=== PATIENT | female | born 1945 | race Caucasian/White ===

== ENCOUNTER 2016-08-09 20:37 | Inpatient (IN) | payer OTHER ==
[~2016-08-09] VITALS: Ht 162.6 cm; Wt 141.6 kg
[~2016-08-09 20:37] MED LIST: ALL180 PO; ATOR-22 PO; AZEL0.15 NAE; CHOL20009 PO; FLNIN NAE; FLUO20CA35 PO; GABA-112 PO; HYDR-5688 PO; LISI40TA PO; METF-841 PO; RANI300T2 PO; SYN125 PO
[2016-08-09] MEDS ORDERED: SODIUM CHLORIDE 0.9% 1000ML 1,000 ML IV STA (21:05)
[2016-08-09 21:26] LABS: BASO % 0.2 %; BASO ABS # 0.02 K/uL (0-0.2); EOS % 2.9 %; HEMATOCRIT 24.6 % (37-47); IG% 0.3 %; LYMPH % 10.6 %; LYMPH ABS # 1.05 K/uL (1.2-3.4); MEAN CORPUSCULAR HGB CONC 30.5 g/dl (32-36); MEAN PLATELET VOLUME 9.8 fL (7.4-10.4); MONO % 13.2 %; NEUT % 72.8 %; PLATELET COUNT 313 K/uL (130-400); WHITE BLOOD COUNT 9.92 K/uL (4.8-10.8)
[2016-08-09] MEDS ORDERED: FLUT0.15 NAE (21:45)
[2016-08-09] MEDS ORDERED: FEXO1TAB46 PO (21:45)
[2016-08-09] MEDS ORDERED: LEVO125T72 PO (21:45)
[2016-08-09 21:46] LABS: BUN/CREATININE RATIO 26.5 (10-20); CALCIUM 8.6 mg/dl (8.5-10.1); CREATININE 0.97 mg/dl (0.60-1.20); POTASSIUM 4.8 mmol/L (3.5-5.1)
[2016-08-09] MEDS ORDERED: TRMCR515 TOP (21:49)
[2016-08-09 22:09] LABS: INR 1.1 (0.9-1.1); PARTIAL THROMBOPLASTIN RATIO 0.9; PROTHROMBIN TIME (PATIENT) 11.6 SECONDS (9.0-12.0)
[2016-08-09] MEDS ORDERED: ASPEC81 PO (22:43)
[2016-08-09] MEDS ORDERED: PANTOprazole INJ 80 MG in DEXTROSE 5% 100ML IV STA (22:47)
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
[2016-08-09] MEDS ORDERED: DEXTROSE 50% 50 ML SYR IV PRN (23:00)
[2016-08-09] MEDS ORDERED: GLUCOSE 40% GEL 15 GM TUBE PO PRN (23:00)
[2016-08-09] MEDS ORDERED: OPTIRAY 320 IV PRN (23:00)
[2016-08-09] MEDS ORDERED: ONDANSETRON INJ 2 MG/ML 2 ML VIAL IV PRN (23:00)
[2016-08-09] MEDS ORDERED: GLUCAGON FOR INJ 1 MG VIAL SQ PRN (23:00)
[2016-08-09] MEDS ORDERED: GLUCOSE 10 TABS/TUBE PO PRN (23:00)
[2016-08-09] MEDS ORDERED: TRIAMCINOLONE ACET 0.5% CR 15 GM TUBE EXT PRN (23:00)
[2016-08-09] MEDS ORDERED: FLUTICASONE PROPIONATE NA SPR 16 GM BTL NAE PRN (23:00)
[2016-08-09] MEDS: PANTOprazole INJ 40 MG in DEXTROSE 5% 100ML IV SCH (23:02)
[2016-08-09 23:03] LABS: COMPLETE YES
[2016-08-09 23:09] LABS: FERRITIN 24.4 ng/ml (8.0-388.0)
[2016-08-09 23:10] VITALS: BP 156/64; PULSE 70; TEMP 36.8; O2SAT 97
[2016-08-09 23:25] VITALS: BP 162/84; PULSE 92; TEMP 36.9; O2SAT 92
[2016-08-09 23:55] VITALS: BP 162/79; PULSE 83; TEMP 36.9; O2SAT 92
[2016-08-10] VITALS (15 sets, daily range): BP systolic 135–169; BP diastolic 58–86; PULSE 64–81; TEMP 36.5–37; O2SAT 93–98; Ht 162.6 cm; Wt 141.6 kg
[2016-08-10] MEDS ORDERED: SODIUM CHLORIDE 0.9% 1000ML 1,000 ML IV SCH (00:30)
--- NOTE | 2016-08-10 01:34 | EMERGENCY ROOM VISIT NOTE ---
History Report prepared by Baylee: Alisia Pizarro Under the Supervision of: Dr. Mihir Hackett D.O. First contact with patient: 20:51 Chief Complaint: ABNORMAL LABS Stated Complaint: LOW HEMOGLOBIN 7- PHYSICIAN REFERRED History of Present Illness The patient is a 71 year old female who presents to the Emergency Room with complaints of an episode of abnormal labs beginning just [employer]IC[employer] REPA[employer]ER. The patient states that her doctor called her and told her that her hemoglobin is 7 and told her to come into the ED. She reports that she fell 1 week ago and she is diabetic and since then her sugar has stayed high around 199. She notes that she has lymphedema and a history of breast cancer. The patient complains of tiredness, shortness of breath, and burning with urination beginning 1 month ago. She denies any blood in stool, blood thinners, blood in urine, coughing blood, chest pain, abdominal pain, nausea, vomiting. 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 She denies any blood in stool, blood thinners, blood in urine, coughing blood. Review of Systems See HPI for pertinent positives & negatives. A total of 10 systems reviewed and were otherwise negative. Past Medical & Surgical Medical Problems: (1) Depression (2) Diabetes mellitus type II, controlled (3) Dyslipidemia (4) GI bleed (5) HTN (hypertension) (6) HX: breast cancer (7) Hypothyroidism Surgical Problems: (1) History of lumpectomy of right breast (2) History of tonsillectomy Family History No pertinent family history stated. Social History Smoking Status: Never Smoker Marital Status: Housing Status: lives with family Occupation Status: retired Current/Historical Medications Scheduled Aspirin (Aspirin EC Low Dose), 81 MG PO DAILY Atorvastatin (Lipitor), 20 MG PO HS Cholecalciferol (Vitamin D), 4,000 UNITS PO DAILY Fluoxetine (Prozac), 20 MG PO QAM Gabapentin (Neurontin), 100 MG PO TID Levothyroxine Sodium (Synthroid), 125 MCG PO DAILY Lisinopril (Zestril), 40 MG PO QAM Metformin HCl (Metformin HCl ER), 1 TAB PO BID Scheduled PRN Azelastine Hcl (Astepro), 2 SPRY JUVENTINO QPM PRN for Nasal Congestion Fexofenadine Hcl (Judith), 180 MG PO Q2D PRN for ALLERGIC REACTION Fluticasone Propionate (Nasal) (Flonase Allergy Relief), 2 SPRAYS JUVENTINO QAM PRN for Nasal Congestion Hydrocodone/Acetaminophen 5MG/325MG ([place] 5MG/325MG), 1 TABLET PO TID PRN for Pain Ranitidine (Zantac), 300 MG PO HS PRN for Indigestion Triamcinolone Acet (Triamcinolone Acetonide), 1 APPLN TOP BID PRN for dryness Allergies Coded Allergies: Cephalexin (Verified Allergy, Unknown, BURNING, NAUSEA, AND TROUBLE BREATHING, 02/27/16) Penicillins (Verified Allergy, Unknown, KIDNEY INFECTION, HIVES, 02/27/16) Sulfa Drugs (Verified Allergy, Unknown, NAUSEA AND TIRED, 02/27/16) Physical Exam Vital Signs Date Time Temp Pulse Resp B/P Pulse Ox O2 Delivery O2 Flow Rate FiO2 08/09/16 22:04 65 18 105/89 94 Room Air 08/09/16 21:32 69 18 122/73 94 Room Air 08/09/16 21:21 94 Room Air 08/09/16 21:09 72 08/09/16 20:46 36.9 77 20 170/71 92 Room Air Physical Exam GENERAL: sitting up in bed, morbidly obese, no distress EYE EXAM: normal conjunctiva OROPHARYNX: no exudate, no erythema, lips, buccal mucosa, and tongue normal and mucous membranes are moist NECK: supple, no nuchal rigidity, no adenopathy, non-tender LUNGS: Clear to auscultation. Normal chest wall mechanics HEART: no murmurs, S1 normal and S2 normal ABDOMEN: abdomen soft, non-tender, normo-active bowel sounds, no masses, no rebound or guarding. BACK: Back is symmetrical on inspection and there is no deformity, no midline tenderness, no CVA tenderness. SKIN: no rashes and no bruising UPPER EXTREMITIES: upper extremities are grossly normal. LOWER EXTREMITIES: No pitting edema. NEURO EXAM: Normal sensorium, cranial nerves II-XII grossly intact, normal speech, no gross weakness of arms, no gross weakness of legs. RECTAL: Heme positive. Medical Decision & Procedures Laboratory Results 08/09/16 21:00 Red Blood Count 3.00, Mean Corpuscular Volume 82.0, Mean Corpuscular Hemoglobin 25.0, Mean Corpuscular Hemoglobin Concent 30.5, Mean Platelet Volume 9.8, Neutrophils (%) (Auto) 72.8, Lymphocytes (%) (Auto) 10.6, Monocytes (%) (Auto) 13.2, Eosinophils (%) (Auto) 2.9, Basophils (%) (Auto) 0.2, Neutrophils # (Auto ) 7.22, Lymphocytes # (Auto) 1.05, Monocytes # (Auto) 1.31, Eosinophils # (Auto ) 0.29, Basophils # (Auto) 0.02 08/09/16 21:00 Test 08/09/16 21:00 08/09/16 21:51 White Blood Count 9.92 K/uL (4.8-10.8) Red Blood Count 3.00 M/uL (4.2-5.4) Hemoglobin 7.5 g/dL (12.0-16.0) Hematocrit 24.6 % (37-47) Mean Corpuscular Volume 82.0 fL (80-100) Mean Corpuscular Hemoglobin 25.0 pg (25-34) Mean Corpuscular Hemoglobin Concent 30.5 g/dl (32-36) Platelet Count 313 K/uL (130-400) Mean Platelet Volume 9.8 fL (7.4-10.4) Neutrophils (%) (Auto) 72.8 % Lymphocytes (%) (Auto) 10.6 % Monocytes (%) (Auto) 13.2 % Eosinophils (%) (Auto) 2.9 % Basophils (%) (Auto) 0.2 % Neutrophils # (Auto) 7.22 K/uL (1.4-6.5) Lymphocytes # (Auto) 1.05 K/uL (1.2-3.4) Monocytes # (Auto) 1.31 K/uL (0.11-0.59) Eosinophils # (Auto) 0.29 K/uL (0-0.5) Basophils # (Auto) 0.02 K/uL (0-0.2) RDW Standard Deviation 52.2 fL (36.4-46.3) RDW Coefficient of Variation 17.2 % (11.5-14.5) Immature Granulocyte % (Auto) 0.3 % Immature Granulocyte # (Auto) 0.03 K/uL (0.00-0.02) Red Blood Cell Morphology Unremarkable Anion Gap 10.0 mmol/L (3-11) Est Creatinine Clear Calc Drug Dose 71.9 ml/min Estimated GFR () 68.1 Estimated GFR (Non- 58.8 BUN/Creatinine Ratio 26.5 (10-20) Calcium Level 8.6 mg/dl (8.5-10.1) Iron Level 23 mcg/dl (35-150) Total Iron Binding Capacity 310 mcg/dl (250-450) Ferritin 24.4 ng/ml (8.0-388.0) Total Bilirubin 0.5 mg/dl (0.2-1) Direct Bilirubin 0.2 mg/dl (0-0.2) Aspartate Amino Transf (AST/SGOT) 24 U/L (15-37) Alanine Aminotransferase (ALT/SGPT) 25 U/L (12-78) Alkaline Phosphatase 94 U/L (45-117) Total Protein 7.9 gm/dl (6.4-8.2) Albumin 3.4 gm/dl (3.4-5.0) Lipase 158 U/L (73-393) Prothrombin Time 11.6 SECONDS (9.0-12.0) Prothromb Time International Ratio 1.1 (0.9-1.1) Activated Partial Thromboplast Time 22.5 SECONDS (21.0-31.0) Partial Thromboplastin Ratio 0.9 Laboratory results per my review. Medications Administered Medications (Trade) Dose Ordered Sig/Johan Route Start Time Stop Time Status Last Admin Dose Admin Sodium Chloride (Nss 1000ml) 1,000 ml @ 999 mls/hr Q1H1M STAT IV 08/09/16 21:05 08/09/16 22:05 DC 08/09/16 21:05 999 MLS/HR ECG Indication: other (labs) Rate (beats per minute): 68 Rhythm: sinus rhythm Findings: no ectopy, other (normal axis) ED Course ED COURSE: Vital signs were reviewed and showed hypertension The patients medical record was reviewed The above diagnostic studies were performed and reviewed. ED treatments and interventions as stated above. 2050: The patient was evaluated in room A3. A complete history and physical examination was performed. 2105: Sodium Chloride 1000 ml @ 999 mls/hr IV. 0001: I reviewed the patient's case with Dr. Serna. She will evaluate the patient for further management. 0012: Upon reevaluation, the patient is hemodynamically stable.I discussed my findings with the patient and she understands and agrees with the treatment plan. Based on the patients age, coexisting illnesses, exam and lab findings the decision to treat as an inpatient was made. The patient remained stable while under my care. The patient will be evaluated for further management. Medical Decision Differential diagnosis includes etiologies such as diverticulosis, AVM, coagulopathy, colitis, inflammatory bowel disease, malignancy, Shelbie-Sebastian tear, esophagitis, peptic ulcer disease, variceal bleed, gastritis, epistaxis, fissure, hemorrhoids, as well as others were entertained. Patient is a 71-year-old female who presents the ER for diffuse weakness and anemia referred in by primary care doctor. Hemoglobin is 7.5 down from baseline of 10. She has exertional shortness of breath and diffuse weakness. Rectal was heme positive. No blood thinners. Abdominal exam is benign. BMP along with LFTs, bilirubin and lipase was unremarkable. She is no abdominal pain. She is typed and crossed. I obtained the blood consent. She was given 1 unit of PRBCs while in the ER. Case is discussed with internal medicine and she was admitted for a further workup. Consults Time Called: 131 Consulting Physician: Dr. Kareem Parikh Returned Call: [phone] I reviewed the patient's case with Dr. Serna. She will evaluate the patient for further management. Impression Primary Impression: Symptomatic anemia Additional Impression: GI bleed Scribe Attestation The scribe's documentation has been prepared under my direction and personally reviewed by me in its entirety. I confirm that the note above accurately reflects all work, treatment, procedures, and medical decision making performed by me. Departure Information Dispostion Being Evaluated By Hospitalist Referrals Pito Watkins M.D. (MEDICAL) (PCP) Patient Instructions My [facility] Problem Qualifiers Additional Impression: GI bleed GI bleed type/associated pathology: unspecified gastrointestinal hemorrhage type Qualified Codes: K92.2 - Gastrointestinal hemorrhage, unspecified
[2016-08-10] MEDS: PANTOprazole INJ 40 MG in DEXTROSE 5% 100ML IV SCH ×4 (04:27→20:05)
[2016-08-10 06:13] LABS: HEMATOCRIT 24.2 % (37-47); MEAN CELL VOLUME 82.9 fL (80-100); MEAN CORPUSCULAR HEMOGLOBIN 25.3 pg (25-34); MEAN CORPUSCULAR HGB CONC 30.6 g/dl (32-36); MEAN PLATELET VOLUME 9.4 fL (7.4-10.4); PLATELET COUNT 255 K/uL (130-400); RED BLOOD COUNT 2.92 M/uL (4.2-5.4)
[2016-08-10] MEDS: INSULIN HUMAN REGULAR SC SCH ×4 (06:30→20:11)
[2016-08-10 06:38] LABS: ESTIMATED AVERAGE GLUCOSE 123 mg/dl; HA1C FLAG Normal (Normal)
--- NOTE | 2016-08-10 06:43 | DIAGNOSTIC IMAGING REPORT ---
ABDOMEN AND PELVIS CT WITH IV CONTRAST CT DOSE: 1918.51 mGy.cm HISTORY: Pain. Bleeding. r/o diverticular bleed TECHNIQUE: Multiaxial CT images of the abdomen and pelvis were performed following the use of intravenous contrast. COMPARISON STUDY: None. FINDINGS: Small right and to lesser extent left pleural effusion. Mild bronchovascular prominence at both lung bases. Mild cardiomegaly. Liver spleen and pancreas are unremarkable. Kidneys negative for hydronephrosis. Bowel pattern is considered nonobstructive. There are scattered colonic diverticuli. There is no evidence for diverticulitis. No evidence for gallbladder distention. IMPRESSION: 1. Small right and to lesser extent left pleural effusion. 2. Basilar pulmonary vascular congestion. 3. Mild cardiomegaly. 4. No acute processes the abdomen or pelvis Electronically signed by: Agustin Jean M.D. 08/10/2016 6:41 AM Dictated Date/Time: 08/10/2016 6:39 AM
[2016-08-10 06:45] LABS: BUN/CREATININE RATIO 29.8 (10-20); CALCIUM 8.2 mg/dl (8.5-10.1); CREATININE 0.76 mg/dl (0.60-1.20); POTASSIUM 4.6 mmol/L (3.5-5.1)
--- NOTE | 2016-08-10 08:30 | Gastrointestinal Consultation ---
Gastrointestinal Consultation Date of Consultation: Aug 10, 2016 Consulting Physician: Bony Reason for Consultation: anemia, ?melena History of Present Illness Patient is a 71 year old female w/ PMH significant of of T2DM, Hypothyroidism, anemia requiring transfusion, HTN, dyslipidemia, breast CA and lymphedema who presents to the ER at the request of her PCP for abnormal outpatient labs with a HGB of 7.5. Labs were ordered after she followed up with PCP because of a fall. She is symptomatic with SOB, fatigue and weakness. Pt is a poor historian. She had told earlier staff that there has been episodes of black stools. On my exam this morning she tells me she is passing her bowels normally. No black or bloody stools. No episodes of coffee ground emesis or hematemesis. No ETOH. No NSAIDs. Today, she denies fever, chills, chest pain, SOB (she is wearing O2), abdominal pain, black/bloody stools, nausea or vomiting. Denies past complications with anesthesia. Colonoscopy 02/29/16: One 6 mm polyp at the hepatic flexure. Resected and retrieved.Two 4 to 5 mm polyps in the transverse colon. Resected and retrieved. Mild diverticulosis in the sigmoid colon and in the descending colon. Internal hemorrhoids. The examination was otherwise normal Past Medical/Surgical History Medical Problems: (1) Symptomatic anemia Status: Acute Past Medical History: anemia, T2DM, Hypothyroidism, HTN, dyslipidemia, breast CA and lymphedema Social History Smoking Status: Never Smoker Drug Use: none Marital Status: Housing Status: lives with family Occupation Status: retired Allergies Coded Allergies: Cephalexin (Verified Allergy, Unknown, BURNING, NAUSEA, AND TROUBLE BREATHING, 02/27/16) Penicillins (Verified Allergy, Unknown, KIDNEY INFECTION, HIVES, 02/27/16) Sulfa Drugs (Verified Allergy, Unknown, NAUSEA AND TIRED, 02/27/16) Current Medications Home Meds and Scripts Medications Dose Route/Sig Max Daily Dose Days Date Category Dose Instructions Aspirin EC Low Dose (Aspirin) 81 Mg Ectab 81 Mg PO DAILY 08/09/16 Reported Triamcinolone Acetonide (Triamcinolone Acet) 45 Appln/15 Gm Cr 1 Appln TOP BID PRN 30 08/09/16 Reported Judith (Fexofenadine Hcl) 180 Mg Tab 180 Mg PO Q2D PRN 08/09/16 Reported Synthroid (Levothyroxine Sodium) 125 Mcg Tab 125 Mcg PO DAILY 08/09/16 Reported Flonase Allergy Relief (Fluticasone Propionate (Nasal)) 50 Mcg/Act Spr 2 Sprays JUVENTINO QAM PRN 08/09/16 Reported Lipitor (Atorvastatin Calcium) 20 Mg Tab 20 Mg PO HS 02/27/16 Reported Vitamin D (Cholecalciferol) 2,000 Unit Tab 4,000 Units PO DAILY 02/27/16 Reported Prozac (Fluoxetine HCl) 20 Mg Cap 20 Mg PO QAM 02/27/16 Reported [place] 5MG/325MG (Acetaminophen/Hydrocodone Bitart) Tab 1 Tablet PO TID PRN 02/27/16 Reported PRN PAIN Neurontin (Gabapentin) 100 Mg Cap 100 Mg PO TID 02/27/16 Reported Astepro (Azelastine Hcl) 0.15 % Spr 2 Rover JUVENTINO QPM PRN 02/27/16 Reported Zestril (Lisinopril) 40 Mg Tab 40 Mg PO QAM 02/27/16 Reported Metformin HCl ER (Metformin HCl) 1,000 Mg Tab 1 Tab PO BID 02/27/16 Reported Zantac (Ranitidine HCl) 300 Mg Tab 300 Mg PO HS PRN 05/23/09 Reported Review of Systems Constitutional: No chills, No fever Respiratory: No cough, No shortness of breath Cardiac: No chest pain, No edema Abdomen: No GI bleeding, No constipation, No diarrhea, No nausea, No pain, No vomiting Neuro: No numbness/tingling Endo: + fatigue Skin: No bleeding Physical Exam Date Time Temp Pulse Resp B/P Pulse Ox O2 Delivery O2 Flow Rate FiO2 08/10/16 07:50 36.6 66 16 162/65 95 Nasal Cannula 2.0 08/10/16 07:36 36.6 66 18 162/65 08/10/16 04:32 36.6 64 18 160/79 98 Nasal Cannula 2.0 08/10/16 04:00 93 Nasal Cannula 2.0 08/10/16 01:11 36.6 74 18 169/76 93 Nasal Cannula 2.0 08/10/16 01:00 36.6 69 20 142/58 94 08/10/16 00:21 36.6 74 18 169/76 93 08/09/16 23:55 36.9 83 22 162/79 92 2.0 08/09/16 23:25 36.9 92 20 162/84 92 2.0 08/09/16 23:10 36.8 70 20 156/64 97 2.0 08/09/16 22:46 98 Nasal Cannula 2.0 08/09/16 22:45 65 18 87 Room Air 08/09/16 22:04 65 18 105/89 94 Room Air 08/09/16 21:32 69 18 122/73 94 Room Air 08/09/16 21:21 94 Room Air 08/09/16 21:09 72 08/09/16 20:46 36.9 77 20 170/71 92 Room Air General Appearance: no apparent distress Eyes: normal inspection ENT: hearing grossly normal Neck: supple, trachea midline Respiratory/Chest: lungs clear, no respiratory distress, no accessory muscle use, + decreased breath sounds (decreased at bases), + pertinent finding (she is wearing O2) Cardiovascular: regular rate, rhythm, no gallop, no JVD Abdomen: normal bowel sounds, non tender, soft, no organomegaly, no pulsatile mass Neurologic/Psych: alert (pt is delayed in answering questions), normal mood/ affect, oriented x 3, + pertinent finding (lymphadema) Skin: normal color, no jaundice, warm/dry, no rash Laboratory Results Last 24 Hours Test 08/09/16 21:00 08/09/16 21:51 08/10/16 05:50 White Blood Count 9.92 K/uL 7.80 K/uL Red Blood Count 3.00 M/uL 2.92 M/uL Hemoglobin 7.5 g/dL 7.4 g/dL Hematocrit 24.6 % 24.2 % Mean Corpuscular Volume 82.0 fL 82.9 fL Mean Corpuscular Hemoglobin 25.0 pg 25.3 pg Mean Corpuscular Hemoglobin Concent 30.5 g/dl 30.6 g/dl Platelet Count 313 K/uL 255 K/uL Mean Platelet Volume 9.8 fL 9.4 fL Neutrophils (%) (Auto) 72.8 % Lymphocytes (%) (Auto) 10.6 % Monocytes (%) (Auto) 13.2 % Eosinophils (%) (Auto) 2.9 % Basophils (%) (Auto) 0.2 % Neutrophils # (Auto) 7.22 K/uL Lymphocytes # (Auto) 1.05 K/uL Monocytes # (Auto) 1.31 K/uL Eosinophils # (Auto) 0.29 K/uL Basophils # (Auto) 0.02 K/uL RDW Standard Deviation 52.2 fL 51.1 fL RDW Coefficient of Variation 17.2 % 16.8 % Immature Granulocyte % (Auto) 0.3 % Immature Granulocyte # (Auto) 0.03 K/uL Red Blood Cell Morphology Unremarkable Sodium Level 139 mmol/L 142 mmol/L Potassium Level 4.8 mmol/L 4.6 mmol/L Chloride Level 105 mmol/L 107 mmol/L Carbon Dioxide Level 24 mmol/L 29 mmol/L Anion Gap 10.0 mmol/L 6.0 mmol/L Blood Urea Nitrogen 26 mg/dl 23 mg/dl Creatinine 0.97 mg/dl 0.76 mg/dl Est Creatinine Clear Calc Drug Dose 71.9 ml/min 98.2 ml/min Estimated GFR () 68.1 91.5 Estimated GFR (Non- 58.8 78.9 BUN/Creatinine Ratio 26.5 29.8 Random Glucose 117 mg/dl 107 mg/dl Calcium Level 8.6 mg/dl 8.2 mg/dl Iron Level 23 mcg/dl Total Iron Binding Capacity 310 mcg/dl Ferritin 24.4 ng/ml Total Bilirubin 0.5 mg/dl Direct Bilirubin 0.2 mg/dl Aspartate Amino Transf (AST/SGOT) 24 U/L Alanine Aminotransferase (ALT/SGPT) 25 U/L Alkaline Phosphatase 94 U/L Total Protein 7.9 gm/dl Albumin 3.4 gm/dl Lipase 158 U/L Prothrombin Time 11.6 SECONDS Prothromb Time International Ratio 1.1 Activated Partial Thromboplast Time 22.5 SECONDS Partial Thromboplastin Ratio 0.9 Estimated Average Glucose 123 mg/dl Hemoglobin A1c 5.9 % Magnesium Level 2.0 mg/dl Impression Patient is a 71 year old female with symptomatic anemia with a hemoglobin of 7.5 who has heme + stools in the ED and ? history of melena. She has recieved one unit of blood. VSS. Most recent colonoscopy was in February. We will proceed with EGD for evaluation of upper GI source of bleeding. Plan NPO EGD PPI drip Trend H&H Transfuse as needed Monitor stools I saw and evalauted the patient. She presented with anemia and a question of melena (patient notes brown stool today). She has had a recent colonoscopy for Heme + stool and recently had an OP CBC noted for a newly identified anemia. PE : obese / NAD Impression: patient with anemia, negative recent colonoscopy. EGD requested for further evaluation. Plan EGD today Obtain iron studies
[2016-08-10 10:07] LABS: URINE APPEARANCE CLEAR (CLEAR); URINE BILIRUBIN NEG (NEG); URINE COLOR YELLOW; URINE EPITHELIAL CELL AUTO >30 /lpf (0-5); URINE NITRITE POS (NEG); URINE SPECIFIC GRAVITY 1.026 (1.000-1.030); UROBILINOGEN NEG (NEG); ZZUR CULT IF INDIC CLEAN CATCH YES
[2016-08-10 10:08] LABS: MANUAL MICROSCOPIC REQUIRED? NO; REVIEW REQ? NO
[2016-08-10] MEDS ORDERED: FUROSEMIDE INJ 40 MG in SYRINGE 0 ML IV SCH (10:45)
[2016-08-10] MEDS ORDERED: FUROSEMIDE 40 MG/4 ML VIAL ONE (11:26)
[2016-08-10] MEDS ORDERED: NURSING VERBAL MED ORDER ONE (11:30)
[2016-08-10] MEDS: SODIUM CHLORIDE 0.9% 1000ML 1,000 ML IV SCH (11:41)
[2016-08-10] MEDS ORDERED: EpHEDrine SULFATE INJ 50 MG/ML AMP IV PRN (12:30)
[2016-08-10] MEDS ORDERED: ATROPINE SULFATE 0.1 MG/ML 5ML SYR IV PRN (12:30)
[2016-08-10] MEDS ORDERED: MIDAZOLAM HCL 1 MG/ML 2ML VIAL ONE (12:30)
--- NOTE | 2016-08-10 12:42 | GI REPORT ---
Procedure Date: 08/10/2016 12:23 PM Procedure: Upper GI endoscopy Indications: Iron deficiency anemia Medicines: Monitored Anesthesia Care Complications: No immediate complications. Estimated blood loss: Minimal. Estimated Blood Loss: Estimated blood loss was minimal. Procedure: Pre-Anesthesia Assessment: - Prior to the procedure, a History and Physical was performed, and patient medications, allergies and sensitivities were reviewed. The patient's tolerance of previous anesthesia was reviewed. - The risks and benefits of the procedure and the sedation options and risks were discussed with the patient. All questions were answered and informed consent was obtained. - Patient identification and proposed procedure were verified prior to the procedure by the physician, the nurse and the price analyst. The procedure was verified in the pre-procedure area in the procedure room. - Pre-procedure physical examination revealed no contraindications to sedation. - ASA Grade Assessment: IV - A patient with severe systemic disease that is a constant threat to life. - After reviewing the risks and benefits, the patient was deemed in satisfactory condition to undergo the procedure. - The anesthesia plan was to use monitored anesthesia care (MAC). - Immediately prior to administration of medications, the patient was re-assessed for adequacy to receive sedatives. - The heart rate, respiratory rate, oxygen saturations, blood pressure, adequacy of pulmonary ventilation, and response to care were monitored throughout the procedure. - The physical status of the patient was re-assessed after the procedure. After obtaining informed consent, the endoscope was passed under direct vision. Throughout the procedure, the patient's blood pressure, pulse, and oxygen saturations were monitored continuously. The scope was introduced through the mouth, and advanced to the third part of duodenum. The upper GI endoscopy was accomplished without difficulty. The patient tolerated the procedure well. Findings: The examined esophagus was normal. The entire examined stomach was normal. The examined duodenum was normal. Biopsies for histology were taken with a cold forceps for evaluation of celiac disease. Estimated blood loss was minimal. Impression: - Normal esophagus. - Normal stomach. - Normal examined duodenum. Biopsied. Recommendation: - [facility] patient to [facility] for [facility] care. - Advance diet as tolerated. - Would suggest useo of an Iron supplement 2 times daily for 6 to 8 weeks then 1 time daily thereafter. - CBC in 1-2 weeks with PCM - Consider sending stool for hemocult, Wireless capsule endoscopy if positive. Magali Lovett D.O. Magali Lovett DO 08/10/2016 12:42:01 PM This report has been signed electronically. Note Initiated On: 08/10/2016 12:23 PM I attest to the content of the Intraoperative Record and orders documented therein, exceptions below
[2016-08-10] MEDS ORDERED: PROPOFOL IV EMULSION 10 MG/ML 20 ML VIAL IV ONE (12:44)
[2016-08-10] MEDS ORDERED: LIDOCAINE HCL 2% 2 ML VIAL (20MG/ML) ONE (12:44)
[2016-08-10] MEDS ORDERED: BENZOCAIN/TETRACA/BUTAM SPRAY 200 APPLN/20 GM SPRY ONE (12:44)
--- NOTE | 2016-08-10 12:47 | Progress Note ---
Progress Note Date of Service Aug 10, 2016. Progress Note EGD results Normal upper digestive tract duodenal biopseis obtained REcomendations: consider sending stool for hemocult (if positive would suggest a Wireless Capsule Endoscopy) Advance diet as tolerated Consider use of an iron supplement (BID for 8 weeks then 1 time daily) CBD in 2 weeks with her PCM GI to sign off
--- NOTE | 2016-08-10 13:00 | Anesthesiology Progress Note ---
Anesthesia Post Op Note Date & Time Aug 10, 2016 at 12:59 Vital Signs Pain Intensity: 0.0 Vital Signs Past 12 Hours Date Time Temp Pulse Resp B/P Pulse Ox O2 Delivery O2 Flow Rate FiO2 08/10/16 11:55 Nasal Cannula 2.0 08/10/16 11:45 36.7 78 20 165/108 92 Nasal Cannula 2 08/10/16 09:15 36.7 73 20 135/86 08/10/16 08:45 36.6 76 20 141/85 08/10/16 08:15 36.6 81 20 147/82 08/10/16 08:00 Nasal Cannula 2.0 08/10/16 08:00 36.5 75 20 167/85 08/10/16 07:50 36.6 66 16 162/65 95 Nasal Cannula 2.0 08/10/16 07:45 36.6 66 18 162/65 08/10/16 07:36 36.6 66 18 162/65 08/10/16 04:32 36.6 64 18 160/79 98 Nasal Cannula 2.0 08/10/16 04:00 93 Nasal Cannula 2.0 08/10/16 01:11 36.6 74 18 169/76 93 Nasal Cannula 2.0 08/10/16 01:00 36.6 69 20 142/58 94 Notes Mental Status: alert / awake / arousable, participated in evaluation Pt Amnestic to Procedure: Yes Nausea / Vomiting: adequately controlled Pain: adequately controlled Airway Patency, RR, SpO2: stable & adequate BP & HR: stable & adequate Hydration State: stable & adequate Anesthetic Complications: no major complications apparent
[2016-08-10 14:58] LABS: HEMATOCRIT 27.7 % (37-47)
--- NOTE | 2016-08-10 15:36 | Progress Note ---
Internal Med Progress Note Date of Service: Aug 10, 2016. Provider Documentation: SUBJECTIVE: The patient was seen and examined Admitted with symptomatic Anemia Denies any Hematemesis and or Melena OBJECTIVE: Vital Signs-as noted below Exam: General-no acute distress at rest Eyes-normal ENT-normal Neck-supple Lungs-clear to asucultate bilaterally Heart-regular no murmur Abdomen-Distended,soft,nontender Extremities-Chronic edema bilaterally Neuro-[id number] Lab data as noted below. ASSESSMENT & PLAN: GI BLEED Not sure if it is upper or lower GI pt presented with low hemoglobin on outpatient labs -no recent abx or NSAIDs -colonoscopy Feb 2016 + diverticulosis in the sigmoid and descending colon as well as internal hemorrhoids -received 2 units of PRBC -continue to monitor with H&H q 8h -obtain CT abd/pelvis to evaluate for diverticulitis -hold ASA -start IVF and Protonix drip -appreciate GI input -EGD today DM 2 -A1C 5.2 -hold metformin -start ISS -monitor BSG AC HS HYPOTHYROIDISM -continue Supplement HTN -BP stable -continue current medications DVT PROPHYLAXIS -SCDs only in setting of GI bleed CODE STATUS -FULL CODE status per discussion with patient upon admission DISPO Awaited Vital Signs: Date Time Temp Pulse Resp B/P Pulse Ox O2 Delivery O2 Flow Rate FiO2 08/10/16 13:15 55 20 139/61 96 Nasal Cannula 2 08/10/16 13:00 62 20 135/63 96 Nasal Cannula 2 08/10/16 12:45 66 20 138/51 96 Nasal Cannula 2 08/10/16 11:55 Nasal Cannula 2.0 08/10/16 11:45 36.7 78 20 165/108 92 Nasal Cannula 2 08/10/16 09:15 36.7 73 20 135/86 08/10/16 08:45 36.6 76 20 141/85 08/10/16 08:15 36.6 81 20 147/82 08/10/16 08:00 Nasal Cannula 2.0 08/10/16 08:00 36.5 75 20 167/85 08/10/16 07:50 36.6 66 16 162/65 95 Nasal Cannula 2.0 08/10/16 07:45 36.6 66 18 162/65 08/10/16 07:36 36.6 66 18 162/65 08/10/16 04:32 36.6 64 18 160/79 98 Nasal Cannula 2.0 08/10/16 04:00 93 Nasal Cannula 2.0 08/10/16 01:11 36.6 74 18 169/76 93 Nasal Cannula 2.0 08/10/16 01:00 36.6 69 20 142/58 94 08/10/16 00:21 36.6 74 18 169/76 93 08/09/16 23:55 36.9 83 22 162/79 92 2.0 08/09/16 23:25 36.9 92 20 162/84 92 2.0 08/09/16 23:10 36.8 70 20 156/64 97 2.0 08/09/16 22:46 98 Nasal Cannula 2.0 08/09/16 22:45 65 18 87 Room Air 08/09/16 22:04 65 18 105/89 94 Room Air 08/09/16 21:32 69 18 122/73 94 Room Air 08/09/16 21:21 94 Room Air 08/09/16 21:09 72 08/09/16 20:46 36.9 77 20 170/71 92 Room Air Lab Results: Results Past 24 Hours Test 08/09/16 21:00 08/09/16 21:51 08/10/16 05:50 08/10/16 09:15 Range/Units White Blood Count 9.92 7.80 4.8-10.8 K/uL Red Blood Count 3.00 2.92 4.2-5.4 M/uL Hemoglobin 7.5 7.4 12.0-16.0 g/dL Hematocrit 24.6 24.2 37-47 % Mean Corpuscular Volume 82.0 82.9 80-100 fL Mean Corpuscular Hemoglobin 25.0 25.3 25-34 pg Mean Corpuscular Hemoglobin Concent 30.5 30.6 32-36 g/dl Platelet Count 313 255 130-400 K/uL Mean Platelet Volume 9.8 9.4 7.4-10.4 fL Neutrophils (%) (Auto) 72.8 % Lymphocytes (%) (Auto) 10.6 % Monocytes (%) (Auto) 13.2 % Eosinophils (%) (Auto) 2.9 % Basophils (%) (Auto) 0.2 % Neutrophils # (Auto) 7.22 1.4-6.5 K/uL Lymphocytes # (Auto) 1.05 1.2-3.4 K/uL Monocytes # (Auto) 1.31 0.11-0.59 K/uL Eosinophils # (Auto) 0.29 0-0.5 K/uL Basophils # (Auto) 0.02 0-0.2 K/uL RDW Standard Deviation 52.2 51.1 36.4-46.3 fL RDW Coefficient of Variation 17.2 16.8 11.5-14.5 % Immature Granulocyte % (Auto) 0.3 % Immature Granulocyte # (Auto) 0.03 0.00-0.02 K/uL Red Blood Cell Morphology Unremarkable Sodium Level 139 142 136-145 mmol/L Potassium Level 4.8 4.6 3.5-5.1 mmol/L Chloride Level 105 107 98-107 mmol/L Carbon Dioxide Level 24 29 21-32 mmol/L Anion Gap 10.0 6.0 3-11 mmol/L Blood Urea Nitrogen 26 23 7-18 mg/dl Creatinine 0.97 0.76 0.60-1.20 mg/dl Est Creatinine Clear Calc Drug Dose 71.9 98.2 ml/min Estimated GFR () 68.1 91.5 Estimated GFR (Non- 58.8 78.9 BUN/Creatinine Ratio 26.5 29.8 10-20 Random Glucose 117 107 70-99 mg/dl Calcium Level 8.6 8.2 8.5-10.1 mg/dl Iron Level 23 35-150 mcg/dl Total Iron Binding Capacity 310 250-450 mcg/dl Ferritin 24.4 8.0-388.0 ng/ml Total Bilirubin 0.5 0.2-1 mg/dl Direct Bilirubin 0.2 0-0.2 mg/dl Aspartate Amino Transf (AST/SGOT) 24 15-37 U/L Alanine Aminotransferase (ALT/SGPT) 25 12-78 U/L Alkaline Phosphatase 94 45-117 U/L Total Protein 7.9 6.4-8.2 gm/dl Albumin 3.4 3.4-5.0 gm/dl Lipase 158 73-393 U/L Prothrombin Time 11.6 9.0-12.0 SECONDS Prothromb Time International Ratio 1.1 0.9-1.1 Activated Partial Thromboplast Time 22.5 21.0-31.0 SECONDS Partial Thromboplastin Ratio 0.9 Estimated Average Glucose 123 mg/dl Hemoglobin A1c 5.9 4.5-5.6 % Magnesium Level 2.0 1.8-2.4 mg/dl Bedside Glucose 129 70-90 mg/dl Test 08/10/16 09:45 08/10/16 11:25 08/10/16 14:33 Range/Units Urine Color YELLOW Urine Appearance CLEAR CLEAR Urine pH 5.0 4.5-7.5 Urine Specific Shushan 1.026 1.000-1.030 Urine Protein 1+ NEG Urine Glucose (UA) NEG NEG Urine Ketones NEG NEG Urine Occult Blood NEG NEG Urine Nitrite POS NEG Urine Bilirubin NEG NEG Urine Urobilinogen NEG NEG Urine Leukocyte Esterase TRACE NEG Urine WBC (Auto) 1-5 0-5 /hpf Urine RBC (Auto) 0-4 0-4 /hpf Urine Hyaline Casts (Auto) 1-5 0-5 /lpf Urine Epithelial Cells (Auto) >30 0-5 /lpf Urine Bacteria (Auto) 4+ NEG Bedside Glucose 122 70-90 mg/dl Hemoglobin 8.8 12.0-16.0 g/dL Hematocrit 27.7 37-47 % Microbiology Results 08/10/16 Urine Culture, Received Pending
[2016-08-10 22:36] LABS: HEMATOCRIT 26.4 % (37-47)
[2016-08-11] MEDS: PANTOprazole INJ 40 MG in DEXTROSE 5% 100ML IV SCH ×3 (00:44→09:43)
[2016-08-11 04:10] VITALS: BP 144/72; PULSE 68; TEMP 36.5; O2SAT 96
[2016-08-11] MEDS: INSULIN HUMAN REGULAR SC SCH ×2 (06:30→11:00)
[2016-08-11 06:32] LABS: HEMATOCRIT 27.9 % (37-47); MEAN CELL VOLUME 83.3 fL (80-100); MEAN CORPUSCULAR HGB CONC 31.2 g/dl (32-36); MEAN PLATELET VOLUME 9.7 fL (7.4-10.4); PLATELET COUNT 240 K/uL (130-400); RED BLOOD COUNT 3.35 M/uL (4.2-5.4); WHITE BLOOD COUNT 9.25 K/uL (4.8-10.8)
[2016-08-11 07:08] LABS: BUN/CREATININE RATIO 20.7 (10-20); CALCIUM 8.7 mg/dl (8.5-10.1); CREATININE 0.78 mg/dl (0.60-1.20); MAGNESIUM 1.9 mg/dl (1.8-2.4); POTASSIUM 4.3 mmol/L (3.5-5.1)
[2016-08-11] MEDS: SODIUM CHLORIDE 0.9% 1000ML 1,000 ML IV SCH (07:34)
[2016-08-11 07:55] VITALS: BP 169/87; PULSE 65; TEMP 36.4; O2SAT 92
[2016-08-11 08:00] VITALS: O2SAT 92
[2016-08-11] MEDS ORDERED: CIPROFLOXACIN 500 MG TAB PO ONE (10:45)
--- NOTE | 2016-08-11 11:51 | Progress Note ---
Internal Med Progress Note Date of Service: Aug 11, 2016. Provider Documentation: SUBJECTIVE: The patient was seen and examined Admitted with symptomatic Anemia Denies any Hematemesis and or Melena S/P Negative EGD S/P 2 units of PRBC Denies any symptoms and wants to go home OBJECTIVE: Vital Signs-as noted below Exam: General-no acute distress at rest Eyes-normal ENT-normal Neck-supple Lungs-clear to auscultate bilaterally Heart-regular no murmur Abdomen-Distended,soft,nontender Extremities-Chronic edema bilaterally Has Lymphedema Neuro-aaoX3 Lab data as noted below. ASSESSMENT & PLAN: GI BLEED Not sure if it is upper or lower GI pt presented with low hemoglobin on outpatient labs -no recent abx or NSAIDs -colonoscopy Feb 2016 + diverticulosis in the sigmoid and descending colon as well as internal hemorrhoids -received 2 units of PRBC -continue to monitor with H&H q 8h -obtain CT abd/pelvis to evaluate for diverticulitis -hold ASA -start IVF and Protonix drip -appreciate GI input -EGD on 08/10/16-No acute bleeding area Hb >8 following 2 units of PRBC Likely discharge today UTI Has incontinence No dysuria C/S -E Coli Will start Cipro x5 days DM 2 -A1C 5.2 -hold metformin -start ISS -monitor BSG AC HS HYPOTHYROIDISM -continue Supplement HTN -BP stable -continue current medications DVT PROPHYLAXIS -SCDs only in setting of GI bleed CODE STATUS -FULL CODE status per discussion with patient upon admission DISPO Discussed with the Daughter Will discharge today Vital Signs: Date Time Temp Pulse Resp B/P Pulse Ox O2 Delivery O2 Flow Rate FiO2 08/11/16 08:00 92 Nasal Cannula 2.0 08/11/16 07:55 36.4 65 18 169/87 92 Nasal Cannula 2.0 08/11/16 04:10 36.5 68 18 144/72 96 Nasal Cannula 2.0 08/11/16 04:05 Nasal Cannula 2.0 08/11/16 00:05 Nasal Cannula 2.0 08/10/16 23:21 37.0 66 18 157/60 98 Nasal Cannula 2.0 08/10/16 20:05 Nasal Cannula 2.0 08/10/16 19:50 36.6 70 20 149/69 94 Nasal Cannula 2.0 08/10/16 16:00 Nasal Cannula 2.0 08/10/16 15:42 36.9 65 20 146/65 97 08/10/16 13:15 55 20 139/61 96 Nasal Cannula 2 08/10/16 13:00 62 20 135/63 96 Nasal Cannula 2 08/10/16 12:45 66 20 138/51 96 Nasal Cannula 2 08/10/16 11:55 Nasal Cannula 2.0 Lab Results: Results Past 24 Hours Test 08/10/16 14:33 08/10/16 16:35 08/10/16 20:07 08/10/16 22:15 Range/Units Hemoglobin 8.8 8.3 12.0-16.0 g/dL Hematocrit 27.7 26.4 37-47 % Bedside Glucose 156 176 70-90 mg/dl Test 08/11/16 00:27 08/11/16 06:08 08/11/16 07:38 Range/Units Bedside Glucose 119 132 70-90 mg/dl White Blood Count 9.25 4.8-10.8 K/uL Red Blood Count 3.35 4.2-5.4 M/uL Hemoglobin 8.7 12.0-16.0 g/dL Hematocrit 27.9 37-47 % Mean Corpuscular Volume 83.3 80-100 fL Mean Corpuscular Hemoglobin 26.0 25-34 pg Mean Corpuscular Hemoglobin Concent 31.2 32-36 g/dl RDW Standard Deviation 51.0 36.4-46.3 fL RDW Coefficient of Variation 16.6 11.5-14.5 % Platelet Count 240 130-400 K/uL Mean Platelet Volume 9.7 7.4-10.4 fL Sodium Level 142 136-145 mmol/L Potassium Level 4.3 3.5-5.1 mmol/L Chloride Level 105 98-107 mmol/L Carbon Dioxide Level 31 21-32 mmol/L Anion Gap 6.0 3-11 mmol/L Blood Urea Nitrogen 16 7-18 mg/dl Creatinine 0.78 0.60-1.20 mg/dl Est Creatinine Clear Calc Drug Dose 93.4 ml/min Estimated GFR () 88.6 Estimated GFR (Non- 76.5 BUN/Creatinine Ratio 20.7 10-20 Random Glucose 117 70-99 mg/dl Calcium Level 8.7 8.5-10.1 mg/dl Magnesium Level 1.9 1.8-2.4 mg/dl
[2016-08-11 12:05] VITALS: BP 168/66; PULSE 68; TEMP 37.2; O2SAT 92
[2016-08-11] MEDS ORDERED: LCTX PO (12:40)
[2016-08-11] MEDS ORDERED: CPR500 PO (12:40)
[2016-08-11] MEDS ORDERED: FERR1TAB23 PO (12:40)
--- NOTE | 2016-08-11 12:42 | Discharge Instructions ---
Discharge Instructions Date of Service Aug 11, 2016. Admission Reason for Admission: Gi Bleed Discharge Discharge Diagnosis / Problem: Symptomatic Anemia,S/P 2 units PRBC,Negative EGD ,UTI Discharge Goals Goal(s): Prevent Disease Progression Activity Recommendations Activity Limitations: resume your previous activity . Instructions / Follow-Up Instructions / Follow-Up Will call with appointment Current Hospital Diet Patient's current hospital diet: Diabetes Type 2 Diet Discharge Diet Recommended Diet: Diabetes Type 2 Diet Procedures Procedures Performed: EGD WITH BX Pending Studies Studies pending at discharge: no Laboratory Results Hemoglobin A1c Test 08/10/16 05:50 Range/Units Estimated Average Glucose 123 mg/dl Hemoglobin A1c 5.9 H 4.5-5.6 % Medical Emergencies . Who to Call and When: Medical Emergencies: If at any time you feel your situation is an emergency, please call 911 immediately. . Non-Emergent Contact Non-Emergency issues call your: Primary Care Provider . . "Provider Documentation" section prepared by Juan J Siu. VTE Core Measure Inpt VTE Proph given/why not?: SCD's
[2016-08-11 12:53] VITALS: BP 168/66; PULSE 68; TEMP 37.2; O2SAT 92
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
[2016-08-11] MEDS ORDERED: CIPROFLOXACIN 500 MG TAB PO SCH (21:00)
== END 2016-08-11 13:07 | disposition home or self-care (01) | DRG 378 ==
LOC: ENRESERVDT → ENRESERVTM → C.EDB 20:39 → C.MED 22:40
PROVIDERS: ADMIT Hospitalist; ATTEND Internal Medicine
PROC: 0DB98ZX Excision of Duodenum, Via Natural or Artificial Opening Endoscopic, Diagnostic (ICD-10-PCS; principal; 2016-08-10 11:41)
DX: K62.5 Hemorrhage of anus and rectum (principal); N39.0 Urinary tract infection, site not specified; K57.92 Diverticulitis of intestine, part unspecified, without perforation or abscess without bleeding; E11.9 Type 2 diabetes mellitus without complications; E03.9 Hypothyroidism, unspecified; I10 Essential (primary) hypertension; E78.5 Hyperlipidemia, unspecified; I89.0 Lymphedema, not elsewhere classified; F32.9 Major depressive disorder, single episode, unspecified; K64.8 Other hemorrhoids; D50.0 Iron deficiency anemia secondary to blood loss (chronic); I95.9 Hypotension, unspecified; Z79.82 Long term (current) use of aspirin; Z85.3 Personal history of malignant neoplasm of breast

== ENCOUNTER → 2016-08-15 | Outpatient (CLI) | payer OTHER ==
[~2016-08-15] MED LIST changes: -ALL180 PO; +ASPEC81 PO; +CPR500 PO; +FERR1TAB23 PO; +FEXO1TAB46 PO; -FLNIN NAE; +FLUT0.15 NAE; +LCTX PO; +LEVO125T72 PO; -SYN125 PO; +TRMCR515 TOP
--- NOTE | 2016-08-16 15:02 | MAMMOGRAPHY REPORT ---
BILATERAL DIGITAL SCREENING MAMMOGRAM TOMOSYNTHESIS WITH CAD: 08/15/2016 CLINICAL HISTORY: Asymptomatic. Personal history of breast cancer. TECHNIQUE: Breast tomosynthesis in addition to standard 2D mammography was performed. Current study was also evaluated with a Computer Aided Detection (CAD) system. COMPARISON: Comparison is made to exams dated: 07/25/2015 mammogram, 07/20/2014 mammogram, 07/08/2013 m ammogram, 07/07/2012 mammogram, 07/02/2011 mammogram, and 06/29/2010 mammogram - [facility] enter. BREAST COMPOSITION: The tissue of both breasts is heterogeneously dense, which may obscure small ma sses. FINDINGS: There are grouped calcifications seen within the left central breast posteriorly, for whi ch spot magnification views are recommended for further evaluation. The remainder of both breasts are stable compared to prior exams, without suspicious masses, calcifi cations, or areas of architectural distortion noted. There are stable postsurgical changes in the r ight upper outer quadrant from prior lumpectomy, including stable density, architectural distortion, and surgical clips at the lumpectomy bed. Other bilateral benign-appearing calcifications are not significantly changed. Note that the images are somewhat suboptimal due to difficulties with positi oning the patient. IMPRESSION: ACR BI-RADS CATEGORY 0: INCOMPLETE EVALUATION: NEED ADDITIONAL IMAGING EVALUATION Left breast calcifications, for which additional imaging evaluation is recommended. The patient ac l be called to schedule an appointment. Approximately 10% of breast cancers are not detected with mammography. A negative mammographic repor t should not delay biopsy if a clinically suggestive mass is present. Latisha Estrada M.D. ah/:08/15/2016 16:58:27 Attending Technologist: Sarah Jackson RT(R)(M), [facility] Informatics Consultant: Baylee Batista RT(R)(M), [facility] letter sent: Addl Imaging 0 BI-RADS Code: ACR BI-RADS Category 0: Incomplete Evaluation: Need Additional Imaging Evaluation
== END | disposition home or self-care (01) ==
LOC: C.MAMM 10:32
PROVIDERS: ATTEND Family Medicine
DX: Z12.31 Encounter for screening mammogram for malignant neoplasm of breast (principal); Z85.3 Personal history of malignant neoplasm of breast

== ENCOUNTER → 2016-10-24 | Outpatient (CLI) | payer OTHER ==
--- NOTE | 2016-10-24 14:48 | MAMMOGRAPHY REPORT ---
UNILATERAL LEFT DIGITAL DIAGNOSTIC MAMMOGRAM: 10/24/2016 CLINICAL HISTORY: Callback from screening mammogram for left breast calcifications. TECHNIQUE: Spot magnification left CC and ML views were obtained. COMPARISON: Comparison is made to exams dated: 08/15/2016 mammogram, 07/25/2015 mammogram, 07/20/2014 m ammogram, 07/08/2013 mammogram, 07/07/2012 mammogram, and 07/02/2011 mammogram - [facility]. BREAST COMPOSITION: The tissue of the left breast is heterogeneously dense, which may obscure small masses. FINDINGS: There are grouped calcifications in the left central breast measuring 3.0 x 1.2 cm. The c alcifications are likely not significantly changed compared to the 2015 exam, and may be slightly inc reased compared to the 2014 exam although it is difficult to make an accurate comparison due to diffe rences in mammographic technique. Some calcifications have been present in this region dating back t o the 2006 exam. The calcifications are coarse heterogeneous. Generally I would recommend stereotact ic biopsy given the possible slight interval increase and history of right breast cancer. However, o n discussion with the patient and her daughter, the patient is not a stereotactic biopsy candidate as she uses a walker and could not get onto the table and could not lie prone for the procedure. After discussion, it was decided that we will perform a short interval follow-up, and to compare for stabi lity on spot magnification views. If the calcifications are increased on the follow-up, surgical bio psy will be needed. IMPRESSION: ACR-BI-RADS CATEGORY 3: PROBABLY BENIGN Grouped calcifications in the left central breast, which may be slightly increased compared to prior exams although there are technical differences which may account for the apparent increase. The pj ent is not a stereotactic biopsy candidate. After discussion with the patient and her daughter, we w ill opt for short interval follow-up diagnostic mammograms of the left breast in 6 months to confirm stability on spot magnification views. If there is any increase on the follow-up mammograms, surgica l biopsy will be needed. The patient and her daughter were verbally notified of the results. Approximately 10% of breast cancers are not detected with mammography. A negative mammographic report should not delay biopsy if a clinically suggestive mass is present. Latisha Estrada M.D. ah/:10/24/2016 10:55:04 Vice President And Portfolio Manager: Darcy Poole RT(R)(M), [facility] letter sent: Follow Up Recommended 3 BI-RADS Code: ACR-BI-RADS Category 3: Probably Benign
== END ==
LOC: C.MAMM 10:03
PROVIDERS: ATTEND Family Medicine
DX: R92.1 Mammographic calcification found on diagnostic imaging of breast (principal)

== ENCOUNTER → 2017-04-25 | Outpatient (CLI) | payer OTHER ==
[~2017-04-25] MED LIST changes: -LCTX PO
--- NOTE | 2017-04-26 15:34 | MAMMOGRAPHY REPORT ---
UNILATERAL LEFT DIGITAL DIAGNOSTIC MAMMOGRAM TOMOSYNTHESIS WITH CAD AND TARGETED LEFT ULTRASOUND: CLINICAL HISTORY: Short interval follow-up of left breast calcifications. TECHNIQUE: Breast tomosynthesis in addition to standard 2D mammography was performed. Current study was also evaluated with a Computer Aided Detection (CAD) system. Left CC and MLO 2-D and tomosynthes is images and spot magnification left CC and ML views were obtained. COMPARISON: Comparison is made to exams dated: 10/24/2016 mammogram, 08/15/2016 mammogram, 07/25/2015 m ammogram, 07/20/2014 mammogram, 07/08/2013 mammogram, and 07/07/2012 mammogram - [facility] [address] BREAST COMPOSITION: The tissue of the left breast is heterogeneously dense, which may obscure small masses. FINDINGS: Again noted are grouped calcifications within the left central breast, measuring approxima tely 3 x 1.4 cm. The calcifications are coarse heterogeneous in morphology. On today's exam, there is probable architectural distortion associated with the calcifications, best seen on the cc tomosynt hesis images (slice 10/52). The calcifications do not appear significantly changed compared to the s pot magnification views dated 10/24/2016, however, are increased compared to the 2014 exam. Given the architectural distortion in association with the finding and given the interval increase since 2014, tissue sampling is recommended. On discussion with the patient and her daughter, the patient is not a stereotactic biopsy candidate as she cannot tolerate lying prone for the procedure. The remainder of the left breast is stable mammographically compared to prior exams, without suspicious masses, ca lcifications, or areas of architectural distortion noted. Targeted ultrasound was performed of the left central/6:00 breast to see if any sonographic correlate could be identified to target for biopsy. The ultrasound exam is limited as the patient cannot rais e her arm for the procedure. In the left breast at 6:00, approximately 5 cm from the nipple, there i s a slight textural difference which is ill-defined and therefore not able to be measured on ultrasou nd, but could account for the area of distortion and associated calcifications. Recommend ultrasound -guided core needle biopsy for further evaluation. IMPRESSION: ACR BI-RADS CATEGORY 4: SUSPICIOUS, TARGETED ULTRASOUND ACR BI-RADS CATEGORY 4: SUSPICIO US Grouped coarse heterogeneous calcifications and associated subtle architectural distortion noted with in the left central breast mammographically, for which tissue sampling is recommended. The patient i s not a stereotactic biopsy candidate, however, a subtle textural difference is seen in the left 6:00 breast on ultrasound which could correlate with the mammographic finding. Recommend attempted ultra sound guided core needle biopsy with specimen radiography and post-clip mammograms for further evalua tion. If the sonographic finding does not align with the calcifications and distortion, then surgica l biopsy is recommended. A phone call was made to the physician's office to confirm faxed results were received. The patient and her daughter have been verbally notified of the results. She tentatively scheduled the biopsy be fore leaving the department. Approximately 10% of breast cancers are not detected with mammography. A negative mammographic report should not delay biopsy if a clinically suggestive mass is present. Latisha Estrada M.D. ah/:04/25/2017 14:51:45 Supervisor Production: Baylee Rosenberg, [facility] letter sent: Abnormal 4/5 BI-RADS Code: ACR BI-RADS Category 4: Suspicious Ultrasound BI-RADS: ACR BI-RADS Category 4: Suspici ous
== END | disposition home or self-care (01) ==
LOC: C.MAMM 10:19
PROVIDERS: ATTEND Family Medicine
DX: R92.0 Mammographic microcalcification found on diagnostic imaging of breast (principal)

== ENCOUNTER 2017-07-21 15:44 | Inpatient (IN) | payer OTHER ==
[~2017-07-21] VITALS: Ht 167.6 cm; Wt 121.6 kg
[~2017-07-21 15:44] MED LIST changes: -ASPEC81 PO; -FEXO1TAB46 PO; -FLUT0.15 NAE; -LEVO125T72 PO; -TRMCR515 TOP
[2017-07-21] MEDS ORDERED: ONDANSETRON INJ 2 MG/ML 2 ML VIAL IV STA (16:01)
[2017-07-21] MEDS ORDERED: SODIUM CHLORIDE 0.9% 1000ML 1,000 ML IV STA (16:01)
[2017-07-21] MEDS ORDERED: SODIUM CHLORIDE 0.9% 500ML 500 ML IV STA ×2 (16:01→18:01)
[2017-07-21 17:06] LABS: BASO % 0.2 %; BASO ABS # 0.02 K/uL (0-0.2); EOS % 1.2 %; EOS ABS # 0.15 K/uL (0-0.5); HEMATOCRIT 32.3 % (37-47); IG# 0.05 K/uL (0.00-0.02); LYMPH % 7.8 %; LYMPH ABS # 0.97 K/uL (1.2-3.4); MEAN CORPUSCULAR HEMOGLOBIN 31.3 pg (25-34); MEAN CORPUSCULAR HGB CONC 34.1 g/dl (32-36); MEAN PLATELET VOLUME 10.6 fL (7.4-10.4); MONO % 7.1 %; MONO ABS # 0.88 K/uL (0.11-0.59); NEUT % 83.3 %; NEUT ABS # 10.35 K/uL (1.4-6.5); PLATELET COUNT 295 K/uL (130-400); RED CELL DISTRIBUTION WIDTH SD 46.7 fL (36.4-46.3); WHITE BLOOD COUNT 12.42 K/uL (4.8-10.8)
[2017-07-21 17:14] LABS: PTT PATIENT 24.7 SECONDS (21.0-31.0)
[2017-07-21] MEDS ORDERED: DIPH25CA65 PO (17:19)
[2017-07-21 17:30] LABS: ALBUMIN 2.8 gm/dl (3.4-5.0); CALCIUM 8.5 mg/dl (8.5-10.1); CREATININE 0.92 mg/dl (0.60-1.20); POTASSIUM 4.4 mmol/L (3.5-5.1)
--- NOTE | 2017-07-21 17:31 | DIAGNOSTIC IMAGING REPORT ---
ABDOMEN AND PELVIS CT WITHOUT CONTRAST CT DOSE: 1852.13 mGy.cm HISTORY: Acute vomiting vomiting TECHNIQUE: Multiaxial CT images of the abdomen and pelvis were performed without contrast. A dose lowering technique was utilized adhering to the principles of ALARA. COMPARISON STUDY: CT abdomen and pelvis 08/09/2016. FINDINGS: Study is limited secondary to patient motion and positioning with left arm draped over the anterior abdomen heart is mildly enlarged with mitral annular calcifications and coronary arterial disease. Mild subsegmental bibasilar atelectasis. No pneumatosis or pneumoperitoneum. Evaluation of the solid abdominal organs is limited without the use of IV contrast. Thin the limitations of the study, the liver, spleen and adrenal glands are within normal limits. Mild gallbladder distention. Moderate generalized pancreatic atrophy. Nonspecific bilateral perinephric stranding. Suggestion of a punctate calculus of the inferior pole left kidney. No ureteral calculi or obstructive uropathy. The urinary bladder is partially collapsed. Uterus and right adnexum are unremarkable. There is indeterminate 1.7 x 1.7 cm lesion of the left adnexum, unchanged. Dense atherosclerosis of the aorta without aneurysm. No bulky adenopathy identified. Small sliding-type hiatal hernia. No bowel obstruction. There is mild mesenteric stranding with interloop edema involves several loops of small bowel within the left mid and lower abdomen, evaluation is limited secondary to motion. Additionally, there is mild free pelvic fluid. There is moderate colonic diverticulosis without CT evidence of acute diverticulitis. Majority of the large bowel is decompressed. The appendix is not definitively seen. No secondary signs to suggest acute appendicitis. Soft tissues are unremarkable. Bones are mildly demineralized. Degenerative changes are again noted within the right greater the left SI joints with severe multilevel lower lumbar spine facet arthropathy and intervertebral disc space narrowing. IMPRESSION: 1. Limited study secondary to patient motion and positioning. 2. No bowel obstruction. 3. Mild mesenteric stranding with interloop edema involves several loops of nondilated small bowel within the left mid and lower abdomen with mild free fluid also seen within the dependent pelvis. These findings suggest focal enteritis. 4. Indeterminate 1.7 cm cystic lesion of the left adnexum, unchanged from comparison. 5. Small sliding type hiatal hernia. 6. Additional findings as above. Electronically signed by: Musa Dow M.D. 07/21/2017 5:30 PM Dictated Date/Time: 07/21/2017 5:21 PM
[2017-07-21 17:42] LABS: TOTAL PROTEIN 7.7 gm/dl (6.4-8.2)
[2017-07-21] MEDS ORDERED: MAGNESIUM SULFATE 1GM / D5W 1 GM BAG IV STA (17:42)
[2017-07-21] MEDS ORDERED: LEVAQUIN 750MG / 150ML D5W IV STA (17:53)
[2017-07-21] MEDS ORDERED: ASPIRIN 81 MG CHEW PO STA (18:01)
[2017-07-21] MEDS ORDERED: METOPROLOL TARTRATE 1 MG/ML VIAL IV STA (18:01)
[2017-07-21] MEDS ORDERED: HEPARIN SOD 5000 UNIT/0.5 ML CARP ONE (18:15)
[2017-07-21] MEDS ORDERED: HEPARIN 25000 UNIT/500 ML D5W ONE (18:16)
[2017-07-21] MEDS ORDERED: NITROGLYCERIN 0.4 MG SL PER TAB CHARGE SL PRN (18:45)
[2017-07-21] MEDS ORDERED: METOPROLOL SUCC 25MG EXT REL TAB PO ONE (19:14)
[2017-07-21 20:00] VITALS: BP 103/71; PULSE 99; TEMP 36.7; O2SAT 97; Ht 167.6 cm; Wt 121.6 kg
--- NOTE | 2017-07-21 20:10 | History and Physical ---
History & Physical Date & Time of Service: Jul 21, 2017 at 19:30 Chief Complaint: Vomit, Diarrhea Primary Care Physician: Pito Watkins M.D. (MEDICAL) History of Present Illness Source: patient, family, clinic records, hospital records Patient is a 72 year old female with PMH of DM type 2 controlled, HTN, moderate aortic stenosis, Dyslipidemia present to the ER with vomiting and diarrhea. Family present at bedside and pt gave permission to speak in front of family member. As per daughter, Pt just lost her about 12 days ago. Daughter said that since then her mother alisha started to decline. She said that today after eating as sandwich she was starting to have diarrhea and vomiting associated with abdominal pain. Daughter said that she had multiples episodes of vomiting. She said that her mother has been on/off confused since her dad and today the confusion got worst. She said that she checked her BS before EMS came and he was 260 and when EMS checked it it was 160. Pt said that she also had some heartburn. Pt said that last episodes of vomiting was about 2hrs ago. Pt denies any urinary symptoms such as dysuria or strong smelling urine. Denies any chest pain, palpitation, dizziness, SOB, fever, chills. In the ER pt was found in Afib and her troponin was 13.5. Currently pt said that she feels much better. Past Medical/Surgical History Medical Problems: (1) Depression (2) Diabetes mellitus type II, controlled (3) Dyslipidemia (4) GI bleed (5) HTN (hypertension) (6) HX: breast cancer (7) Hypothyroidism (8) New onset a-fib (9) NSTEMI (non-ST elevated myocardial infarction) (10) Symptomatic anemia Surgical Problems: (1) History of lumpectomy of right breast (2) History of tonsillectomy Family History Cancer Diabetes mellitus Gallbladder disease Heart disease Hypertension Social History Smoking Status: Never Smoker Drug Use: none Marital Status: Housing status: lives with family Occupational Status: retired Immunizations History of Influenza Vaccine: Yes Influenza Vaccine Date: May 30, 2011 History of Tetanus Vaccine?: No History of Pneumococcal: Yes Pneumococcal Date: Nov 02, 2010 History of Hepatitis B Vaccine: Unknown Allergies Coded Allergies: Cephalexin (Verified Allergy, Unknown, BURNING, NAUSEA, AND TROUBLE BREATHING, 02/27/16) Penicillins (Verified Allergy, Unknown, KIDNEY INFECTION, HIVES, 02/27/16) Sulfa Drugs (Verified Allergy, Unknown, NAUSEA AND TIRED, 02/27/16) Home Medications Scheduled Aspirin (Aspirin EC Low Dose), 81 MG PO DAILY Atorvastatin (Lipitor), 20 MG PO HS Cholecalciferol (Vitamin D), 4,000 UNITS PO DAILY Diphenhydramine Hcl (Benadryl Allergy), 2 CAP PO PRN Ferrous Sulfate (Iron), 325 MG PO BID Fluoxetine (Prozac), 20 MG PO QAM Gabapentin (Neurontin), 100 MG PO BID Levothyroxine Sodium (Synthroid), 125 MCG PO DAILY Lisinopril (Zestril), 40 MG PO QAM Metformin HCl (Metformin HCl ER), 1 TAB PO BID Scheduled PRN Azelastine Hcl (Astepro), 2 SPRY JUVENTINO QPM PRN for Nasal Congestion Fexofenadine Hcl (Judith), 180 MG PO DAILY PRN for ALLERGIC REACTION Fluticasone Propionate (Nasal) (Flonase Allergy Relief), 2 SPRAYS JUVENTINO QAM PRN for Nasal Congestion Hydrocodone/Acetaminophen 5MG/325MG (Gamaliel 5MG/325MG), 1 TABLET PO Q6 PRN for Pain Ranitidine (Zantac), 300 MG PO HS PRN for Indigestion Triamcinolone Acet (Triamcinolone Acetonide), 1 APPLN TOP BID PRN for dryness Review of Systems Constitutional: No fever, No chills, No sweats Eyes: No worsening of vision, No eye pain ENT: No nasal symptoms, No sore throat Respiratory: No cough, No sputum, No wheezing, No shortness of breath Cardiovascular: + problem reported (heartburn), No claudication, No palpitations Abdomen: + pain, + nausea, + vomiting, + diarrhea Musculoskeletal: No calf pain Genitourinary - Female: No dysuria, No urinary frequency Neurologic: + problem reported (confuse) Psychiatric: + depression symptoms, No substance abuse Endocrine: + fatigue Hematologic / Lymphatic: No night sweats Integumentary: No rash, No itch Physical Exam Vital Signs Date Time Temp Pulse Resp B/P (MAP) Pulse Ox O2 Delivery O2 Flow Rate FiO2 07/21/17 18:35 116 19 147/77 100 Room Air 07/21/17 18:31 109/81 3/18/18 18:24 139/117 07/21/17 18:24 122 139/117 07/21/17 18:19 110 19 100 Room Air 07/21/17 17:49 106 18 99 Room Air 07/21/17 17:01 110/56 07/21/17 16:49 128 19 97 Room Air 07/21/17 16:44 116 20 96 Room Air 07/21/17 16:31 99/66 07/21/17 16:14 130 07/21/17 16:14 119 23 94 Room Air 07/21/17 16:08 115 16 132/110 94 Room Air 07/21/17 16:01 132/110 07/21/17 15:44 37.1 124 16 150/96 95 Room Air General Appearance: WD/WN, no apparent distress Head: normocephalic, atraumatic Eyes: PERRL, EOMI ENT: normal ENT inspection Neck: no JVD, trachea midline Respiratory/Chest: chest non-tender, no respiratory distress, no accessory muscle use Cardiovascular: + irregularly irregular Abdomen/GI: normal bowel sounds, non tender Back: no CVA tenderness Extremities/Musculoskelatal: no calf tenderness Neurologic/Psych: no motor/sensory deficits, alert, normal mood/affect, oriented x 3 Skin: warm/dry, no rash Diagnostics Laboratory Results Results Past 24 Hours Test 07/21/17 16:30 07/21/17 16:50 Range/Units White Blood Count 12.42 4.8-10.8 K/uL Red Blood Count 3.51 4.2-5.4 M/uL Hemoglobin 11.0 12.0-16.0 g/dL Hematocrit 32.3 37-47 % Mean Corpuscular Volume 92.0 80-100 fL Mean Corpuscular Hemoglobin 31.3 25-34 pg Mean Corpuscular Hemoglobin Concent 34.1 32-36 g/dl Platelet Count 295 130-400 K/uL Mean Platelet Volume 10.6 7.4-10.4 fL Neutrophils (%) (Auto) 83.3 % Lymphocytes (%) (Auto) 7.8 % Monocytes (%) (Auto) 7.1 % Eosinophils (%) (Auto) 1.2 % Basophils (%) (Auto) 0.2 % Neutrophils # (Auto) 10.35 1.4-6.5 K/uL Lymphocytes # (Auto) 0.97 1.2-3.4 K/uL Monocytes # (Auto) 0.88 0.11-0.59 K/uL Eosinophils # (Auto) 0.15 0-0.5 K/uL Basophils # (Auto) 0.02 0-0.2 K/uL RDW Standard Deviation 46.7 36.4-46.3 fL RDW Coefficient of Variation 14.0 11.5-14.5 % Immature Granulocyte % (Auto) 0.4 % Immature Granulocyte # (Auto) 0.05 0.00-0.02 K/uL Prothrombin Time 11.0 9.0-12.0 SECONDS Prothromb Time International Ratio 1.0 0.9-1.1 Activated Partial Thromboplast Time 24.7 21.0-31.0 SECONDS Partial Thromboplastin Ratio 1.0 Sodium Level 137 136-145 mmol/L Potassium Level 4.4 3.5-5.1 mmol/L Chloride Level 105 98-107 mmol/L Carbon Dioxide Level 23 21-32 mmol/L Anion Gap 9.0 3-11 mmol/L Blood Urea Nitrogen 27 7-18 mg/dl Creatinine 0.92 0.60-1.20 mg/dl Est Creatinine Clear Calc Drug Dose 73.8 ml/min Estimated GFR () 72.1 Estimated GFR (Non- 62.2 BUN/Creatinine Ratio 29.8 10-20 Random Glucose 150 70-99 mg/dl Calcium Level 8.5 8.5-10.1 mg/dl Magnesium Level 1.2 1.8-2.4 mg/dl Total Bilirubin 0.4 0.2-1 mg/dl Direct Bilirubin 0.1 0-0.2 mg/dl Aspartate Amino Transf (AST/SGOT) 45 15-37 U/L Alanine Aminotransferase (ALT/SGPT) 14 12-78 U/L Alkaline Phosphatase 97 45-117 U/L Troponin I 13.500 0-0.045 ng/ml Total Protein 7.7 6.4-8.2 gm/dl Albumin 2.8 3.4-5.0 gm/dl Lipase 114 73-393 U/L Urine Color DK YELLOW Urine Appearance CLOUDY CLEAR Urine pH 5.0 4.5-7.5 Urine Specific Beatrice 1.031 1.000-1.030 Urine Protein 1+ NEG Urine Glucose (UA) NEG NEG Urine Ketones TRACE NEG Urine Occult Blood NEG NEG Urine Nitrite NEG NEG Urine Bilirubin NEG NEG Urine Urobilinogen NEG NEG Urine Leukocyte Esterase SMALL NEG Urine WBC (Auto) >30 0-5 /hpf Urine RBC (Auto) 0-4 0-4 /hpf Urine Hyaline Casts (Auto) 5-10 0-5 /lpf Urine Epithelial Cells (Auto) >30 0-5 /lpf Urine Bacteria (Auto) 4+ NEG Urine Pathogenic Casts 0 /lpf Microbiology Results 07/21/17 Urine Culture, Received Pending Diagnostic Radiology ABDOMEN AND PELVIS CT WITHOUT CONTRAST CT DOSE: 1852.13 mGy.cm HISTORY: Acute vomiting vomiting TECHNIQUE: Multiaxial CT images of the abdomen and pelvis were performed without contrast. A dose lowering technique was utilized adhering to the principles of ALARA. COMPARISON STUDY: CT abdomen and pelvis 08/09/2016. FINDINGS: Study is limited secondary to patient motion and positioning with left arm draped over the anterior abdomen heart is mildly enlarged with mitral annular calcifications and coronary arterial disease. Mild subsegmental bibasilar atelectasis. No pneumatosis or pneumoperitoneum. Evaluation of the solid abdominal organs is limited without the use of IV contrast. Thin the limitations of the study, the liver, spleen and adrenal glands are within normal limits. Mild gallbladder distention. Moderate generalized pancreatic atrophy. Nonspecific bilateral perinephric stranding. Suggestion of a punctate calculus of the inferior pole left kidney. No ureteral calculi or obstructive uropathy. The urinary bladder is partially collapsed. Uterus and right adnexum are unremarkable. There is indeterminate 1.7 x 1.7 cm lesion of the left adnexum, unchanged. Dense atherosclerosis of the aorta without aneurysm. No bulky adenopathy identified. Small sliding-type hiatal hernia. No bowel obstruction. There is mild mesenteric stranding with interloop edema involves several loops of small bowel within the left mid and lower abdomen, evaluation is limited secondary to motion. Additionally, there is mild free pelvic fluid. There is moderate colonic diverticulosis without CT evidence of acute diverticulitis. Majority of the large bowel is decompressed. The appendix is not definitively seen. No secondary signs to suggest acute appendicitis. Soft tissues are unremarkable. Bones are mildly demineralized. Degenerative changes are again noted within the right greater the left SI joints with severe multilevel lower lumbar spine facet arthropathy and intervertebral disc space narrowing. IMPRESSION: 1. Limited study secondary to patient motion and positioning. 2. No bowel obstruction. 3. Mild mesenteric stranding with interloop edema involves several loops of nondilated small bowel within the left mid and lower abdomen with mild free fluid also seen within the dependent pelvis. These findings suggest focal enteritis. 4. Indeterminate 1.7 cm cystic lesion of the left adnexum, unchanged from comparison. 5. Small sliding type hiatal hernia. 6. Additional findings as above. Electronically signed by: Musa Dow M.D. 07/21/2017 5:30 PM Dictated Date/Time: 07/21/2017 5:21 PM Impression Assessment and Plan 72 yo present the ER with vomiting and diarrhea NSTEMI Troponin on admission 13.5 EKG showed Afib with HR 123, No significant ST changes Currently denies any chest pain Received aspirin 325mg Check troponin Repeat EKG in am Check echo Continue aspirin 81mg, lipitor increases to 40mg Continue IV heparin drip Cardiology consulted Case discussed with Dr. Dugan recommended to start on metoprolol 12.5 mg TID Will keep NPO for now for possible cardiac cath in am Informed Nurse and overnight hospitalist if pt develops any chest discomfort to notify steam table associate dr. Dugan Continue monitor closely in tele Nausea/Vomiting/Diarrhea Possible related to gastroenteritis CT abdomen showed no bowel obstruction. Mild mesenteric stranding with interloop edema involves several loops of nondilated small bowel within the left mid and lower abdomen with mild free fluid also seen within the dependent pelvis. These findings suggest focal enteritis. Received IVF in the ER If diarrhea continue, will send stools for Cdiff stable Abnormal UA Denies any urinary symptoms Afebrile WBC mildly elevated Received Levaquin in the ER Urine cx pending Will continue Levaquin for now New onset of Afib EKG on admission showed Afib with HR in the 120's Received lopressor IV 2.5mg in the ER HR now btw 90's to 110's On IV heparin drip Starting on low dose metoprolol tartrate 12.5 mg TID Mag replaced Echo in am HTN Hold lisinopril Monitor BP Hypomagnesemia Mostly related to GI upset Mg on admission 1.2 Mg replaced Check mg level DM type 2 Recent Hba1c 5.5 on (2/21/18) Controlled Metformin on hold Monitor BS Will start on insulin coverage if BS starts to elevate Dyslipidemia Lipitor increased to 40mg daily check lipid panel in am Moderate Aortic Stenosis Stable Hypothyroidism check TSH in am Continue levothyroxine DVT px on heparin drip CODE STATUS FULL CODE Resuscitation Status VTE Prophylaxis Will order VTE Prophylaxis: Yes
[2017-07-21] MEDS: GABAPENTIN 100 MG CAP PO SCH (20:29)
[2017-07-21] MEDS ORDERED: METOPROLOL TARTRATE 25 MG TAB PO ONE (20:30)
[2017-07-21] MEDS ORDERED: ATORVASTATIN 40 MG TAB PO SCH (21:00)
[2017-07-21] MEDS: HEPARIN 25,000 UNIT/500ML D5W 500 ML IV SCH (21:16)
[2017-07-21 21:21] LABS: CKMB 24.7 ng/ml (0.5-3.6)
[2017-07-21] MEDS ORDERED: FLUT0.15 NAE (21:45)
[2017-07-21] MEDS ORDERED: FEXO1TAB46 PO (21:45)
[2017-07-21] MEDS ORDERED: LEVO125T72 PO (21:45)
[2017-07-21] MEDS ORDERED: TRMCR515 TOP (21:49)
[2017-07-21] MEDS ORDERED: MAGNESIUM SULFATE 1GM / D5W 1 GM in PREMIXED IN D5W 100 ML IV ONE (22:00)
[2017-07-21] MEDS ORDERED: ASPEC81 PO (22:43)
[2017-07-21] MEDS ORDERED: PROCHLORPERAZINE INJ 5 MG in SYRINGE 4 ML IV PRN (22:45)
[2017-07-21 23:21] VITALS: BP 135/77; PULSE 72; TEMP 36.6; O2SAT 99
--- NOTE | 2017-07-22 00:20 | EMERGENCY ROOM VISIT NOTE ---
History Report prepared by Baylee: Harjinder Rosario Under the Supervision of: Dr. Jose Coyle M.D. First contact with patient: 15:47 Chief Complaint: VOMITING Stated Complaint: VOMIT, DIARRHEA History of Present Illness The patient is a 72 year old female who presents to the Emergency Room with complaints of intermittent vomiting and diarrhea beginning a week ago. The patient states she was dizzy and weak this morning as well. She report she has occasional abdominal pain and new back pain. The patient's family notes the patient's 12 days ago, and she has been off and confused since. They state the patient in diabetic, and her sugar prior to the ambulance was around 260. The family reports in the ambulance, the blood sugar was in the 160s. They note the patient was given Zofran in the ambulance, and she still vomited. The family states the patient has not been on blood thinners, and she has a history of a heart murmur. Pt denies LOC, headache, fevers, chills, diaphoresis, visual changes, neck pain, chest pain, breathing difficulties, nausea, melena, hematochezia, urinary symptoms, numbness, lymphadenopathy, rash , or other complaints. Source of History: patient Onset: a week ago Position: other (GI tract) Quality: other (vomiting and diarrhea) Timing: intermittent Associated Symptoms: + abdominal pain, + back pain, + weakness Note: Associated symptoms: dizziness, confusion Review of Systems See HPI for pertinent positives and negatives. A total of ten systems were reviewed and were otherwise negative. Past Medical & Surgical Medical Problems: (1) Depression (2) Diabetes mellitus type II, controlled (3) Dyslipidemia (4) GI bleed (5) HTN (hypertension) (6) HX: breast cancer (7) Hypothyroidism (8) New onset a-fib (9) NSTEMI (non-ST elevated myocardial infarction) Surgical Problems: (1) History of lumpectomy of right breast (2) History of tonsillectomy Family History Cancer Diabetes mellitus Gallbladder disease Heart disease Hypertension Social History Smoking Status: Never Smoker Drug Use: none Marital Status: Housing Status: lives with family Occupation Status: retired Current/Historical Medications Scheduled Aspirin (Aspirin EC Low Dose), 81 MG PO DAILY Atorvastatin (Lipitor), 20 MG PO HS Cholecalciferol (Vitamin D), 4,000 UNITS PO DAILY Diphenhydramine Hcl (Benadryl Allergy), 2 CAP PO PRN Ferrous Sulfate (Iron), 325 MG PO BID Fluoxetine (Prozac), 20 MG PO QAM Gabapentin (Neurontin), 100 MG PO BID Levothyroxine Sodium (Synthroid), 125 MCG PO DAILY Lisinopril (Zestril), 40 MG PO QAM Metformin HCl (Metformin HCl ER), 1 TAB PO BID Scheduled PRN Azelastine Hcl (Astepro), 2 SPRY JUVENTINO QPM PRN for Nasal Congestion Fexofenadine Hcl (Judith), 180 MG PO DAILY PRN for ALLERGIC REACTION Fluticasone Propionate (Nasal) (Flonase Allergy Relief), 2 SPRAYS [place] QAM PRN for Nasal Congestion Hydrocodone/Acetaminophen 5MG/325MG (Lynch 5MG/325MG), 1 TABLET PO Q6 PRN for Pain Ranitidine (Zantac), 300 MG PO HS PRN for Indigestion Triamcinolone Acet (Triamcinolone Acetonide), 1 APPLN TOP BID PRN for dryness Allergies Coded Allergies: Cephalexin (Verified Allergy, Unknown, BURNING, NAUSEA, AND TROUBLE BREATHING, 02/27/16) Penicillins (Verified Allergy, Unknown, KIDNEY INFECTION, HIVES, 02/27/16) Sulfa Drugs (Verified Allergy, Unknown, NAUSEA AND TIRED, 02/27/16) Physical Exam Vital Signs Date Time Temp Pulse Resp B/P (MAP) Pulse Ox O2 Delivery O2 Flow Rate FiO2 07/21/17 18:35 116 19 147/77 100 Room Air 07/21/17 18:31 109/81 18 18:24 139/117 18 18:24 122 139/117 18 18:19 110 19 100 Room Air 07/21/17 17:49 106 18 99 Room Air 07/21/17 17:01 110/56 07/21/17 16:49 128 19 97 Room Air 07/21/17 16:44 116 20 96 Room Air 07/21/17 16:31 99/66 07/21/17 16:14 130 07/21/17 16:14 119 23 94 Room Air 07/21/17 16:08 115 16 132/110 94 Room Air 07/21/17 16:01 132/110 3/18/18 15:44 37.1 124 16 150/96 95 Room Air Physical Exam GENERAL: Awake, alert, mildly ill-appearing, in no distress HENT: Normocephalic, atraumatic. Oropharynx unremarkable. EYES: Normal conjunctiva. Sclera non-icteric. NECK: Supple. No nuchal rigidity. FROM. No masses. RESPIRATORY: Clear to auscultation. No wheezes. No rales. Normal respiratory effort. CARDIAC: Normal rate. Normal rhythm. Irregular, tachycardic, systolic ejection murmur. No rubs. Extremities warm and well perfused. Pulses equal. No JVD. GI: Soft, non-distended. LLQ tenderness to palpation. No rebound or guarding. No masses. RECTAL: Deferred. MUSCULOSKELETAL: Atraumatic. Chest examination reveals no tenderness. The back is symmetrical on inspection without obvious abnormality. There is left CVA tenderness to palpation. No joint edema. LOWER EXTREMITIES: Calves are equal size bilaterally and non-tender. No edema. No discoloration. NEURO: Slow to respond to questions, otherwise normal sensorium. No sensory or motor deficits noted. SKIN: No rash or jaundice noted. Medical Decision & Procedures ER Provider Diagnostic Interpretation: Radiology results as stated below per my review and radiologist interpretation ABDOMEN AND PELVIS CT WITHOUT CONTRAST CT DOSE: 1852.13 mGy.cm HISTORY: Acute vomiting vomiting TECHNIQUE: Multiaxial CT images of the abdomen and pelvis were performed without contrast. A dose lowering technique was utilized adhering to the principles of ALARA. COMPARISON STUDY: CT abdomen and pelvis 08/09/2016. FINDINGS: Study is limited secondary to patient motion and positioning with left arm draped over the anterior abdomen heart is mildly enlarged with mitral annular calcifications and coronary arterial disease. Mild subsegmental bibasilar atelectasis. No pneumatosis or pneumoperitoneum. Evaluation of the solid abdominal organs is limited without the use of IV contrast. Thin the limitations of the study, the liver, spleen and adrenal glands are within normal limits. Mild gallbladder distention. Moderate generalized pancreatic atrophy. Nonspecific bilateral perinephric stranding. Suggestion of a punctate calculus of the inferior pole left kidney. No ureteral calculi or obstructive uropathy. The urinary bladder is partially collapsed. Uterus and right adnexum are unremarkable. There is indeterminate 1.7 x 1.7 cm lesion of the left adnexum, unchanged. Dense atherosclerosis of the aorta without aneurysm. No bulky adenopathy identified. Small sliding-type hiatal hernia. No bowel obstruction. There is mild mesenteric stranding with interloop edema involves several loops of small bowel within the left mid and lower abdomen, evaluation is limited secondary to motion. Additionally, there is mild free pelvic fluid. There is moderate colonic diverticulosis without CT evidence of acute diverticulitis. Majority of the large bowel is decompressed. The appendix is not definitively seen. No secondary signs to suggest acute appendicitis. Soft tissues are unremarkable. Bones are mildly demineralized. Degenerative changes are again noted within the right greater the left SI joints with severe multilevel lower lumbar spine facet arthropathy and intervertebral disc space narrowing. IMPRESSION: 1. Limited study secondary to patient motion and positioning. 2. No bowel obstruction. 3. Mild mesenteric stranding with interloop edema involves several loops of nondilated small bowel within the left mid and lower abdomen with mild free fluid also seen within the dependent pelvis. These findings suggest focal enteritis. 4. Indeterminate 1.7 cm cystic lesion of the left adnexum, unchanged from comparison. 5. Small sliding type hiatal hernia. 6. Additional findings as above. Electronically signed by: Musa Dow M.D. 07/21/2017 5:30 PM Dictated Date/Time: 07/21/2017 5:21 PM Laboratory Results 07/21/17 16:30 Red Blood Count 3.51, Mean Corpuscular Volume 92.0, Mean Corpuscular Hemoglobin 31.3, Mean Corpuscular Hemoglobin Concent 34.1, Mean Platelet Volume 10.6, Neutrophils (%) (Auto) 83.3, Lymphocytes (%) (Auto) 7.8, Monocytes (%) (Auto) 7.1, Eosinophils (%) (Auto) 1.2, Basophils (%) (Auto) 0.2, Neutrophils # (Auto) 10.35, Lymphocytes # (Auto) 0.97, Monocytes # (Auto) 0.88, Eosinophils # (Auto) 0.15, Basophils # (Auto) 0.02 07/21/17 16:30 Test 07/21/17 16:30 07/21/17 16:50 White Blood Count 12.42 K/uL (4.8-10.8) Red Blood Count 3.51 M/uL (4.2-5.4) Hemoglobin 11.0 g/dL (12.0-16.0) Hematocrit 32.3 % (37-47) Mean Corpuscular Volume 92.0 fL (80-100) Mean Corpuscular Hemoglobin 31.3 pg (25-34) Mean Corpuscular Hemoglobin Concent 34.1 g/dl (32-36) Platelet Count 295 K/uL (130-400) Mean Platelet Volume 10.6 fL (7.4-10.4) Neutrophils (%) (Auto) 83.3 % Lymphocytes (%) (Auto) 7.8 % Monocytes (%) (Auto) 7.1 % Eosinophils (%) (Auto) 1.2 % Basophils (%) (Auto) 0.2 % Neutrophils # (Auto) 10.35 K/uL (1.4-6.5) Lymphocytes # (Auto) 0.97 K/uL (1.2-3.4) Monocytes # (Auto) 0.88 K/uL (0.11-0.59) Eosinophils # (Auto) 0.15 K/uL (0-0.5) Basophils # (Auto) 0.02 K/uL (0-0.2) RDW Standard Deviation 46.7 fL (36.4-46.3) RDW Coefficient of Variation 14.0 % (11.5-14.5) Immature Granulocyte % (Auto) 0.4 % Immature Granulocyte # (Auto) 0.05 K/uL (0.00-0.02) Prothrombin Time 11.0 SECONDS (9.0-12.0) Prothromb Time International Ratio 1.0 (0.9-1.1) Activated Partial Thromboplast Time 24.7 SECONDS (21.0-31.0) Partial Thromboplastin Ratio 1.0 Anion Gap 9.0 mmol/L (3-11) Est Creatinine Clear Calc Drug Dose 73.8 ml/min Estimated GFR () 72.1 Estimated GFR (Non- 62.2 BUN/Creatinine Ratio 29.8 (10-20) Calcium Level 8.5 mg/dl (8.5-10.1) Magnesium Level 1.2 mg/dl (1.8-2.4) Total Bilirubin 0.4 mg/dl (0.2-1) Direct Bilirubin 0.1 mg/dl (0-0.2) Aspartate Amino Transf (AST/SGOT) 45 U/L (15-37) Alanine Aminotransferase (ALT/SGPT) 14 U/L (12-78) Alkaline Phosphatase 97 U/L (45-117) Total Protein 7.7 gm/dl (6.4-8.2) Albumin 2.8 gm/dl (3.4-5.0) Lipase 114 U/L (73-393) Urine Color DK YELLOW Urine Appearance CLOUDY (CLEAR) Urine pH 5.0 (4.5-7.5) Urine Specific [place] 1.031 (1.000-1.030) Urine Protein 1+ (NEG) Urine Glucose (UA) NEG (NEG) Urine Ketones TRACE (NEG) Urine Occult Blood NEG (NEG) Urine Nitrite NEG (NEG) Urine Bilirubin NEG (NEG) Urine Urobilinogen NEG (NEG) Urine Leukocyte Esterase SMALL (NEG) Urine WBC (Auto) >30 /hpf (0-5) Urine RBC (Auto) 0-4 /hpf (0-4) Urine Hyaline Casts (Auto) 5-10 /lpf (0-5) Urine Epithelial Cells (Auto) >30 /lpf (0-5) Urine Bacteria (Auto) 4+ (NEG) Urine Pathogenic Casts /lpf (0) Laboratory results reviewed by me Medications Administered Medications (Trade) Dose Ordered Sig/Johan Route Start Time Stop Time Status Last Admin Dose Admin Sodium Chloride 500 ml @ 999 mls/hr Q31M STAT IV 07/21/17 16:01 07/21/17 16:31 DC 07/21/17 16:51 999 MLS/HR Sodium Chloride 1,000 ml @ 125 mls/hr Q8H STAT IV 07/21/17 16:01 07/21/17 20:08 DC 07/21/17 16:51 125 MLS/HR Ondansetron HCl (Zofran Inj) 4 mg NOW STAT IV 07/21/17 16:01 07/21/17 16:04 DC 07/21/17 16:48 4 MG Magnesium Sulfate (Magnesium Sulfate) 2 gm NOW STAT IV 07/21/17 17:42 07/21/17 17:43 DC 07/21/17 17:54 2 GM Levofloxacin (Levaquin / D5W) 750 mg NOW STAT IV 3/18/18 17:53 07/21/17 17:55 DC 07/21/17 20:33 750 MG Metoprolol Tartrate (Lopressor Iv) 2.5 mg NOW STAT IV 07/21/17 18:01 07/21/17 18:04 DC 07/21/17 18:24 2.5 MG Sodium Chloride 500 ml @ 999 mls/hr Q31M STAT IV 07/21/17 18:01 07/21/17 18:31 DC 07/21/17 18:36 999 MLS/HR Aspirin (Aspirin Chew) 324 mg NOW STAT PO 07/21/17 18:01 07/21/17 18:04 DC 07/21/17 18:20 324 MG Heparin Sodium (Porcine) (Heparin Sq 5000 Unit/0.5ml) 5,000 unit STK-MED ONCE .ROUTE 07/21/17 18:15 07/21/17 18:16 DC 07/21/17 19:17 4,000 UNIT Heparin Sodium/ Dextrose (Heparin 25,000 Unit/500ml D5W) 25,000 unit STK-MED ONCE .ROUTE 07/21/17 18:16 07/21/17 18:17 DC 07/21/17 19:16 25,000 UNIT ECG Per My Interpretation Indication: vomiting Rate (beats per minute): 123 Rhythm: atrial fibrillation (with RVR) Findings: nonspecific-ST abn, no acute ischemic change Comparison ECG Date: 08/09/16 Change: Afib has replaced sinus rhythm. ED Course 1601: The patient was evaluated in room C03. A complete history and physical exam was performed. Ordered Ondansetron HCl 4mg IV, Sodium Chloride 1000 ml @ 125 mls/hr IV, Sodium Chloride 500 ml @ 999 mls/hr IV 1742: Ordered Magnesium Sulfate 2gm IV 1753: Ordered Heparin Sodium/Dextrose 1 ea N/A, Levofloxacin 750 mg IV 1758: Upon reexamination, the patient was resting comfortably. I discussed the test results and treatment plan with her and her family. The patient will be evaluated for further management. 1759: I discussed the patient's case with Dr. Zhao, [facility]ist. The patient will be evaluated for further management and care. 1801: Ordered Aspirin 324mg PO, Sodium Chloride 500 ml @ 999 mls/hr IV, Metoprolol Tartrate 2.5mg IV 1815: Ordered Heparin Sodium (Porcine) 5000 unit .ROUTE 1816: Ordered Heparin Sodium/Dextrose 50859 unit .ROUTE Medical Decision Prior records/ancillary studies reviewed and summarized above. Nursing notes reviewed and agree them. Additional history obtained from family. The patient's history was concerning for weakness. Differential diagnosis: Etiologies such as metabolic, infection, hypo/hyperglycemia, electrolyte abnormalities, cardiac sources, intracerebral event, toxicologic, neurologic, as well as others were entertained. Physical examination: As above. ER treatment provided: IV Lock Normal saline hydration IV Zofran On reassessment the patient felt better. IV magnesium IV Levaquin IV heparin Oral aspirin Diagnostics interpretation by me: ECG: New onset atrial fibrillation The labs revealed a mild leukocytosis on CBC. Mild anemia present as well. The patient has dehydration and chemistry panel. Her magnesium is significantly low at 1.2. The patient's troponin is markedly elevated concerning for non-ST elevation IA. Urinalysis concerning for infection. Imaging studies: X-ray and CAT scan as above. Consultation: A consultation was placed with the hospitalist. The case was discussed and diagnostics were reviewed. The patient was evaluated in the ER for further treatment. Medication Reconcilliation Current Medication List: was personally reviewed by me Blood Pressure Screening Patient's blood pressure: Elevated blood pressure Monitored by hospitalist. Consults Time Called: 175 Consulting Physician: Kati Goldsmith [facility] Returned Call: [phone] I discussed the patient's case with [facility] The patient will be evaluated for further management and care. Impression Primary Impression: Non-STEMI (non-ST elevated myocardial infarction) Additional Impressions: Nausea, vomiting, and diarrhea Atrial fibrillation with RVR Hypomagnesemia Enteritis Dehydration UTI (urinary tract infection) Critical Care I have personally spent greater than 45 minutes of critical care time in the direct management of this patient. This includes bedside care, interpretation of diagnostic studies, and testing, discussion with consultants, patient, and family members, and other required patient management activities. This 45 minutes is in excess of all separately billable procedures. Scribe Attestation The scribe's documentation has been prepared under my direction and personally reviewed by me in its entirety. I confirm that the note above accurately reflects all work, treatment, procedures, and medical decision making performed by me. Departure Information Dispostion Being Evaluated By Hospitalist Referrals Pito Watkins M.D. (MEDICAL) (PCP) Patient Instructions My [facility] Problem Qualifiers
[2017-07-22 01:47] LABS: PTT PATIENT 110.1 SECONDS (21.0-31.0)
[2017-07-22 02:45] LABS: HEMATOCRIT 30.8 % (37-47); MEAN CELL VOLUME 91.7 fL (80-100); MEAN CORPUSCULAR HEMOGLOBIN 29.8 pg (25-34); MEAN CORPUSCULAR HGB CONC 32.5 g/dl (32-36); PLATELET COUNT 259 K/uL (130-400); RED CELL DISTRIBUTION WIDTH CV 13.9 % (11.5-14.5); RED CELL DISTRIBUTION WIDTH SD 46.5 fL (36.4-46.3); WHITE BLOOD COUNT 9.46 K/uL (4.8-10.8)
[2017-07-22 03:04] LABS: BLOOD UREA NITROGEN 27 mg/dl (7-18); CALCIUM 8.2 mg/dl (8.5-10.1); CARBON DIOXIDE 25 mmol/L (21-32); CREATININE 0.77 mg/dl (0.60-1.20); GLUCOSE 136 mg/dl (70-99); POTASSIUM 4.8 mmol/L (3.5-5.1); SODIUM 139 mmol/L (136-145)
[2017-07-22 03:18] LABS: CKMB 19.2 ng/ml (0.5-3.6)
[2017-07-22 03:20] VITALS: BP 127/81; PULSE 82; TEMP 36.5; O2SAT 97
[2017-07-22] MEDS: METOPROLOL TARTRATE 25 MG TAB PO SCH ×2 (05:54→13:46)
[2017-07-22] MEDS ORDERED: LEVOTHYROXINE 125 MCG TAB PO SCH (06:00)
[2017-07-22 07:38] VITALS: BP 114/64; PULSE 91; TEMP 36.4; O2SAT 96
[2017-07-22] MEDS: GABAPENTIN 100 MG CAP PO SCH (07:42)
[2017-07-22 08:34] VITALS: O2SAT 96
--- NOTE | 2017-07-22 08:58 | Cardiology Consultation ---
Cardiology Consultation Date of Consultation: Jul 22, 2017 Requesting Physician: Dr. Andree Zhao Attending Crisis Counselor: Dr. Sg Dugan History of Present Illness Patient is a 72 year old female seen for evaluation of NSTEMI. Patient presented to the emergency department with shortness of breath and chest discomfort. She described the chest pain as a burning sensation. Found to be atrial fibrillation with rapid ventricular response and initial troponin of 13. Patient treated with beta-be therapy. Heart rate has improved. Pain- free overnight. Troponins trending down. Denies orthopnea, PND, palpitations, lightheadedness, dizziness, syncope, or near syncope. Carries history of moderate aortic stenosis with her most recent echocardiogram in 2015. No history of coronary disease or prior cardiac catheterization. Heart rate 90- 100 bpm overnight. Currently 75 bpm on exam. Patient offers no other complaints at this time. Past Medical/Surgical History Problem List: Medical Problems: (1) Depression (2) Diabetes mellitus type II, controlled (3) Dyslipidemia (4) GI bleed (5) HTN (hypertension) (6) HX: breast cancer (7) Hypothyroidism (8) New onset a-fib (9) NSTEMI (non-ST elevated myocardial infarction) Surgical Problems: (1) History of lumpectomy of right breast (2) History of tonsillectomy Family History Cancer Diabetes mellitus Gallbladder disease Heart disease Hypertension Social History Smoking Status: Never Smoker Smokeless Tobacco Use: No Alcohol Use: none Drug Use: none Marital Status: Housing Status: lives with family Occupation: retired Review Of Systems General: The patient denies weight change, night sweats, fever, chills. Head: The patient denies headache and prior head trauma. Cardiovascular: +CP, +lymphedema, +tachycardia, +TAFOYA Pulmonary: The patient denies cough, wheeze, pleurisy, hemoptysis, sputum, and excessive snoring. Gastrointestinal: The patient denies nausea, vomiting, diarrhea, constipation, bloating, hematemesis, hematochezia, and abdominal pain. Skin: The patient denies diaphoresis and rash. Musculoskeletal: The patient denies joint pain, joint swelling, myalgia, back pain, neck pain and prior injuries. Neurological: The patient denies prior stroke and seizures Allergies Coded Allergies: Cephalexin (Verified Allergy, Unknown, BURNING, NAUSEA, AND TROUBLE BREATHING, 02/27/16) Penicillins (Verified Allergy, Unknown, KIDNEY INFECTION, HIVES, 02/27/16) Sulfa Drugs (Verified Allergy, Unknown, NAUSEA AND TIRED, 02/27/16) Medications Reported Home Medications Medications Dose Route/Sig Max Daily Dose Days Date Category Dose Instructions Benadryl Allergy (Diphenhydramine Hcl) 25 Mg Cap 2 Cap PO PRN 30 07/21/17 Reported Iron (Ferrous Sulfate) 325 Mg Tab 325 Mg PO BID 08/11/16 Rx Aspirin EC Low Dose (Aspirin) 81 Mg Ectab 81 Mg PO DAILY 08/09/16 Reported Triamcinolone Acetonide (Triamcinolone Acet) 45 Appln/15 Gm Cr 1 Appln TOP BID PRN 30 08/09/16 Reported Judith (Fexofenadine Hcl) 180 Mg Tab 180 Mg PO DAILY PRN 08/09/16 Reported Synthroid (Levothyroxine Sodium) 125 Mcg Tab 125 Mcg PO DAILY 08/09/16 Reported Flonase Allergy Relief (Fluticasone Propionate (Nasal)) 50 Mcg/Act Spr 2 Sprays JUVENTINO QAM PRN 08/09/16 Reported Lipitor (Atorvastatin Calcium) 20 Mg Tab 20 Mg PO HS 02/27/16 Reported Vitamin D (Cholecalciferol) 2,000 Unit Tab 4,000 Units PO DAILY 02/27/16 Reported Prozac (Fluoxetine HCl) 20 Mg Cap 20 Mg PO QAM 02/27/16 Reported [place] 5MG/325MG (Acetaminophen/Hydrocodone Bitart) Tab 1 Tablet PO Q6 PRN 02/27/16 Reported PRN PAIN Neurontin (Gabapentin) 100 Mg Cap 100 Mg PO BID 02/27/16 Reported Astepro (Azelastine Hcl) 0.15 % Spr 2 [place] JUVENTINO QPM PRN 02/27/16 Reported Zestril (Lisinopril) 40 Mg Tab 40 Mg PO QAM 02/27/16 Reported Metformin HCl ER (Metformin HCl) 1,000 Mg Tab 1 Tab PO BID 02/27/16 Reported Zantac (Ranitidine HCl) 300 Mg Tab 300 Mg PO HS PRN 05/23/09 Reported Physical Exam Vital Signs (Last 8hrs): Last 8 Hrs Date Time Temp Pulse Resp B/P (MAP) Pulse Ox O2 Delivery O2 Flow Rate FiO2 3/19/18 08:34 96 Nasal Cannula 2.0 07/22/17 07:38 36.4 91 18 114/64 (81) 96 Nasal Cannula 2.0 07/22/17 04:00 Nasal Cannula 2.0 07/22/17 03:20 36.5 82 20 127/81 (96) 97 Nasal Cannula 2.5 General Appearance: Alert and Oriented x3. NAD. Obese. Head: Normocephalic Atraumatic. Eyes: PERRLA, EOMI, conjunctiva and sclera clear Neck: Supple. No carotid bruits noted. No JVD. No HJD. Respiratory: Breath sounds clear to auscultation bilaterally. No w/r/r. Cardiovascular: Irregular rhythm. S1 and S2 noted. Distant heart sounds. 2/6 late peaking systolic ejection murmur. no rubs. Abdomen: Normal bowel sounds, soft nontender. no abdominal bruits. Extremities: + Bilateral nonpitting edema with stasis changes., no clubbing or cyanosis. distal pulses 2/4 bilaterally. Neuro: No focal deficits. Psychiatric: Normal affect. Data Last 24 Hours Test 07/21/17 16:30 07/21/17 16:50 07/21/17 20:06 07/21/17 20:30 White Blood Count 12.42 K/uL Red Blood Count 3.51 M/uL Hemoglobin 11.0 g/dL Hematocrit 32.3 % Mean Corpuscular Volume 92.0 fL Mean Corpuscular Hemoglobin 31.3 pg Mean Corpuscular Hemoglobin Concent 34.1 g/dl Platelet Count 295 K/uL Mean Platelet Volume 10.6 fL Neutrophils (%) (Auto) 83.3 % Lymphocytes (%) (Auto) 7.8 % Monocytes (%) (Auto) 7.1 % Eosinophils (%) (Auto) 1.2 % Basophils (%) (Auto) 0.2 % Neutrophils # (Auto) 10.35 K/uL Lymphocytes # (Auto) 0.97 K/uL Monocytes # (Auto) 0.88 K/uL Eosinophils # (Auto) 0.15 K/uL Basophils # (Auto) 0.02 K/uL RDW Standard Deviation 46.7 fL RDW Coefficient of Variation 14.0 % Immature Granulocyte % (Auto) 0.4 % Immature Granulocyte # (Auto) 0.05 K/uL Prothrombin Time 11.0 SECONDS Prothromb Time International Ratio 1.0 Activated Partial Thromboplast Time 24.7 SECONDS Partial Thromboplastin Ratio 1.0 Sodium Level 137 mmol/L Potassium Level 4.4 mmol/L Chloride Level 105 mmol/L Carbon Dioxide Level 23 mmol/L Anion Gap 9.0 mmol/L Blood Urea Nitrogen 27 mg/dl Creatinine 0.92 mg/dl Est Creatinine Clear Calc Drug Dose 73.8 ml/min Estimated GFR () 72.1 Estimated GFR (Non- 62.2 BUN/Creatinine Ratio 29.8 Random Glucose 150 mg/dl Calcium Level 8.5 mg/dl Magnesium Level 1.2 mg/dl Total Bilirubin 0.4 mg/dl Direct Bilirubin 0.1 mg/dl Aspartate Amino Transf (AST/SGOT) 45 U/L Alanine Aminotransferase (ALT/SGPT) 14 U/L Alkaline Phosphatase 97 U/L Troponin I 13.500 ng/ml Total Protein 7.7 gm/dl Albumin 2.8 gm/dl Lipase 114 U/L Urine Color DK YELLOW Urine Appearance CLOUDY Urine pH 5.0 Urine Specific [place] 1.031 Urine Protein 1+ Urine Glucose (UA) NEG Urine Ketones TRACE Urine Occult Blood NEG Urine Nitrite NEG Urine Bilirubin NEG Urine Urobilinogen NEG Urine Leukocyte Esterase SMALL Urine WBC (Auto) >30 /hpf Urine RBC (Auto) 0-4 /hpf Urine Hyaline Casts (Auto) 5-10 /lpf Urine Epithelial Cells (Auto) >30 /lpf Urine Bacteria (Auto) 4+ Urine Pathogenic Casts /lpf Bedside Glucose 122 mg/dl Creatine Kinase MB Ratio Test 07/21/17 20:35 07/22/17 01:15 07/22/17 01:58 07/22/17 02:28 Creatine Kinase MB 24.7 ng/ml 19.2 ng/ml Troponin I 13.600 ng/ml 8.460 ng/ml Activated Partial Thromboplast Time 110.1 SECONDS Partial Thromboplastin Ratio 4.2 Bedside Glucose 131 mg/dl White Blood Count 9.46 K/uL Red Blood Count 3.36 M/uL Hemoglobin 10.0 g/dL Hematocrit 30.8 % Mean Corpuscular Volume 91.7 fL Mean Corpuscular Hemoglobin 29.8 pg Mean Corpuscular Hemoglobin Concent 32.5 g/dl RDW Standard Deviation 46.5 fL RDW Coefficient of Variation 13.9 % Platelet Count 259 K/uL Mean Platelet Volume 10.0 fL Sodium Level 139 mmol/L Potassium Level 4.8 mmol/L Chloride Level 106 mmol/L Carbon Dioxide Level 25 mmol/L Anion Gap 8.0 mmol/L Blood Urea Nitrogen 27 mg/dl Creatinine 0.77 mg/dl Est Creatinine Clear Calc Drug Dose 87.7 ml/min Estimated GFR () 89.4 Estimated GFR (Non- 77.1 BUN/Creatinine Ratio 34.8 Random Glucose 136 mg/dl Calcium Level 8.2 mg/dl Magnesium Level 1.9 mg/dl Creatine Kinase MB Ratio Triglycerides Level 104 mg/dl Cholesterol Level 109 mg/dl HDL Cholesterol 38 mg/dl LDL Cholesterol, Calculated 50 mg/dl VLDL Cholesterol, Calculated 21 mg/dl Cholesterol/HDL Ratio 2.9 Thyroid Stimulating Hormone (TSH) 0.663 uIu/ml Imaging: EKG: Atrial fibrillation Telemetry reviewed: Atrial fibrillation 90-[address] of the abdomen and pelvis: Focal enteritis Assessment & Plan Impression: 1. NSTEMI 2. Paroxysmal atrial fibrillation with rapid ventricular response 3. Moderate aortic stenosis per echocardiogram 2016 - history of rheumatic fever as a child - severe aortic stenosis suspected per exam 4. Dyslipidemia 5. Hypertension - controlled 6. History of lower GI bleed in the past Plan/recommendations: Review resting 2D transthoracic echocardiogram results available. Plan for cardiac catheterization with coronary angiography for further evaluation of NSTEMI. Continue aspirin, statin, intravenous heparin. Lipitor has been titrated to 40 mg daily. Continue low-dose metoprolol, 12.5 mg twice daily. May require titration to improve rate control. The risks, benefits, and alternatives to cardiac catheters were discussed with the patient at length. She is agreeable to procedure. She is requesting that I contact her daughter, Alida, to discuss further. Thank you for allowing me to participate in the care of your patient. Addendum: 2D echo reviewed demonstrating possible severe calcific aortic stenosis (discordant 2D images and doppler), mild to moderate mitral stenosis, moderate to severe mitral regurgitation. No regional wall motion abnormalities. Patient will require hemodynamic catheterization in addition to coronary angiography for assessment of aortic stenosis. Recommend transfer to tertiary care facility. Discussed with daughter and patient who are agreeable. 65 minutes of critical care time was spent examining patient, reviewing medical records, reviewing data, discussion with family, consultants, as well as arranging transfer to tertiary care facility.
[2017-07-22] MEDS ORDERED: ASPIRIN 81 MG ECTAB PO SCH (09:00)
[2017-07-22] MEDS ORDERED: FLUOXETINE HCL 20 MG CAP PO SCH (09:00)
[2017-07-22] MEDS ORDERED: ATORVASTATIN 40 MG TAB PO SCH ×2 (09:00)
[2017-07-22] MEDS ORDERED: METOPROLOL SUCC 25MG EXT REL TAB PO SCH (09:00)
[2017-07-22] MEDS ORDERED: PANTOprazole SOD 40 MG TAB PO SCH (09:00)
--- NOTE | 2017-07-22 09:15 | ECHOCARDIOGRAM REPORT ---
*NOTICE TO RECEIVING LIBERTARIAN AGENCY This information is strictly Confidential and protected under [place] law. [place] law prohibits you from making any further disclosure of this information unless further disclosure is expressly permitted by the written consent of the person to whom it pertains or is authorized by law. A general authorization for the release of medical or other information is not sufficient for this purpose. Hospital accepts no responsibility if the information is made available to any other person, INCLUDING THE PATIENT. Interpretation Summary * Name: JP BYRD Study Date: 07/22/2017 06:33 AM BP: 135/77 mmHg * Patient Location: C.2T\S\S229\S\1 HR: 81 * : 1945 (M/d/yyy) Gender: Female Height: 66 in * Age: 72 yrs Ethnicity: CA Weight: 270 lb * Ordering Physician: Andree Zhao * Referring Physician: Self, Referred * Performed By: Jossie Ross [facility] * * Reason For Study: NSTEMI / ELEVATED TROPONIN / S-GIB * BSA: 2.3 m2 * The study was technically adequate. * There is no comparison study available. * -- Conclusions -- * The rhythm is atrial fibrillation. * There is moderate concentric left ventricular hypertrophy. * Ejection Fraction = 55-60%. * The right ventricular cavity size is normal (basal dimension <4.2 cm in right ventricular apical 4-chamber view). * The left atrium is severely dilated. * The aortic valve is severely calcified. * 2D imaging and Doppler interrogation of the aortic valve are discordant. * 2D imaging suggests severe calcific aortic stenosis not confirmed by Doppler interrogation. * There is severe mitral annular calcification. * There is moderate to severe mitral regurgitation. * There is mild to moderate mitral stenosis. * There is trace tricuspid regurgitation. * The estimated systolic pulmonary artery pressure is 49 mmHg. Procedure Details * A complete two-dimensional transthoracic echocardiogram was performed (2D, M-mode, Doppler and color flow Doppler). Left Ventricle * The left ventricle is grossly normal size. * The rhythm is atrial fibrillation. * There is no thrombus. * There is moderate concentric left ventricular hypertrophy. * Ejection Fraction = 55-60%. * No regional wall motion abnormalities noted. Right Ventricle * The right ventricular cavity size is normal (basal dimension <4.2 cm in right ventricular apical 4-chamber view). * The right ventricular systolic function is normal. Atria * The left atrium is severely dilated. * Right atrial size is normal. Mitral Valve * There is severe mitral annular calcification. * There is mild to moderate mitral stenosis. * There is moderate to severe mitral regurgitation. Tricuspid Valve * The tricuspid valve anatomy is normal. * There is no tricuspid stenosis. * There is trace tricuspid regurgitation. * The estimated systolic pulmonary artery pressure is 49 mmHg. Aortic Valve * The aortic valve is severely calcified. * 2D imaging and Doppler interrogation of the aortic valve are discordant. 2D imaging suggests severe calcific aortic stenosis not confirmed by Doppler interrogation. Pulmonic Valve * The pulmonary valve is inadequately visualized, but the Doppler data is adequate for interpretation. * There is no pulmonic valvular stenosis. * Trace pulmonic valvular regurgitation. Great Vessels * The aortic root is normal size. Pericardium/Pleural * There is no pericardial effusion. Left Ventricular Diastolic Function * Pulse wave TDI of the anterior and posterior mitral annulas demonstrates abnormal LV relaxation MMode 2D Measurements and Calculations IVSd 1.5 cm IVSs 1.9 cm LVIDd 4.6 cm LVIDs 3.2 cm LVPWd 1.4 cm LVPWs 1.9 cm IVS/LVPW 1.1 FS 29.5 % EDV(Teich) 95.0 ml ESV(Teich) 41.3 ml EF(Teich) 56.5 % EDV(cubed) 94.3 ml ESV(cubed) 33.1 ml EF(cubed) 64.9 % % IVS thick 26.0 % % LVPW thick 35.1 % LV mass(C)d 275.6 grams LV mass(C)dI 121.3 grams/m\S\2 LV mass(C)s 268.0 grams LV mass(C)sI 118.0 grams/m\S\2 SV(Teich) 53.7 ml SI(Teich) 23.6 ml/m\S\2 SV(cubed) 61.2 ml SI(cubed) 26.9 ml/m\S\2 Ao root diam 3.3 cm Ao root area 8.4 cm\S\2 LA dimension 5.1 cm LA/Ao 1.6 LVOT diam 2.0 cm LVOT area 3.1 cm\S\2 LVAd ap4 38.1 cm\S\2 LVLd ap4 8.1 cm EDV(MOD-sp4) 141.9 ml EDV(sp4-el) 150.8 ml LVAs ap4 23.6 cm\S\2 LVLs ap4 6.9 cm ESV(MOD-sp4) 68.0 ml ESV(sp4-el) 69.1 ml EF(MOD-sp4) 52.0 % EF(sp4-el) 54.2 % LVAd ap2 35.0 cm\S\2 LVLd ap2 8.0 cm EDV(MOD-sp2) 119.4 ml EDV(sp2-el) 129.7 ml LVAs ap2 23.6 cm\S\2 LVLs ap2 7.2 cm ESV(MOD-sp2) 63.4 ml ESV(sp2-el) 66.0 ml EF(MOD-sp2) 46.9 % EF(sp2-el) 49.1 % LVLd %diff -1.88 % EDV(MOD-bp) 130.2 ml LVLs %diff 4.4 % ESV(MOD-bp) 66.4 ml EF(MOD-bp) 49.0 % SV(MOD-sp4) 73.8 ml SI(MOD-sp4) 32.5 ml/m\S\2 SV(MOD-sp2) 56.0 ml SI(MOD-sp2) 24.7 ml/m\S\2 SV(MOD-bp) 63.8 ml SI(MOD-bp) 28.1 ml/m\S\2 SV(sp4-el) 81.7 ml SI(sp4-el) 36.0 ml/m\S\2 SV(sp2-el) 63.7 ml SI(sp2-el) 28.0 ml/m\S\2 Doppler Measurements and Calculations MV E max cleo 236.7 cm/sec MV P1/2t max cleo 218.6 cm/sec MV P1/2t 91.3 msec MVA(P1/2t) 2.4 cm\S\2 MV dec slope 701.7 cm/sec\S\2 MV dec time 0.30 sec Ao V2 max 267.1 cm/sec Ao max PG 28.5 mmHg Ao max PG (full) 27.0 mmHg JOSÉ LUIS(V,A) 0.72 cm\S\2 JOSÉ LUIS(V,D) 0.72 cm\S\2 LV V1 max PG 1.5 mmHg LV V1 max 62.1 cm/sec MR max cleo 520.8 cm/sec MR max PG 108.5 mmHg PA V2 max 92.2 cm/sec PA max PG 3.4 mmHg PI max cleo 246.5 cm/sec PI max PG 24.3 mmHg PI dec slope 189.9 cm/sec\S\2 PI P1/2t 380.3 msec
--- NOTE | 2017-07-22 10:40 | DIAGNOSTIC IMAGING REPORT ---
CHEST ONE VIEW PORTABLE CLINICAL HISTORY: NSTEMI, SOB dyspnea COMPARISON STUDY: 07/29/2011 FINDINGS: Prominent pulmonary vasculature. Mild cardiomegaly. Diaphragms are smooth. IMPRESSION: Developing congestive heart failure The above report was generated using voice recognition software. It may contain grammatical, syntax or spelling errors. Electronically signed by: Agustin Jean M.D. 07/22/2017 10:39 AM Dictated Date/Time: 07/22/2017 10:38 AM
--- NOTE | 2017-07-22 11:31 | Progress Note ---
Medicine Progress Note Date & Time of Visit: Jul 22, 2017 at 11:14. Subjective Pt was seen and examined Lying in bed with no distress with daughter and granddaughter at bedside Pt said that she does not have any chest pain She said that she feels ok has not been having any nausea and vomiting Objective Last 8 Hrs Date Time Temp Pulse Resp B/P (MAP) Pulse Ox O2 Delivery O2 Flow Rate FiO2 07/22/17 08:34 96 Nasal Cannula 2.0 07/22/17 07:38 36.4 91 18 114/64 (81) 96 Nasal Cannula 2.0 07/22/17 04:00 Nasal Cannula 2.0 07/22/17 03:20 36.5 82 20 127/81 (96) 97 Nasal Cannula 2.5 Physical Exam: General- No acute distress Head- atraumatic Eyes- PERRL, EOMI ENT- oropharynx clear Neck- supple, no JVD Lungs- clear to auscultation Heart- +murmur Abdomen- normal bowel sounds, soft Extremities- no calf tenderness Neuro- alert, oriented, PERRL, EOMI Skin- warm & dry Laboratory Results: Last 24 Hours Test 07/21/17 16:30 07/21/17 16:50 07/21/17 20:06 07/21/17 20:30 White Blood Count 12.42 K/uL Red Blood Count 3.51 M/uL Hemoglobin 11.0 g/dL Hematocrit 32.3 % Mean Corpuscular Volume 92.0 fL Mean Corpuscular Hemoglobin 31.3 pg Mean Corpuscular Hemoglobin Concent 34.1 g/dl Platelet Count 295 K/uL Mean Platelet Volume 10.6 fL Neutrophils (%) (Auto) 83.3 % Lymphocytes (%) (Auto) 7.8 % Monocytes (%) (Auto) 7.1 % Eosinophils (%) (Auto) 1.2 % Basophils (%) (Auto) 0.2 % Neutrophils # (Auto) 10.35 K/uL Lymphocytes # (Auto) 0.97 K/uL Monocytes # (Auto) 0.88 K/uL Eosinophils # (Auto) 0.15 K/uL Basophils # (Auto) 0.02 K/uL RDW Standard Deviation 46.7 fL RDW Coefficient of Variation 14.0 % Immature Granulocyte % (Auto) 0.4 % Immature Granulocyte # (Auto) 0.05 K/uL Prothrombin Time 11.0 SECONDS Prothromb Time International Ratio 1.0 Activated Partial Thromboplast Time 24.7 SECONDS Partial Thromboplastin Ratio 1.0 Sodium Level 137 mmol/L Potassium Level 4.4 mmol/L Chloride Level 105 mmol/L Carbon Dioxide Level 23 mmol/L Anion Gap 9.0 mmol/L Blood Urea Nitrogen 27 mg/dl Creatinine 0.92 mg/dl Est Creatinine Clear Calc Drug Dose 73.8 ml/min Estimated GFR () 72.1 Estimated GFR (Non- 62.2 BUN/Creatinine Ratio 29.8 Random Glucose 150 mg/dl Calcium Level 8.5 mg/dl Magnesium Level 1.2 mg/dl Total Bilirubin 0.4 mg/dl Direct Bilirubin 0.1 mg/dl Aspartate Amino Transf (AST/SGOT) 45 U/L Alanine Aminotransferase (ALT/SGPT) 14 U/L Alkaline Phosphatase 97 U/L Troponin I 13.500 ng/ml Total Protein 7.7 gm/dl Albumin 2.8 gm/dl Lipase 114 U/L Urine Color DK YELLOW Urine Appearance CLOUDY Urine pH 5.0 Urine Specific [place] 1.031 Urine Protein 1+ Urine Glucose (UA) NEG Urine Ketones TRACE Urine Occult Blood NEG Urine Nitrite NEG Urine Bilirubin NEG Urine Urobilinogen NEG Urine Leukocyte Esterase SMALL Urine WBC (Auto) >30 /hpf Urine RBC (Auto) 0-4 /hpf Urine Hyaline Casts (Auto) 5-10 /lpf Urine Epithelial Cells (Auto) >30 /lpf Urine Bacteria (Auto) 4+ Urine Pathogenic Casts /lpf Bedside Glucose 122 mg/dl Creatine Kinase MB Ratio Test 07/21/17 20:35 07/22/17 01:15 07/22/17 01:58 07/22/17 02:28 Creatine Kinase MB 24.7 ng/ml 19.2 ng/ml Troponin I 13.600 ng/ml 8.460 ng/ml Activated Partial Thromboplast Time 110.1 SECONDS Partial Thromboplastin Ratio 4.2 Bedside Glucose 131 mg/dl White Blood Count 9.46 K/uL Red Blood Count 3.36 M/uL Hemoglobin 10.0 g/dL Hematocrit 30.8 % Mean Corpuscular Volume 91.7 fL Mean Corpuscular Hemoglobin 29.8 pg Mean Corpuscular Hemoglobin Concent 32.5 g/dl RDW Standard Deviation 46.5 fL RDW Coefficient of Variation 13.9 % Platelet Count 259 K/uL Mean Platelet Volume 10.0 fL Sodium Level 139 mmol/L Potassium Level 4.8 mmol/L Chloride Level 106 mmol/L Carbon Dioxide Level 25 mmol/L Anion Gap 8.0 mmol/L Blood Urea Nitrogen 27 mg/dl Creatinine 0.77 mg/dl Est Creatinine Clear Calc Drug Dose 87.7 ml/min Estimated GFR () 89.4 Estimated GFR (Non- 77.1 BUN/Creatinine Ratio 34.8 Random Glucose 136 mg/dl Calcium Level 8.2 mg/dl Magnesium Level 1.9 mg/dl Creatine Kinase MB Ratio Triglycerides Level 104 mg/dl Cholesterol Level 109 mg/dl HDL Cholesterol 38 mg/dl LDL Cholesterol, Calculated 50 mg/dl VLDL Cholesterol, Calculated 21 mg/dl Cholesterol/HDL Ratio 2.9 Thyroid Stimulating Hormone (TSH) 0.663 uIu/ml Test 07/22/17 06:58 07/22/17 09:06 Bedside Glucose 134 mg/dl Activated Partial Thromboplast Time 29.0 SECONDS Partial Thromboplastin Ratio 1.1 Date/Time Source Procedure Growth Status 07/21/17 16:50 Urine,Catheterized Urine Culture - Preliminary Gram Negative Bacilli Resulted Assessment & Plan 72 yo present the ER with vomiting and diarrhea NSTEMI Troponin on admission 13.5 EKG showed Afib with HR 123, No significant ST changes Currently denies any chest pain Received aspirin 325mg Check troponin Repeat EKG in am Check echo Continue aspirin 81mg, lipitor increases to 40mg Continue IV heparin drip Cardiology consulted Case discussed with Dr. Dugan recommended to start on metoprolol 12.5 mg TID Will keep NPO for now for possible cardiac cath in am Informed Nurse and overnight hospitalist if pt develops any chest discomfort to notify barrel centerer dr. Dugan Continue monitor closely in tele 07/22/17 Troponin trending down Continue IV heparin/Aspirin and Statin and metoprolol Case discussed with Cardiology Pt will be transferred to [facility] for hemodynamic catheterization in addition to coronary angiography for assessment of aortic stenosis Dr. Dugan always discussed with Cardiology Dr. Pendleton who is the accepting physician Will keep pt NPO for now Daughter at bedside and updated about the transfer to [place] and agreed with plan ECHO * The rhythm is atrial fibrillation. * There is moderate concentric left ventricular hypertrophy. * Ejection Fraction = 55-60%. * The right ventricular cavity size is normal (basal dimension <4.2 cm in right ventricular apical 4-chamber view). * The left atrium is severely dilated. * The aortic valve is severely calcified. * 2D imaging and Doppler interrogation of the aortic valve are discordant. * 2D imaging suggests severe calcific aortic stenosis not confirmed by Doppler interrogation. * There is severe mitral annular calcification. * There is moderate to severe mitral regurgitation. * There is mild to moderate mitral stenosis. * There is trace tricuspid regurgitation. * The estimated systolic pulmonary artery pressure is 49 mmHg. Nausea/Vomiting/Diarrhea Possible related to gastroenteritis CT abdomen showed no bowel obstruction. Mild mesenteric stranding with interloop edema involves several loops of nondilated small bowel within the left mid and lower abdomen with mild free fluid also seen within the dependent pelvis. These findings suggest focal enteritis. Received IVF in the ER If diarrhea continue, will send stools for Cdiff stable UTI Urine cx positive for gram negative bacilli Denies any urinary symptoms has been confused as per daughter Afebrile WBC mildly elevated on admission Received Levaquin in the ER Continue Levaquin IV New onset of Afib EKG on admission showed Afib with HR in the 120's Received Lopressor IV 2.5mg in the ER Rate control On IV heparin drip Continue metoprolol tartrate 12.5 mg BID HTN Hold lisinopril Monitor BP Hypomagnesemia Mostly related to GI upset Mg on admission 1.2 Mg 1.9 today Stable DM type 2 Recent Hba1c 5.5 on (06/26/17) Controlled Metformin on hold Monitor BS Will start on insulin coverage if BS starts to elevate Dyslipidemia Lipitor increased to 40mg daily LDL at goal Aortic Stenosis Case discussed with Cardiology that recommended to transfer [place] for coronary angiography to assess of aortic stenosis Echo showed * There is severe mitral annular calcification. * There is moderate to severe mitral regurgitation. * There is mild to moderate mitral stenosis Hypothyroidism TSH WNL Continue levothyroxine DVT px on heparin drip CODE STATUS FULL CODE Disposition Will transfer to [facility] for hemodynamic catheterization in addition to coronary angiography for assessment of aortic stenosis Accepting Physician cardiology Dr. Pendleton Consultants: Cardio Current Inpatient Medications: Current Inpatient Medications Medications (Trade) Dose Ordered Sig/Johan Route Start Time Stop Time Status Last Admin Dose Admin Nitroglycerin (Nitrostat Tab) 0.4 mg UD PRN SL 07/21/17 18:45 08/20/17 18:44 Aspirin (Ecotrin Tab) 81 mg DAILY PO 07/22/17 09:00 08/21/17 08:59 07/22/17 07:42 81 MG Fluoxetine HCl (Prozac Cap) 20 mg QAM PO 07/22/17 09:00 08/21/17 08:59 07/22/17 07:42 20 MG Gabapentin (Neurontin Cap) 100 mg BID PO 07/21/17 21:00 08/20/17 20:59 07/22/17 07:42 100 MG Levothyroxine Sodium (Synthroid Tab) 125 mcg DAILYBB PO 07/22/17 06:00 08/21/17 05:59 07/22/17 05:54 125 MCG Metoprolol Tartrate (Lopressor Tab) 12.5 mg Q8H PO 07/22/17 06:00 08/21/17 05:59 07/22/17 05:54 12.5 MG Atorvastatin Calcium (Lipitor Tab) 40 mg HS PO 07/21/17 21:00 08/21/17 08:59 07/21/17 20:29 40 MG Pantoprazole Sodium (Protonix Tab) 40 mg QAM PO 07/22/17 09:00 08/21/17 08:59 07/22/17 07:42 40 MG Levofloxacin 500 mg/Prmx 100 ml @ 100 mls/hr Q24H IV 07/22/17 13:00 08/01/17 12:59 Heparin Sodium/ Dextrose 500 ml @ 25 mls/hr Q20H IV 07/21/17 20:45 08/20/17 20:44 07/21/17 21:16 30 MLS/HR Prochlorperazine Edisylate 5 mg/ Syringe 5 ml @ 5 mls/min Q6H PRN IV 07/21/17 22:45 08/20/17 22:44 07/21/17 23:15 5 MLS/MIN
--- NOTE | 2017-07-22 11:38 | Discharge Instructions ---
Discharge Instructions Date of Service Jul 22, 2017. Admission Reason for Admission: New Onset A-Fib, Nstemi Discharge Discharge Diagnosis / Problem: NSTEMI/ NEW ONSET AFIB Discharge Goals Goal(s): Decrease discomfort, Improve function, Improve disease control Activity Recommendations Activity Limitations: resume your previous activity ( TOLERATED) . Instructions / Follow-Up Instructions / Follow-Up Transfer to [facility] Accepting Physician cardiology Dr. Pendleton Keep NPO for possible cardiac cath Continue IV heparin drip On Levaquin IV for the UTI Current Hospital Diet Patient's current hospital diet: Discharge Diet Recommended Diet: N/A (NPO for now) Pending Studies Studies pending at discharge: no Laboratory Results Lipid Panel Test 07/22/17 02:28 Range/Units Triglycerides Level 104 0-150 mg/dl Cholesterol Level 109 0-200 mg/dl HDL Cholesterol 38 mg/dl Cholesterol/HDL Ratio 2.9 LDL Cholesterol, Calculated 50 mg/dl Medical Emergencies . Who to Call and When: Medical Emergencies: If at any time you feel your situation is an emergency, please call 911 immediately. . Non-Emergent Contact Non-Emergency issues call your: Primary Care Provider, Computator Call Non-Emergent contact if: you have any medication questions . . "Provider Documentation" section prepared by Andree Zhao. .
--- NOTE | 2017-07-22 11:43 | Discharge Summary ---
Discharge Summary Date of Service Jul 22, 2017. Discharge Summary Admission Date: Jul 21, 2017 at 18:47 Discharge Date: Jul 22, 2017 Discharge Disposition: Acute care facility Principal Diagnosis: NSTEMI NEW ONSET AFIB Secondary Diagnoses/Problems: UTI Severe aortic Stenosis Gastroenteritis Hypothyroidism DM Type 2 - controlled Dyslipidemia HTN Procedures: ABDOMEN AND PELVIS CT WITHOUT CONTRAST CT DOSE: 1852.13 mGy.cm HISTORY: Acute vomiting vomiting TECHNIQUE: Multiaxial CT images of the abdomen and pelvis were performed without contrast. A dose lowering technique was utilized adhering to the principles of ALARA. COMPARISON STUDY: CT abdomen and pelvis 08/09/2016. FINDINGS: Study is limited secondary to patient motion and positioning with left arm draped over the anterior abdomen heart is mildly enlarged with mitral annular calcifications and coronary arterial disease. Mild subsegmental bibasilar atelectasis. No pneumatosis or pneumoperitoneum. Evaluation of the solid abdominal organs is limited without the use of IV contrast. Thin the limitations of the study, the liver, spleen and adrenal glands are within normal limits. Mild gallbladder distention. Moderate generalized pancreatic atrophy. Nonspecific bilateral perinephric stranding. Suggestion of a punctate calculus of the inferior pole left kidney. No ureteral calculi or obstructive uropathy. The urinary bladder is partially collapsed. Uterus and right adnexum are unremarkable. There is indeterminate 1.7 x 1.7 cm lesion of the left adnexum, unchanged. Dense atherosclerosis of the aorta without aneurysm. No bulky adenopathy identified. Small sliding-type hiatal hernia. No bowel obstruction. There is mild mesenteric stranding with interloop edema involves several loops of small bowel within the left mid and lower abdomen, evaluation is limited secondary to motion. Additionally, there is mild free pelvic fluid. There is moderate colonic diverticulosis without CT evidence of acute diverticulitis. Majority of the large bowel is decompressed. The appendix is not definitively seen. No secondary signs to suggest acute appendicitis. Soft tissues are unremarkable. Bones are mildly demineralized. Degenerative changes are again noted within the right greater the left SI joints with severe multilevel lower lumbar spine facet arthropathy and intervertebral disc space narrowing. IMPRESSION: 1. Limited study secondary to patient motion and positioning. 2. No bowel obstruction. 3. Mild mesenteric stranding with interloop edema involves several loops of nondilated small bowel within the left mid and lower abdomen with mild free fluid also seen within the dependent pelvis. These findings suggest focal enteritis. 4. Indeterminate 1.7 cm cystic lesion of the left adnexum, unchanged from comparison. 5. Small sliding type hiatal hernia. 6. Additional findings as above. Electronically signed by: Musa Dow M.D. 07/21/2017 5:30 PM Dictated Date/Time: 07/21/2017 5:21 PM ECHO Interpretation Summary * Name: PJ BYRD Study Date: 07/22/2017 06:33 AM BP: 135/77 mmHg * Patient Location: 2T\S\S229\S\1 HR: 81 * : 1945 (M/d/yyyy) Gender: Female Height: 66 in * Age: 72 yrs Ethnicity: CA Weight: 270 lb * Ordering Physician: Andree Zhao * Referring Physician: Self, Referred * Performed By: Jossie Ross [facility] * * Reason For Study: NSTEMI / ELEVATED TROPONIN / S-GIB * BSA: 2.3 m2 * The study was technically adequate. * There is no comparison study available. * -- Conclusions -- * The rhythm is atrial fibrillation. * There is moderate concentric left ventricular hypertrophy. * Ejection Fraction = 55-60%. * The right ventricular cavity size is normal (basal dimension <4.2 cm in right ventricular apical 4-chamber view). * The left atrium is severely dilated. * The aortic valve is severely calcified. * 2D imaging and Doppler interrogation of the aortic valve are discordant. * 2D imaging suggests severe calcific aortic stenosis not confirmed by Doppler interrogation. * There is severe mitral annular calcification. * There is moderate to severe mitral regurgitation. * There is mild to moderate mitral stenosis. * There is trace tricuspid regurgitation. * The estimated systolic pulmonary artery pressure is 49 mmHg. Procedure Details * A complete two-dimensional transthoracic echocardiogram was performed (2D, M-mode, Doppler and color flow Doppler). Left Ventricle * The left ventricle is grossly normal size. * The rhythm is atrial fibrillation. * There is no thrombus. * There is moderate concentric left ventricular hypertrophy. * Ejection Fraction = 55-60%. * No regional wall motion abnormalities noted. Right Ventricle * The right ventricular cavity size is normal (basal dimension <4.2 cm in right ventricular apical 4-chamber view). * The right ventricular systolic function is normal. Atria * The left atrium is severely dilated. * Right atrial size is normal. Mitral Valve * There is severe mitral annular calcification. * There is mild to moderate mitral stenosis. * There is moderate to severe mitral regurgitation. Tricuspid Valve * The tricuspid valve anatomy is normal. * There is no tricuspid stenosis. * There is trace tricuspid regurgitation. * The estimated systolic pulmonary artery pressure is 49 mmHg. Aortic Valve * The aortic valve is severely calcified. * 2D imaging and Doppler interrogation of the aortic valve are discordant. 2D imaging suggests severe calcific aortic stenosis not confirmed by Doppler interrogation. Pulmonic Valve * The pulmonary valve is inadequately visualized, but the Doppler data is adequate for interpretation. * There is no pulmonic valvular stenosis. * Trace pulmonic valvular regurgitation. Great Vessels * The aortic root is normal size. Pericardium/Pleural * There is no pericardial effusion. Left Ventricular Diastolic Function * Pulse wave TDI of the anterior and posterior mitral annulas demonstrates abnormal LV relaxation Consultations: Cardio Admission Information HPI (per Admitting provider): Patient is a 72 year old female with PMH of DM type 2 controlled, HTN, moderate aortic stenosis, Dyslipidemia present to the ER with vomiting and diarrhea. Family present at bedside and pt gave permission to speak in front of family member. As per daughter, Pt just lost her about 12 days ago. Daughter said that since then her mother alisha started to decline. She said that today after eating as sandwich she was starting to have diarrhea and vomiting associated with abdominal pain. Daughter said that she had multiples episodes of vomiting. She said that her mother has been on/off confused since her dad and today the confusion got worst. She said that she checked her BS before EMS came and he was 260 and when EMS checked it it was 160. Pt said that she also had some heartburn. Pt said that last episodes of vomiting was about 2hrs ago. Pt denies any urinary symptoms such as dysuria or strong smelling urine. Denies any chest pain, palpitation, dizziness, SOB, fever, chills. In the ER pt was found in Afib and her troponin was 13.5. Currently pt said that she feels much better. Physical Exam (per Admitting): General Appearance: WD/WN, no apparent distress Head: normocephalic, atraumatic Eyes: PERRL, EOMI ENT: normal ENT inspection Neck: no JVD, trachea midline Respiratory/Chest: chest non-tender, no respiratory distress, no accessory muscle use Cardiovascular: + irregularly irregular Abdomen/GI: normal bowel sounds, non tender Back: no CVA tenderness Extremities/Musculoskelatal: no calf tenderness Neurologic/Psych: no motor/sensory deficits, alert, normal mood/affect, oriented x 3 Skin: warm/dry, no rash Hospital Course 72 yo present the ER with vomiting and diarrhea NSTEMI Troponin on admission 13.5 EKG showed Afib with HR 123, No significant ST changes Currently denies any chest pain Received aspirin 325mg Check troponin Repeat EKG in am Check echo Continue aspirin 81mg, lipitor increases to 40mg Continue IV heparin drip Cardiology consulted Case discussed with Dr. Dugan recommended to start on metoprolol 12.5 mg TID Will keep NPO for now for possible cardiac cath in am Informed Nurse and overnight hospitalist if pt develops any chest discomfort to notify yeast fermentation attendant dr. Dugan Continue monitor closely in tele 07/22/17 Troponin trending down Continue IV heparin/Aspirin and Statin and metoprolol Case discussed with Cardiology Pt will be transferred to [facility] for hemodynamic catheterization in addition to coronary angiography for assessment of aortic stenosis Dr. Dugan always discussed with Cardiology Dr. Pendleton who is the accepting physician Will keep pt NPO for now Daughter at bedside and updated about the transfer to [place] and agreed with plan ECHO * The rhythm is atrial fibrillation. * There is moderate concentric left ventricular hypertrophy. * Ejection Fraction = 55-60%. * The right ventricular cavity size is normal (basal dimension <4.2 cm in right ventricular apical 4-chamber view). * The left atrium is severely dilated. * The aortic valve is severely calcified. * 2D imaging and Doppler interrogation of the aortic valve are discordant. * 2D imaging suggests severe calcific aortic stenosis not confirmed by Doppler interrogation. * There is severe mitral annular calcification. * There is moderate to severe mitral regurgitation. * There is mild to moderate mitral stenosis. * There is trace tricuspid regurgitation. * The estimated systolic pulmonary artery pressure is 49 mmHg. Nausea/Vomiting/Diarrhea Possible related to gastroenteritis CT abdomen showed no bowel obstruction. Mild mesenteric stranding with interloop edema involves several loops of nondilated small bowel within the left mid and lower abdomen with mild free fluid also seen within the dependent pelvis. These findings suggest focal enteritis. Received IVF in the ER If diarrhea continue, will send stools for Cdiff stable UTI Urine cx positive for gram negative bacilli Denies any urinary symptoms has been confused as per daughter Afebrile WBC mildly elevated on admission Received Levaquin in the ER Continue Levaquin IV New onset of Afib EKG on admission showed Afib with HR in the 120's Received Lopressor IV 2.5mg in the ER Rate control On IV heparin drip Continue metoprolol tartrate 12.5 mg BID HTN Hold lisinopril Monitor BP Hypomagnesemia Mostly related to GI upset Mg on admission 1.2 Mg 1.9 today Stable DM type 2 Recent Hba1c 5.5 on (06/26/17) Controlled Metformin on hold Monitor BS Will start on insulin coverage if BS starts to elevate Dyslipidemia Lipitor increased to 40mg daily LDL at goal Aortic Stenosis Case discussed with Cardiology that recommended to transfer [place] for coronary angiography to assess of aortic stenosis Echo showed * There is severe mitral annular calcification. * There is moderate to severe mitral regurgitation. * There is mild to moderate mitral stenosis Hypothyroidism TSH WNL Continue levothyroxine DVT px on heparin drip CODE STATUS FULL CODE Disposition Will transfer to [facility] for hemodynamic catheterization in addition to coronary angiography for assessment of aortic stenosis Accepting Physician cardiology Dr. Pendleton Total time spent on discharge = 50 minutes This includes examination of the patient, discharge planning, medication reconciliation, and communication with other providers. Discharge Instructions Transfer to [facility] Accepting Physician cardiology Dr. Pendleton Keep NPO for possible cardiac cath Continue IV heparin drip On Levaquin IV for the UTI Additional Copies To Pito Watkins M.D. (MEDICAL)
[2017-07-22] MEDS ORDERED: HEPARIN IV BOLUS 7,000 UNIT in SYRINGE 0 ML IV ONE (11:45)
[2017-07-22 12:10] VITALS: BP 106/64; PULSE 78; TEMP 36.4; O2SAT 90
[2017-07-22 12:31] VITALS: O2SAT 96
[2017-07-22 12:56] VITALS: BP 106/64; PULSE 78; TEMP 36.4; O2SAT 96
[2017-07-22] MEDS ORDERED: LEVOFLOXACIN / D5W 500 MG in PREMIXED IN D5W 100 ML IV SCH (13:00)
[2017-07-22] MEDS: HEPARIN 25,000 UNIT/500ML D5W 500 ML IV SCH (14:29)
== END 2017-07-22 15:26 | disposition short-term general hospital (02) | DRG 281 ==
LOC: EDBD 15:44 → C.EDC 15:45 → C.2T 18:47 → ENRESERV 18:56
PROVIDERS: ADMIT Internal Medicine; ATTEND Internal Medicine
DX: I21.4 Non-ST elevation (NSTEMI) myocardial infarction (principal); N39.0 Urinary tract infection, site not specified; F32.9 Major depressive disorder, single episode, unspecified; E11.9 Type 2 diabetes mellitus without complications; I10 Essential (primary) hypertension; Z85.3 Personal history of malignant neoplasm of breast; I25.10 Atherosclerotic heart disease of native coronary artery without angina pectoris; I48.0 Paroxysmal atrial fibrillation; E83.42 Hypomagnesemia; E86.0 Dehydration; I35.0 Nonrheumatic aortic (valve) stenosis; E78.5 Hyperlipidemia, unspecified; E03.9 Hypothyroidism, unspecified; Z88.0 Allergy status to penicillin; Z88.1 Allergy status to other antibiotic agents; K52.9 Noninfective gastroenteritis and colitis, unspecified; Z82.49 Family history of ischemic heart disease and other diseases of the circulatory system

== ENCOUNTER → 2017-07-30 | Outpatient (CLI) | payer OTHER ==
[~2017-07-30] MED LIST changes: +ASPEC81 PO; -CPR500 PO; +DIPH25CA65 PO; +FEXO1TAB46 PO; +FLUT0.15 NAE; +LEVO125T72 PO; +TRMCR515 TOP
[2017-07-30 13:57] LABS: HEMATOCRIT 31.8 % (37-47); HEMOGLOBIN 10.3 g/dL (12.0-16.0); MEAN CELL VOLUME 91.6 fL (80-100); MEAN CORPUSCULAR HEMOGLOBIN 29.7 pg (25-34); MEAN CORPUSCULAR HGB CONC 32.4 g/dl (32-36); MEAN PLATELET VOLUME 11.5 fL (7.4-10.4); PLATELET COUNT 318 K/uL (130-400); RED CELL DISTRIBUTION WIDTH CV 14.7 % (11.5-14.5); RED CELL DISTRIBUTION WIDTH SD 47.6 fL (36.4-46.3); WHITE BLOOD COUNT 9.34 K/uL (4.8-10.8)
[2017-07-30 14:34] LABS: ALBUMIN 2.8 gm/dl (3.4-5.0); ALT/SGPT 15 U/L (12-78); BLOOD UREA NITROGEN 52 mg/dl (7-18); CALCIUM 8.7 mg/dl (8.5-10.1); CARBON DIOXIDE 28 mmol/L (21-32); GLUCOSE 255 mg/dl (70-99); SODIUM 135 mmol/L (136-145)
[2017-07-30 14:37] LABS: ALKALINE PHOSPHATASE 95 U/L (45-117); AST/SGOT 12 U/L (15-37); TOTAL PROTEIN 7.2 gm/dl (6.4-8.2)
== END ==
LOC: C.LABCC 12:55
PROVIDERS: ATTEND Internal Medicine
DX: I48.91 Unspecified atrial fibrillation (principal)

== ENCOUNTER → 2017-07-31 | Outpatient (CLI) | payer OTHER | LOC: C.LABCC 09:28 | PROVIDERS: ATTEND Internal Medicine | DX: I48.91 Unspecified atrial fibrillation (principal) ==

== ENCOUNTER → 2017-08-01 | Outpatient (CLI) | payer OTHER | LOC: C.LABCC 08:10 | PROVIDERS: ATTEND Internal Medicine | DX: D64.9 Anemia, unspecified (principal) ==

== ENCOUNTER → 2017-08-02 | Outpatient (CLI) | payer OTHER ==
[2017-08-02 17:31] LABS: INR 1.1 (0.9-1.1)
== END ==
LOC: C.LABCC 16:45
PROVIDERS: ATTEND Internal Medicine
DX: I48.91 Unspecified atrial fibrillation (principal)

== ENCOUNTER → 2017-08-15 | Outpatient (CLI) | payer OTHER ==
[~2017-08-15] MED LIST changes: +ASCA500 PO; -ASPEC81 PO; +ASPI-320 PO; +BXN500 PO; +DTR5 PO; +ENOX100I SQ; +FRRS300 PO; +GLC500 PO; +LEVO112T4 PO; +LEVO125T5 PO; +LPT40 PO; +LSX80 PO; +MCRK20 PO; +METO-217 PO; +MTR500 PO; +NVLG SQ; +PRT40 PO; +SALI0.6510 NAE; +TPRSR50 PO; +VTMB12100 PO; +WARF-246 PO
[2017-08-15 08:34] LABS: HEMATOCRIT 26.9 % (37-47); HEMOGLOBIN 8.6 g/dL (12.0-16.0); MEAN CELL VOLUME 94.1 fL (80-100); MEAN CORPUSCULAR HEMOGLOBIN 30.1 pg (25-34); MEAN PLATELET VOLUME 10.6 fL (7.4-10.4); PLATELET COUNT 238 K/uL (130-400); RED CELL DISTRIBUTION WIDTH CV 15.5 % (11.5-14.5); RED CELL DISTRIBUTION WIDTH SD 52.2 fL (36.4-46.3); WHITE BLOOD COUNT 9.76 K/uL (4.8-10.8)
[2017-08-15 08:48] LABS: INR 1.5 (0.9-1.1)
== END ==
LOC: C.LABCC 07:57
PROVIDERS: ATTEND Internal Medicine
DX: I48.91 Unspecified atrial fibrillation (principal); D64.9 Anemia, unspecified

== ENCOUNTER 2017-08-16 10:43 | Inpatient (IN) | payer OTHER ==
[~2017-08-16] VITALS: Ht 167.6 cm; Wt 119.8 kg
[~2017-08-16 10:43] MED LIST changes: -ASCA500 PO; -BXN500 PO; -DTR5 PO; -ENOX100I SQ; -FRRS300 PO; -GLC500 PO; -LEVO112T4 PO; -LEVO125T5 PO; -LPT40 PO; -LSX80 PO; -MCRK20 PO; -METO-217 PO; -MTR500 PO; -NVLG SQ; -PRT40 PO; -SALI0.6510 NAE; -TPRSR50 PO; -VTMB12100 PO; -WARF-246 PO
[2017-08-16] MEDS ORDERED: SODIUM CHLORIDE 0.9% 1000ML 1,000 ML IV STA ×2 (10:58)
[2017-08-16] MEDS ORDERED: SALI0.6510 NAE (12:19)
[2017-08-16] MEDS ORDERED: NVLG SQ (12:37)
[2017-08-16] MEDS ORDERED: LEVO112T4 PO (12:49)
[2017-08-16 12:52] LABS: BASO % 0.2 %; BASO ABS # 0.02 K/uL (0-0.2); EOS % 3.5 %; EOS ABS # 0.35 K/uL (0-0.5); HEMOGLOBIN 9.1 g/dL (12.0-16.0); IG# 0.04 K/uL (0.00-0.02); LYMPH % 11.3 %; LYMPH ABS # 1.14 K/uL (1.2-3.4); MEAN CELL VOLUME 93.6 fL (80-100); MEAN CORPUSCULAR HEMOGLOBIN 30.4 pg (25-34); MEAN CORPUSCULAR HGB CONC 32.5 g/dl (32-36); MEAN PLATELET VOLUME 9.9 fL (7.4-10.4); MONO ABS # 1.11 K/uL (0.11-0.59); NEUT % 73.6 %; NEUT ABS # 7.41 K/uL (1.4-6.5); PLATELET COUNT 257 K/uL (130-400); RED CELL DISTRIBUTION WIDTH CV 15.6 % (11.5-14.5); RED CELL DISTRIBUTION WIDTH SD 51.8 fL (36.4-46.3); WHITE BLOOD COUNT 10.07 K/uL (4.8-10.8)
[2017-08-16 13:00] LABS: INR 1.7 (0.9-1.1); PTT PATIENT 34.5 SECONDS (21.0-31.0)
[2017-08-16 13:09] LABS: ALBUMIN 2.7 gm/dl (3.4-5.0); CALCIUM 8.6 mg/dl (8.5-10.1); CREATININE 0.81 mg/dl (0.60-1.20); POTASSIUM 3.4 mmol/L (3.5-5.1)
[2017-08-16 13:12] LABS: TOTAL PROTEIN 7.1 gm/dl (6.4-8.2)
[2017-08-16] MEDS ORDERED: CIPROFLOXACIN 400MG / 200ML D5W IV STA (13:24)
--- NOTE | 2017-08-16 13:44 | History and Physical ---
History & Physical Date & Time of Service: Aug 16, 2017 at 13:44 . Chief Complaint: shortness of breath . Primary Care Physician: Pito Watkins M.D. (MEDICAL) . History of Present Illness Source: patient, family, clinic records, hospital records 72-year-old female followed by Dr. Watkins. Hospitalized at [facility] in August 2016 with anemia attributed to GI bleeding. Hemoglobin at time of admission was 7.5. Colonoscopy Feb 2016 demonstrated diverticulosis and was not repeated. EGD 08/10/16 did not reveal any source of bleeding. She was transfused with 2 units of packed RBCs. Hospitalized at [facility] on 07/21/17 with new onset atrial fibrillation and elevated serum troponin.. Echocardiogram demonstrated severe aortic stenosis, mild to moderate mitral stenosis, moderate to severe mitral regurgitation, no segmental wall motion abnormalities. She was transferred to [facility] on 07/22/17 for further evaluation and management. SANDRA was initially unsuccessful due to difficulty passing the probe. The procedure was subsequently performed 07/23/17 with endotracheal intubation and general anesthesia. Study was inconclusive for left atrial thrombus, but "smoke" noted in [place] and cardioversion was not performed. LVEF was 55%. Noted to have mild aortic stenosis, trace aortic regurgitation, severe mitral regurgitation, mild mitral stenosis, enlarged right ventricle, mild RV dysfunction. Cardiac catheterization 07/24/17 revealed nonocclusive coronary disease; PA pressure 70/33; PCWP 29. Seen in consultation by CT Surgery (Dr. Adhikari). Eventual mitral valve replacement anticipated, but postponed due to functional status and comorbidities. Received metoprolol for rate control. Anticoagulation with warfarin was initiated. Received bridge therapy with enoxaparin pending therapeutic INR. Transferred to [facility] on 07/26/17 for skilled care. Labs performed yesterday notable for hemoglobin 8.6. Patient was seen in Cardiology Clinic today by Agustin Sage PA-C. Noted be tachycardic. Labs were reviewed and falling H/H was noted. She was referred to the hospital for further evaluation and management. Patient denies any abdominal pain, nausea, vomiting, hematochezia. No anginal symptoms. She is experiencing dyspnea on exertion. Chronic lower extremity lymphedema is stable. She is on low-dose aspirin. She remains on warfarin and enoxaparin. . Past Medical/Surgical History Chronic and Resolved Medical Problems: (1) Aortic reg[place]itation Permanent Comment[place] [facility] [place] Status: Chronic (2) Aortic stenosis Permanent Comment: [place] [facility] [place] Status: Chronic (3) Atrial fibrillation Status: Chronic (4) Depression Status: Chronic (5) Diabetes mellitus type II, controlled Status: Chronic (6) Diabetic neuropathy Status: Chronic (7) Diverticular disease of colon Permanent Comment: per colonoscopy February 2016 Status: Chronic (8) Dyslipidemia Status: Chronic (9) History of breast cancer Permanent Comment: Right breast Status: Chronic (10) Hypertension Status: Chronic (11) Hypothyroidism Status: Chronic (12) Ischemic heart disease Permanent Comment: nonocclusive CAD [place] [facility] [place] Status: Chronic (13) Lymphedema of both lower extremities Status: Chronic (14) Mitral regurgitation Permanent Comment: severe [place] [facility] [place] Status: Chronic (15) Mitral stenosis Permanent Comment: mild [place] [facility] [place] Status: Chronic (16) Morbid obesity with BMI of 40.0-44.9, adult Status: Chronic (17) Pulmonary hypertension Permanent Comment: PAP 70/33 per cath 07/24/17 Status: Chronic Surgical Problems: (1) History of lumpectomy of right breast Status: Chronic (2) History of tonsillectomy Status: Chronic (3) Status post cardiac catheterization [place] Comment[place] [facility] [place] - nonocclusive CAD, pulmonary hypertension Status: Chronic . Family History FATHER Heart disease MOTHER Breast cancer Uterine cancer Diabetes mellitus GRANDMOTHER Diabetes mellitus Social History Smoking Status: Never Smoker Alcohol Use: none Drug Use: none Marital Status: Housing status: lives with family Occupational Status: retired Immunizations History of Influenza Vaccine: Yes History of Tetanus Vaccine?: No History of Pneumococcal: Yes Pneumococcal Date: Nov 02, 2010 History of Hepatitis B Vaccine: Unknown Allergies Coded Allergies: Cephalexin (Verified Allergy, Unknown, BURNING, NAUSEA, AND TROUBLE BREATHING, 08/16/17) Penicillins (Verified Allergy, Unknown, KIDNEY INFECTION, HIVES, 08/16/17) Sulfa Drugs (Verified Allergy, Unknown, NAUSEA AND TIRED, 08/16/17) Home Medications Scheduled Aspirin (Aspirin EC Low Dose), 81 MG PO QAM Atorvastatin (Lipitor), 40 MG PO DAILY Enoxaparin (Lovenox), 100 MG SQ Q12 Fluoxetine (Prozac), 20 MG PO QAM Furosemide (Furosemide), 80 MG PO DAILY Gabapentin (Neurontin), 100 MG PO BID Insulin Aspart (Novolog), 0 SQ SS Levothyroxine Sodium (Levothyroxine Sodium), 125 MCG PO DAILY Metoprolol Succinate (Toprol Xl), 50 MG PO DAILY Warfarin Sodium (Warfarin Sodium), 5 MG PO DAILY Scheduled PRN Saline ([place] Nasal [place]), 1 SPRAY JUVENTINO UD PRN for ALLERY Review of Systems CONSTITUTIONAL no fever + weight loss EYES no acute visual changes EARS, NOSE, MOUTH, AND THROAT + hearing loss chronic sinus symptoms no pharyngitis CARDIOVASCULAR as noted above in HPI RESPIRATORY + dyspnea on exertion no cough GASTROINTESTINAL as noted above in HPI GENITOURINARY no dysuria no hematuria MUSCULOSKELETAL no arthralgias INTEGUMENTARY no rash NEUROLOGIC + diabetic neuropathy no headaches no focal neurologic symptoms PSYCHIATRIC grieving over loss of this year ENDOCRINE blood sugars fluctuate HEMATOLOGIC / LYMPHATIC bruises easily no adenopathy . Physical Exam Vital Signs Date Time Temp Pulse Resp B/P (MAP) Pulse Ox O2 Delivery O2 Flow Rate FiO2 08/16/17 13:10 89 20 111/65 93 Room Air 08/16/17 13:10 95 Room Air 08/16/17 12:09 84 08/16/17 12:03 92 18 110/68 90 08/16/17 10:48 36.8 94 20 93/57 97 Room Air CONSTITUTIONAL vital signs as noted above adult female, obese, no acute distress EYES conjunctivae clear; lids normal pupils equal and reactive to light EARS, NOSE, MOUTH AND THROAT external inspection of ears and nose unremarkable hearing grossly intact to spoken voice upper and lower dentures oropharynx clear NECK no masses; trachea midline thyroid normal RESPIRATORY normal respiratory effort; no respiratory distress clear to percussion clear to auscultation CARDIOVASCULAR irregular in 80's III/ systolic murmur at base + apex no gallop appreciated + JVD carotid arteries 2/2; bilateral carotid bruits versus transmitted aortic murmur abdominal aorta not palpable pedal pulses diminished capillary refill toes < 2 seconds chronic-appearing lymphedema of lower extremities GASTROINTESTINAL normal bowel sounds, soft, nontender; no palpable masses no hepatomegaly or splenomegaly appreciated, but exam limited LYMPHATIC no cervical adenopathy MUSCULOSKELETAL no cyanosis; no digital clubbing no calf tenderness motor strength extremities grossly intact large old / resolving hematoma posterior left upper extremity SKIN no rash warm and dry multiple ecchymoses erythema dorsum left great toe without warmth or drainage NEUROLOGIC PERRL, EOMI, no facial palsy, no dysarthria, tongue midline PSYCHIATRIC oriented to person, place, time mood and affect appropriate . Diagnostics Laboratory Results Results Past 24 Hours Test 08/16/17 11:21 08/16/17 12:40 08/16/17 12:41 Range/Units Urine Color YELLOW Urine Appearance CLEAR CLEAR Urine pH 5.5 4.5-7.5 Urine Specific [place] 1.009 1.000-1.030 Urine Protein NEG NEG Urine Glucose (UA) NEG NEG Urine Ketones NEG NEG Urine Occult Blood NEG NEG Urine Nitrite POS NEG Urine Bilirubin NEG NEG Urine Urobilinogen NEG NEG Urine Leukocyte Esterase NEG NEG Urine WBC (Auto) 1-5 0-5 /hpf Urine RBC (Auto) 0-4 0-4 /hpf Urine Hyaline Casts (Auto) 1-5 0-5 /lpf Urine Epithelial Cells (Auto) 10-20 0-5 /lpf Urine Bacteria (Auto) 4+ NEG White Blood Count 10.07 4.8-10.8 K/uL Red Blood Count 2.99 4.2-5.4 M/uL Hemoglobin 9.1 12.0-16.0 g/dL Hematocrit 28.0 37-47 % Mean Corpuscular Volume 93.6 80-100 fL Mean Corpuscular Hemoglobin 30.4 25-34 pg Mean Corpuscular Hemoglobin Concent 32.5 32-36 g/dl Platelet Count 257 130-400 K/uL Mean Platelet Volume 9.9 7.4-10.4 fL Neutrophils (%) (Auto) 73.6 % Lymphocytes (%) (Auto) 11.3 % Monocytes (%) (Auto) 11.0 % Eosinophils (%) (Auto) 3.5 % Basophils (%) (Auto) 0.2 % Neutrophils # (Auto) 7.41 1.4-6.5 K/uL Lymphocytes # (Auto) 1.14 1.2-3.4 K/uL Monocytes # (Auto) 1.11 0.11-0.59 K/uL Eosinophils # (Auto) 0.35 0-0.5 K/uL Basophils # (Auto) 0.02 0-0.2 K/uL RDW Standard Deviation 51.8 36.4-46.3 fL RDW Coefficient of Variation 15.6 11.5-14.5 % Immature Granulocyte % (Auto) 0.4 % Immature Granulocyte # (Auto) 0.04 0.00-0.02 K/uL Prothrombin Time 17.7 9.0-12.0 SECONDS Prothromb Time International Ratio 1.7 0.9-1.1 Activated Partial Thromboplast Time 34.5 21.0-31.0 SECONDS Partial Thromboplastin Ratio 1.3 Sodium Level 135 136-145 mmol/L Potassium Level 3.4 3.5-5.1 mmol/L Chloride Level 100 98-107 mmol/L Carbon Dioxide Level 35 21-32 mmol/L Anion Gap 0.0 3-11 mmol/L Blood Urea Nitrogen 24 7-18 mg/dl Creatinine 0.81 0.60-1.20 mg/dl Est Creatinine Clear Calc Drug Dose 83.2 ml/min Estimated GFR () 84.1 Estimated GFR (Non- 72.6 BUN/Creatinine Ratio 30.0 10-20 Random Glucose 128 70-99 mg/dl Calcium Level 8.6 8.5-10.1 mg/dl Total Bilirubin 0.8 0.2-1 mg/dl Direct Bilirubin 0.2 0-0.2 mg/dl Aspartate Amino Transf (AST/SGOT) 16 15-37 U/L Alanine Aminotransferase (ALT/SGPT) 17 12-78 U/L Alkaline Phosphatase 93 45-117 U/L Total Protein 7.1 6.4-8.2 gm/dl Albumin 2.7 3.4-5.0 gm/dl Lipase 224 73-393 U/L Diagnostic Radiology PORTABLE CHEST X-RAY: IMPRESSION: 1. Cardiomegaly with evidence of congestive failure. 2. Low lung volumes. No airspace consolidation or large pleural effusion is identified. Electronically signed by: Kwasi Nielsen M.D. 08/16/2017 1:52 PM Dictated Date/Time: 08/16/2017 1:51 PM . EKG EKG performed at 1115 reviewed and demonstrated atrial fibrillation with a ventricular rate of 110/minute, ST depression anteriorly, inferiorl, and laterally, intraventricular conduction delay. . Impression Assessment and Plan ANEMIA Hemoglobin 10.6 when discharged from [facility] on 07/25/17. Hemoglobin yesterday was 8.6. Repeat hemoglobin today in ED = 9.1. Currently receiving aspirin, warfarin, enoxaparin. INR 1.7. No gross GI bleeding. Rectal exam in ED demonstrated scant stool, heme-negative. Hgb goal greater than 10 in light of recent non-STEMI and other cardiac concerns. Best to avoid diagnostic endoscopy if possible due to underlying cardiac concerns. Check stools for occult blood. Check stool for H. pylori antigen. Hold aspirin. Continue anticoagulation with caution due to high risk for cardioembolism. Empiric PPI. Monitor H&H and transfuse as necessary. ISCHEMIC HEART DISEASE Recent non-STEMI in the setting of atrial fibrillation with rapid ventricular response. Cardiac catheterization demonstrated nonocclusive coronary disease. Hold aspirin in light of possible GI bleed. Continue metoprolol. CHF Chest x-ray demonstrates CHF; chronic lower extremity lymphedema. Acute on chronic CHF secondary to underlying valvular heart disease. Titrate diuretics as necessary. VALVULAR HEART DISEASE Recent SANDRA demonstrated severe mitral regurgitation, mild mitral stenosis, mild aortic stenosis, mild aortic regurgitation. Eventual mitral valve surgery anticipated once functional status permits and comorbidities are optimized. ATRIAL FIBRILLATION Underlying mitral valve disease. Ventricular rate rapid in ED, subsequently improved. Continue metoprolol for rate control. High risk for cardioembolism (recent SANDRA demonstrated "smoke" in [place]). Currently receiving warfarin and bridge therapy with enoxaparin. INR subtherapeutic at 1.7. Will utilize IV heparin with low-dose protocol pending further evaluation and management of anemia. HYPERTENSION Continue metoprolol succinate. Follow and titrate therapy. DM TYPE 2 Diabetes mellitus type 2, usually managed with metformin. Hemoglobin A1c was 5.5. Metformin held due to recent illnesses. Blood sugars have been fluctuating. Random glucose in ED 128. Monitor blood sugars before meals at bedtime. Lantus/NovoLog per protocol. DYSLIPIDEMIA Continue atorvastatin. HYPOTHYROIDISM TSH 0.68 on 07/25/17. Continue levothyroxine. MORBID OBESITY Weight 120 kg, BMI 43. AHA / diabetic diet. VTE PROPHYLAXIS Titrate warfarin. IV heparin until INR therapeutic. Ambulate as able. ADVANCE DIRECTIVES / RESUSCITATION STATUS Discussed with patient and her daughter. She does not have a living will. She would like resuscitation attempted in the event of a cardiopulmonary arrest if there is a reasonable chance of a meaningful recovery. Therefore, code status = "Level 1" (full resuscitation). DISPOSITION To be determined- discharge to home vs return to [facility]. Family Medicine follow-up with Dr. Watkins. Follow-up with [facility] Cardiology and CT Surgery. . Resuscitation Status VTE Prophylaxis Will order VTE Prophylaxis: Yes
[2017-08-16] MEDS ORDERED: ACETAMINOPHEN 325 MG TAB PO PRN (13:45)
--- NOTE | 2017-08-16 13:54 | DIAGNOSTIC IMAGING REPORT ---
SINGLE VIEW CHEST CLINICAL HISTORY: Generalized weakness. FINDINGS: An AP, portable, upright chest radiograph is compared to study dated 07/22/2017. The examination is degraded by portable technique and patient rotation. The heart is enlarged end there is atherosclerotic calcification of the thoracic aorta. There is pulmonary vascular congestion. There are low lung volumes with bibasilar atelectasis. No airspace consolidation or large pleural effusion is identified. No pneumothorax is seen. The skeletal structures are osteopenic. Advanced degenerative change is seen in the left shoulder and thoracic spine. Surgical clips are noted in the right axilla. IMPRESSION: 1. Cardiomegaly with evidence of congestive failure. 2. Low lung volumes. No airspace consolidation or large pleural effusion is identified. Electronically signed by: Kwasi Nielsen M.D. 08/16/2017 1:52 PM Dictated Date/Time: 08/16/2017 1:51 PM
[2017-08-16 15:30] VITALS: O2SAT 100; Ht 167.6 cm; Wt 119.8 kg
[2017-08-16] MEDS ORDERED: HEPARIN IV LOW DOSE NO BOLUS SCH (15:39)
[2017-08-16 15:49] VITALS: BP 113/63; PULSE 113; TEMP 36.8; O2SAT 100
--- NOTE | 2017-08-16 16:27 | EMERGENCY ROOM VISIT NOTE ---
History Report prepared by Baylee: Brandee Garcia Under the Supervision of: Dr. Mihir Hackett D.O. First contact with patient: 10:52 Chief Complaint: ABNORMAL DIAGNOSTIC TESTING Stated Complaint: HBG OF 8.6, BUN 52, CREATINE 0.9 History of Present Illness The patient is a 72 year old female who presents to the Emergency Room with complaints of abnormal labs occurring just prior to arrival. The patient was being seen by her her PCP for a normal follow up just prior to arrival when they saw her labs were abnormal. The patient's BUN went up and her hemoglobin went down since her last visit. The patient is on a blood thinner. She reports the "lump" on her left arm feels "hot". She does have some mild pain in the left arm for this lump is. It is constant. Worse on palpation. She reports she has been feeling normal over the past week. Pt denies headache, change in vision, fevers, chest pain, shortness of breath, nausea, vomiting, diarrhea, pain with urination, and melena. She has absolutely no other complaints. Source of History: patient Onset: just prior to arrival Position: other (generalized) Quality: other (abnormal labs) Timing: other (episode) Associated Symptoms: No fevers, No headache, No chest pain, No SOB, No nausea, No vomiting, No diarrhea, No urinary symptoms Review of Systems See HPI for pertinent positives & negatives. A total of 10 systems reviewed and were otherwise negative. Past Medical & Surgical Medical Problems: (1) Anemia (2) Depression (3) Diabetes mellitus type II, controlled (4) Dyslipidemia (5) GI bleed (6) HTN (hypertension) (7) HX: breast cancer (8) Hypothyroidism (9) New onset a-fib (10) NSTEMI (non-ST elevated myocardial infarction) Surgical Problems: (1) History of lumpectomy of right breast (2) History of tonsillectomy Family History Cancer Diabetes mellitus Gallbladder disease Heart disease Hypertension Social History Smoking Status: Never Smoker Drug Use: none Marital Status: Housing Status: lives with family Occupation Status: retired Current/Historical Medications Scheduled Aspirin (Aspirin EC Low Dose), 81 MG PO QAM Atorvastatin (Lipitor), 20 MG PO HS Fluoxetine (Prozac), 20 MG PO QAM Gabapentin (Neurontin), 100 MG PO BID Insulin Aspart (Novolog), 0 SQ SS Levothyroxine Sodium (Levothyroxine Sodium), 1 TAB PO QAM Lisinopril (Zestril), 40 MG PO QAM Metformin HCl (Metformin HCl ER), 1 TAB PO BID Scheduled PRN Saline ([place] Nasal [place]), 1 SPRAY JUVENTINO UD PRN for ALLERY Allergies Coded Allergies: Cephalexin (Verified Allergy, Unknown, BURNING, NAUSEA, AND TROUBLE BREATHING, 08/16/17) Penicillins (Verified Allergy, Unknown, KIDNEY INFECTION, HIVES, 08/16/17) Sulfa Drugs (Verified Allergy, Unknown, NAUSEA AND TIRED, 08/16/17) Physical Exam Vital Signs Date Time Temp Pulse Resp B/P (MAP) Pulse Ox O2 Delivery O2 Flow Rate FiO2 08/16/17 13:10 89 20 111/65 93 Room Air 08/16/17 13:10 95 Room Air 08/16/17 12:09 84 08/16/17 12:03 92 18 110/68 90 08/16/17 10:48 36.8 94 20 93/57 97 Room Air Physical Exam GENERAL: Sitting up in wheel chair, alert, morbidly obese, well appearing, no distress, non-toxic EYE EXAM: normal conjunctiva. OROPHARYNX: no exudate, no erythema, lips, buccal mucosa, and tongue normal and mucous membranes are moist NECK: supple, no nuchal rigidity, no adenopathy, non-tender LUNGS: Distant lung sounds Clear to auscultation. Normal chest wall mechanics HEART: Distant heart sounds. no murmurs, S1 normal and S2 normal ABDOMEN: abdomen soft, non-tender, normo-active bowel sounds, no masses, no rebound or guarding. BACK: Back is symmetrical on inspection and there is no deformity, no midline tenderness, no CVA tenderness. SKIN: Diffuse bruising. UPPER EXTREMITIES: Left upper extremity with a small amount of bruising along the posterior aspect of the left humerus. LOWER EXTREMITIES: No pitting edema. NEURO EXAM: Normal sensorium, cranial nerves II-XII grossly intact, normal speech, no gross weakness of arms, no gross weakness of legs. Ambulates with assistance with extreme difficulty. Rectal: Heme negative. Medical Decision & Procedures ER Provider Diagnostic Interpretation: Radiology results as stated below per my review and the radiologist's interpretation: SINGLE VIEW CHEST CLINICAL HISTORY: Generalized weakness. FINDINGS: An AP, portable, upright chest radiograph is compared to study dated 07/22/2017. The examination is degraded by portable technique and patient rotation. The heart is enlarged end there is atherosclerotic calcification of the thoracic aorta. There is pulmonary vascular congestion. There are low lung volumes with bibasilar atelectasis. No airspace consolidation or large pleural effusion is identified. No pneumothorax is seen. The skeletal structures are osteopenic. Advanced degenerative change is seen in the left shoulder and thoracic spine. Surgical clips are noted in the right axilla. IMPRESSION: 1. Cardiomegaly with evidence of congestive failure. 2. Low lung volumes. No airspace consolidation or large pleural effusion is identified. Electronically signed by: Kwasi Nielsen M.D. Laboratory Results 08/16/17 12:40 Red Blood Count 2.99, Mean Corpuscular Volume 93.6, Mean Corpuscular Hemoglobin 30.4, Mean Corpuscular Hemoglobin Concent 32.5, Mean Platelet Volume 9.9, Neutrophils (%) (Auto) 73.6, Lymphocytes (%) (Auto) 11.3, Monocytes (%) (Auto) 11.0, Eosinophils (%) (Auto) 3.5, Basophils (%) (Auto) 0.2, Neutrophils # (Auto ) 7.41, Lymphocytes # (Auto) 1.14, Monocytes # (Auto) 1.11, Eosinophils # (Auto ) 0.35, Basophils # (Auto) 0.02 08/16/17 12:41 Test 08/16/17 11:21 08/16/17 12:40 08/16/17 12:41 Urine Color YELLOW Urine Appearance CLEAR (CLEAR) Urine pH 5.5 (4.5-7.5) Urine Specific [place] 1.009 (1.000-1.030) Urine Protein NEG (NEG) Urine Glucose (UA) NEG (NEG) Urine Ketones NEG (NEG) Urine Occult Blood NEG (NEG) Urine Nitrite POS (NEG) Urine Bilirubin NEG (NEG) Urine Urobilinogen NEG (NEG) Urine Leukocyte Esterase NEG (NEG) Urine WBC (Auto) 1-5 /hpf (0-5) Urine RBC (Auto) 0-4 /hpf (0-4) Urine Hyaline Casts (Auto) 1-5 /lpf (0-5) Urine Epithelial Cells (Auto) 10-20 /lpf (0-5) Urine Bacteria (Auto) 4+ (NEG) White Blood Count 10.07 K/uL (4.8-10.8) Red Blood Count 2.99 M/uL (4.2-5.4) Hemoglobin 9.1 g/dL (12.0-16.0) Hematocrit 28.0 % (37-47) Mean Corpuscular Volume 93.6 fL (80-100) Mean Corpuscular Hemoglobin 30.4 pg (25-34) Mean Corpuscular Hemoglobin Concent 32.5 g/dl (32-36) Platelet Count 257 K/uL (130-400) Mean Platelet Volume 9.9 fL (7.4-10.4) Neutrophils (%) (Auto) 73.6 % Lymphocytes (%) (Auto) 11.3 % Monocytes (%) (Auto) 11.0 % Eosinophils (%) (Auto) 3.5 % Basophils (%) (Auto) 0.2 % Neutrophils # (Auto) 7.41 K/uL (1.4-6.5) Lymphocytes # (Auto) 1.14 K/uL (1.2-3.4) Monocytes # (Auto) 1.11 K/uL (0.11-0.59) Eosinophils # (Auto) 0.35 K/uL (0-0.5) Basophils # (Auto) 0.02 K/uL (0-0.2) RDW Standard Deviation 51.8 fL (36.4-46.3) RDW Coefficient of Variation 15.6 % (11.5-14.5) Immature Granulocyte % (Auto) 0.4 % Immature Granulocyte # (Auto) 0.04 K/uL (0.00-0.02) Prothrombin Time 17.7 SECONDS (9.0-12.0) Prothromb Time International Ratio 1.7 (0.9-1.1) Activated Partial Thromboplast Time 34.5 SECONDS (21.0-31.0) Partial Thromboplastin Ratio 1.3 Anion Gap 0.0 mmol/L (3-11) Est Creatinine Clear Calc Drug Dose 83.2 ml/min Estimated GFR () 84.1 Estimated GFR (Non- 72.6 BUN/Creatinine Ratio 30.0 (10-20) Calcium Level 8.6 mg/dl (8.5-10.1) Total Bilirubin 0.8 mg/dl (0.2-1) Direct Bilirubin 0.2 mg/dl (0-0.2) Aspartate Amino Transf (AST/SGOT) 16 U/L (15-37) Alanine Aminotransferase (ALT/SGPT) 17 U/L (12-78) Alkaline Phosphatase 93 U/L (45-117) Total Protein 7.1 gm/dl (6.4-8.2) Albumin 2.7 gm/dl (3.4-5.0) Lipase 224 U/L (73-393) Laboratory results per my review. Medications Administered Medications (Trade) Dose Ordered Sig/Johan Route Start Time Stop Time Status Last Admin Dose Admin Sodium Chloride 1,000 ml @ 999 mls/hr Q1H1M STAT IV 08/16/17 10:58 08/16/17 11:58 DC 08/16/17 13:00 999 MLS/HR Ciprofloxacin/ Dextrose (Cipro / D5W) 400 mg NOW STAT IV 08/16/17 13:24 08/16/17 13:25 DC 08/16/17 13:39 400 MG ECG Per My Interpretation Indication: other (abbnormal labs) Rate (beats per minute): 113 Rhythm: atrial fibrillation (with RVR) Findings: other (nonspecific ST changes in inferior and lateral leads, no pvc) Comparison ECG Date: 07/21/17 Change: changes are new ED Course ED COURSE: Vital signs were reviewed and showed hypotension The patients medical record was reviewed The above diagnostic studies were performed and reviewed. ED treatments and interventions as stated above. 1053: The patient was evaluated in room A12B. A complete history and physical examination was performed. 1058: Ordered Sodium Chloride 1000 ml @ 999 mls/hr IV, Sodium Chloride 1000 ml @ 999 mls/hr IV. 1223: IV team at bedside. 1324: Ordered Cipro/D5W 400 mg IV. 1323: I updated the patient on her test results. 1338: I reviewed the patient's case with Dr. Foy. He will evaluate the patient for further management. 1345: Upon reevaluation, the patient is resting comfortably .I discussed my findings with the patient and she understands and agrees with the treatment plan. Based on the patients age, coexisting illnesses, exam and lab findings the decision to treat as an inpatient was made. The patient remained stable while under my care. The patient will be evaluated for further management. Medical Decision Differential Diagnosis includes but is not limited to dehydration, stroke, anemia, hypoglycemia, hyponatremia, hypernatremia, urinary tract infection, pneumonia, bronchitis, sepsis, gastroenteritis, additional abdominal pathology, metabolic abnormalities and infections. Patient is a 72-year-old female who presents to ER referred in by PCP for an elevated BUN, hemoglobin is trending down while Coumadin. Previous hemoglobins appear to range around 10. Yesterday's hemoglobin was 8 and today it is 9. BUN is elevated at 25. LFTs, bilirubin lipase was normal. INR was subtherapeutic at 1.7. UA had bacteria, epithelial cells and nitrates. Did cover with Cipro secondary to previous cultures and allergies. Chest x-ray unremarkable. Patient was updated at bedside. I did discuss case with internal medicine following a negative rectal exam as she is on Coumadin and with the trending down of hemoglobin and elevated BUN it does favor a likely GI bleed although rectal negative. Patient family were updated at bedside. Medication Reconcilliation Current Medication List: was personally reviewed by me Blood Pressure Screening Patient's blood pressure: Low blood pressure Consults Time Called: 1335 Consulting Physician: Dr. Foy Returned Call: 1338 I reviewed the patient's case with Dr. Foy. He will evaluate the patient for further management. Impression Primary Impression: Anemia Additional Impressions: Elevated BUN UTI (urinary tract infection) Scribe Attestation The scribe's documentation has been prepared under my direction and personally reviewed by me in its entirety. I confirm that the note above accurately reflects all work, treatment, procedures, and medical decision making performed by me. Departure Information Dispostion Being Evaluated By Hospitalist Referrals No Doctor, Assigned (PCP) Patient Instructions My [facility] Problem Qualifiers Primary Impression: Anemia Anemia type: unspecified type Qualified Codes: D64.9 - Anemia, unspecified Additional Impressions: UTI (urinary tract infection) Urinary tract infection type: acute cystitis Hematuria presence: without hematuria Qualified Codes: N30.00 - Acute cystitis without hematuria
[2017-08-16] MEDS ORDERED: HEPARIN 25000 UNIT/500 ML D5W ONE (16:32)
[2017-08-16] MEDS ORDERED: INSULIN ASPART 100 UNITS/ML 3 ML PEN SC ONE (17:18)
[2017-08-16] MEDS ORDERED: GLUCOSE 40% GEL 15 GM TUBE PO PRN (17:30)
[2017-08-16] MEDS ORDERED: GLUCOSE 10 TABS/TUBE PO PRN (17:30)
[2017-08-16] MEDS ORDERED: GLUCAGON FOR INJ 1 MG VIAL SQ PRN (17:30)
[2017-08-16] MEDS ORDERED: DEXTROSE 50% 50 ML SYR IV PRN (17:30)
[2017-08-16] MEDS ORDERED: LPT40 PO (18:54)
[2017-08-16] MEDS ORDERED: METO-217 PO (18:59)
[2017-08-16] MEDS ORDERED: LEVO125T5 PO (18:59)
[2017-08-16] MEDS ORDERED: ENOX100I SQ (18:59)
[2017-08-16] MEDS ORDERED: WARF-246 PO (18:59)
[2017-08-16] MEDS ORDERED: LSX80 PO (18:59)
[2017-08-16] MEDS ORDERED: SODIUM CHLORIDE 0.65% NA SOLN 45 ML (OCEAN) NAE PRN (19:00)
[2017-08-16 19:05] VITALS: BP 102/62; PULSE 80; TEMP 36.5; O2SAT 97
[2017-08-16] MEDS: INSULIN ASPART 100 UNITS/ML 3 ML PEN SC SCH (21:00)
[2017-08-16] MEDS: PANTOprazole INJ 40 MG in SYRINGE 0 ML IV SCH (21:28)
[2017-08-16] MEDS: GABAPENTIN 100 MG CAP PO SCH (21:29)
[2017-08-16] MEDS: INSULIN GLARGINE SOLOSTAR 100 UNITS/ML 3 ML PEN SC SCH (21:31)
[2017-08-16] MEDS ORDERED: POTASSIUM CHLORIDE 20 MEQ TABCR PO ONE (22:00)
[2017-08-16 22:53] VITALS: BP 123/74; PULSE 87; TEMP 37; O2SAT 95
[2017-08-16 23:06] LABS: HEMATOCRIT 27.6 % (37-47); HEMOGLOBIN 8.6 g/dL (12.0-16.0); RETIC COUNT % 4.4 % (0.5-2.0)
[2017-08-16 23:30] LABS: TRANSFERRIN 163 mg/dl (200-360)
[2017-08-16] MEDS ORDERED: HEPARIN IV BOLUS 4,500 UNIT in SYRINGE 0 ML IV ONE (23:45)
[2017-08-17] VITALS (15 sets, daily range): BP systolic 84–134; BP diastolic 46–89; PULSE 79–109; TEMP 36.4–37.4; O2SAT 92–99
[2017-08-17] MEDS: FUROSEMIDE INJ 80 MG in SYRINGE 0 ML IV SCH ×2 (01:02→01:32)
[2017-08-17 06:23] LABS: HEMATOCRIT 29.9 % (37-47); HEMOGLOBIN 9.8 g/dL (12.0-16.0)
[2017-08-17 06:31] LABS: INR 1.6 (0.9-1.1); PTT PATIENT 41.3 SECONDS (21.0-31.0)
[2017-08-17] MEDS: HEPARIN 25,000 UNIT/500ML D5W 500 ML IV SCH ×4 (06:45→22:09)
[2017-08-17] MEDS ORDERED: HEPARIN IV BOLUS 3,000 UNIT in SYRINGE 0 ML IV ONE ×2 (06:45→22:00)
[2017-08-17] MEDS: LEVOTHYROXINE 125 MCG TAB PO SCH (06:45)
[2017-08-17 06:53] LABS: CALCIUM 8.1 mg/dl (8.5-10.1); CREATININE 0.83 mg/dl (0.60-1.20); POTASSIUM 3.3 mmol/L (3.5-5.1)
[2017-08-17] MEDS: PANTOprazole INJ 40 MG in SYRINGE 0 ML IV SCH ×2 (08:17→21:22)
[2017-08-17] MEDS: FLUOXETINE HCL 20 MG CAP PO SCH (08:17)
[2017-08-17] MEDS: ATORVASTATIN 40 MG TAB PO SCH (08:17)
[2017-08-17] MEDS: MUPIROCIN 2% OINT 22 GM TUBE EXT SCH ×2 (08:17→21:24)
[2017-08-17] MEDS: METOPROLOL SUCC 50MG EXT REL TAB PO SCH (08:18)
[2017-08-17] MEDS: FUROSEMIDE 80 MG TAB PO SCH (08:18)
[2017-08-17] MEDS: GABAPENTIN 100 MG CAP PO SCH ×2 (08:20→21:24)
[2017-08-17] MEDS: POTASSIUM CHLORIDE 20 MEQ TABCR PO SCH ×2 (08:21→21:23)
[2017-08-17] MEDS: INSULIN ASPART 100 UNITS/ML 3 ML PEN SC SCH ×4 (08:23→20:56)
[2017-08-17] MEDS: INSULIN GLARGINE SOLOSTAR 100 UNITS/ML 3 ML PEN SC SCH ×2 (08:24→21:31)
[2017-08-17 13:25] LABS: HEMATOCRIT 30.1 % (37-47); HEMOGLOBIN 9.8 g/dL (12.0-16.0)
[2017-08-17] MEDS ORDERED: FUROSEMIDE INJ 80 MG in SYRINGE 0 ML IV PRN (13:30)
[2017-08-17 13:34] LABS: PTT PATIENT 40.4 SECONDS (21.0-31.0)
[2017-08-17 14:25] LABS: MEAN CORPUSCULAR HEMOGLOBIN 30.3 pg (25-34); MEAN PLATELET VOLUME 10.7 fL (7.4-10.4); PLATELET COUNT 263 K/uL (130-400); RED CELL DISTRIBUTION WIDTH CV 16.1 % (11.5-14.5); RED CELL DISTRIBUTION WIDTH SD 54.6 fL (36.4-46.3); WHITE BLOOD COUNT 9.62 K/uL (4.8-10.8)
--- NOTE | 2017-08-17 14:29 | Cardiology Consultation ---
Cardiology Consultation Date of Consultation: Aug 17, 2017 History of Present Illness Oliva Saucedo is a 72 year old female seen in cardiology consultation per the request of Dr Jenkins for ongoing cardiology management of persistent atrial fibrillation and congestive heart failure due to valvular heart disease with recent diagnosis of severe mitral regurgitation. The patient's primary manager fine is Dr Dover. The patient was seen in outpatient follow up by Mr Sage of our practice yesterday and a 2 g decline in Hgb was noted along with elevated resting ventricular rate. Hemoglobin on 08/16/17 to 2255 was 8.6 g/dL, the patient received 1 unit of packed red blood cells overnight with hemoglobin of 9.8 on repeat this morning. The patient is a complex recent cardiac history. She presented to [facility] in July 2017 was noted to have urinary tract infection as well as new onset atrial fibrillation with rapid ventricular response and non-ST segment elevation myocardial infarction. She was found to have progression of valvular heart disease on transthoracic echocardiogram and therefore she was transferred to [facility] for further management. She went on to have a transesophageal echocardiogram that was performed on 07/23/17. He was a technically complex study as there was difficulty passing the transesophageal echocardiogram probe even though the study was performed with the patient intubated under general anesthesia. Severe mitral regurgitation was noted along with mild mitral stenosis and mild aortic valve stenosis and trace aortic valve regurgitation. Transesophageal echocardiogram was inconclusive for left atrial appendage thrombus and therefore direct-current cardioversion was not performed. On cardiac catheterization was performed at [facility] revealing mild nonobstructive CAD and severe pulmonary hypertension with pulmonary artery pressure of 70/30 and elevated left ventricular end-diastolic pressure. The patient has been recovering at [facility] in the interim with plans for her to recover from her acute gastroenteritis and urinary tract infections and then eventually return for complex mitral valve surgery. Past Medical/Surgical History Problem List: Medical Problems: (1) Aortic regurgitation (2) Aortic stenosis (3) Atrial fibrillation (4) Depression (5) Diabetes mellitus type II, controlled (6) Diabetic neuropathy (7) Diverticular disease of colon (8) Dyslipidemia (9) History of breast cancer (10) Hypertension (11) Hypothyroidism (12) Ischemic heart disease (13) Lymphedema of both lower extremities (14) Mitral regurgitation (15) Mitral stenosis (16) Morbid obesity with BMI of 40.0-44.9, adult (17) Pulmonary hypertension Surgical Problems: (1) History of lumpectomy of right breast (2) History of tonsillectomy (3) Status post cardiac catheterization History Past Medical/ Surgical History: 1.Childhood rheumatic fever with resultant mitral and aortic valve disease. 2.Atrial fibrillation-newly diagnosed July,, persistent since the 3.Mild nonobstructive coronary artery disease by July 24, 2017 diagnostic cardiac catheterization 4.Hypertension 5.Dyslipidemia 6.Type 2 diabetes mellitus with triopathy. 7.Chronic lower extremity lymphedema 8.Right breast cancer status post ~lumpectomy and radiation therapy 9.Nocturnal hypoxemia 10.Hypothyroidism 11.GERD 12.Anxiety and depression 13.Morbid obesity. 14.Vitamin D deficiency 15.Osteoarthritis of both knees 16.Colonoscopy with adenomatous polypectomy in February 2016 17.Diverticulosis 18.Tonsillectomy as a child 19.Right lower extremity fracture status post surgical intervention Family history: ~Mother at 83 with congestive heart failure. ~She was a diabetic and had a history of uterine cancer. ~Father with CAD and passed at 51. Social History: ~Nonsmoker. ~~~No smokeless ~tobacco . ~No significant alcohol ~ consumption . ~No illegal ~drug use. on July 09, 2017 2 children. ~ Disabled. Review Of Systems See above for pertinent positives & negatives. A total of 10 systems reviewed and were otherwise negative. Allergies Coded Allergies: Cephalexin (Verified Allergy, Unknown, BURNING, NAUSEA, AND TROUBLE BREATHING, 08/16/17) Penicillins (Verified Allergy, Unknown, KIDNEY INFECTION, HIVES, 08/16/17) Sulfa Drugs (Verified Allergy, Unknown, NAUSEA AND TIRED, 08/16/17) Medications Reported Home Medications Medications Dose Route/Sig Max Daily Dose Days Date Category Toprol Xl (Metoprolol Succinate) 50 Mg Tabcr 50 Mg PO DAILY 08/16/17 Reported Levothyroxine Sodium 125 Mcg Tab 125 Mcg PO DAILY 08/16/17 Reported Furosemide 80 Mg Tab 80 Mg PO DAILY 08/16/17 Reported Lovenox (Enoxaparin) 100 Mg/Ml Inj 100 Mg SQ Q12 08/16/17 Reported Warfarin Sodium 5 Mg Tab 5 Mg PO DAILY 08/16/17 Reported Lipitor (Atorvastatin Calcium) 40 Mg Tab 40 Mg PO DAILY 08/16/17 Reported Novolog (Insulin Aspart) 100 Units/Ml Inj 0 SQ SS 08/16/17 Reported [place] Nasal [place] (Saline) 0.65 % Spr 1 [place] JUVENTINO UD PRN 08/16/17 Reported Aspirin EC Low Dose (Aspirin) 81 Mg Ectab 81 Mg PO QAM 08/09/16 Reported Prozac (Fluoxetine HCl) 20 Mg Cap 20 Mg PO QAM 02/27/16 Reported Neurontin (Gabapentin) 100 Mg Cap 100 Mg PO BID 02/27/16 Reported Physical Exam Vital Signs (Last 8hrs): Last 8 Hrs Date Time Temp Pulse Resp B/P (MAP) Pulse Ox O2 Delivery O2 Flow Rate FiO2 08/17/17 12:27 36.8 79 18 105/60 (75) 97 Room Air 08/17/17 08:00 Room Air 08/17/17 07:32 36.5 97 16 124/66 (85) 95 Room Air General Appearance: Chronically ill in appearance, morbidly obese Head: Normocephalic Atraumatic. Eyes: PERRLA, EOMI, conjunctiva and sclera clear Neck: Supple. No carotid bruits noted. No JVD. No HJD. Respiratory: Breath sounds clear to auscultation bilaterally. No w/r/r. Cardiovascular: Irregular rhythm, 2/6 systolic murmur Abdomen: Normal bowel sounds, soft nontender. no abdominal bruits. Extremities: trace lower extremity edema, chronic venous stasis changes Neuro: No focal deficits. Psychiatric: Normal affect. Data Last 24 Hours Test 08/16/17 16:12 08/16/17 20:53 08/16/17 22:55 08/17/17 06:05 Bedside Glucose 188 mg/dl 121 mg/dl Hemoglobin 8.6 g/dL 9.8 g/dL Hematocrit 27.6 % 29.9 % Absolute Reticulocyte Count 0.13 10^6/uL Percent Reticulocyte Count 4.4 % Activated Partial Thromboplast Time 37.0 SECONDS 41.3 SECONDS Partial Thromboplastin Ratio 1.4 1.6 Iron Level 57 mcg/dl Total Iron Binding Capacity 204 mcg/dl Transferrin 163 mg/dl Transferrin % Saturation 25 % Vitamin B12 Level 337 pg/mL Folate 8.43 ng/mL Prothrombin Time 16.4 SECONDS Prothromb Time International Ratio 1.6 Sodium Level 138 mmol/L Potassium Level 3.3 mmol/L Chloride Level 100 mmol/L Carbon Dioxide Level 34 mmol/L Anion Gap 4.0 mmol/L Blood Urea Nitrogen 19 mg/dl Creatinine 0.83 mg/dl Est Creatinine Clear Calc Drug Dose 81.1 ml/min Estimated GFR () 81.7 Estimated GFR (Non- 70.4 BUN/Creatinine Ratio 23.0 Random Glucose 147 mg/dl Calcium Level 8.1 mg/dl Test 08/17/17 07:01 08/17/17 11:50 08/17/17 13:15 Bedside Glucose 150 mg/dl 161 mg/dl Hemoglobin 9.8 g/dL Hematocrit 30.1 % Activated Partial Thromboplast Time 40.4 SECONDS Partial Thromboplastin Ratio 1.6 EKG performed 08/16/17: Atrial fibrillation with mildly elevated ventricular rate of [address] abnormality noted in the inferior leads. EKG performed 08/16/17 reviewed independently: Atrial fibrillation 81 bpm, inferior ST segment changes improved Assessment & Plan Impression: 1. Chronic diastolic CHF (HFnEF), due to severe valvular heart disease, severe MR, mild MS, mild 2. anemia, c-scope 2015 doverticulosis, EGD 2016 no bleeding source, question if source is small bowel AVMs Plan: Optimize Hgb with goal of 10 g/dL given recent NSTEMI. Due for second unit of PRBCs today. Continue oral iron. Continue heparin bridge to coumadin. Needs anticoagulation given high stroke risk (AF, mild MS, SANDRA equivocal for LA, SOURAV thrombus). Continue oral furosemide 80 mg PO daily with extra dose post transfusion. Patient and daughter do not want to return to [facility], asked about other options ad discharge, perhaps discharge to daughters home with home health for home phlebotomy , medication help and home PT. Ultimately needs to get stronger prior to consideration of MV surgery.
[2017-08-17] MEDS ORDERED: HEPARIN IV BOLUS 4,500 UNIT in SYRINGE 0 ML IV SCH (14:30)
[2017-08-17 15:01] LABS: MEAN CELL VOLUME 94.1 fL (80-100); MEAN CORPUSCULAR HGB CONC 32.2 g/dl (32-36)
[2017-08-17] MEDS ORDERED: WARFARIN SOD 2.5 MG TAB PO SCH (16:00)
--- NOTE | 2017-08-17 18:36 | Progress Note ---
Medicine Progress Note Date & Time of Visit: Aug 17, 2017 at 11:10 . Subjective CC: Follow-up visit for anemia, CHF, valvular heart disease, and other problems.. HPI: Received 1 unit of packed RBCs last night. Did get much sleep, but feels better today. No chest pain. Less short of breath. ROS: General- no fever, no chills Resp- no cough; no shortness of breath Cardiac- as noted above in HPI GI- no nausea, no vomiting, no diarrhea -urinary frequency with diuretics; no dysuria . Objective Last 8 Hrs Date Time Temp Pulse Resp B/P (MAP) Pulse Ox O2 Delivery O2 Flow Rate FiO2 08/17/17 17:20 37.0 94 18 97/53 93 08/17/17 16:20 37.1 96 18 104/70 94 08/17/17 16:00 Room Air 08/17/17 15:50 37.4 98 18 103/66 92 08/17/17 15:20 37.1 106 18 89/46 94 08/17/17 15:20 37.0 106 18 89/46 94 08/17/17 15:05 37.0 109 18 98/53 97 08/17/17 12:27 36.8 79 18 105/60 (75) 97 Room Air 08/17/17 12:00 Room Air Physical Exam: General- lying in bed, no distress Lungs-few basilar rales; no respiratory distress Cardiovascular- irregularly irregular, rate controlled; III/ systolic murmur at base and apex; no gallop appreciated; + JVD; 1+ pretibial edema Abdomen- + bowel sounds, soft, nontender Extremities- no cyanosis; no calf tenderness; mild erythema dorsum right great toe Neuro- alert, oriented, mild confusion Skin- warm & dry . Laboratory Results: Last 24 Hours Test 08/16/17 20:53 08/16/17 22:55 08/17/17 06:05 08/17/17 07:01 Bedside Glucose 121 mg/dl 150 mg/dl Hemoglobin 8.6 g/dL 9.8 g/dL Hematocrit 27.6 % 29.9 % Absolute Reticulocyte Count 0.13 10^6/uL Percent Reticulocyte Count 4.4 % Activated Partial Thromboplast Time 37.0 SECONDS 41.3 SECONDS Partial Thromboplastin Ratio 1.4 1.6 Iron Level 57 mcg/dl Total Iron Binding Capacity 204 mcg/dl Transferrin 163 mg/dl Transferrin % Saturation 25 % Vitamin B12 Level 337 pg/mL Folate 8.43 ng/mL Prothrombin Time 16.4 SECONDS Prothromb Time International Ratio 1.6 Sodium Level 138 mmol/L Potassium Level 3.3 mmol/L Chloride Level 100 mmol/L Carbon Dioxide Level 34 mmol/L Anion Gap 4.0 mmol/L Blood Urea Nitrogen 19 mg/dl Creatinine 0.83 mg/dl Est Creatinine Clear Calc Drug Dose 81.1 ml/min Estimated GFR () 81.7 Estimated GFR (Non- 70.4 BUN/Creatinine Ratio 23.0 Random Glucose 147 mg/dl Calcium Level 8.1 mg/dl Test 08/17/17 11:50 08/17/17 13:15 08/17/17 16:39 Bedside Glucose 161 mg/dl 169 mg/dl White Blood Count 9.62 K/uL Red Blood Count 3.23 M/uL Hemoglobin 9.8 g/dL Hematocrit 30.1 % Mean Corpuscular Volume 94.1 fL Mean Corpuscular Hemoglobin 30.3 pg Mean Corpuscular Hemoglobin Concent 32.2 g/dl RDW Standard Deviation 54.6 fL RDW Coefficient of Variation 16.1 % Platelet Count 263 K/uL Mean Platelet Volume 10.7 fL Activated Partial Thromboplast Time 40.4 SECONDS Partial Thromboplastin Ratio 1.6 Potassium Level 3.7 mmol/L Assessment & Plan ANEMIA Hemoglobin 10.6 when discharged from [facility] on 07/25/17. Hemoglobin yesterday was 8.6. Repeat hemoglobin today in ED = 9.1. Was receiving aspirin, warfarin, enoxaparin. INR 1.7. No gross GI bleeding. Rectal exam in ED demonstrated scant stool, heme-negative. Hgb goal greater than 10 in light of recent non-STEMI and other cardiac concerns. Best to avoid diagnostic endoscopy if possible due to underlying cardiac concerns. Check stools for occult blood- no specimens provided thus far. Check stool for H. pylori antigen. Serum iron 57, percent transferrin sat 25, B12 337, folic acid 8. Holding aspirin. Continue anticoagulation with caution due to high risk for cardioembolism. Empiric PPI. Hemoglobin today 9.8 after 1 unit pRBC's. Transfuse 2nd unit today over 4 hours. Monitor H&H and transfuse as necessary. ISCHEMIC HEART DISEASE Recent non-STEMI in the setting of atrial fibrillation with rapid ventricular response. Cardiac catheterization demonstrated nonocclusive coronary disease. Hold aspirin in light of possible GI bleed. Continue metoprolol. CHF Chest x-ray demonstrates CHF; chronic lower extremity lymphedema. Acute on chronic CHF secondary to underlying valvular heart disease. Received IV furosemide before first unit of packed Titrate diuretics as necessary. Check f/u chest x-ray tomorrow. VALVULAR HEART DISEASE Recent SANDRA demonstrated severe mitral regurgitation, mild mitral stenosis, mild aortic stenosis, mild aortic regurgitation. Eventual mitral valve surgery anticipated once functional status permits and comorbidities are optimized. ATRIAL FIBRILLATION Underlying mitral valve disease. Ventricular rate rapid in ED, subsequently improved. Continue metoprolol for rate control. High risk for cardioembolism (recent SANDRA demonstrated "smoke" in [place]). Currently receiving warfarin and bridge therapy with enoxaparin. INR subtherapeutic at 1.6. Will utilize IV heparin with low-dose protocol pending further evaluation and management of anemia. HYPERTENSION Continue metoprolol succinate. Follow and titrate therapy. DM TYPE 2 Diabetes mellitus type 2, usually managed with metformin. Hemoglobin A1c was 5.5. Metformin held due to recent illnesses. Blood sugars have been fluctuating. Random glucose in ED 128. Monitor blood sugars before meals at bedtime. Lantus/NovoLog per protocol. Fasting blood sugar this morning = 150. DYSLIPIDEMIA Continue atorvastatin. HYPOTHYROIDISM TSH 0.68 on 07/25/17. Continue levothyroxine. MORBID OBESITY Weight 120 kg, BMI 43. AHA / diabetic diet. VTE PROPHYLAXIS Titrate warfarin. IV heparin until INR therapeutic. Ambulate as able. ADVANCE DIRECTIVES / RESUSCITATION STATUS Full code as documented in H&P. DISPOSITION To be determined- discharge to home vs return to [facility]. Family Medicine follow-up with Dr. Watkins. Follow-up with [facility] Cardiology and CT Surgery. . Current Inpatient Medications: Current Inpatient Medications Medications (Trade) Dose Ordered Sig/Johan Route Start Time Stop Time Status Last Admin Dose Admin Acetaminophen (Tylenol Tab) 650 mg Q4H PRN PO 08/16/17 13:45 09/15/17 13:44 Insulin Aspart (novoLOG ASPART) SLIDING SCALE G... ACHS SC 08/16/17 21:00 09/15/17 20:59 4/14/18 18:00 5 UNITS Glucose (Glucose 40% Gel) 15-30 GRAMS 15 GRAMS... UD PRN PO 08/16/17 17:30 09/15/17 17:29 Glucose (Glucose Chew Tab) 4-8 Tablets 4 Tabl... UD PRN PO 08/16/17 17:30 09/15/17 17:29 Dextrose (Dextrose 50% 50ML Syringe) 25-50ML OF 50% DW IV FOR... UD PRN IV 08/16/17 17:30 09/15/17 17:29 Glucagon (Glucagon Inj) 1 mg UD PRN SQ 08/16/17 17:30 09/15/17 17:29 Atorvastatin Calcium (Lipitor Tab) 40 mg DAILY PO 08/17/17 09:00 09/16/17 08:59 08/17/17 08:17 40 MG Fluoxetine HCl (Prozac Cap) 20 mg QAM PO 08/17/17 09:00 09/16/17 08:59 08/17/17 08:17 20 MG Furosemide (Lasix Tab) 80 mg DAILY PO 08/17/17 09:00 09/16/17 08:59 08/17/17 08:18 80 MG Gabapentin (Neurontin Cap) 100 mg BID PO 08/16/17 21:00 09/15/17 20:59 08/17/17 08:20 100 MG Levothyroxine Sodium (Synthroid Tab) 125 mcg DAILYBB PO 08/17/17 06:30 09/16/17 06:29 08/17/17 06:45 125 MCG Metoprolol Succinate (Toprol Xl Tab) 50 mg DAILY PO 08/17/17 09:00 09/16/17 08:59 08/17/17 08:18 50 MG Sodium Chloride (Basile Nasal [place]) 2 sprays QID PRN JUVENTINO 08/16/17 19:00 09/15/17 18:59 Pantoprazole Sodium 40 mg/ Syringe 10 ml @ 5 mls/min DAILY@ IV 08/16/17 21:00 09/15/17 20:59 08/17/17 08:17 5 MLS/MIN Insulin Glargine (Lantus Solostar Pen) BSG UNITS LANTUS... BID SC 08/16/17 21:00 09/15/17 20:59 08/17/17 08:24 6 UNITS Heparin Sodium/ Dextrose 500 ml @ 28 mls/hr [id number] IV 08/16/17 20:30 09/15/17 20:29 08/17/17 13:55 25 MLS/HR Mupirocin (Bactroban 2% Oint) 1 appln BID EXT 08/17/17 09:00 09/16/17 08:59 08/17/17 08:17 1 APPLN Potassium Chloride (Klor-Con Tab) 20 meq BID PO 08/17/17 09:00 09/16/17 08:59 08/17/17 08:21 20 MEQ Furosemide 80 mg/ Syringe 8 ml @ 4 mls/min ONE PRN IV 08/17/17 13:30 08/17/17 23:59 Ferrous Sulfate (Feosol Tab) 325 mg QAM PO 08/18/17 09:00 09/17/17 08:59 Ascorbic Acid (Vitamin C Tab) 500 mg QAM PO 08/18/17 09:00 09/17/17 08:59 Warfarin Sodium (Coumadin Tab) 2.5 mg DAILY@16 PO 08/17/17 16:00 09/16/17 15:59 08/17/17 18:01 2.5 MG
[2017-08-17 21:34] LABS: PTT PATIENT 44.3 SECONDS (21.0-31.0)
[2017-08-18 00:10] VITALS: BP 121/82; PULSE 82; TEMP 36.6; O2SAT 93
[2017-08-18 04:20] VITALS: BP 114/61; PULSE 92; TEMP 36.6; O2SAT 96
[2017-08-18 04:25] LABS: CALCIUM 7.9 mg/dl (8.5-10.1); CREATININE 0.94 mg/dl (0.60-1.20); POTASSIUM 3.4 mmol/L (3.5-5.1)
[2017-08-18 04:33] LABS: PTT PATIENT 49.5 SECONDS (21.0-31.0)
[2017-08-18] MEDS ORDERED: MAGNESIUM SULFATE 1GM / D5W 1 GM in PREMIXED IN D5W 100 ML IV STA (05:20)
[2017-08-18] MEDS ORDERED: POTASSIUM CHLORIDE 10 MEQ TABCR PO STA (05:20)
[2017-08-18] MEDS: LEVOTHYROXINE 125 MCG TAB PO SCH (05:55)
[2017-08-18 07:23] VITALS: BP 102/63; PULSE 92; TEMP 36.9; O2SAT 93
[2017-08-18] MEDS: METOPROLOL SUCC 50MG EXT REL TAB PO SCH (07:55)
[2017-08-18] MEDS: MUPIROCIN 2% OINT 22 GM TUBE EXT SCH ×2 (07:55→21:07)
[2017-08-18] MEDS: FUROSEMIDE 80 MG TAB PO SCH (07:55)
[2017-08-18] MEDS: ATORVASTATIN 40 MG TAB PO SCH (07:55)
[2017-08-18] MEDS: POTASSIUM CHLORIDE 20 MEQ TABCR PO SCH ×2 (07:56→21:08)
[2017-08-18] MEDS: ASCORBIC ACID 500 MG TAB PO SCH (07:56)
[2017-08-18] MEDS: GABAPENTIN 100 MG CAP PO SCH ×2 (07:56→21:08)
[2017-08-18] MEDS: FLUOXETINE HCL 20 MG CAP PO SCH (07:56)
[2017-08-18] MEDS: FERROUS SULFATE 325 MG TAB PO SCH (07:56)
[2017-08-18] MEDS: INSULIN ASPART 100 UNITS/ML 3 ML PEN SC SCH ×4 (08:02→21:00)
[2017-08-18] MEDS: PANTOprazole INJ 40 MG in SYRINGE 0 ML IV SCH ×2 (08:04→21:07)
[2017-08-18] MEDS: INSULIN GLARGINE SOLOSTAR 100 UNITS/ML 3 ML PEN SC SCH ×2 (08:08→21:12)
[2017-08-18] MEDS: CYANOCOBALAMIN 100 MCG TAB (VIT B-12) PO SCH (08:17)
[2017-08-18] MEDS: HEPARIN 25,000 UNIT/500ML D5W 500 ML IV SCH (09:24)
[2017-08-18 11:22] LABS: HEMOGLOBIN 10.3 g/dL (12.0-16.0)
[2017-08-18 11:32] LABS: INR 1.2 (0.9-1.1); PTT PATIENT 37.1 SECONDS (21.0-31.0)
[2017-08-18 11:54] LABS: POTASSIUM 4.1 mmol/L (3.5-5.1)
[2017-08-18 12:18] VITALS: BP 99/52; PULSE 67; TEMP 36.8; O2SAT 94
--- NOTE | 2017-08-18 13:23 | Cardiology Follow-Up ---
Subjective General Date of Service: Aug 18, 2017. Chief Complaint: Follow-up generalized weakness, exertional shortness of breath Pt evaluation today including: conversation w/ patient, physical exam History of Present Illness The patient is a 72 year old female seen in follow-up. She is out of bed in chair. She is comfortable. She received a second unit of packed red blood cells overnight last night and her hemoglobin is now 10.3 g/dL. Her INR remains below goal at 1.2 today. She received an additional dose of diuretic for concerns of CHF both clinically and on chest x-ray. Allergies Coded Allergies: Cephalexin (Verified Allergy, Unknown, BURNING, NAUSEA, AND TROUBLE BREATHING, 08/16/17) Penicillins (Verified Allergy, Unknown, KIDNEY INFECTION, HIVES, 08/16/17) Sulfa Drugs (Verified Allergy, Unknown, NAUSEA AND TIRED, 08/16/17) Social History Smoking Status: Never Smoker Hx Tobacco Use In Past Year?: No Hx Alcohol Use - Type And Amou: No Hx Substance Use - Type And Am: No Problem List Medical Problems: (1) Atrial fibrillation with RVR Status: Acute (2) Dehydration Status: Acute (3) Enteritis Status: Acute (4) Hypomagnesemia Status: Acute (5) Nausea, vomiting, and diarrhea Status: Acute (6) Non-STEMI (non-ST elevated myocardial infarction) Status: Acute (7) UTI (urinary tract infection) Status: Acute Physical Exam Vital Signs Last Vital Signs Documentation Date Time Temp Pulse Resp B/P (MAP) Pulse Ox O2 Delivery O2 Flow Rate FiO2 08/18/17 12:18 36.8 67 18 99/52 (68) 94 Room Air Physical Exam Constitutional: Level of Distress: chronically ill Neck: supple Lungs: Auscultation: pertinent finding (Mildly decreased breath sounds at bases) Cardiovascular: Heart Auscultation: II/ GRETTA, irregular rate rhythm Abdomen: Inspection & Palpation: soft Extremities: pertinent finding (1+ edema) Neurologic: Gait & Station: pertinent finding (No focal neurologic deficits) Assessment and Plan Assessment and Plan Impression: 1. Chronic diastolic CHF (HFnEF), due to severe valvular heart disease, severe MR, mild MS, mild 2. anemia, c-scope 2016 diverticulosis, EGD 2017 no bleeding source, question if source is small bowel AVMs Plan: Continue heparin bridge. Increase Coumadin to 5 mg. Continue current furosemide dose. Laboratory Results Last 24 Hours Test 08/17/17 16:39 08/17/17 20:47 08/17/17 20:56 08/18/17 00:00 Bedside Glucose 169 mg/dl 156 mg/dl Activated Partial Thromboplast Time 44.3 SECONDS Partial Thromboplastin Ratio 1.7 Stool Occult Blood NEGATIVE Test 08/18/17 03:51 08/18/17 06:58 08/18/17 11:01 08/18/17 11:33 Activated Partial Thromboplast Time 49.5 SECONDS 37.1 SECONDS Partial Thromboplastin Ratio 1.9 1.4 Sodium Level 136 mmol/L Potassium Level 3.4 mmol/L 4.1 mmol/L Chloride Level 100 mmol/L Carbon Dioxide Level 33 mmol/L Anion Gap 3.0 mmol/L Blood Urea Nitrogen 24 mg/dl Creatinine 0.94 mg/dl Est Creatinine Clear Calc Drug Dose 71.6 ml/min Estimated GFR () 70.2 Estimated GFR (Non- 60.6 BUN/Creatinine Ratio 25.8 Random Glucose 127 mg/dl Calcium Level 7.9 mg/dl Magnesium Level 1.6 mg/dl 1.8 mg/dl Bedside Glucose 152 mg/dl 160 mg/dl Hemoglobin 10.3 g/dL Hematocrit 31.0 % Prothrombin Time 12.8 SECONDS Prothromb Time International Ratio 1.2 Chemistry Specimen Hemolysis
--- NOTE | 2017-08-18 14:41 | DIAGNOSTIC IMAGING REPORT ---
CHEST ONE VIEW PORTABLE CLINICAL HISTORY: 72 years-old Female presenting with f/u CHF. TECHNIQUE: Portable upright AP view of the chest was obtained. COMPARISON: 08/16/2017. FINDINGS: Atherosclerosis of aortic arch. Cardiac silhouette enlarged. Prominence of the bilateral preston unchanged. Mild bronchial wall thickening. No focal opacity. No large effusion or pneumothorax. Degenerative changes of the thoracic spine. Chronic deformity of the left humeral head and left glenohumeral joint. Postsurgical clips project over the right axilla. IMPRESSION: 1. Cardiomegaly with congestive change suspected. 2. Prominence of the bilateral preston could relate to congestive change or indicate underlying lymphadenopathy. Continued follow-up recommended. 3. No focal infiltrate or evidence of pulmonary edema. Electronically signed by: Eliceo Michelle M.D. 08/18/2017 2:40 PM Dictated Date/Time: 08/18/2017 2:39 PM
[2017-08-18 16:07] VITALS: BP 152/86; PULSE 105; TEMP 37.2; O2SAT 92
[2017-08-18] MEDS ORDERED: FUROSEMIDE INJ 80 MG in SYRINGE 0 ML IV ONE (16:46)
[2017-08-18] MEDS: WARFARIN SOD 5 MG TAB PO SCH (17:06)
--- NOTE | 2017-08-18 19:13 | Progress Note ---
Medicine Progress Note Date & Time of Visit: Aug 18, 2017 at 10:30 . Subjective CC: Follow-up visit for anemia, CHF, valvular heart disease, and other problems.. HPI: Has received 2 units of packed RBCs. Feels better. No chest pain. Less short of breath. No reported melena or hematochezia. ROS: General- no fever, no chills Resp- no cough; no shortness of breath Cardiac- as noted above in HPI GI- no nausea, no vomiting, no diarrhea - no dysuria . Objective Last 8 Hrs Date Time Temp Pulse Resp B/P (MAP) Pulse Ox O2 Delivery O2 Flow Rate FiO2 08/18/17 16:07 37.2 105 18 152/86 (108) 92 Room Air 08/18/17 15:55 Room Air 08/18/17 12:18 36.8 67 18 99/52 (68) 94 Room Air 08/18/17 12:00 Room Air Physical Exam: General- lying in bed, no distress Lungs- few bibasilar rales; no respiratory distress Cardiovascular- irregularly irregular, rate controlled; III/ systolic murmur at base and apex; no gallop appreciated; + JVD; 1+ pretibial edema Abdomen- + bowel sounds, soft, nontender Extremities- no cyanosis; no calf tenderness; mild erythema dorsum right great toe unchanged Neuro- alert, oriented Skin- warm & dry . Laboratory Results: Last 24 Hours Test 08/17/17 20:47 08/17/17 20:56 08/18/17 00:00 08/18/17 03:51 Bedside Glucose 156 mg/dl Activated Partial Thromboplast Time 44.3 SECONDS 49.5 SECONDS Partial Thromboplastin Ratio 1.7 1.9 Stool Occult Blood NEGATIVE Sodium Level 136 mmol/L Potassium Level 3.4 mmol/L Chloride Level 100 mmol/L Carbon Dioxide Level 33 mmol/L Anion Gap 3.0 mmol/L Blood Urea Nitrogen 24 mg/dl Creatinine 0.94 mg/dl Est Creatinine Clear Calc Drug Dose 71.6 ml/min Estimated GFR () 70.2 Estimated GFR (Non- 60.6 BUN/Creatinine Ratio 25.8 Random Glucose 127 mg/dl Calcium Level 7.9 mg/dl Magnesium Level 1.6 mg/dl Test 08/18/17 06:58 08/18/17 11:01 08/18/17 11:33 08/18/17 16:35 Bedside Glucose 152 mg/dl 160 mg/dl 151 mg/dl Hemoglobin 10.3 g/dL Hematocrit 31.0 % Prothrombin Time 12.8 SECONDS Prothromb Time International Ratio 1.2 Activated Partial Thromboplast Time 37.1 SECONDS Partial Thromboplastin Ratio 1.4 Potassium Level 4.1 mmol/L Magnesium Level 1.8 mg/dl Chemistry Specimen Hemolysis Assessment & Plan ANEMIA Hemoglobin 10.6 when discharged from [facility] on 07/25/17. Hemoglobin day prior to admission was 8.6. Repeat hemoglobin in ED was 9.1. Was receiving aspirin, warfarin, enoxaparin. INR 1.7. No gross GI bleeding. Rectal exam in ED demonstrated scant stool, heme-negative. Hgb goal greater than 10 in light of recent non-STEMI and other cardiac concerns. Best to avoid diagnostic endoscopy if possible due to underlying cardiac concerns. No overt GI bleeding. Stool negative for occult blood. Stool H. pylori antigen pending. Serum iron 57, percent transferrin sat 25, B12 337, folic acid 8. Holding aspirin. Continue anticoagulation with caution due to high risk for cardioembolism. Empiric PPI. Hemoglobin today 10.3 after 2 unit pRBC's. Monitor H&H and transfuse as necessary. ISCHEMIC HEART DISEASE Recent non-STEMI in the setting of atrial fibrillation with rapid ventricular response. Cardiac catheterization demonstrated nonocclusive coronary disease. Held aspirin in light of possible GI bleed; stools heme neg x 2, so will resume Rx. Continue metoprolol. CHF Chest x-ray demonstrated CHF; chronic lower extremity lymphedema. Acute on chronic CHF secondary to underlying valvular heart disease. Today's chest x-ray showed persistent pulmonary vascular congestion- IV furosemide this afternoon. Titrate diuretics as necessary. VALVULAR HEART DISEASE Recent SANDRA demonstrated severe mitral regurgitation, mild mitral stenosis, mild aortic stenosis, mild aortic regurgitation. Eventual mitral valve surgery anticipated once functional status permits and comorbidities are optimized. ATRIAL FIBRILLATION Underlying mitral valve disease. Ventricular rate rapid in ED, subsequently improved. Continue metoprolol for rate control. High risk for cardioembolism (recent SANDRA demonstrated "smoke" in [place]). Currently receiving warfarin and bridge therapy with enoxaparin. INR subtherapeutic at 1.2. Will utilize IV heparin or enoxaparin until INR therapeutic. HYPERTENSION Continue metoprolol succinate. Follow and titrate therapy. DM TYPE 2 Diabetes mellitus type 2, usually managed with metformin. Hemoglobin A1c was 5.5. Metformin held due to recent illnesses. Blood sugars have been fluctuating. Random glucose in ED 128. Monitor blood sugars before meals at bedtime. Lantus/NovoLog per protocol. Fasting blood sugar this morning = 152. DYSLIPIDEMIA Continue atorvastatin. HYPOTHYROIDISM TSH 0.68 on 07/25/17. Continue levothyroxine. MORBID OBESITY Weight 120 kg, BMI 43. AHA / diabetic diet. VTE PROPHYLAXIS Titrate warfarin. IV heparin until INR therapeutic. Ambulate as able. ADVANCE DIRECTIVES / RESUSCITATION STATUS Full code as documented in H&P. DISPOSITION To be determined- anticipate need for ongoing skilled care. Family Medicine follow-up with Dr. Watkins. Follow-up with [facility] Cardiology and CT Surgery. . Current Inpatient Medications: Current Inpatient Medications Medications (Trade) Dose Ordered Sig/Johan Route Start Time Stop Time Status Last Admin Dose Admin Acetaminophen (Tylenol Tab) 650 mg Q4H PRN PO 08/16/17 13:45 09/15/17 13:44 Insulin Aspart (novoLOG ASPART) SLIDING SCALE G... ACHS SC 08/16/17 21:00 09/15/17 20:59 08/18/17 17:10 5 UNITS Glucose (Glucose 40% Gel) 15-30 GRAMS 15 GRAMS... UD PRN PO 08/16/17 17:30 09/15/17 17:29 Glucose (Glucose Chew Tab) 4-8 Tablets 4 Tabl... UD PRN PO 08/16/17 17:30 09/15/17 17:29 Dextrose (Dextrose 50% 50ML Syringe) 25-50ML OF 50% DW IV FOR... UD PRN IV 08/16/17 17:30 09/15/17 17:29 Glucagon (Glucagon Inj) 1 mg UD PRN SQ 08/16/17 17:30 09/15/17 17:29 Atorvastatin Calcium (Lipitor Tab) 40 mg DAILY PO 08/17/17 09:00 09/16/17 08:59 08/18/17 07:55 40 MG Fluoxetine HCl (Prozac Cap) 20 mg QAM PO 08/17/17 09:00 09/16/17 08:59 08/18/17 07:56 20 MG Furosemide (Lasix Tab) 80 mg DAILY PO 08/17/17 09:00 09/16/17 08:59 08/18/17 07:55 80 MG Gabapentin (Neurontin Cap) 100 mg BID PO 08/16/17 21:00 09/15/17 20:59 08/18/17 07:56 100 MG Levothyroxine Sodium (Synthroid Tab) 125 mcg DAILYBB PO 08/17/17 06:30 09/16/17 06:29 08/18/17 05:55 125 MCG Metoprolol Succinate (Toprol Xl Tab) 50 mg DAILY PO 08/17/17 09:00 09/16/17 08:59 08/18/17 07:55 50 MG Sodium Chloride ([place] Nasal [place]) 2 sprays QID PRN JUVENTINO 08/16/17 19:00 09/15/17 18:59 Pantoprazole Sodium 40 mg/ Syringe 10 ml @ 5 mls/min DAILY@,21 IV 08/16/17 21:00 09/15/17 20:59 08/18/17 08:04 5 MLS/MIN Insulin Glargine (Lantus Solostar Pen) BSG UNITS LANTUS... BID SC 08/16/17 21:00 09/15/17 20:59 08/18/17 08:08 6 UNITS Heparin Sodium/ Dextrose 500 ml @ 30 mls/hr [id number] IV 08/16/17 20:30 09/15/17 20:29 08/18/17 09:24 30 MLS/HR Mupirocin (Bactroban 2% Oint) 1 appln BID EXT 08/17/17 09:00 09/16/17 08:59 08/18/17 07:55 1 APPLN Potassium Chloride (Klor-Con Tab) 20 meq BID PO 08/17/17 09:00 09/16/17 08:59 08/18/17 07:56 20 MEQ Ferrous Sulfate (Feosol Tab) 325 mg QAM PO 08/18/17 09:00 09/17/17 08:59 08/18/17 07:56 325 MG Ascorbic Acid (Vitamin C Tab) 500 mg QAM PO 08/18/17 09:00 09/17/17 08:59 08/18/17 07:56 500 MG Cyanocobalamin (Vitamin B-12 Tab) 100 mcg QAM PO 08/18/17 09:00 09/17/17 08:59 08/18/17 08:17 100 MCG Warfarin Sodium (Coumadin Tab) 5 mg DAILY@16 PO 08/18/17 16:00 09/17/17 15:59 08/18/17 17:06 5 MG
[2017-08-18 19:51] VITALS: BP 128/74; PULSE 84; TEMP 37; O2SAT 93
[2017-08-19] VITALS (11 sets, daily range): BP systolic 91–135; BP diastolic 52–76; PULSE 83–118; TEMP 36.5–37.3; O2SAT 93–96
[2017-08-19] MEDS: HEPARIN 25,000 UNIT/500ML D5W 500 ML IV SCH ×3 (01:53→16:58)
[2017-08-19] MEDS: LEVOTHYROXINE 125 MCG TAB PO SCH (05:50)
[2017-08-19 07:07] LABS: HEMATOCRIT 32.2 % (37-47); HEMOGLOBIN 10.5 g/dL (12.0-16.0); MEAN CELL VOLUME 93.6 fL (80-100); MEAN CORPUSCULAR HEMOGLOBIN 30.5 pg (25-34); MEAN CORPUSCULAR HGB CONC 32.6 g/dl (32-36); MEAN PLATELET VOLUME 9.7 fL (7.4-10.4); PLATELET COUNT 238 K/uL (130-400); RED CELL DISTRIBUTION WIDTH CV 16.3 % (11.5-14.5); RED CELL DISTRIBUTION WIDTH SD 54.7 fL (36.4-46.3); WHITE BLOOD COUNT 9.86 K/uL (4.8-10.8)
[2017-08-19 07:15] LABS: INR 1.1 (0.9-1.1); PTT PATIENT 41.2 SECONDS (21.0-31.0)
[2017-08-19] MEDS ORDERED: HEPARIN IV BOLUS 3,000 UNIT in SYRINGE 0 ML IV ONE ×2 (07:30→16:15)
[2017-08-19] MEDS: ASPIRIN 81 MG ECTAB PO SCH (08:09)
[2017-08-19] MEDS: PANTOprazole INJ 40 MG in SYRINGE 0 ML IV SCH (08:11)
[2017-08-19] MEDS: MUPIROCIN 2% OINT 22 GM TUBE EXT SCH ×2 (08:11→20:18)
[2017-08-19] MEDS: CYANOCOBALAMIN 100 MCG TAB (VIT B-12) PO SCH (08:12)
[2017-08-19] MEDS: ATORVASTATIN 40 MG TAB PO SCH (08:12)
[2017-08-19] MEDS: ASCORBIC ACID 500 MG TAB PO SCH (08:12)
[2017-08-19] MEDS: FERROUS SULFATE 325 MG TAB PO SCH (08:12)
[2017-08-19] MEDS: FUROSEMIDE 80 MG TAB PO SCH (08:12)
[2017-08-19] MEDS: POTASSIUM CHLORIDE 20 MEQ TABCR PO SCH ×2 (08:12→20:19)
[2017-08-19] MEDS: FLUOXETINE HCL 20 MG CAP PO SCH (08:12)
[2017-08-19] MEDS: GABAPENTIN 100 MG CAP PO SCH ×2 (08:13→20:19)
[2017-08-19] MEDS: INSULIN GLARGINE SOLOSTAR 100 UNITS/ML 3 ML PEN SC SCH ×2 (08:22→21:01)
[2017-08-19] MEDS: INSULIN ASPART 100 UNITS/ML 3 ML PEN SC SCH ×4 (08:22→20:53)
[2017-08-19] MEDS: METOPROLOL SUCC 50MG EXT REL TAB PO SCH (09:31)
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
[2017-08-19 13:58] LABS: PTT PATIENT 43.2 SECONDS (21.0-31.0)
[2017-08-19] MEDS: WARFARIN SOD 5 MG TAB PO SCH (17:42)
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
[2017-08-19] MEDS: PANTOprazole SOD 40 MG TAB PO SCH (20:20)
[2017-08-19] MEDS: METOPROLOL SUCC 25MG EXT REL TAB PO SCH (20:20)
[2017-08-19] MEDS ORDERED: WARFARIN SOD 5 MG TAB PO ONE (21:00)
[2017-08-19 22:40] LABS: PTT PATIENT 53.1 SECONDS (21.0-31.0)
[2017-08-20] VITALS (9 sets, daily range): BP systolic 86–147; BP diastolic 55–106; PULSE 83–99; TEMP 36.4–36.8; O2SAT 91–95
[2017-08-20 05:56] LABS: HEMATOCRIT 32.4 % (37-47); HEMOGLOBIN 10.6 g/dL (12.0-16.0)
[2017-08-20 06:08] LABS: INR 1.3 (0.9-1.1)
[2017-08-20] MEDS: LEVOTHYROXINE 125 MCG TAB PO SCH (06:10)
[2017-08-20 06:11] LABS: PTT PATIENT 53.3 SECONDS (21.0-31.0)
[2017-08-20 06:23] LABS: CALCIUM 8.4 mg/dl (8.5-10.1); CREATININE 1.06 mg/dl (0.60-1.20)
[2017-08-20] MEDS: FUROSEMIDE 80 MG TAB PO SCH (08:32)
[2017-08-20] MEDS: ASPIRIN 81 MG ECTAB PO SCH (08:33)
[2017-08-20] MEDS: GABAPENTIN 100 MG CAP PO SCH ×2 (08:33→21:20)
[2017-08-20] MEDS: PANTOprazole SOD 40 MG TAB PO SCH ×2 (08:33→21:20)
[2017-08-20] MEDS: ASCORBIC ACID 500 MG TAB PO SCH (08:33)
[2017-08-20] MEDS: FERROUS SULFATE 325 MG TAB PO SCH (08:33)
[2017-08-20] MEDS: CYANOCOBALAMIN 100 MCG TAB (VIT B-12) PO SCH (08:34)
[2017-08-20] MEDS: ATORVASTATIN 40 MG TAB PO SCH (08:34)
[2017-08-20] MEDS: FLUOXETINE HCL 20 MG CAP PO SCH (08:34)
[2017-08-20] MEDS: METOPROLOL SUCC 50MG EXT REL TAB PO SCH (08:34)
[2017-08-20] MEDS: POTASSIUM CHLORIDE 20 MEQ TABCR PO SCH ×2 (08:35→21:21)
[2017-08-20] MEDS: INSULIN ASPART 100 UNITS/ML 3 ML PEN SC SCH ×4 (09:03→21:00)
[2017-08-20] MEDS: INSULIN GLARGINE SOLOSTAR 100 UNITS/ML 3 ML PEN SC SCH ×2 (09:06→21:19)
[2017-08-20] MEDS: HEPARIN 25,000 UNIT/500ML D5W 500 ML IV SCH (09:06)
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
[2017-08-20] MEDS ORDERED: OXYBUTYNIN CHLORIDE 5 MG TAB PO STA (11:54)
[2017-08-20] MEDS: MUPIROCIN 2% OINT 22 GM TUBE EXT SCH ×2 (12:32→15:02)
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
[2017-08-20] MEDS ORDERED: CLARITHROMYCIN 500 MG TAB PO STA (15:08)
[2017-08-20] MEDS ORDERED: METRONIDAZOLE 500 MG TAB PO STA (15:10)
[2017-08-20] MEDS: WARFARIN SOD 5 MG TAB PO SCH (15:51)
[2017-08-20] MEDS: METOPROLOL SUCC 25MG EXT REL TAB PO SCH (21:20)
[2017-08-20] MEDS: OXYBUTYNIN CHLORIDE 5 MG TAB PO SCH (21:21)
[2017-08-20] MEDS: METRONIDAZOLE 500 MG TAB PO SCH (21:21)
[2017-08-20] MEDS: CLARITHROMYCIN 500 MG TAB PO SCH (21:21)
[2017-08-21] MEDS: HEPARIN 25,000 UNIT/500ML D5W 500 ML IV SCH ×2 (01:24→17:01)
[2017-08-21 04:07] VITALS: BP 97/63; PULSE 96; TEMP 36.5; O2SAT 93
[2017-08-21] MEDS: LEVOTHYROXINE 125 MCG TAB PO SCH (06:08)
[2017-08-21 06:52] LABS: HEMATOCRIT 33.3 % (37-47); HEMOGLOBIN 10.8 g/dL (12.0-16.0); MEAN CELL VOLUME 93.5 fL (80-100); MEAN CORPUSCULAR HEMOGLOBIN 30.3 pg (25-34); MEAN CORPUSCULAR HGB CONC 32.4 g/dl (32-36); MEAN PLATELET VOLUME 10.3 fL (7.4-10.4); PLATELET COUNT 260 K/uL (130-400); RED CELL DISTRIBUTION WIDTH CV 16.1 % (11.5-14.5); RED CELL DISTRIBUTION WIDTH SD 54.2 fL (36.4-46.3); WHITE BLOOD COUNT 8.81 K/uL (4.8-10.8)
[2017-08-21 07:04] VITALS: BP 102/69; PULSE 108; TEMP 36.4; O2SAT 96
[2017-08-21 07:09] LABS: INR 1.6 (0.9-1.1)
[2017-08-21 07:12] LABS: PTT PATIENT 55.1 SECONDS (21.0-31.0)
[2017-08-21] MEDS: FUROSEMIDE 80 MG TAB PO SCH (08:37)
[2017-08-21] MEDS: PANTOprazole SOD 40 MG TAB PO SCH ×2 (08:37→21:21)
[2017-08-21] MEDS: GABAPENTIN 100 MG CAP PO SCH ×2 (08:37→21:20)
[2017-08-21] MEDS: MUPIROCIN 2% OINT 22 GM TUBE EXT SCH ×2 (08:37→21:12)
[2017-08-21] MEDS: POTASSIUM CHLORIDE 20 MEQ TABCR PO SCH ×2 (08:37→21:20)
[2017-08-21] MEDS: OXYBUTYNIN CHLORIDE 5 MG TAB PO SCH ×2 (08:37→21:19)
[2017-08-21] MEDS: FERROUS SULFATE 325 MG TAB PO SCH (08:37)
[2017-08-21] MEDS: ATORVASTATIN 40 MG TAB PO SCH (08:37)
[2017-08-21] MEDS: FLUOXETINE HCL 20 MG CAP PO SCH (08:37)
[2017-08-21] MEDS: CLARITHROMYCIN 500 MG TAB PO SCH ×2 (08:37→21:19)
[2017-08-21] MEDS: ASPIRIN 81 MG ECTAB PO SCH (08:37)
[2017-08-21] MEDS: METRONIDAZOLE 500 MG TAB PO SCH ×3 (08:37→21:19)
[2017-08-21] MEDS: ASCORBIC ACID 500 MG TAB PO SCH (08:38)
[2017-08-21] MEDS: METOPROLOL SUCC 50MG EXT REL TAB PO SCH (08:38)
[2017-08-21] MEDS: CYANOCOBALAMIN 100 MCG TAB (VIT B-12) PO SCH (08:38)
[2017-08-21] MEDS: INSULIN ASPART 100 UNITS/ML 3 ML PEN SC SCH ×4 (08:40→21:00)
[2017-08-21] MEDS: INSULIN GLARGINE SOLOSTAR 100 UNITS/ML 3 ML PEN SC SCH ×2 (08:41→21:16)
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
--- NOTE | 2017-08-21 10:26 | Clinical Documentation Query ---
CLINICAL DOCUMENTATION QUERY 72-y/o female who presents anemic. H&P and daily progress notes state, "Acute on chronic CHF secondary to underlying valvular heart disease." Unfortunately this is considered nonspecific by CMS coding standards. Cardiology has stated, "Diastolic CHF (HFnEF), due to severe valvular heart disease - severe MR, mild MS, mild ." This terminology lacks acuity In your clinical opinion is this patient being managed for: ( + ) Acute on chronic HFpEF (diastolic HF) ( ) Not Agree ( ) Other explanation of clinical findings (Please Explain) ( ) Unable to determine (Please Define) ( ) Need to Discuss The medical record reflects the following clinical findings, treatment, and risk factors. Clinical Indicators: As above. Treatment: IV Lasix Risk Factors: Age, chronic preserved EF heart failure. Please clarify and document your clinical opinion in the progress notes and discharge summary. Terms such as "probable", "suspected", "likely", "questionable", "possible", or "still to be ruled out" are acceptable. IF IN AGREEMENT, YOU MUST DOCUMENT ABOVE DIAGNOSTIC STATEMENT IN DAILY PROGRESS NOTES AND DISCHARGE SUMMARY. This document is not part of the patient's record. Thank You, Toño Pereira, RN [phone]
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
[2017-08-21] MEDS: WARFARIN SOD 7.5 MG TAB PO SCH (15:35)
[2017-08-21 16:03] VITALS: BP 130/100; PULSE 106; TEMP 36.7; O2SAT 96
[2017-08-21 19:07] VITALS: BP 127/70; PULSE 91; TEMP 36.8; O2SAT 91
[2017-08-21] MEDS: METOPROLOL SUCC 25MG EXT REL TAB PO SCH (21:21)
[2017-08-21 22:52] VITALS: BP 106/69; PULSE 58; TEMP 36.8; O2SAT 92
[2017-08-22] VITALS (10 sets, daily range): BP systolic 95–133; BP diastolic 57–81; PULSE 71–103; TEMP 36.4–36.8; O2SAT 93–99
[2017-08-22] MEDS ORDERED: NURSING VERBAL MED ORDER ONE (05:00)
[2017-08-22] MEDS: LEVOTHYROXINE 125 MCG TAB PO SCH (05:14)
[2017-08-22 05:30] LABS: INR 1.8 (0.9-1.1)
[2017-08-22 05:38] LABS: PTT PATIENT 66.5 SECONDS (21.0-31.0)
[2017-08-22] MEDS: INSULIN ASPART 100 UNITS/ML 3 ML PEN SC SCH ×4 (07:57→21:11)
[2017-08-22] MEDS: INSULIN GLARGINE SOLOSTAR 100 UNITS/ML 3 ML PEN SC SCH ×2 (07:58→21:11)
[2017-08-22] MEDS: FERROUS SULFATE 325 MG TAB PO SCH (07:59)
[2017-08-22] MEDS: ATORVASTATIN 40 MG TAB PO SCH (07:59)
[2017-08-22] MEDS: FUROSEMIDE 80 MG TAB PO SCH (07:59)
[2017-08-22] MEDS: PANTOprazole SOD 40 MG TAB PO SCH ×2 (08:00→21:06)
[2017-08-22] MEDS: GABAPENTIN 100 MG CAP PO SCH ×2 (08:00→21:05)
[2017-08-22] MEDS: CLARITHROMYCIN 500 MG TAB PO SCH ×2 (08:00→21:06)
[2017-08-22] MEDS: POTASSIUM CHLORIDE 20 MEQ TABCR PO SCH ×2 (08:01→21:06)
[2017-08-22] MEDS: ASCORBIC ACID 500 MG TAB PO SCH (08:02)
[2017-08-22] MEDS: ASPIRIN 81 MG ECTAB PO SCH (08:02)
[2017-08-22] MEDS: METOPROLOL SUCC 50MG EXT REL TAB PO SCH (08:02)
[2017-08-22] MEDS: MUPIROCIN 2% OINT 22 GM TUBE EXT SCH ×2 (08:03→21:02)
[2017-08-22] MEDS: FLUOXETINE HCL 20 MG CAP PO SCH (08:03)
[2017-08-22] MEDS: METRONIDAZOLE 500 MG TAB PO SCH ×3 (08:03→21:04)
[2017-08-22] MEDS: OXYBUTYNIN CHLORIDE 5 MG TAB PO SCH ×2 (08:04→21:03)
[2017-08-22] MEDS: CYANOCOBALAMIN 100 MCG TAB (VIT B-12) PO SCH (08:05)
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
[2017-08-22] MEDS: HEPARIN 25,000 UNIT/500ML D5W 500 ML IV SCH ×2 (09:08→23:55)
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
[2017-08-22] MEDS: WARFARIN SOD 7.5 MG TAB PO SCH (16:43)
[2017-08-22] MEDS: METOPROLOL SUCC 25MG EXT REL TAB PO SCH (21:09)
[2017-08-23] VITALS (7 sets, daily range): BP systolic 107–139; BP diastolic 59–84; PULSE 78–101; TEMP 36.7–36.8; O2SAT 94–97
[2017-08-23 05:24] LABS: HEMATOCRIT 32.5 % (37-47); HEMOGLOBIN 10.5 g/dL (12.0-16.0); MEAN CELL VOLUME 93.9 fL (80-100); MEAN CORPUSCULAR HEMOGLOBIN 30.3 pg (25-34); MEAN CORPUSCULAR HGB CONC 32.3 g/dl (32-36); MEAN PLATELET VOLUME 10.1 fL (7.4-10.4); PLATELET COUNT 277 K/uL (130-400); RED CELL DISTRIBUTION WIDTH CV 16.3 % (11.5-14.5); RED CELL DISTRIBUTION WIDTH SD 55.2 fL (36.4-46.3)
[2017-08-23] MEDS: LEVOTHYROXINE 125 MCG TAB PO SCH (05:41)
[2017-08-23 05:44] LABS: INR 2.2 (0.9-1.1)
[2017-08-23 05:51] LABS: PTT PATIENT 75.2 SECONDS (21.0-31.0)
[2017-08-23 05:53] LABS: CALCIUM 8.6 mg/dl (8.5-10.1); CREATININE 1.11 mg/dl (0.60-1.20); POTASSIUM 4.1 mmol/L (3.5-5.1)
[2017-08-23] MEDS: HEPARIN 25,000 UNIT/500ML D5W 500 ML IV SCH (06:09)
[2017-08-23] MEDS: MUPIROCIN 2% OINT 22 GM TUBE EXT SCH (08:48)
[2017-08-23] MEDS: FERROUS SULFATE 325 MG TAB PO SCH (08:49)
[2017-08-23] MEDS: ASCORBIC ACID 500 MG TAB PO SCH (08:49)
[2017-08-23] MEDS: ATORVASTATIN 40 MG TAB PO SCH (08:49)
[2017-08-23] MEDS: METRONIDAZOLE 500 MG TAB PO SCH ×2 (08:49→12:54)
[2017-08-23] MEDS: FLUOXETINE HCL 20 MG CAP PO SCH (08:49)
[2017-08-23] MEDS: METOPROLOL SUCC 50MG EXT REL TAB PO SCH (08:49)
[2017-08-23] MEDS: FUROSEMIDE 80 MG TAB PO SCH (08:49)
[2017-08-23] MEDS: PANTOprazole SOD 40 MG TAB PO SCH (08:50)
[2017-08-23] MEDS: GABAPENTIN 100 MG CAP PO SCH (08:50)
[2017-08-23] MEDS: POTASSIUM CHLORIDE 20 MEQ TABCR PO SCH (08:50)
[2017-08-23] MEDS: OXYBUTYNIN CHLORIDE 5 MG TAB PO SCH (08:50)
[2017-08-23] MEDS: CLARITHROMYCIN 500 MG TAB PO SCH (08:50)
[2017-08-23] MEDS: CYANOCOBALAMIN 100 MCG TAB (VIT B-12) PO SCH (08:51)
[2017-08-23] MEDS: ASPIRIN 81 MG ECTAB PO SCH (08:51)
[2017-08-23] MEDS: INSULIN ASPART 100 UNITS/ML 3 ML PEN SC SCH ×2 (08:56→12:49)
[2017-08-23] MEDS: INSULIN GLARGINE SOLOSTAR 100 UNITS/ML 3 ML PEN SC SCH (08:57)
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
[2017-08-23 12:31] LABS: PTT PATIENT 31.8 SECONDS (21.0-31.0)
[2017-08-23] MEDS ORDERED: FRRS300 PO (14:21)
[2017-08-23] MEDS ORDERED: MTR500 PO (14:21)
[2017-08-23] MEDS ORDERED: TPRSR50 PO (14:21)
[2017-08-23] MEDS ORDERED: BXN500 PO (14:21)
[2017-08-23] MEDS ORDERED: MCRK20 PO (14:21)
[2017-08-23] MEDS ORDERED: ASCA500 PO (14:22)
[2017-08-23] MEDS ORDERED: PRT40 PO (14:22)
[2017-08-23] MEDS ORDERED: DTR5 PO (14:22)
[2017-08-23] MEDS ORDERED: VTMB12100 PO (14:22)
[2017-08-23] MEDS ORDERED: GLC500 PO (14:22)
--- NOTE | 2017-08-23 14:25 | Discharge Instructions ---
Discharge Instructions Date of Service Aug 23, 2017. Admission Reason for Admission: Anemia Discharge Discharge Diagnosis / Problem: H Pylori infection,Anemia,AF,Valvular Heart Disease Discharge Goals Goal(s): Prevent Disease Progression Activity Recommendations Activity Limitations: resume your previous activity (Take precaution to avoid fall) . Instructions / Follow-Up Instructions / Follow-Up Dr Watkins on 08/28/17 at 1:45PM,Coagulation clinic notified and Cardiology will call with appointment Current Hospital Diet Patient's current hospital diet: AHA Diet (Heart Healthy), Diabetes Type 2 Diet Discharge Diet Recommended Diet: AHA Diet (Heart Healthy), Diabetes Type 2 Diet Fluid Restriction: 1500 ml (6 cups) Pending Studies Studies pending at discharge: no Laboratory Results Lipid Panel Test 07/22/17 02:28 Range/Units Triglycerides Level 104 0-150 mg/dl Cholesterol Level 109 0-200 mg/dl HDL Cholesterol 38 mg/dl Cholesterol/HDL Ratio 2.9 LDL Cholesterol, Calculated 50 mg/dl Medical Emergencies . Who to Call and When: Medical Emergencies: If at any time you feel your situation is an emergency, please call 911 immediately. . Non-Emergent Contact Non-Emergency issues call your: Primary Care Provider . Past History Medical & Surgical History: (1) Depression (2) Diabetes mellitus type II, controlled (3) Morbid obesity with BMI of 40.0-44.9, adult (4) Atrial fibrillation (5) Ischemic heart disease (6) Pulmonary hypertension (7) Aortic stenosis (8) Mitral stenosis (9) Aortic regurgitation (10) Anemia (11) History of tonsillectomy (12) History of lumpectomy of right breast (13) Status post cardiac catheterization . "Provider Documentation" section prepared by Juan J Siu. .
[2017-08-23] MEDS: WARFARIN SOD 7.5 MG TAB PO SCH (15:57)
--- NOTE | 2017-08-23 18:12 | Discharge Summary ---
Discharge Summary Date of Service Aug 23, 2017. Discharge Summary Admission Date: Aug 16, 2017 at 13:47 Discharge Date: Aug 23, 2017 Discharge Disposition: Home with services Principal Diagnosis: H Pylori infection,Anemia,AF,Valvular Heart Disease Secondary Diagnoses/Problems: Please see H&P and Hospital progress note Consultations: Cardiology Medication Reconciliation New Medications: Metformin HCl (Metformin HCl) 500 Mg Tab 1000 MG PO BIDM, #120 Ascorbic Acid (Vitamin C) 500 Mg Tab 500 MG PO QAM for 30 Days, #30 TAB Clarithromycin (Clarithromycin) 500 Mg Tab 500 MG PO Q12 for 11 Days, #22 TAB Cyanocobalamin (Vitamin B-12) 100 Mcg Tab 100 MCG PO QAM for 30 Days, #30 TAB Ferrous Sulfate (Ferrous Sulfate) 325 Mg Tab 325 MG PO QAM for 30 Days, #30 TAB Metoprolol Succinate (Metoprolol Succinate ER) 50 Mg Tabcr 50 MG PO BID for 30 Days, #60 Metronidazole (Metronidazole) 500 Mg Tab 500 MG PO TID for 11 Days, #33 TAB Oxybutynin Chloride (Oxybutynin Chloride) 5 Mg Tab 5 MG PO BID for 30 Days, #60 TAB Pantoprazole (Pantoprazole Sodium) 40 Mg Tab 40 MG PO BID for 30 Days, #60 TAB for 11 days and then 1 po daily Potassium Chloride (Klor-Con M20) 20 Meq Tabcr 20 MEQ PO BID for 30 Days, #60 Continued Medications: Aspirin (Aspirin EC Low Dose) 81 Mg Ectab 81 MG PO QAM Atorvastatin (Lipitor) 40 Mg Tab 40 MG PO DAILY, TAB Fluoxetine (Prozac) 20 Mg Cap 20 MG PO QAM Furosemide (Furosemide) 80 Mg Tab 80 MG PO DAILY, TAB Gabapentin (Neurontin) 100 Mg Cap 100 MG PO BID Levothyroxine Sodium (Levothyroxine Sodium) 125 Mcg Tab 125 MCG PO DAILY Saline ([place] Nasal [place]) 0.65 % Spr 1 SPRAY JUVENTINO UD PRN for ALLERY Warfarin Sodium (Warfarin Sodium) 5 Mg Tab 7.5 MG PO DAILY, TAB Check INR periodically(Coag Clinic) and dose Coumadin to maintain the level between 2 to 3 Discontinued Medications: Enoxaparin (Lovenox) 100 Mg/Ml Inj 100 MG SQ Q12 Insulin Aspart (Novolog) 100 Units/Ml Inj 0 SQ SS Metoprolol Succinate (Toprol Xl) 50 Mg Tabcr 50 MG PO DAILY Admission Information HPI (per Admitting provider): 72-year-old female followed by Dr. Watkins. Hospitalized at [facility] in August 2016 with anemia attributed to GI bleeding. Hemoglobin at time of admission was 7.5. Colonoscopy Feb 2016 demonstrated diverticulosis and was not repeated. EGD 08/10/16 did not reveal any source of bleeding. She was transfused with 2 units of packed RBCs. Hospitalized at [facility] on 07/21/17 with new onset atrial fibrillation and elevated serum troponin.. Echocardiogram demonstrated severe aortic stenosis, mild to moderate mitral stenosis, moderate to severe mitral regurgitation, no segmental wall motion abnormalities. She was transferred to [facility] on 07/22/17 for further evaluation and management. SANDRA was initially unsuccessful due to difficulty passing the probe. The procedure was subsequently performed 07/23/17 with endotracheal intubation and general anesthesia. Study was inconclusive for left atrial thrombus, but "smoke" noted in [place] and cardioversion was not performed. LVEF was 55%. Noted to have mild aortic stenosis, trace aortic regurgitation, severe mitral regurgitation, mild mitral stenosis, enlarged right ventricle, mild RV dysfunction. Cardiac catheterization 07/24/17 revealed nonocclusive coronary disease; PA pressure 70/33; PCWP 29. Seen in consultation by CT Surgery (Dr. Adhikari). Eventual mitral valve replacement anticipated, but postponed due to functional status and comorbidities. Received metoprolol for rate control. Anticoagulation with warfarin was initiated. Received bridge therapy with enoxaparin pending therapeutic INR. Transferred to [facility] on 07/26/17 for skilled care. Labs performed yesterday notable for hemoglobin 8.6. Patient was seen in Cardiology Clinic today by Agustin Sage PA-C. Noted be tachycardic. Labs were reviewed and falling H/H was noted. She was referred to the hospital for further evaluation and management. Patient denies any abdominal pain, nausea, vomiting, hematochezia. No anginal symptoms. She is experiencing dyspnea on exertion. Chronic lower extremity lymphedema is stable. She is on low-dose aspirin. She remains on warfarin and enoxaparin. Past Medical/Surgical History Chronic and Resolved Medical Problems: (1) Aortic regurgitation Permanent Comment: mild per SANDRA [facility] [place] 07/23/17 Status: Chronic (2) Aortic stenosis Permanent Comment: mild per SANDRA [facility] [place] 07/23/17 Status: Chronic (3) Atrial fibrillation Status: Chronic (4) Depression Status: Chronic (5) Diabetes mellitus type II, controlled Status: Chronic (6) Diabetic neuropathy Status: Chronic (7) Diverticular disease of colon Permanent Comment: per colonoscopy February 2016 Status: Chronic (8) Dyslipidemia Status: Chronic (9) History of breast cancer Permanent Comment: Right breast Status: Chronic (10) Hypertension Status: Chronic (11) Hypothyroidism Status: Chronic (12) Ischemic heart disease Permanent Comment: nonocclusive CAD per cath [facility] [place] 07/24/17 Status: Chronic (13) Lymphedema of both lower extremities Status: Chronic (14) Mitral regurgitation Permanent Comment: severe per SANDRA [facility] [place] 07/23/17 Status: Chronic (15) Mitral stenosis Permanent Comment: mild per SANDRA [facility] [place] 07/23/17 Status: Chronic (16) Morbid obesity with BMI of 40.0-44.9, adult Status: Chronic (17) Pulmonary hypertension Permanent Comment: PAP 70/33 per cath 07/24/17 Status: Chronic Surgical Problems: (1) History of lumpectomy of right breast Status: Chronic (2) History of tonsillectomy Status: Chronic (3) Status post cardiac catheterization Permanent Comment: [facility] [place] 07/24/17 - nonocclusive CAD, pulmonary hypertension Status: Chronic . Family History FATHER Heart disease MOTHER Breast cancer Uterine cancer Diabetes mellitus GRANDMOTHER Diabetes mellitus Social History Smoking Status: Never Smoker Alcohol Use: none Drug Use: none Marital Status: Housing status: lives with family Occupational Status: retired Immunizations History of Influenza Vaccine: Yes History of Tetanus Vaccine?: No History of Pneumococcal: Yes Pneumococcal Date: Nov 02, 2010 History of Hepatitis B Vaccine: Unknown Allergies Coded Allergies: Cephalexin (Verified Allergy, Unknown, BURNING, NAUSEA, AND TROUBLE BREATHING, 08/16/17) Penicillins (Verified Allergy, Unknown, KIDNEY INFECTION, HIVES, 08/16/17) Sulfa Drugs (Verified Allergy, Unknown, NAUSEA AND TIRED, 08/16/17) Home Medications Scheduled Aspirin (Aspirin EC Low Dose), 81 MG PO QAM Atorvastatin (Lipitor), 40 MG PO DAILY Enoxaparin (Lovenox), 100 MG SQ Q12 Fluoxetine (Prozac), 20 MG PO QAM Furosemide (Furosemide), 80 MG PO DAILY Gabapentin (Neurontin), 100 MG PO BID Insulin Aspart (Novolog), 0 SQ SS Levothyroxine Sodium (Levothyroxine Sodium), 125 MCG PO DAILY Metoprolol Succinate (Toprol Xl), 50 MG PO DAILY Warfarin Sodium (Warfarin Sodium), 5 MG PO DAILY Scheduled PRN Saline ([place] Nasal [place]), 1 SPRAY JUVENTINO UD PRN for ALLERY Review of Systems CONSTITUTIONAL no fever + weight loss EYES no acute visual changes EARS, NOSE, MOUTH, AND THROAT + hearing loss chronic sinus symptoms no pharyngitis CARDIOVASCULAR as noted above in HPI RESPIRATORY + dyspnea on exertion no cough GASTROINTESTINAL as noted above in HPI GENITOURINARY no dysuria no hematuria MUSCULOSKELETAL no arthralgias INTEGUMENTARY no rash NEUROLOGIC + diabetic neuropathy no headaches no focal neurologic symptoms PSYCHIATRIC grieving over loss of this year ENDOCRINE blood sugars fluctuate HEMATOLOGIC / LYMPHATIC bruises easily no adenopathy . Physical Exam H&P v2 Physical Exam Vital Signs Date Time Temp Pulse Resp B/P (MAP) Pulse Ox O2 Delivery O2 Flow Rate FiO2 08/16/17 13:10 89 20 111/65 93 Room Air 08/16/17 13:10 95 Room Air 08/16/17 12:09 84 08/16/17 12:03 92 18 110/68 90 08/16/17 10:48 36.8 94 20 93/57 97 Room Air CONSTITUTIONAL vital signs as noted above adult female, obese, no acute distress EYES conjunctivae clear; lids normal pupils equal and reactive to light EARS, NOSE, MOUTH AND THROAT external inspection of ears and nose unremarkable hearing grossly intact to spoken voice upper and lower dentures oropharynx clear NECK no masses; trachea midline thyroid normal RESPIRATORY normal respiratory effort; no respiratory distress clear to percussion clear to auscultation CARDIOVASCULAR irregular in 80's III/ systolic murmur at base + apex no gallop appreciated + JVD carotid arteries 2/2; bilateral carotid bruits versus transmitted aortic murmur abdominal aorta not palpable pedal pulses diminished capillary refill toes < 2 seconds chronic-appearing lymphedema of lower extremities GASTROINTESTINAL normal bowel sounds, soft, nontender; no palpable masses no hepatomegaly or splenomegaly appreciated, but exam limited LYMPHATIC no cervical adenopathy MUSCULOSKELETAL no cyanosis; no digital clubbing no calf tenderness motor strength extremities grossly intact large old / resolving hematoma posterior left upper extremity SKIN no rash warm and dry multiple ecchymoses erythema dorsum left great toe without warmth or drainage NEUROLOGIC PERRL, EOMI, no facial palsy, no dysarthria, tongue midline PSYCHIATRIC oriented to person, place, time mood and affect appropriate . Diagnostics H&P v2 Diagnostics Laboratory Results Results Past 24 Hours Test 08/16/17 11:21 08/16/17 12:40 08/16/17 12:41 Range/Units Urine Color YELLOW Urine Appearance CLEAR CLEAR Urine pH 5.5 4.5-7.5 Urine Specific [place] 1.009 1.000-1.030 Urine Protein NEG NEG Urine Glucose (UA) NEG NEG Urine Ketones NEG NEG Urine Occult Blood NEG NEG Urine Nitrite POS NEG Urine Bilirubin NEG NEG Urine Urobilinogen NEG NEG Urine Leukocyte Esterase NEG NEG Urine WBC (Auto) 1-5 0-5 /hpf Urine RBC (Auto) 0-4 0-4 /hpf Urine Hyaline Casts (Auto) 1-5 0-5 /lpf Urine Epithelial Cells (Auto) 10-20 0-5 /lpf Urine Bacteria (Auto) 4+ NEG White Blood Count 10.07 4.8-10.8 K/uL Red Blood Count 2.99 4.2-5.4 M/uL Hemoglobin 9.1 12.0-16.0 g/dL Hematocrit 28.0 37-47 % Mean Corpuscular Volume 93.6 80-100 fL Mean Corpuscular Hemoglobin 30.4 25-34 pg Mean Corpuscular Hemoglobin Concent 32.5 32-36 g/dl Platelet Count 257 130-400 K/uL Mean Platelet Volume 9.9 7.4-10.4 fL Neutrophils (%) (Auto) 73.6 % Lymphocytes (%) (Auto) 11.3 % Monocytes (%) (Auto) 11.0 % Eosinophils (%) (Auto) 3.5 % Basophils (%) (Auto) 0.2 % Neutrophils # (Auto) 7.41 1.4-6.5 K/uL Lymphocytes # (Auto) 1.14 1.2-3.4 K/uL Monocytes # (Auto) 1.11 0.11-0.59 K/uL Eosinophils # (Auto) 0.35 0-0.5 K/uL Basophils # (Auto) 0.02 0-0.2 K/uL RDW Standard Deviation 51.8 36.4-46.3 fL RDW Coefficient of Variation 15.6 11.5-14.5 % Immature Granulocyte % (Auto) 0.4 % Immature Granulocyte # (Auto) 0.04 0.00-0.02 K/uL Prothrombin Time 17.7 9.0-12.0 SECONDS Prothromb Time International Ratio 1.7 0.9-1.1 Activated Partial Thromboplast Time 34.5 21.0-31.0 SECONDS Partial Thromboplastin Ratio 1.3 Sodium Level 135 136-145 mmol/L Potassium Level 3.4 3.5-5.1 mmol/L Chloride Level 100 98-107 mmol/L Carbon Dioxide Level 35 21-32 mmol/L Anion Gap 0.0 3-11 mmol/L Blood Urea Nitrogen 24 7-18 mg/dl Creatinine 0.81 0.60-1.20 mg/dl Est Creatinine Clear Calc Drug Dose 83.2 ml/min Estimated GFR () 84.1 Estimated GFR (Non- 72.6 BUN/Creatinine Ratio 30.0 10-20 Random Glucose 128 70-99 mg/dl Calcium Level 8.6 8.5-10.1 mg/dl Total Bilirubin 0.8 0.2-1 mg/dl Direct Bilirubin 0.2 0-0.2 mg/dl Aspartate Amino Transf (AST/SGOT) 16 15-37 U/L Alanine Aminotransferase (ALT/SGPT) 17 12-78 U/L Alkaline Phosphatase 93 45-117 U/L Total Protein 7.1 6.4-8.2 gm/dl Albumin 2.7 3.4-5.0 gm/dl Lipase 224 73-393 U/L Diagnostic Radiology PORTABLE CHEST X-RAY: IMPRESSION: 1. Cardiomegaly with evidence of congestive failure. 2. Low lung volumes. No airspace consolidation or large pleural effusion is identified. Electronically signed by: Kwasi Nielsen M.D. 08/16/2017 1:52 PM Dictated Date/Time: 08/16/2017 1:51 PM . EKG EKG performed at 1115 reviewed and demonstrated atrial fibrillation with a ventricular rate of 110/minute, ST depression anteriorly, inferiorl, and laterally, intraventricular conduction delay. . Impression H&P v2 Impression Assessment and Plan ANEMIA Hemoglobin 10.6 when discharged from [facility] on 07/25/17. Hemoglobin yesterday was 8.6. Repeat hemoglobin today in ED = 9.1. Currently receiving aspirin, warfarin, enoxaparin. INR 1.7. No gross GI bleeding. Rectal exam in ED demonstrated scant stool, heme-negative. Hgb goal greater than 10 in light of recent non-STEMI and other cardiac concerns. Best to avoid diagnostic endoscopy if possible due to underlying cardiac concerns. Check stools for occult blood. Check stool for H. pylori antigen. Hold aspirin. Continue anticoagulation with caution due to high risk for cardioembolism. Empiric PPI. Monitor H&H and transfuse as necessary. ISCHEMIC HEART DISEASE Recent non-STEMI in the setting of atrial fibrillation with rapid ventricular response. Cardiac catheterization demonstrated nonocclusive coronary disease. Hold aspirin in light of possible GI bleed. Continue metoprolol. CHF Chest x-ray demonstrates CHF; chronic lower extremity lymphedema. Acute on chronic CHF secondary to underlying valvular heart disease. Titrate diuretics as necessary. VALVULAR HEART DISEASE Recent SANDRA demonstrated severe mitral regurgitation, mild mitral stenosis, mild aortic stenosis, mild aortic regurgitation. Eventual mitral valve surgery anticipated once functional status permits and comorbidities are optimized. ATRIAL FIBRILLATION Underlying mitral valve disease. Ventricular rate rapid in ED, subsequently improved. Continue metoprolol for rate control. High risk for cardioembolism (recent SANDRA demonstrated "smoke" in [place]). Currently receiving warfarin and bridge therapy with enoxaparin. INR subtherapeutic at 1.7. Will utilize IV heparin with low-dose protocol pending further evaluation and management of anemia. HYPERTENSION Continue metoprolol succinate. Follow and titrate therapy. DM TYPE 2 Diabetes mellitus type 2, usually managed with metformin. Hemoglobin A1c was 5.5. Metformin held due to recent illnesses. Blood sugars have been fluctuating. Random glucose in ED 128. Monitor blood sugars before meals at bedtime. Lantus/NovoLog per protocol. DYSLIPIDEMIA Continue atorvastatin. HYPOTHYROIDISM TSH 0.68 on 07/25/17. Continue levothyroxine. MORBID OBESITY Weight 120 kg, BMI 43. AHA / diabetic diet. VTE PROPHYLAXIS Titrate warfarin. IV heparin until INR therapeutic. Ambulate as able. ADVANCE DIRECTIVES / RESUSCITATION STATUS Discussed with patient and her daughter. She does not have a living will. She would like resuscitation attempted in the event of a cardiopulmonary arrest if there is a reasonable chance of a meaningful recovery. Therefore, code status = "Level 1" (full resuscitation). DISPOSITION To be determined- discharge to home vs return to [facility]. Family Medicine follow-up with Dr. Watkins. Follow-up with [facility] Cardiology and CT Surgery. . Resuscitation Status VTE Prophylaxis Will order VTE Prophylaxis: Yes . Physical Exam (per Admitting): CONSTITUTIONAL vital signs as noted above adult female, obese, no acute distress EYES conjunctivae clear; lids normal pupils equal and reactive to light EARS, NOSE, MOUTH AND THROAT external inspection of ears and nose unremarkable hearing grossly intact to spoken voice upper and lower dentures oropharynx clear NECK no masses; trachea midline thyroid normal RESPIRATORY normal respiratory effort; no respiratory distress clear to percussion clear to auscultation CARDIOVASCULAR irregular in 80's III/ systolic murmur at base + apex no gallop appreciated + JVD carotid arteries 2/2; bilateral carotid bruits versus transmitted aortic murmur abdominal aorta not palpable pedal pulses diminished capillary refill toes < 2 seconds chronic-appearing lymphedema of lower extremities GASTROINTESTINAL normal bowel sounds, soft, nontender; no palpable masses no hepatomegaly or splenomegaly appreciated, but exam limited LYMPHATIC no cervical adenopathy MUSCULOSKELETAL no cyanosis; no digital clubbing no calf tenderness motor strength extremities grossly intact large old / resolving hematoma posterior left upper extremity SKIN no rash warm and dry multiple ecchymoses erythema dorsum left great toe without warmth or drainage NEUROLOGIC PERRL, EOMI, no facial palsy, no dysarthria, tongue midline PSYCHIATRIC oriented to person, place, time mood and affect appropriate . Hospital Course ANEMIA-Positive HP antigen in stool Hemoglobin 10.6 when discharged from [facility] on 07/25/17. Hemoglobin day prior to admission was 8.6. No gross GI bleeding and no significant coagulopathy Rectal exam in ED demonstrated scant stool, heme-negative. Stool negative for occult blood 08/19.. Stool H. pylori antigen::POSITIVE Serum iron 57, percent transferrin sat 25, B12 337, folic acid 8. Held aspirin - should be OK to resume in light of heme-negative stools. Continue anticoagulation with caution due to high risk for cardioembolism. Continue empiric PPI. Monitor H/H-10.6/34.4 Started on Triple Therapy-Clarithromycin,Flagyl and PPI for 14 days and then only PPI Check CBC tomorrow-remains stable >10 on 08/23/17 ISCHEMIC HEART DISEASE Recent non-STEMI in the setting of atrial fibrillation with rapid ventricular response. Cardiac catheterization demonstrated nonocclusive coronary disease. Aspirin was on hold and restarted with Coumadin Continue metoprolol. Acute on chronic HFpEF-Diastolic CHF Secondary to Valvular Heart disease Chest x-ray demonstrated CHF; chronic lower extremity lymphedema. Acute on chronic CHF secondary to underlying valvular heart disease. Started on Lasix 80mg daily Denies any SOB at rest VALVULAR HEART DISEASE Recent SANDRA demonstrated severe mitral regurgitation, mild mitral stenosis, mild aortic stenosis, mild aortic regurgitation. Eventual mitral valve surgery anticipated once functional status permits and comorbidities are optimized. ATRIAL FIBRILLATION Underlying mitral valve disease. Ventricular rate rapid in ED, subsequently improved. Continue metoprolol for rate control. High risk for cardioembolic (recent SANDRA demonstrated "smoke" in [place]). Currently receiving warfarin and bridge therapy with enoxaparin. Continue IV Heparin and Coumadin INR 2 to 3 INR 2.2 today 08/23 HYPERTENSION Continue metoprolol succinate. Follow and titrate therapy. DM TYPE 2 Diabetes mellitus type 2, usually managed with metformin. Hemoglobin A1c was 5.5. Metformin held due to recent illnesses. Lantus/NovoLog per protocol. Urinary Incontinence Add Ditropan DYSLIPIDEMIA Continue atorvastatin. HYPOTHYROIDISM TSH 0.68 on 07/25/17. Continue levothyroxine. MORBID OBESITY Weight 120 kg, BMI 43. AHA / diabetic diet. VTE PROPHYLAXIS Titrate warfarin. IV heparin until INR therapeutic. Ambulate as able. ADVANCE DIRECTIVES / RESUSCITATION STATUS Full code as documented in H&P. DISPOSITION To be determined- anticipate need for ongoing skilled care. Family Medicine follow-up with Dr. Watkins. Follow-up with [facility] Cardiology and CT Surgery. Discharge today Total time spent on discharge = 40minutes This includes examination of the patient, discharge planning, medication reconciliation, and communication with other providers. Discharge Instructions Date of Service Aug 23, 2017. Admission Reason for Admission: Anemia Discharge Discharge Diagnosis / Problem: H Pylori infection,Anemia,AF,Valvular Heart Disease Discharge Goals Goal(s): Prevent Disease Progression Activity Recommendations Activity Limitations: resume your previous activity (Take precaution to avoid fall) . Instructions / Follow-Up Instructions / Follow-Up Dr Watkins on 08/28/17 at 1:45PM,Coagulation clinic notified and Cardiology will call with appointment Current Hospital Diet Patient's current hospital diet: AHA Diet (Heart Healthy), Diabetes Type 2 Diet Discharge Diet Recommended Diet: AHA Diet (Heart Healthy), Diabetes Type 2 Diet Fluid Restriction: 1500 ml (6 cups) Pending Studies Studies pending at discharge: no Laboratory Results Lipid Panel Test 07/22/17 02:28 Range/Units Triglycerides Level 104 0-150 mg/dl Cholesterol Level 109 0-200 mg/dl HDL Cholesterol 38 mg/dl Cholesterol/HDL Ratio 2.9 LDL Cholesterol, Calculated 50 mg/dl Medical Emergencies . Who to Call and When: Medical Emergencies: If at any time you feel your situation is an emergency, please call 911 immediately. . Non-Emergent Contact Non-Emergency issues call your: Primary Care Provider . Past History Medical & Surgical History: (1) Depression (2) Diabetes mellitus type II, controlled (3) Morbid obesity with BMI of 40.0-44.9, adult (4) Atrial fibrillation (5) Ischemic heart disease (6) Pulmonary hypertension (7) Aortic stenosis (8) Mitral stenosis (9) Aortic regurgitation (10) Anemia (11) History of tonsillectomy (12) History of lumpectomy of right breast (13) Status post cardiac catheterization . "Provider Documentation" section prepared by Juan J Siu. . <Electronically signed by Juan J Siu M.D.> Additional Copies To Pito Watkins M.D. (MEDICAL)
[2017-08-23] MEDS ORDERED: METOPROLOL SUCC 50MG EXT REL TAB PO SCH (21:00)
[2017-08-24] MEDS ORDERED: WARF-246 PO (08:12)
== END 2017-08-23 17:28 | disposition home health service (06) | DRG 811 ==
LOC: C.EDB 10:46 → C.MED 13:47 → ENRESERV 14:02 → C.MED 08-17 08:57
PROVIDERS: ADMIT Hospitalist; ATTEND Internal Medicine
DX: D64.9 Anemia, unspecified (principal); I50.33 Acute on chronic diastolic (congestive) heart failure; Z68.41 Body mass index [BMI] 40.0-44.9, adult; N39.0 Urinary tract infection, site not specified; F32.9 Major depressive disorder, single episode, unspecified; E66.01 Morbid (severe) obesity due to excess calories; E11.9 Type 2 diabetes mellitus without complications; E78.5 Hyperlipidemia, unspecified; I11.0 Hypertensive heart disease with heart failure; E03.9 Hypothyroidism, unspecified; I48.91 Unspecified atrial fibrillation; I25.2 Old myocardial infarction; Z79.82 Long term (current) use of aspirin; Z88.2 Allergy status to sulfonamides; Z88.0 Allergy status to penicillin; Z88.1 Allergy status to other antibiotic agents; Z85.3 Personal history of malignant neoplasm of breast; Z80.9 Family history of malignant neoplasm, unspecified; Z83.3 Family history of diabetes mellitus; Z82.49 Family history of ischemic heart disease and other diseases of the circulatory system

== ENCOUNTER → 2017-08-26 | Outpatient (CLI) | payer OTHER ==
[~2017-08-26] MED LIST changes: +ASCA500 PO; -ATOR-22 PO; -AZEL0.15 NAE; +BXN500 PO; -CHOL20009 PO; -DIPH25CA65 PO; +DTR5 PO; -FERR1TAB23 PO; -FEXO1TAB46 PO; -FLUT0.15 NAE; +FRRS300 PO; +GLC500 PO; -HYDR-5688 PO; +LEVO125T5 PO; -LEVO125T72 PO; -LISI40TA PO; +LPT40 PO; +LSX80 PO; +MCRK20 PO; -METF-841 PO; +MTR500 PO; +PRT40 PO; -RANI300T2 PO; +SALI0.6510 NAE; +TPRSR50 PO; -TRMCR515 TOP; +VTMB12100 PO; +WARF-246 PO
[2017-08-26 11:12] LABS: INR 3.2 (0.9-1.1)
== END | disposition home or self-care (01) ==
LOC: C.LABSPEC 10:41
PROVIDERS: ATTEND Family Medicine
DX: Z51.81 Encounter for therapeutic drug level monitoring (principal); Z79.01 Long term (current) use of anticoagulants

== ENCOUNTER → 2017-09-06 | Outpatient (CLI) | payer OTHER ==
[2017-09-06 11:39] LABS: INR 2.1 (0.9-1.1)
== END | disposition home or self-care (01) ==
LOC: C.LABSPEC 10:16
PROVIDERS: ATTEND Family Medicine
DX: Z79.01 Long term (current) use of anticoagulants (principal); Z51.81 Encounter for therapeutic drug level monitoring

== ENCOUNTER → 2017-09-13 | Outpatient (CLI) | payer OTHER ==
[2017-09-13 10:18] LABS: INR 1.7 (0.9-1.1)
== END | disposition home or self-care (01) ==
LOC: C.LABSPEC 09:59
PROVIDERS: ATTEND Family Medicine
DX: Z79.01 Long term (current) use of anticoagulants (principal); Z51.81 Encounter for therapeutic drug level monitoring

== ENCOUNTER 2018-12-15 10:49 | Inpatient (IN) ==
--- OUTSIDE RECORDS SUMMARY | 2018-12-15 10:52 | External Medical Summary | Continuity of Care Document ---
:1945 Author Name Darinel Alba Address Unavailable Unavailable , Care Team Providers Name Role Phone Unavailable Unavailable Unavailable Jolene MANJARREZ Unavailable Unavailable Unavailable Unavailable Unavailable Problems Hearing loss (389.9) (H91.90) Hypertension (401.9) (I10) Type 2 diabetes mellitus (250.00) (E11.9) Functional Status Hearing loss Allergies and Adverse Reactions Cephalexin CAPS (Allergy) Penicillins (Allergy) Sulfa Drugs (Allergy) Medications Eve RICHARDSON M.D. Refills: 0 Levothyroxine Sodium 112 MCG Oral Tablet; Take 1 tablet sav mon MAlexandraDAlexandra Refills: 0 FLUoxetine HCl - 20 MG Oral Tablet; Take 1 tablet daily , M. D. Refills: 0 raNITIdine HCl - 300 MG Oral Tablet; as needed , M.D. Refills: 0 Glucophage 1000 MG Oral Tablet; Take 1 tablet twice a day , M.D. Refills: 0 Azelastine HCl - 0.1 % Nasal Solution; as needed , M.D. 30 ML Bottle Refills: 0 Judith 180 MG TABS; TAKE 1 TABLET DAILY. , M.D. Refills: 0 Lasix 80 MG Oral Tablet; TAKE 1 TABLET DAILY. , M.D. Refills: 0 Atorvastatin Calcium 20 MG Oral Tablet; Take 1 tablet daily , M.D. Start: 13-Nov-2017 Refills: 0 90 Tablet Bottle Vitamin C 500 MG Oral Tablet; TAKE 1 TABLET DAILY. , M.D. Start: 13-Nov-2017 Refills: 0 Vitamin B12 100 MCG Oral Tablet; TAKE 1 TABLET DAILY DIRE CTED. Anjali Start: 13-Nov-2017 Refills: 0 Digoxin 125 MCG Oral Tablet; TAKE (1) TABLET BY MOUTH ONCE D Anjali MCKEON Start: 13-Nov-2017 Refills: 0 Ferrous Sulfate 325 (65 Fe) MG Oral Tablet; Take 1 tablet da Anjali mobley Start: 13-Nov-2017 Refills: 0 Gabapentin 100 MG Oral Capsule; Take 1 capsule twice daily , M.D. Start: 13-Nov-2017 Refills: 0 Ditropan XL 5 MG Oral Tablet Extended Re lease 24 Hour; TAKE 1 TABLET Twice a Week , M.D. Start: 13-Nov-2017 Refills: 0 Pantoprazole Sodium 40 MG Oral Tablet Delayed Release; Take 1 tablet daily , M.D. Start: 13-Nov-2017 Refills: 0 7 Tablet Bottle Potassium Chloride ER 10 MEQ Oral Tablet Extended Rele ase; TAKE 3 TABLET Daily , M.D. Start: 13-Nov-2017 Refills: 0 Coumadin 5 MG Oral Tablet; 1 tues&sat-1.5 tabs rest of week , M.D. Start: 13-Nov-2017 Refills: 0 Procedures History of Breast Surgery Lumpectomy Sta tus: Completed History of Open Treatment Of Tibial Shaft Fracture With Plat e / Status: Completed Screws Immunizations Immunizations not documented Social History - Smoking Status Never smoker Plan of Treatment Planned Observations Planned Goals not documented Results No Known Results Results not documented
[2018-12-15 11:59] LABS: Basophils # (auto) 0.02 K/uL (0-0.2); Basophils % (auto) 0.2 %; Eosinophils # (auto) 0.27 K/uL (0-0.5); Eosinophils % (auto) 2.6 %; Hematocrit (blood only) 29.8 % (37-47); Hemoglobin 9.5 g/dL (12.0-16.0); Immature Granulocytes # (auto) 0.03 K/uL (0.00-0.02); Immature Granulocytes % (auto) 0.3 %; Lymphocytes # (auto) 0.81 K/uL (1.2-3.4); Lymphocytes % (auto) 7.8 %; Mean Corpuscular Hemoglobin 29.1 pg (25-34); Mean Corpuscular Hgb Conc 31.9 g/dL (32-36); Mean Corpuscular Volume 91.1 fL (80-100); Mean Platelet Volume 10.9 fL (7.4-10.4); Monocytes # (auto) 0.92 K/uL (0.11-0.59); Monocytes % (auto) 8.9 %; Neutrophils # (auto) 8.32 K/uL (1.4-6.5); Neutrophils % (auto) 80.2 %; Platelet Count 160 K/uL (130-400); RDW Coefficient of Variation 16.1 % (11.5-14.5); RDW Standard Deviation 54.4 fL (36.4-46.3); Red Blood Count 3.27 M/uL (4.2-5.4); White Blood Count 10.37 K/uL (4.8-10.8)
[2018-12-15 12:33] LABS: Alanine Aminotransferase 15 U/L (12-78); Albumin Globulin Ratio 0.8 (0.9-2); Albumin Level 3.2 gm/dl (3.4-5.0); Alkaline Phosphatase 69 U/L (45-117); Aspartate Aminotransferase 17 U/L (15-37); BUN Creatinine Ratio 30.3 (10-20); Bilirubin,Total 0.7 mg/dl (0.2-1); Blood Urea Nitrogen 34 mg/dl (7-18); Calcium 8.3 mg/dl (8.5-10.1); Carbon Dioxide 30 mmol/L (21-32); Chloride 100 mmol/L (98-107); Est GFR (African American) 55.8; Est GFR (Non-African American) 48.2; Globulin 4.2 gm/dl (2.5-4.0); Glucose 173 mg/dl (70-99); Magnesium 1.7 mg/dl (1.8-2.4); NT Pro B Type Natriuretic Pept 4146 pg/ml (0-900); Potassium 4.4 mmol/L (3.5-5.1); Sodium 138 mmol/L (136-145); Total Protein 7.4 gm/dl (6.4-8.2); Troponin I < 0.015 ng/ml (0-0.045)
--- NOTE | 2018-12-15 12:37 | XRay Report ---
SINGLE VIEW CHEST CLINICAL HISTORY: Hypoxia. FINDINGS: An AP, portable, upright chest radiograph is compared to study dated 08/18/2017. The examina tion is degraded by portable technique and patient rotation. The heart is enlarged and there is ath erosclerotic calcification of the thoracic aorta. There is mild pulmonary vascular congestion. Enlarg ement of the main pulmonary arteries suggests pulmonary artery hypertension. Bibasilar opacities are noted. Trace pleural effusions are suspected. No pneumothorax is seen. The skeletal structures are os teopenic. The bony thorax is grossly intact. Advanced arthritic change is seen in the left shoulder. Degenerative change is also noted in the thoracic spine. Surgical clips are seen in the right axilla and right breast. IMPRESSION: 1. Cardiomegaly with mild pulmonary vascular congestion. 2. Suspect trace pleural effusions. 3. Bibasilar airspace opacities likely represent atelectasis. Clinical correlation will be required. Electronically signed by: Kwasi Nielsen M.D. 12/15/2018 12:35 PM
[2018-12-15] MEDS ORDERED: FUROSEMIDE 60 MG in SYRINGE 0 ML IV STA (12:45)
[2018-12-15] MEDS ORDERED: MAGNESIUM SULFATE / D5W 1 GM/100 ML BAG IV ONE (12:46)
[2018-12-15 13:02] LABS: Partial Thromboplastin Ratio 1.3; Partial Thromboplastin Time 35.3 Seconds (21.0-31.0)
[2018-12-15] MEDS ORDERED: FUROSEMIDE 40 MG/4 ML VIAL IV ONE (13:05)
[2018-12-15 13:06] LABS: INR 3.9 (0.9-1.1)
[2018-12-15] MEDS ORDERED: GLUCAGON FOR INJ 1 MG VIAL SQ PRN (14:46)
[2018-12-15] MEDS ORDERED: DEXTROSE 50% 50 ML SYRINGE IV PRN (14:46)
[2018-12-15] MEDS ORDERED: CARBOHYDRATES FOR HYPOGLYCEMIA PO PRN (14:46)
[2018-12-15] MEDS ORDERED: GLUCOSE 40% GEL 15 GM TUBE PO PRN (14:46)
[2018-12-15] MEDS ORDERED: GLUCOSE 10 TABS/TUBE PO PRN (14:46)
--- NOTE | 2018-12-15 14:46 | Emergency Department Note ---
Entered by Sandra Martínez acting as a scribe for History of Present Illness General Chief complaint: Shortness of Breath/Dyspnea Stated complaint: SOB, COUGH Time Seen by Provider: 12/15/18 11:12 Source: patient Mode of arrival: wheelchair Limitations: no limitations History of Present Illness Onset (ago): day(s) 2 Location: chest Radiation: non-radiation Pain Consistency: + constant Maximum Pain Intensity: 5 Relieved By: + other (Oxygen) Exacerbated By: + movement Associated symptoms: + cough; no fever/chills Treatments prior to arrival: other (Oxygen) The patient is a 73 year old female who presents to the ED with complaints of shortness of breath since yesterday. She admits to a productive cough and states she feels "awfully warm" but is unsure if she's been febrile. She is not on Oxygen chronically but states she has been wearing it recently because of her worsening breathing issues. Any exertion worsens her breathing. She is diabetic and this morning her BSG was 233. The patient has a history of mitral valve issues but states she has not undergone replacement surgery yet. She does use a walker to ambulate. Her family notes some of them were sick with bronchitis last week, and the patient lives with them. She does take daily Warfarin. Her Ice Guard Inspector is Agustin Sage PA-C with [facility]. Home Medications Home Medications Medication Instructions Recorded Confirmed Type ascorbic acid (vitamin C) 500 mg PO DAILY 12/15/18 12/15/18 History atorvastatin 20 mg PO DAILY 12/15/18 12/15/18 History cholecalciferol (vitamin D3) 4,000 unit PO DAILY 12/15/18 12/15/18 History cyanocobalamin (vitamin B-12) 100 mcg PO DAILY 12/15/18 12/15/18 History digoxin 125 mcg PO MOTUWETHFR 12/15/18 12/15/18 History ferrous sulfate 325 mg PO QAM 12/15/18 12/15/18 History fluoxetine 20 mg PO DAILY 12/15/18 12/15/18 History fluticasone propionate 1 spray INTRANASAL DAILY 12/15/18 12/15/18 History furosemide 80 mg PO DAILY 12/15/18 12/15/18 History gabapentin 100 mg PO DAILY 12/15/18 12/15/18 History levothyroxine 125 mcg PO DIRECTED 12/15/18 12/15/18 History magnesium chloride [Slow-Mag] 71.5 mg PO DAILY 12/15/18 12/15/18 History metformin 1,000 mg PO BID 12/15/18 12/15/18 History metoprolol succinate 50 mg PO DAILY 12/15/18 12/15/18 History pantoprazole 40 mg PO BID 12/15/18 12/15/18 History potassium chloride 10 meq PO Q2D 12/15/18 12/15/18 History potassium chloride 20 meq PO Q2D 12/15/18 12/15/18 History warfarin 5 mg PO TU 12/15/18 12/15/18 History warfarin 7.5 mg PO SUMOWETHFRSA 12/15/18 12/15/18 History Allergies Allergy/AdvReac Type Severity Reaction Status Date / Time cephalexin Allergy Unknown BURNING, Verified 08/16/17 12:14 NAUSEA, AND TROUBLE BREATHING Penicillins Allergy Unknown KIDNEY Verified 08/16/17 12:14 INFECTION, HIVES Sulfa (Sulfonamide Allergy Unknown NAUSEA AND Verified 08/16/17 12:14 Antibiotics) TIRED Past Med/Surg History Medical History Mild tricuspid regurgitation (Chronic) Severe mitral regurgitation (Chronic) Moderate mitral stenosis (Chronic) Severe aortic stenosis (Chronic) Diastolic CHF due to valvular disease (Chronic) Hypothyroidism (Chronic) Depression (Chronic) Dyslipidemia (Chronic) Diabetes mellitus type II, controlled (Chronic) Lymphedema of both lower extremities (Chronic) Diabetic neuropathy (Chronic) Morbid obesity with BMI of 40.0-44.9, adult (Chronic) Atrial fibrillation (Chronic) Ischemic heart disease (Chronic) "nonocclusive CAD per cath [facility] 07/24/17" Pulmonary hypertension (Chronic) "PAP 70/33 per cath 07/24/17" Diverticular disease of colon (Chronic) "per colonoscopy February 2016" Hypertension (Chronic) History of breast cancer (Chronic) "Right breast" Anemia (Chronic) Surgical History History of tonsillectomy (Chronic) History of lumpectomy of right breast (Chronic) Status post cardiac catheterization (Chronic) "[facility] 07/24/17 - nonocclusive CAD, pulmonary hypertension" Family History Father Heart failure Mother Heart failure Social History Preferred Language: Maltese Communication Ability: Effective Beliefs That Will Affect Care: None Current Living Situation: Family Current Living Situation Comment: lives with dtr Other Information That Helps Us Care for You: No Feels Safe at Home: Yes Safety Concerns: Feels Safe At This Time Smoking Status: Never smoker Hx Alcohol Use: No Hx Substance Use: No Review of Systems See HPI for pertinent positives & negatives. and A total of 10 systems reviewed and were otherwise negative Physical Exam Vital Signs Vital Signs - 24 hr 12/15/18 10:50 12/15/18 10:52 12/15/18 11:03 Temperature 37.0 C Temperature Source Oral Sepsis Recent Fever Within 48 Hours No Sepsis New/Unexplained Change in Mental Status No Sepsis Action Taken by Nursing No Action Required Pulse Rate 80 79 Pulse Rate [Finger] Pulse Rate from SpO2 Sensor 81 Pulse Rhythm Regular Pulse Strength Normal Respiratory Rate 24 22 Respiratory Effort / Characteristics Non-Labored Respiratory Depth Normal Respiratory Pattern Regular Blood Pressure 143/69 H Blood Pressure [Right Arm] Blood Pressure Mean 93 Blood Pressure Mean [Right Arm] Blood Pressure Position Sitting Pulse Oximetry 89 L 95 Oxygen Delivery Method Nasal Cannula Room Air Nasal Cannula Oxygen Flow Rate 2 3 12/15/18 11:06 12/15/18 11:10 12/15/18 11:13 Temperature Temperature Source Sepsis Recent Fever Within 48 Hours Sepsis New/Unexplained Change in Mental Status Sepsis Action Taken by Nursing Pulse Rate 72 75 Pulse Rate [Finger] Pulse Rate from SpO2 Sensor 85 Pulse Rhythm Pulse Strength Respiratory Rate 22 24 Respiratory Effort / Characteristics Non-Labored Respiratory Depth Normal Respiratory Pattern Regular Blood Pressure Blood Pressure [Right Arm] Blood Pressure Mean Blood Pressure Mean [Right Arm] Blood Pressure Position Pulse Oximetry 96 96 96 Oxygen Delivery Method Nasal Cannula Nasal Cannula Nasal Cannula Oxygen Flow Rate 2 3 3 12/15/18 11:20 12/15/18 11:30 12/15/18 11:40 Temperature Temperature Source Sepsis Recent Fever Within 48 Hours Sepsis New/Unexplained Change in Mental Status Sepsis Action Taken by Nursing Pulse Rate 66 71 69 Pulse Rate [Finger] Pulse Rate from SpO2 Sensor 66 76 74 Pulse Rhythm Pulse Strength Respiratory Rate 22 23 20 Respiratory Effort / Characteristics Respiratory Depth Respiratory Pattern Blood Pressure Blood Pressure [Right Arm] Blood Pressure Mean Blood Pressure Mean [Right Arm] Blood Pressure Position Pulse Oximetry 96 96 97 Oxygen Delivery Method Nasal Cannula Nasal Cannula Nasal Cannula Oxygen Flow Rate 3 3 3 12/15/18 11:55 12/15/18 11:56 12/15/18 12:00 Temperature Temperature Source Sepsis Recent Fever Within 48 Hours Sepsis New/Unexplained Change in Mental Status Sepsis Action Taken by Nursing Pulse Rate 95 H 76 71 Pulse Rate [Finger] Pulse Rate from SpO2 Sensor 91 H 74 70 Pulse Rhythm Pulse Strength Respiratory Rate 23 22 19 Respiratory Effort / Characteristics Respiratory Depth Respiratory Pattern Blood Pressure 115/46 L 124/67 Blood Pressure [Right Arm] Blood Pressure Mean 69 86 Blood Pressure Mean [Right Arm] Blood Pressure Position Pulse Oximetry 96 97 100 Oxygen Delivery Method Nasal Cannula Nasal Cannula Nasal Cannula Oxygen Flow Rate 3 3 3 12/15/18 12:10 12/15/18 12:20 12/15/18 13:01 Temperature Temperature Source Sepsis Recent Fever Within 48 Hours Sepsis New/Unexplained Change in Mental Status Sepsis Action Taken by Nursing Pulse Rate 71 68 Pulse Rate [Finger] 69 Pulse Rate from SpO2 Sensor 73 65 Pulse Rhythm Pulse Strength Respiratory Rate 22 22 20 Respiratory Effort / Characteristics Respiratory Depth Respiratory Pattern Blood Pressure Blood Pressure [Right Arm] 145/65 H Blood Pressure Mean Blood Pressure Mean [Right Arm] 91 Blood Pressure Position Pulse Oximetry 98 94 99 Oxygen Delivery Method Nasal Cannula Nasal Cannula Nasal Cannula Oxygen Flow Rate 3 3 3 GENERAL: Patient is in no acute distress. HEENT: No acute trauma, normocephalic atraumatic, mucous membranes moist, no nasal congestion, no scleral icterus. NECK: No stridor, no adenopathy, no meningismus, trachea is midline. LUNGS: Crackles bilaterally, diminished but equal breath sounds, no respiratory distress HEART: 3/6 systolic murmur, heard best at left sternal border, rhythm is irregular, with a normal rate ABDOMEN: Soft, nontender, bowel sounds positive, no hernias, no peritonitis. EXTREMITIES: No cyanosis, mild bilateral pedal edema, full range of motion of all the joints without pain or difficulty, no signs for acute trauma. NEUROLOGIC: Oriented x 3, no acute motor or sensory deficits, no focal weakness. SKIN: No rash, no jaundice, no diaphoresis. Course 1115: The patient was evaluated in room C9 and a complete history and physical were performed. 1248: I reevaluated the patient. I updated her on her results so far and my recommendation we consult with Cardiology. She is agreeable with the plan. 1255: I discussed the patients case with [facility]. He recommends a hospital medicine consult and will evaluate the patient. 1305: I discussed the patients case with KAYODE Bacon [facility]ist. The patient will be further evaluated. Consultations Consultation #1: I discussed the patients case with Kati Orellana Cardiology. He recommends a hospital medicine consult and will evaluate the patient. Time: 12:55 Consultation #2: I discussed the patients case with KAYODE Bacon [facility] Hospitalist. The patient will be further evaluated. Time: 13:05 Administered Medications Discontinued Medications Furosemide (Lasix) Confirm Administered Dose 80 mg IV .STK-MED ONE Stop: 12/15/18 13:06 Last Admin: 12/15/18 13:08 Dose: Not Given Documented by: [id number] Furosemide 60 mg/ Syringe 6 mls @ 4 mls/min IV NOW STA Stop: 12/15/18 12:46 Last Admin: 12/15/18 13:08 Dose: 4 mls/min Documented by: [id number] Magnesium Sulfate/Dextrose (Magnesium Sulfate / D5w) 1 gm in 100 mls @ 100 mls/hr IV ONE ONE Stop: 12/15/18 13:45 Last Infusion: 12/15/18 14:01 Dose: 0 mls/hr Documented by: [id number] Admin: 12/15/18 13:01 Dose: 100 mls/hr Documented by: [id number] Medical Decision Making Differential Diagnosis The differential diagnoses considered include CHF, bronchitis or pneumonia, CA, anemia, fluid overload, electrolyte imbalance, renal failure. Medical Records Attestation: I reviewed the patient's medical records. Home Medications Current Medication List: was personally reviewed by me Laboratory Data Attestation: I reviewed the patient's lab results. Result diagrams: 12/15/18 11:38 12/15/18 11:38 Lab Results 12/15/18 12/15/18 12/15/18 Range/Units 11:38 11:38 11:38 WBC 10.37 (4.8-10.8) K/uL RBC 3.27 L (4.2-5.4) M/uL Hgb 9.5 L (12.0-16.0) g/dL Hct 29.8 L (37-47) % MCV 91.1 (80-100) fL MCH 29.1 (25-34) pg MCHC 31.9 L (32-36) g/dL RDW Std Deviation 54.4 H (36.4-46.3) fL RDW Coeff of Paresh 16.1 H (11.5-14.5) % Plt Count 160 (130-400) K/uL MPV 10.9 H (7.4-10.4) fL Immature Gran % (Auto) 0.3 % Neut % (Auto) 80.2 % Lymph % (Auto) 7.8 % [place] % (Auto) 8.9 % Eos % (Auto) 2.6 % Baso % (Auto) 0.2 % Immature Gran # (Auto) 0.03 H (0.00-0.02) K/uL Neut # (Auto) 8.32 H (1.4-6.5) K/uL Lymph # (Auto) 0.81 L (1.2-3.4) K/uL [place] # (Auto) 0.92 H (0.11-0.59) K/uL Eos # (Auto) 0.27 (0-0.5) K/uL Baso # (Auto) 0.02 (0-0.2) K/uL PT Cancelled INR Cancelled APTT Cancelled PTT Ratio Cancelled Sodium 138 (136-145) mmol/L Potassium 4.4 (3.5-5.1) mmol/L Chloride 100 (98-107) mmol/L Carbon Dioxide 30 (21-32) mmol/L Anion Gap 8.0 (3-11) BUN 34 H (7-18) mg/dl Creatinine 1.13 (0.6-1.2) mg/dl Est Cr Clr Drug Dosing Not Reportable Est GFR ( Amer) 55.8 Est GFR (Non-Af Amer) 48.2 BUN/Creatinine Ratio 30.3 H (10-20) Glucose 173 H (70-99) mg/dl Calcium 8.3 L (8.5-10.1) mg/dl Magnesium 1.7 L (1.8-2.4) mg/dl Total Bilirubin 0.7 (0.2-1) mg/dl AST 17 (15-37) U/L ALT 15 (12-78) U/L Alkaline Phosphatase 69 (45-117) U/L Troponin I < 0.015 (0-0.045) ng/ml NT-Pro-B Natriuret Pep 4146 H (0-900) pg/ml Total Protein 7.4 (6.4-8.2) gm/dl Albumin 3.2 L (3.4-5.0) gm/dl Globulin 4.2 H (2.5-4.0) gm/dl Albumin/Globulin Ratio 0.8 L (0.9-2) Specimen Hemolysis Digoxin (0.8-2.0) ng/ml 12/15/18 12/15/18 Range/Units 11:38 12:29 WBC (4.8-10.8) K/uL RBC (4.2-5.4) M/uL Hgb (12.0-16.0) g/dL Hct (37-47) % MCV (80-100) fL MCH (25-34) pg MCHC (32-36) g/dL RDW Std Deviation (36.4-46.3) fL RDW Coeff of Paresh (11.5-14.5) % Plt Count (130-400) K/uL MPV (7.4-10.4) fL Immature Gran % (Auto) % Neut % (Auto) % Lymph % (Auto) % [place] % (Auto) % Eos % (Auto) % Baso % (Auto) % Immature Gran # (Auto) (0.00-0.02) K/uL Neut # (Auto) (1.4-6.5) K/uL Lymph # (Auto) (1.2-3.4) K/uL [place] # (Auto) (0.11-0.59) K/uL Eos # (Auto) (0-0.5) K/uL Baso # (Auto) (0-0.2) K/uL PT 36.0 H INR 3.9 H APTT 35.3 H PTT Ratio 1.3 Sodium (136-145) mmol/L Potassium (3.5-5.1) mmol/L Chloride (98-107) mmol/L Carbon Dioxide (21-32) mmol/L Anion Gap (3-11) BUN (7-18) mg/dl Creatinine (0.6-1.2) mg/dl Est Cr Clr Drug Dosing Est GFR ( Amer) Est GFR (Non-Af Amer) BUN/Creatinine Ratio (10-20) Glucose (70-99) mg/dl Calcium (8.5-10.1) mg/dl Magnesium (1.8-2.4) mg/dl Total Bilirubin (0.2-1) mg/dl AST (15-37) U/L ALT (12-78) U/L Alkaline Phosphatase (45-117) U/L Troponin I (0-0.045) ng/ml NT-Pro-B Natriuret Pep (0-900) pg/ml Total Protein (6.4-8.2) gm/dl Albumin (3.4-5.0) gm/dl Globulin (2.5-4.0) gm/dl Albumin/Globulin Ratio (0.9-2) Specimen Hemolysis Digoxin 1.0 (0.8-2.0) ng/ml Imaging Data Radiologist's Impression: Radiology results as stated below per my review and the radiologist's interpretation: SINGLE VIEW CHEST CLINICAL HISTORY: Hypoxia. FINDINGS: An AP, portable, upright chest radiograph is compared to study dated 08/18/2017. The examination is degraded by portable technique and patient rotation. The heart is enlarged and there is atherosclerotic calcification of the thoracic aorta. There is mild pulmonary vascular congestion. Enlargement of the main pulmonary arteries suggests pulmonary artery hypertension. Bibasilar opacities are noted. Trace pleural effusions are suspected. No pneumothorax is seen. The skeletal structures are osteopenic. The bony thorax is grossly intact. Advanced arthritic change is seen in the left shoulder. Degenerative change is also noted in the thoracic spine. Surgical clips are seen in the right axilla and right breast. IMPRESSION: 1. Cardiomegaly with mild pulmonary vascular congestion. 2. Suspect trace pleural effusions. 3. Bibasilar airspace opacities likely represent atelectasis. Clinical correlation will be required. Electronically signed by: Kwasi Nielsen M.D. 12/15/2018 12:35 PM ECG Data Attestation: I personally reviewed and interpreted this ECG as follows: Indication: SOB/dyspnea Rate (beats per minute): 84 Rhythm: atrial fibrillation Findings: + nonspecific-ST abn (Diffuse non-specific ST changes); no PVC and no ST elevation Blood Pressure Blood Pressure Findings: Normal blood pressure Blood Pressure Disposition: did not require urgent referral MDM Narrative There is no leukocytosis. The patient is anemic but this is baseline looking back at previous testing. INR is elevated at 3.9, slightly above the therapeutic range for someone taking Coumadin. There was no renal failure. Magnesium somewhat low at 1.7. No liver enzyme elevation. BNP was quite elevated at over 4000, this is consistent with fluid overload/CHF. Chest film does show some mild to moderate CHF. No pneumonia. Digoxin level was not toxic. EKG shows A. fib, no acute ischemia. Cardiac enzyme testing x1 is not consistent with acute cardiac injury. Patient presents short of breath. I suspect she has heart failure as the cause for her dyspnea. She had crackles on exam, she has a known mitral valve problem. She has an elevated BNP. The patient received IV Lasix, 60 mg. She was given IV magnesium. I spoke to cardiology, a hospital stay was recommended. I talked the patient about her findings, I spoke with her family. I spoke with case management. The on-call hospitalist was consulted. Impression & Plan Shortness of breath, CHF (congestive heart failure), Heart murmur Discharge Plan Visit Data *Final* Discharge Date/Time: 12/15/18 14:20 Chief Complaint: Shortness of Breath/Dyspnea Stated Complaint: SOB, COUGH ED Provider: Kwasi Ling Discharge Problem: Shortness of breath, CHF (congestive heart failure), Heart murmur Patient Disposition: Admitted As Inpatient Discharge Instructions Interventions: ED Discharge Assessment Last Done: 12/15/18 14:20 The reggieibe's documentation has been prepared under my direction and personally reviewed by me in its entirety. I confirm that the note above accurately reflects all work, treatment, procedures, and medical decision making performed by me.
[2018-12-15] MEDS ORDERED: ACETAMINOPHEN 325 MG TAB PO PRN (15:49)
--- NOTE | 2018-12-15 15:55 | History & Physical Report ---
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; patient has declined surgical intervention in the past -Received Lasix 60 mg IV in the ED, will continue with Lasix 40 mg IV twice daily -Update echo -Daily standing weights, low Na+ diet, strict I's and O's, Go placement -Cardiology consult (2) Acute respiratory failure with hypoxia: -Presented with hypoxia 81% on room air, improved with 2 L of oxygen via nasal cannula -Likely secondary to volume overload due to CHF -Wean oxygen as able -Doubt PE given that patient is anticoagulated on Coumadin with therapeutic INR (3) Abnormal chest x-ray: -CXR showing pulmonary congestion -There are also bibasilar opacities, likely atelectasis however given productive cough, will check procalcitonin -Afebrile, no leukocytosis (4) Atrial fibrillation: -Rate controlled on metoprolol and digoxin, continue both -Anticoagulated on Coumadin, INR 3.9; will hold Coumadin tonight, monitor INR daily (5) Diabetes mellitus type II, controlled: -Hgb A1c 5.5 07/2017 -Hold oral agents and utilize NovoLog per protocol while hospitalized (6) Ischemic heart disease: -Mild nonobstructive disease on cath 07/2017 -Continue statin and beta-be (7) Anemia: -Hgb 9.5, at baseline -Continue iron replacement -Monitor CBC (8) Hypothyroidism: -Continue levothyroxine (9) Depression: -Continue fluoxetine (10) DVT prophylaxis: -Anticoagulated on Coumadin, INR 3.9 History of Present Illness Chief Complaint: Cough, shortness of breath Primary Care Provider: Eliceo Woods MD 73-year-old female who presents to the ED with cough and shortness of breath. Patient reports her symptoms began yesterday. She states that she was around her daughter who recently had a URI. Patient reports a cough productive for yellow sputum at times. She also has been having increasing exertional shortness of breath. She denies any shortness of breath at baseline. Patient has lymphedema to the bilateral lower extremities. She reports that her swelling is at baseline. She denies chest pain palpitations. No lightheadedness, dizziness, diaphoresis, syncopal events. No abdominal pain, nausea, vomiting, diarrhea. She denies any other recent illnesses, fevers, chills. No urinary symptoms. In the ED, patient was found to be hypoxic at 81% on room air. She was placed on 2 L of oxygen via nasal cannula with improvement. CXR shows mild pulmonary vascular congestion. She was given Lasix 60 mg IV. Allergies Allergy/AdvReac Type Severity Reaction Status Date / Time cephalexin Allergy Unknown BURNING, Verified 08/16/17 12:14 NAUSEA, AND TROUBLE BREATHING Penicillins Allergy Unknown KIDNEY Verified 08/16/17 12:14 INFECTION, HIVES Sulfa (Sulfonamide Allergy Unknown NAUSEA AND Verified 08/16/17 12:14 Antibiotics) TIRED Home Medications Home Medications Medication Instructions Recorded Confirmed Type ascorbic acid (vitamin C) 500 mg PO DAILY 12/15/18 12/15/18 History atorvastatin 20 mg PO DAILY 12/15/18 12/15/18 History cholecalciferol (vitamin D3) 4,000 unit PO DAILY 12/15/18 12/15/18 History cyanocobalamin (vitamin B-12) 100 mcg PO DAILY 12/15/18 12/15/18 History digoxin 125 mcg PO MOTUWETHFR 12/15/18 12/15/18 History ferrous sulfate 325 mg PO QAM 12/15/18 12/15/18 History fluoxetine 20 mg PO DAILY 12/15/18 12/15/18 History fluticasone propionate 1 spray INTRANASAL DAILY 12/15/18 12/15/18 History furosemide 80 mg PO DAILY 12/15/18 12/15/18 History gabapentin 100 mg PO DAILY 12/15/18 12/15/18 History levothyroxine 125 mcg PO DIRECTED 12/15/18 12/15/18 History magnesium chloride [Slow-Mag] 71.5 mg PO DAILY 12/15/18 12/15/18 History metformin 1,000 mg PO BID 12/15/18 12/15/18 History metoprolol succinate 50 mg PO DAILY 12/15/18 12/15/18 History pantoprazole 40 mg PO BID 12/15/18 12/15/18 History potassium chloride 10 meq PO Q2D 12/15/18 12/15/18 History potassium chloride 20 meq PO Q2D 12/15/18 12/15/18 History warfarin 5 mg PO TU 12/15/18 12/15/18 History warfarin 7.5 mg PO SUMOWETHFRSA 12/15/18 12/15/18 History Past Med/Surg History Medical History Mild tricuspid regurgitation (Chronic) Severe mitral regurgitation (Chronic) Moderate mitral stenosis (Chronic) Severe aortic stenosis (Chronic) Diastolic CHF due to valvular disease (Chronic) Hypothyroidism (Chronic) Depression (Chronic) Dyslipidemia (Chronic) Diabetes mellitus type II, controlled (Chronic) Lymphedema of both lower extremities (Chronic) Diabetic neuropathy (Chronic) Morbid obesity with BMI of 40.0-44.9, adult (Chronic) Atrial fibrillation (Chronic) Ischemic heart disease (Chronic) "nonocclusive [place] [facility] [place] Pulmonary hypertension (Chronic) "PAP 70/33 per cath 07/24/17" Diverticular disease of colon (Chronic) "per colonoscopy February 2016" Hypertension (Chronic) History of breast cancer (Chronic) "Right breast" Anemia (Chronic) Surgical History History of tonsillectomy (Chronic) History of lumpectomy of right breast (Chronic) Status post cardiac catheterization (Chronic) [place] [place] - nonocclusive CAD, pulmonary hypertension" Family History Father Heart failure Mother Heart failure Social History Preferred Language: Wolof Communication Ability: Effective Beliefs That Will Affect Care: None Current Living Situation: Family Current Living Situation Comment: lives with dtr Other Information That Helps Us Care for You: No Feels Safe at Home: Yes Safety Concerns: Feels Safe At This Time Smoking Status: Never smoker Hx Alcohol Use: No Hx Substance Use: No Review of Systems Review of Systems: ROS per HPI, all other systems reviewed and negative Physical Exam Constitutional: WD/WN, vitals as above Eyes: PERRL, conjunctivae normal, anicteric sclerae ENMT: external ear and nose normal, oropharynx normal Respiratory: normal respiratory effort; no respiratory distress Auscultation: + diminished lung sounds, + crackles (Bilateral) and + wheezes (Faint, scattered, end expiratory) Cardiovascular: Rate/Rhythm: regular rate and + irregularly irregular Heart Sounds: + murmur (Systolic) Vessels: normal peripheral pulses Extremities: + edema (Lymphedema noted BLE, at baseline per patient) Gastrointestinal (Abdomen): normal bowel sounds, soft, nontender, no hepatosplenomegaly Musculoskeletal: no cyanosis or clubbing, extremities motor strength 5/5 Skin: no rashes, warm and dry Neurologic: PERRL, EOMI, accommodation nl, no face palsy, no dysarthria Psychiatric: A+Ox3, euthymic affect Results & Data Vital Signs (Past 12 Hours) Vital Signs Temp Pulse Pulse Resp BP BP Pulse Ox 12/15/18 13:01 69 20 145/65 H 99 12/15/18 12:20 68 22 94 12/15/18 12:10 71 22 98 12/15/18 12:00 71 19 124/67 100 12/15/18 11:56 76 22 115/46 L 97 12/15/18 11:55 95 H 23 96 12/15/18 11:40 69 20 97 12/15/18 11:30 71 23 96 12/15/18 11:20 66 22 96 12/15/18 11:13 96 12/15/18 11:10 75 24 96 12/15/18 11:06 72 22 96 12/15/18 11:03 79 22 95 12/15/18 10:52 37.0 C 80 24 143/69 H 89 L Laboratory Results Short CBC 12/15/18 Range/Units 11:38 WBC 10.37 (4.8-10.8) K/uL Hgb 9.5 L (12.0-16.0) g/dL Hct 29.8 L (37-47) % Plt Count 160 (130-400) K/uL BMP 12/15/18 11:38 Sodium 138 Potassium 4.4 Chloride 100 Carbon Dioxide 30 BUN 34 H Creatinine 1.13 Glucose 173 H Calcium 8.3 L Cardiac Enzymes 12/15/18 Range/Units 11:38 Troponin I < 0.015 (0-0.045) ng/ml Liver Function 12/15/18 Range/Units 11:38 Total Bilirubin 0.7 (0.2-1) mg/dl AST 17 (15-37) U/L ALT 15 (12-78) U/L Alkaline Phosphatase 69 (45-117) U/L Albumin 3.2 L (3.4-5.0) gm/dl Diagnostic Findings CXR IMPRESSION: 1. Cardiomegaly with mild pulmonary vascular congestion. 2. Suspect trace pleural effusions. 3. Bibasilar airspace opacities likely represent atelectasis. Clinical correlation will be required. Code Status & VTE Plan Code Status Patient is a full code as per my discussion with her. VTE Prophylaxis Plan VTE Prophylaxis will be ordered: Yes Supervising Physician Co-Signing Physician Notes Pt was seen and examined. Agreed with Alley HEADLEY exam, assessment and plan. 73-year-old female with PMH severe aortic stenosis, dyslipidemia, diabetes type 2, diastolic CHF, hypertension, anemia, afib, hypothyroidism presents to the ED with cough and worsening shortness of breath. Pt said that she does have SOB with minimal exertion. CXR showed cardiomegaly with mild pulmonary vascular congestion. ProBNP 4146 on admission. Received Lasix 60 mg IV in the ED, Will start on IV Lasix 40 mg IV twice daily. Will get a resting ECHO. Monitor BMP while on IV lasix. Cardiology consult. MD Pavel
[2018-12-15] MEDS: INSULIN ASPART 100 UNITS/ML 3 ML PEN SC SCH ×2 (17:38→20:29)
[2018-12-15] MEDS: FUROSEMIDE 40 MG in SYRINGE 0 ML IV SCH (17:39)
[2018-12-15] MEDS: DIGOXIN 0.125 MG TAB PO SCH (17:56)
[2018-12-15] MEDS: POTASSIUM CHLORIDE 10 MEQ TABCR PO SCH (17:56)
[2018-12-15] MEDS: PANTOprazole 40 MG TAB PO SCH (20:30)
[2018-12-15] MEDS ORDERED: FUROSEMIDE 40 MG/4 ML VIAL IV SCH (21:00)
[2018-12-16] MEDS: LEVOTHYROXINE SODIUM 125 MCG TABLET PO SCH (05:33)
[2018-12-16 06:24] LABS: Hematocrit (blood only) 29.3 % (37-47); Hemoglobin 9.5 g/dL (12.0-16.0); Mean Corpuscular Hemoglobin 29.4 pg (25-34); Mean Corpuscular Hgb Conc 32.4 g/dL (32-36); Mean Corpuscular Volume 90.7 fL (80-100); Mean Platelet Volume 10.5 fL (7.4-10.4); Platelet Count 204 K/uL (130-400); RDW Coefficient of Variation 16.1 % (11.5-14.5); RDW Standard Deviation 53.8 fL (36.4-46.3); Red Blood Count 3.23 M/uL (4.2-5.4); White Blood Count 8.53 K/uL (4.8-10.8)
[2018-12-16 06:33] LABS: INR 3.1 (0.9-1.1); Prothrombin Time 29.4 Seconds (9.0-12.0)
[2018-12-16 06:51] LABS: BUN Creatinine Ratio 28.4 (10-20); Calcium 8.1 mg/dl (8.5-10.1); Creatinine Clr Calc Pharmacy 65.4 ml/min; Est GFR (African American) 61.7; Est GFR (Non-African American) 53.3; Magnesium 1.9 mg/dl (1.8-2.4); Potassium 3.7 mmol/L (3.5-5.1)
[2018-12-16 07:01] LABS: Estimated Average Glucose 128 mg/dl; Hemoglobin A1C 6.1 % (4.5-5.6)
[2018-12-16] MEDS: POTASSIUM CHLORIDE 20 MEQ TABCR PO SCH (07:49)
[2018-12-16] MEDS: METOPROLOL SUCC 50MG EXT REL TAB PO SCH (07:50)
[2018-12-16] MEDS: PANTOprazole 40 MG TAB PO SCH ×2 (07:50→21:14)
[2018-12-16] MEDS: CHOLECALCIFEROL 1,000 UNITS TAB PO SCH (07:50)
[2018-12-16] MEDS: ASCORBIC ACID 500 MG TAB PO SCH (07:51)
[2018-12-16] MEDS: ATORVASTATIN 20 MG TAB PO SCH (07:51)
[2018-12-16] MEDS: FLUOXETINE HCL 20 MG CAP PO SCH (07:51)
[2018-12-16] MEDS: CYANOCOBALAMIN (VITAMIN B-12) 100 MCG TABLET PO SCH (07:52)
[2018-12-16] MEDS: GABAPENTIN 100 MG CAP PO SCH (07:52)
[2018-12-16] MEDS: FUROSEMIDE 40 MG in SYRINGE 0 ML IV SCH ×2 (07:54→16:28)
[2018-12-16] MEDS: INSULIN ASPART 100 UNITS/ML 3 ML PEN SC SCH ×4 (07:54→21:13)
[2018-12-16] MEDS ORDERED: MAGNESIUM CHLORIDE 64MG DELAYED REL TAB PO SCH (09:00)
[2018-12-16] MEDS ORDERED: FERROUS SULFATE 325 MG TAB PO SCH (09:00)
[2018-12-16] MEDS ORDERED: MICONAZOLE NITRATE POWDER 43 GM EXT PRN (11:47)
[2018-12-16] MEDS: DOXYCYCLINE HYCLATE 100 MG CAP PO SCH ×2 (11:52→21:14)
--- NOTE | 2018-12-16 13:17 | Cardiology Consultation ---
Date of Consultation December 16, 2018 Assessment & Plan (1) Acute respiratory failure with hypoxia: (2) Severe mitral regurgitation: (3) Moderate mitral stenosis: (4) Severe aortic stenosis: (5) Heart failure due to valvular disease: The patient is currently clinically stable. I would continue IV diuretics for now. Echocardiogram is unchanged from previous. The patient is stating she wants to return home. She may benefit from supplemental oxygen after she is discharged. As outlined below a year ago she had an extensive work-up [place] [facility] and then turned down surgery. History of Present Illness Attending Physician: Faustino Kulkarni MD History of Present Illness This is a 73-year-old female who has a history of a rheumatic fever as a child with rheumatic valvular heart disease. She had an extensive work-up by [facility] last year including a SANDRA that was performed under anesthesia the revealed the principal component of her valvular heart disease his mitral regurgitation. She has a heavily calcified mitral apparatus as well as heavily calcified aortic valve but according to the report, there was only mild mitral stenosis and mild mitral regurgitation. She also had a cardiac catheterization and revealed mild coronary artery disease and pulmonary hypertension. The patient elected at that time not to have valve surgery and has been treated conservatively. The patient is cognitively slow, most of the information is taken from the medical record. Apparently, she was brought in by her daughter whom she lives. Recently, she was around some people that had bronchitis and she was worried that she had caught something. She denies progressive shortness of breath but was hypoxic in the emergency department on room air. She does not use supplemental oxygen at home. She does have chronic lymphedema but there has not been increased edema of the lower extremities or increased abdominal girth. She denies chest pain. She has chronic atrial fibrillation and denies heart palpitations or tachycardia. Past Medical and Surgical History: 1.Childhood rheumatic fever with resultant mitral and aortic valve disease. 2.Atrial fibrillation 3.Mild nonobstructive coronary artery disease by July 24, 2017 diagnostic cardiac catheterization 4.Hypertension 5.Dyslipidemia 6.Type 2 diabetes mellitus with triopathy. 7.Chronic lower extremity lymphedema 8.Right breast cancer status post lumpectomy and radiation therapy 9.Nocturnal hypoxemia 10.Hypothyroidism 11.GERD 12.Anxiety and depression 13.Morbid obesity. 14.Vitamin D deficiency 15.Osteoarthritis of both knees 16.Colonoscopy with adenomatous polypectomy in February 2016 17.Diverticulosis 18.Tonsillectomy as a child 19.Right lower extremity fracture status post surgical intervention Allergies Allergy/AdvReac Type Severity Reaction Status Date / Time cephalexin Allergy Unknown BURNING, Verified 08/16/17 12:14 NAUSEA, AND TROUBLE BREATHING Penicillins Allergy Unknown KIDNEY Verified 08/16/17 12:14 INFECTION, HIVES Sulfa (Sulfonamide Allergy Unknown NAUSEA AND Verified 08/16/17 12:14 Antibiotics) TIRED Home Medications Home Medications Medication Instructions Recorded Confirmed Type ascorbic acid (vitamin C) 500 mg PO DAILY 12/15/18 12/15/18 History atorvastatin 20 mg PO DAILY 12/15/18 12/15/18 History cholecalciferol (vitamin D3) 4,000 unit PO DAILY 12/15/18 12/15/18 History cyanocobalamin (vitamin B-12) 100 mcg PO DAILY 12/15/18 12/15/18 History digoxin 125 mcg PO MOTUWETHFR 12/15/18 12/15/18 History ferrous sulfate 325 mg PO QAM 12/15/18 12/15/18 History fluoxetine 20 mg PO DAILY 12/15/18 12/15/18 History fluticasone propionate 1 spray INTRANASAL DAILY 12/15/18 12/15/18 History furosemide 80 mg PO DAILY 12/15/18 12/15/18 History gabapentin 100 mg PO DAILY 12/15/18 12/15/18 History levothyroxine 125 mcg PO DIRECTED 12/15/18 12/15/18 History magnesium chloride [Slow-Mag] 71.5 mg PO DAILY 12/15/18 12/15/18 History metformin 1,000 mg PO BID 12/15/18 12/15/18 History metoprolol succinate 50 mg PO DAILY 12/15/18 12/15/18 History pantoprazole 40 mg PO BID 12/15/18 12/15/18 History potassium chloride 10 meq PO Q2D 12/15/18 12/15/18 History potassium chloride 20 meq PO Q2D 12/15/18 12/15/18 History warfarin 5 mg PO TU 12/15/18 12/15/18 History warfarin 7.5 mg PO SUMOWETHFRSA 12/15/18 12/15/18 History Patient History Medical History Mild tricuspid regurgitation (Chronic) Severe mitral regurgitation (Chronic) Moderate mitral stenosis (Chronic) Severe aortic stenosis (Chronic) Diastolic CHF due to valvular disease (Chronic) Hypothyroidism (Chronic) Depression (Chronic) Dyslipidemia (Chronic) Diabetes mellitus type II, controlled (Chronic) Lymphedema of both lower extremities (Chronic) Diabetic neuropathy (Chronic) Morbid obesity with BMI of 40.0-44.9, adult (Chronic) Atrial fibrillation (Chronic) Ischemic heart disease (Chronic) "nonocclusive CAD per cath [facility] [place]" Pulmonary hypertension (Chronic) "PAP 70/33 per cath 07/24/17" Diverticular disease of colon (Chronic) "per colonoscopy February 2016" Hypertension (Chronic) History of breast cancer (Chronic) "Right breast" Anemia (Chronic) Surgical History History of tonsillectomy (Chronic) History of lumpectomy of right breast (Chronic) Status post cardiac catheterization (Chronic) "[facility] - nonocclusive CAD, pulmonary hypertension" Family History Father Heart failure Mother Heart failure Social History Preferred Language: Vietnamese Communication Ability: Effective Beliefs That Will Affect Care: None marital status: / Current Living Situation: Family Current Living Situation Comment: lives with dtr Other Information That Helps Us Care for You: No Feels Safe at Home: Yes Safety Concerns: Feels Safe At This Time Smoking Status: Never smoker Hx Alcohol Use: No Hx Substance Use: No Review of Systems Review of Systems: All systems reviewed & are unremarkable except as noted in HPI & below No additional information. Physical Exam Physical Exam: General: no acute distress and stated age Head: normocephalic, no masses, lesions, tenderness or abnormalities Eyes: conjunctiva are pink and non-injected, sclera clear Neck: supple, no adenopathy, no bruits, normal jugular venous pulse, no hepatojugular reflux Chest: normal shape and normal respiratory effort Lungs: clear to auscultation and percussion Cardiac Exam: - irregular rate & rhythm, systolic murmur apex of the heart.- normal S1, normal S2 Pulses: 2(+) throughout Abdomen: abdomen soft, non-tender, no abnormal masses and no hepatosplenomegaly Musculoskeletal: no gait disturbance, no joint inflammation, no deforming arthritis Extremities: Chronic venous stasis. Neuro: grossly normal exam Results & Data Vital Signs (Past 12 Hours) Vital Signs Temp Pulse Pulse Resp BP Pulse Ox 12/16/18 12:12 37.0 C 70 18 108/42 L 98 12/16/18 07:16 36.7 C 83 16 130/68 100 12/16/18 04:00 36.8 C 69 18 141/72 H 99 Laboratory Results Laboratory Results - last 24 hr 12/15/18 12/15/18 12/15/18 15:33 15:41 20:27 WBC RBC Hgb Hct MCV MCH MCHC RDW Std Deviation RDW Coeff of Paresh Plt Count MPV PT INR Sodium Potassium Chloride Carbon Dioxide Anion Gap BUN Creatinine Est Cr Clr Drug Dosing Est GFR ( Amer) Est GFR (Non-Af Amer) BUN/Creatinine Ratio Glucose POC Glucose 98 165 H Estimat Average Glucose Hemoglobin A1c Calcium Magnesium Procalcitonin < 0.05 12/16/18 12/16/18 12/16/18 05:21 05:21 05:21 WBC 8.53 RBC 3.23 L Hgb 9.5 L Hct 29.3 L MCV 90.7 MCH 29.4 MCHC 32.4 RDW Std Deviation 53.8 H RDW Coeff of Paresh 16.1 H Plt Count 204 MPV 10.5 H PT 29.4 H INR 3.1 H Sodium 138 Potassium 3.7 D Chloride 98 Carbon Dioxide 36 H Anion Gap 4.0 BUN 30 H Creatinine 1.04 Est Cr Clr Drug Dosing 65.4 Est GFR ( Amer) 61.7 Est GFR (Non-Af Amer) 53.3 BUN/Creatinine Ratio 28.4 H Glucose 116 H POC Glucose Estimat Average Glucose Hemoglobin A1c Calcium 8.1 L Magnesium 1.9 Procalcitonin 12/16/18 12/16/18 12/16/18 05:21 07:26 11:33 WBC RBC Hgb Hct MCV MCH MCHC RDW Std Deviation RDW Coeff of Paresh Plt Count MPV PT INR Sodium Potassium Chloride Carbon Dioxide Anion Gap BUN Creatinine Est Cr Clr Drug Dosing Est GFR ( Amer) Est GFR (Non-Af Amer) BUN/Creatinine Ratio Glucose POC Glucose 135 H 195 H Estimat Average Glucose 128 Hemoglobin A1c 6.1 H Calcium Magnesium Procalcitonin Medications Administered Current Inpatient Medications Acetaminophen (Tylenol) 650 mg PO Q4H PRN PRN Reason: pain/fever Stop: 01/14/19 15:48 Ascorbic Acid (Vitamin C) 500 mg PO DAILY [facility] Stop: 01/15/19 08:59 Last Admin: 12/16/18 07:51 Dose: 500 mg Documented by: Atorvastatin Calcium (Lipitor) 20 mg PO DAILY [facility] Stop: 01/15/19 08:59 Last Admin: 12/16/18 07:51 Dose: 20 mg Documented by: Cyanocobalamin (Vitamin B-12) 100 mcg PO DAILY [facility] Stop: 01/15/19 08:59 Last Admin: 12/16/18 07:52 Dose: 100 mcg Documented by: Dextrose (Dextrose 50%) 25 - 50 ml IV UD PRN; Protocol PRN Reason: Hypoglycemia Protocol Stop: 01/14/19 14:45 Digoxin (Lanoxin) 0.125 mg PO [id number] [facility] Stop: 01/14/19 16:44 Last Admin: 12/15/18 17:56 Dose: 0.125 mg Documented by: Doxycycline Hyclate (Vibramycin) 100 mg PO BID [facility] Stop: 12/23/18 10:59 Last Admin: 12/16/18 11:52 Dose: 100 mg Documented by: [facility] Protocol Stop: 01/15/19 08:59 Fluoxetine HCl (Prozac) 20 mg PO DAILY [facility] Stop: 01/15/19 08:59 Last Admin: 12/16/18 07:51 Dose: 20 mg Documented by: Gabapentin (Neurontin) 100 mg PO DAILY [facility] Stop: 01/15/19 08:59 Last Admin: 12/16/18 07:52 Dose: 100 mg Documented by: Glucagon (Glucagen) 1 mg SQ UD PRN; Protocol PRN Reason: Hypoglycemia Protocol Stop: 01/14/19 14:45 Glucose (Dex4 Glucose) 4 - 8 tabs PO UD PRN; Protocol PRN Reason: Hypoglycemia Protocol Stop: 01/14/19 14:45 Glucose (Glucose 40%) 15 - 30 gm PO UD PRN; Protocol PRN Reason: Hypoglycemia Protocol Stop: 01/14/19 14:45 Furosemide 40 mg/ Syringe 4 mls @ 4 mls/min IV [id number] [facility] Stop: 01/14/19 16:59 Last Admin: 12/16/18 07:54 Dose: 4 mls/min Documented by: Insulin Aspart (Novolog Flexpen) 0 units SC ACHS [facility] Stop: 01/14/19 16:29 Last Admin: 12/16/18 12:30 Dose: 5 units Documented by: Levothyroxine Sodium (Synthroid) 125 mcg PO DAILYBB [facility] Stop: 01/15/19 06:29 Last Admin: 12/16/18 05:33 Dose: 125 mcg Documented by: Magnesium Chloride (Slow-Mag) 64 mg PO DAILYBB [facility]; Protocol Stop: 01/15/19 08:59 Metoprolol Succinate (Toprol Xl) 50 mg PO DAILY [facility] Stop: 01/15/19 08:59 Last Admin: 12/16/18 07:50 Dose: 50 mg Documented by: Miconazole Nitrate (Desenex) 1 appln EXT PRN PRN PRN Reason: Affected Skin Folds Stop: 01/15/19 11:46 Last Admin: 12/16/18 14:16 Dose: 1 appln Documented by: Miscellaneous (Carbohydrates For Hypoglycemia) 15 - 30 gm PO UD PRN PRN Reason: Hypoglycemia Treatment Stop: 01/14/19 14:45 Pantoprazole Sodium (Protonix) 40 mg PO BID [facility] Stop: 01/14/19 20:59 Last Admin: 12/16/18 07:50 Dose: 40 mg Documented by: Potassium Chloride (Klor-Con M10) 10 meq PO Q2D@0900 [facility] Stop: 01/14/19 15:48 Last Admin: 12/15/18 17:56 Dose: 10 meq Documented by: Potassium Chloride (Klor-Con M20) 20 meq PO Q2D@0900 [facility] Stop: 01/15/19 08:59 Last Admin: 12/16/18 07:49 Dose: 20 meq Documented by: Vitamin D (Vitamin D3) 4,000 units PO QAM [facility] Stop: 01/15/19 08:59 Last Admin: 12/16/18 07:50 Dose: 4,000 units Documented by:
[2018-12-16] MEDS ORDERED: WARFARIN SOD 3 MG TAB PO SCH (16:00)
--- NOTE | 2018-12-16 16:22 | Hospitalist Progress Note ---
Date of Service December 16, 2018 Assessment & Plan (1) Acute on chronic diastolic heart failure due to valvular disease: Acute on chronic diastolic CHF Severe mitral regurgitation, severe aortic stenosis H/O valvular disease secondary to rheumatic fever, declined surgical intervention in the past CXR:Cardiomegaly with mild pulmonary vascular congestion. Suspect trace pleural effusions. Continue IV Lasix 40 mg BID Monitor daily weight, I's and O's, low-sodium diet Appreciate Cardiology Input Acute Bronchitis CXR: Cardiomegaly with mild pulmonary vascular congestion. Suspect trace pleural effusions. Bibasilar airspace opacities likely represent atelectasis. Clinical correlation will be required. Started on Doxycycline (2) Acute respiratory failure with hypoxia: Likely secondary to volume overload due to CHF Wean Off of oxygen as able (3) Abnormal chest x-ray: Management as above (4) Atrial fibrillation: Rate controlled Continue metoprolol, digoxin On Coumadin for anticoagulation Monitor INR: 3.1 (5) Diabetes mellitus type II, controlled: Hb A1C:6.1 Hold oral agents Continue NovoLog per protocol Monitor BGs (6) Ischemic heart disease: Mild nonobstructive disease on cath 07/2017 Continue statin, Metoprolol (7) Anemia: Hb stable Continue Iron supplement Monitor CBC (8) Hypothyroidism: Continue levothyroxine (9) Depression: Continue fluoxetine (10) DVT prophylaxis: on Coumadin Code Status Full Code Disposition: PT/OT prior to discharge Subjective Patient is seen and examined at bedside Complains of cough with yellowish expectoration Denies any chest pain, nausea, abdominal pain, dizziness Shortness of breath slightly improved Family at bedside No other complaints Review of Systems Review of Systems: All systems reviewed & are unremarkable except as noted in HPI & below Physical Exam Physical Exam: Physical Exam: Vitals signs as noted above General Appearance:Obese, no apparent distress Head: normocephalic, Atraumatic Eyes: normal inspection, EOMI Neck: supple, Trachea midline Respiratory/Chest: Normal breath sounds, B/L wheezes Cardiovascular: S1, S2, + systolic murmur Abdomen/GI:Soft, Non tender, Bowel sounds present Extremities/Musculoskelatal:normal inspection, Chronic venous stasis Neurologic/Psych:AAOX3, grossly no focal neurological deficits Skin: normal color, warm Results & Data Vital Signs (Past 12 Hours) Vital Signs Temp Pulse Pulse Resp BP Pulse Ox 12/16/18 14:56 36.8 C 65 16 114/50 L 97 12/16/18 12:12 37.0 C 70 18 108/42 L 98 12/16/18 07:16 36.7 C 83 16 130/68 100 Laboratory Results Short CBC 12/16/18 Range/Units 05:21 WBC 8.53 (4.8-10.8) K/uL Hgb 9.5 L (12.0-16.0) g/dL Hct 29.3 L (37-47) % Plt Count 204 (130-400) K/uL BMP 12/16/18 05:21 Sodium 138 Potassium 3.7 D Chloride 98 Carbon Dioxide 36 H BUN 30 H Creatinine 1.04 Glucose 116 H Calcium 8.1 L
[2018-12-16] MEDS: DIGOXIN 0.125 MG TAB PO SCH (16:27)
[2018-12-17] MEDS: FERROUS SULFATE 325 MG TAB PO SCH (05:27)
[2018-12-17] MEDS: MAGNESIUM CHLORIDE 64MG DELAYED REL TAB PO SCH (05:27)
[2018-12-17] MEDS: LEVOTHYROXINE SODIUM 125 MCG TABLET PO SCH (05:27)
[2018-12-17 06:21] LABS: Hemoglobin 10.5 g/dL (12.0-16.0); Mean Corpuscular Hemoglobin 29.9 pg (25-34); Mean Corpuscular Hgb Conc 32.8 g/dL (32-36); Mean Corpuscular Volume 91.2 fL (80-100); Mean Platelet Volume 10.1 fL (7.4-10.4); Platelet Count 209 K/uL (130-400); RDW Standard Deviation 53.5 fL (36.4-46.3); Red Blood Count 3.51 M/uL (4.2-5.4); White Blood Count 7.46 K/uL (4.8-10.8)
[2018-12-17 06:38] LABS: Prothrombin Time 19.9 Seconds (9.0-12.0)
[2018-12-17 06:49] LABS: BUN Creatinine Ratio 32.1 (10-20); Calcium 8.4 mg/dl (8.5-10.1); Creatinine Clr Calc Pharmacy 56.7 ml/min; Est GFR (African American) 51.9; Est GFR (Non-African American) 44.8; Potassium 3.7 mmol/L (3.5-5.1)
[2018-12-17] MEDS: PANTOprazole 40 MG TAB PO SCH ×2 (08:45→21:21)
[2018-12-17] MEDS: POTASSIUM CHLORIDE 10 MEQ TABCR PO SCH (08:45)
[2018-12-17] MEDS: CYANOCOBALAMIN (VITAMIN B-12) 100 MCG TABLET PO SCH (08:45)
[2018-12-17] MEDS: ATORVASTATIN 20 MG TAB PO SCH (08:45)
[2018-12-17] MEDS: METOPROLOL SUCC 50MG EXT REL TAB PO SCH (08:45)
[2018-12-17] MEDS: DOXYCYCLINE HYCLATE 100 MG CAP PO SCH ×2 (08:46→21:22)
[2018-12-17] MEDS: CHOLECALCIFEROL 1,000 UNITS TAB PO SCH (08:46)
[2018-12-17] MEDS: ASCORBIC ACID 500 MG TAB PO SCH (08:46)
[2018-12-17] MEDS: FLUOXETINE HCL 20 MG CAP PO SCH (08:47)
[2018-12-17] MEDS: GABAPENTIN 100 MG CAP PO SCH (08:47)
[2018-12-17] MEDS: FUROSEMIDE 40 MG in SYRINGE 0 ML IV SCH ×2 (08:47→16:39)
[2018-12-17] MEDS: POTASSIUM CHLORIDE 20 MEQ TABCR PO SCH (08:47)
[2018-12-17] MEDS: INSULIN ASPART 100 UNITS/ML 3 ML PEN SC SCH ×4 (08:52→21:22)
--- NOTE | 2018-12-17 10:31 | Cardiology Progress Note ---
Date of Service December 17, 2018 Assessment & Plan (1) Acute bronchitis, complicated: Treatment as per hospitalist service (2) Confusion: Noncontrast CT of the head requested along with blood cultures Further evaluation/management as per the Hospitalist (3) Heart failure due to valvular disease: Volume status has improved following IV diuresis Discontinue IV diuretics after the second dose today Resume oral furosemide in the morning (4) Valvular heart disease: Patient has declined surgical intervention (AVR and MVR) Continue appropriate medical (nonsurgical) management. (5) Atrial fibrillation: Rate controlled. Continue Toprol XL and digoxin as prescribed. Continue chronic coumadin anticoagulation (6) Dyslipidemia: Continue atorvastatin. (7) Hypertension: BP acceptably controlled. Follow Supervising Physician Co-Signing Physician Notes I have reviewed and discussed the case with Mr. Sage area I agree with his findings. He has followed her most recently in our clinic and has noticed a marked change in mental status. I agree with the work-up including a CT of the brain. Subjective Patient seen and examined. Chart, medications, and telemetry reviewed. Patient is intermittently pleasantly confused, new from when I saw her last. She notes that her daughter Alida had bronchitis and then she developed similar symptoms. Fluid on presentation has considerably improved. She denies chest pain, palpitations, or significant dyspnea. Continuous telemetry monitoring reveals atrial fibrillation in the 60 to 70 bpm range. Rare PVCs. No significant pauses. December 16, 2018 TTE Interpretation Summary ([facility], Dr. Dover): Normal size LV. Mild concentric LVH. Normal systolic function. EF 60 to 65%. Normal RV function. Severely dilated left atrium. Mild to moderately dilated right atrium. Calcified mitral apparatus. Moderate to severe mitral regurgitation. Mild mitral stenosis. Severe aortic stenosis. Review of Systems Review of Systems: Unobtainable due to cognitive status Physical Exam Physical Exam: General: A&O to person and place. NAD. HEENT: Normocephalic. Atraumatic. PER. Conjunctiva pink, sclera pale. Neck: No carotid bruits. No overt JVD. Heart: Irregular irregular in the upper 60's. Grade II/ apical systolic murmur. Grade II/ systolic ejection murmur. No diastolic murmur appreciated. Lungs: Diminished but clear to auscultation. Abdomen: Obese. +BS. Nontender. No overt organomegaly. Extremities: Minimal edema. No clubbing. No cyanosis. Right greater than left lower extremity lymphedema. Pleasantly confused. No focal deficits. Pulses: Radial=2/4. Posterior tibial pulses were not palpated. Results & Data Vital Signs (Past 12 Hours) Vital Signs Temp Pulse Resp BP Pulse Ox 12/17/18 07:50 36.8 C 89 20 145/86 H 96 12/17/18 04:35 36.6 C 75 20 145/68 H 94 12/16/18 23:00 37.1 C 70 18 146/67 H 98 Laboratory Results - last 24 hr 12/16/18 12/16/18 12/16/18 11:33 16:33 21:13 WBC RBC Hgb Hct MCV MCH MCHC RDW Std Deviation RDW Coeff of Paresh Plt Count MPV PT INR Sodium Potassium Chloride Carbon Dioxide Anion Gap BUN Creatinine Est Cr Clr Drug Dosing Est GFR ( Amer) Est GFR (Non-Af Amer) BUN/Creatinine Ratio Glucose POC Glucose 195 H 121 H 173 H Calcium 12/17/18 12/17/18 12/17/18 05:47 05:47 05:47 WBC 7.46 RBC 3.51 L Hgb 10.5 L Hct 32.0 L MCV 91.2 MCH 29.9 MCHC 32.8 RDW Std Deviation 53.5 H RDW Coeff of Paresh 16.0 H Plt Count 209 MPV 10.1 PT 19.9 H INR 2.0 H Sodium 138 Potassium 3.7 Chloride 96 L Carbon Dioxide 35 H Anion Gap 7.0 BUN 39 H Creatinine 1.20 Est Cr Clr Drug Dosing 56.7 Est GFR ( Amer) 51.9 Est GFR (Non-Af Amer) 44.8 BUN/Creatinine Ratio 32.1 H Glucose 128 H POC Glucose Calcium 8.4 L 12/17/18 07:41 WBC RBC Hgb Hct MCV MCH MCHC RDW Std Deviation RDW Coeff of Paresh Plt Count MPV PT INR Sodium Potassium Chloride Carbon Dioxide Anion Gap BUN Creatinine Est Cr Clr Drug Dosing Est GFR ( Amer) Est GFR (Non-Af Amer) BUN/Creatinine Ratio Glucose POC Glucose 186 H Calcium
--- NOTE | 2018-12-17 11:35 | CT Scan Report ---
CT head/brain wo con CLINICAL HISTORY: Confusion COMPARISON STUDY: No previous studies for comparison. TECHNIQUE: Axial CT of the brain is performed from the vertex to the skull base. IV contrast was not administered for this examination. A dose lowering technique was utilized adhering to the principles of ALARA. CT DOSE: 614.27 mGy.cm FINDINGS: No intra or extra-axial mass lesions are visualized. There is no CT evidence of acute cortical infarc tion. There is no evidence of midline shift. There is no acute hemorrhage. No calvarial fractures ar e visualized. There are patchy white matter hypodensities likely on a small vessel basis. 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 There is no evidence of pathologic ventricular dilatation. There is no evidence of acute sinusitis IMPRESSION: No acute intracranial findings Electronically signed by: Pete Beltrán M.D. 12/17/2018 11:34 AM
[2018-12-17] MEDS ORDERED: WARFARIN SOD 5 MG TAB PO SCH (16:00)
[2018-12-17] MEDS: DIGOXIN 0.125 MG TAB PO SCH (16:36)
--- NOTE | 2018-12-17 18:32 | Hospitalist Progress Note ---
Date of Service December 17, 2018 Assessment & Plan (1) Acute on chronic diastolic heart failure due to valvular disease: Acute on chronic diastolic CHF Severe mitral regurgitation, severe aortic stenosis H/O valvular disease secondary to rheumatic fever, declined surgical intervention in the past CXR:Cardiomegaly with mild pulmonary vascular congestion. Suspect trace pleural effusions. Continue IV Lasix 40 mg BID Monitor daily weight, I's and O's, low-sodium diet Appreciate Cardiology Input Plan to transition to p.o. diuretics tomorrow Acute Bronchitis CXR: Cardiomegaly with mild pulmonary vascular congestion. Suspect trace pleural effusions. Bibasilar airspace opacities likely represent atelectasis. Clinical correlation will be required. Continue Doxycycline Day #2 (2) Acute respiratory failure with hypoxia: Likely secondary to volume overload due to CHF Wean Off of oxygen as able Saturating 95% on room air Transient confusion CT head:No acute intracranial findings Monitor for delirium (3) Abnormal chest x-ray: Management as above (4) Atrial fibrillation: Rate controlled Continue metoprolol, digoxin On Coumadin for anticoagulation Monitor INR: 3.9>>>3.1>>2.0 Increased Coumadin to 5 mg daily (5) Diabetes mellitus type II, controlled: Hb A1C:6.1 Hold oral agents Continue NovoLog per protocol Monitor BGs (6) Ischemic heart disease: Mild nonobstructive disease on cath 07/2017 Continue statin, Metoprolol (7) Anemia: Hb stable Continue Iron supplement Monitor CBC (8) Hypothyroidism: Continue levothyroxine (9) Depression: Continue fluoxetine (10) DVT prophylaxis: on Coumadin Code Status Full Code Disposition: PT/OT prior to discharge Subjective Patient is seen and examined at bedside Transient confusion this morning as per cardiology Oriented to person, place during my encounter Cough, shortness of breath improving Denies any chest pain, nausea, abdominal pain, dizziness No other complaints Review of Systems Review of Systems: All systems reviewed & are unremarkable except as noted in HPI & below Physical Exam Physical Exam: Physical Exam: Vitals signs as noted above General Appearance:Obese, no apparent distress Head: normocephalic, Atraumatic Eyes: normal inspection, EOMI Neck: supple, Trachea midline Respiratory/Chest: Decreased breath sounds, CTA Cardiovascular: S1, S2, + systolic murmur Abdomen/GI:Soft, Non tender, Bowel sounds present Extremities/Musculoskelatal:normal inspection, Chronic venous stasis Neurologic/Psych:AAOX3, grossly no focal neurological deficits Skin: normal color, warm Results & Data Vital Signs (Past 12 Hours) Vital Signs Temp Pulse Pulse Resp BP Pulse Ox 12/17/18 16:36 82 12/17/18 16:29 76 12/17/18 16:16 36.5 C 79 18 128/73 95 12/17/18 07:50 36.8 C 89 20 145/86 H 96 Laboratory Results Short CBC 12/17/18 Range/Units 05:47 WBC 7.46 (4.8-10.8) K/uL Hgb 10.5 L (12.0-16.0) g/dL Hct 32.0 L (37-47) % Plt Count 209 (130-400) K/uL BMP 12/17/18 05:47 Sodium 138 Potassium 3.7 Chloride 96 L Carbon Dioxide 35 H BUN 39 H Creatinine 1.20 Glucose 128 H Calcium 8.4 L
[2018-12-18] MEDS: FERROUS SULFATE 325 MG TAB PO SCH (05:48)
[2018-12-18] MEDS: MAGNESIUM CHLORIDE 64MG DELAYED REL TAB PO SCH (05:48)
[2018-12-18] MEDS: LEVOTHYROXINE SODIUM 125 MCG TABLET PO SCH (05:48)
[2018-12-18 06:33] LABS: Hematocrit (blood only) 32.1 % (37-47); Hemoglobin 10.6 g/dL (12.0-16.0)
[2018-12-18 06:42] LABS: INR 1.6 (0.9-1.1); Prothrombin Time 15.8 Seconds (9.0-12.0)
[2018-12-18 07:06] LABS: BUN Creatinine Ratio 38.4 (10-20); Calcium 8.4 mg/dl (8.5-10.1); Creatinine Clr Calc Pharmacy 60.2 ml/min; Est GFR (African American) 64.7; Est GFR (Non-African American) 55.8; Potassium 3.5 mmol/L (3.5-5.1)
[2018-12-18] MEDS: ATORVASTATIN 20 MG TAB PO SCH (08:06)
[2018-12-18] MEDS: CHOLECALCIFEROL 1,000 UNITS TAB PO SCH (08:06)
[2018-12-18] MEDS: FUROSEMIDE 80 MG TAB PO SCH (08:07)
[2018-12-18] MEDS: ASCORBIC ACID 500 MG TAB PO SCH (08:07)
[2018-12-18] MEDS: PANTOprazole 40 MG TAB PO SCH ×2 (08:07→21:15)
[2018-12-18] MEDS: DOXYCYCLINE HYCLATE 100 MG CAP PO SCH ×2 (08:07→21:14)
[2018-12-18] MEDS: GABAPENTIN 100 MG CAP PO SCH (08:07)
[2018-12-18] MEDS: METOPROLOL SUCC 50MG EXT REL TAB PO SCH (08:07)
[2018-12-18] MEDS: CYANOCOBALAMIN (VITAMIN B-12) 100 MCG TABLET PO SCH (08:07)
[2018-12-18] MEDS: FLUOXETINE HCL 20 MG CAP PO SCH (08:08)
[2018-12-18] MEDS: POTASSIUM CHLORIDE 20 MEQ TABCR PO SCH (08:10)
[2018-12-18] MEDS: INSULIN ASPART 100 UNITS/ML 3 ML PEN SC SCH ×4 (08:16→21:14)
[2018-12-18] MEDS ORDERED: POTASSIUM CHLORIDE 20 MEQ TABCR PO STA (10:59)
--- NOTE | 2018-12-18 11:00 | Cardiology Progress Note ---
Date of Service December 18, 2018 Assessment & Plan (1) Acute bronchitis, complicated: Treatment as per hospitalist service (2) Heart failure due to valvular disease: Volume status has improved following IV diuresis Oral furosemide resumed this morning at 80 mg/day. I suspect she will require an additional 40 mg of oral furosemide a couple of days per week post discharge along with an additional 10 mEq's of potassium chloride orally (3) Valvular heart disease: Patient has declined surgical intervention (AVR and MVR) Continue appropriate medical (nonsurgical) management. (4) Atrial fibrillation: Rate controlled. Continue Toprol XL and digoxin as prescribed. Continue chronic coumadin anticoagulation with an INR goal of 2.0 to 3.0 (5) Dyslipidemia: Continue atorvastatin. (6) Hypertension: BP acceptably controlled. Follow Supervising Physician Co-Signing Physician Notes I have discussed the case with Mr. Sage. I agree the patient can be discharged per the hospitalist service. Subjective Patient seen and examined. Chart, medications, telemetry reviewed. Continuous telemetry monitoring reveals the chronic atrial fibrillation with ventricular rates ranging from 70 to 90 bpm. No significant bradycardia events or pauses. This morning, the patient states that she feels considerably better. No chest pain. The cough seems to be lessening. No palpitations. No unusual shortness of breath. She feels that her fluid has considerably improved. I/O are negative 1,995 mL overall. Her weight is reportedly down 24.7 kg per documentation. Review of Systems Review of Systems: All systems reviewed & are unremarkable except as noted in HPI & below Physical Exam Physical Exam: General: A&O to person and place. NAD. HEENT: Normocephalic. Atraumatic. PER. Conjunctiva pink, sclera pale. Neck: No carotid bruits. No overt JVD. Heart: Irregular irregular in the upper 60's. Grade II/ apical systolic murmur. Grade II/ systolic ejection murmur. No diastolic murmur appreciated. Lungs: Right lower lobe rhonchi. No wheeze. Abdomen: Obese. +BS. Nontender. No overt organomegaly. Extremities: Minimal edema. No clubbing. No cyanosis. Right greater than left lower extremity lymphedema. Neuro: No focal deficits. Pulses: Radial=2/4. Posterior tibial pulses were not palpated. Results & Data Vital Signs (Past 12 Hours) Vital Signs Temp Pulse Resp BP Pulse Ox 12/18/18 07:19 37.1 C 88 16 131/66 96 12/18/18 04:09 36.8 C 73 18 124/83 94 12/17/18 23:34 37.3 C 72 20 136/77 90 Laboratory Results - last 24 hr 12/17/18 12/17/18 12/17/18 11:43 16:13 20:49 Hgb Hct PT INR Sodium Potassium Chloride Carbon Dioxide Anion Gap BUN Creatinine Est Cr Clr Drug Dosing Est GFR ( Amer) Est GFR (Non-Af Amer) BUN/Creatinine Ratio Glucose POC Glucose 201 H 190 H 195 H Calcium 12/18/18 12/18/18 12/18/18 05:57 05:57 05:57 Hgb 10.6 L Hct 32.1 L PT 15.8 H INR 1.6 H Sodium 139 Potassium 3.5 Chloride 98 Carbon Dioxide 35 H Anion Gap 6.0 BUN 38 H Creatinine 1.00 Est Cr Clr Drug Dosing 60.2 Est GFR ( Amer) 64.7 Est GFR (Non-Af Amer) 55.8 BUN/Creatinine Ratio 38.4 H Glucose 137 H POC Glucose Calcium 8.4 L 12/18/18 07:30 Hgb Hct PT INR Sodium Potassium Chloride Carbon Dioxide Anion Gap BUN Creatinine Est Cr Clr Drug Dosing Est GFR ( Amer) Est GFR (Non-Af Amer) BUN/Creatinine Ratio Glucose POC Glucose 136 H Calcium
--- NOTE | 2018-12-18 14:30 | Hospitalist Progress Note ---
Date of Service December 18, 2018 Assessment & Plan (1) Acute on chronic diastolic heart failure due to valvular disease: Acute on chronic diastolic CHF Severe mitral regurgitation, severe aortic stenosis H/O valvular disease secondary to rheumatic fever, declined surgical intervention in the past CXR:Cardiomegaly with mild pulmonary vascular congestion. Suspect trace pleural effusions. IV Lasix 40 mg BID>> Transitioned to PO lasix Monitor daily weight, I's and O's, low-sodium diet Appreciate Cardiology Input Plan to discharge on additional 40 mg of Lasix couple of weeks per week in addition to home dose Acute Bronchitis CXR: Cardiomegaly with mild pulmonary vascular congestion. Suspect trace pleural effusions. Bibasilar airspace opacities likely represent atelectasis. Clinical correlation will be required. Continue Doxycycline Day #3 (2) Acute respiratory failure with hypoxia: Likely secondary to volume overload due to CHF Wean Off of oxygen as able Saturating 95% on room air Transient confusion CT head:No acute intracranial findings Monitor for delirium (3) Abnormal chest x-ray: Management as above (4) Atrial fibrillation: Rate controlled Continue metoprolol, digoxin On Coumadin for anticoagulation Monitor INR: 3.9>>>3.1>>2.0>> 1.6 Increased Coumadin to 7.5 mg daily Needs follow up with Coumadin clinic upon discharge (5) Diabetes mellitus type II, controlled: Hb A1C:6.1 Hold oral agents Continue NovoLog per protocol Monitor BGs (6) Ischemic heart disease: Mild nonobstructive disease on cath 07/2017 Continue statin, Metoprolol (7) Anemia: Hb stable Continue Iron supplement Monitor CBC (8) Hypothyroidism: Continue levothyroxine (9) Depression: Continue fluoxetine (10) DVT prophylaxis: on Coumadin Code Status Full Code Disposition: Home with Home Health Subjective Patient is seen and examined at bedside Patient feels much better today Cough, shortness of breath continues to improve Had 2 step today--qualifies for oxygen 2 L via nasal cannula with activity Denies any chest pain, nausea, abdominal pain, dizziness Discussed with cardiology today No other complaints Review of Systems Review of Systems: All systems reviewed & are unremarkable except as noted in HPI & below Physical Exam Physical Exam: Physical Exam: Vitals signs as noted above General Appearance:Obese, no apparent distress Head: normocephalic, Atraumatic Eyes: normal inspection, EOMI Neck: supple, Trachea midline Respiratory/Chest: Decreased breath sounds, CTA Cardiovascular: S1, S2, + systolic murmur Abdomen/GI:Soft, Non tender, Bowel sounds present Extremities/Musculoskelatal:normal inspection, Chronic venous stasis Neurologic/Psych:AAOX3, grossly no focal neurological deficits Skin: normal color, warm Results & Data Vital Signs (Past 12 Hours) Vital Signs Temp Pulse Pulse Pulse Pulse Resp Resp 12/18/18 13:00 87 78 80 20 12/18/18 11:27 37.0 C 67 16 12/18/18 10:45 22 12/18/18 10:40 88 20 12/18/18 10:30 84 12/18/18 07:19 37.1 C 88 16 12/18/18 04:09 36.8 C 73 18 Resp Resp BP Pulse Ox Pulse Ox Pulse Ox Pulse Ox 12/18/18 13:00 22 18 93 80 L 93 12/18/18 11:27 131/59 L 90 12/18/18 10:45 92 12/18/18 10:40 91 12/18/18 10:30 93 12/18/18 07:19 131/66 96 12/18/18 04:09 124/83 94 Laboratory Results Short CBC 12/18/18 Range/Units 05:57 Hgb 10.6 L (12.0-16.0) g/dL Hct 32.1 L (37-47) % BMP 12/18/18 05:57 Sodium 139 Potassium 3.5 Chloride 98 Carbon Dioxide 35 H BUN 38 H Creatinine 1.00 Glucose 137 H Calcium 8.4 L
--- NOTE | 2018-12-18 14:41 | Discharge Summary ---
Date of Service December 18, 2018 Discharge Data Allergies Allergy/AdvReac Type Severity Reaction Status Date / Time cephalexin Allergy Unknown BURNING, Verified 08/16/17 12:14 NAUSEA, AND TROUBLE BREATHING Penicillins Allergy Unknown KIDNEY Verified 08/16/17 12:14 INFECTION, HIVES Sulfa (Sulfonamide Allergy Unknown NAUSEA AND Verified 08/16/17 12:14 Antibiotics) TIRED Hospital Course (1) Acute on chronic diastolic heart failure due to valvular disease: (2) Acute respiratory failure with hypoxia: (3) Abnormal chest x-ray: (4) Atrial fibrillation: (5) Diabetes mellitus type II, controlled: Hb A1C:6.1 Hold oral agents Continue NovoLog per protocol Monitor BGs (6) Ischemic heart disease: (7) Anemia: (8) Hypothyroidism: (9) Depression: Continue fluoxetine (10) DVT prophylaxis: Discharge Plan Discharge Items Patient Disposition: Home - Home Health Services Reason For Visit: CHF Discharge Diagnosis: Acute on chronic diastolic heart failure Acute bronchitis Discharge Goals: Decrease discomfort, Improve disease control and Improve function Activity: Resume your previous activity Exercise/Sports: Gradually increase as tolerated Non-emergency contact: Primary Care Provider and Manager [employer] Call non-emergency contact if: you have any medication questions, your symptoms worsen, your pain is not controlled, your pain is worsening, your pain is unusual for you, your pain is concerning for you and you have a fever Follow-up/Referrals: Eliceo Woods MD [Primary Care Provider] - Diet: Heart Healthy and Low Sodium (2gm) Addtl Provider Instructions: Follow-up with your primary care physician Dr. Sterling December 22, 2018 at 9:45 AM Follow-up with your operations supervisor 2nd shift Agustin Sage PA-C on January 06, 2019 at 10:15 AM Follow-up with Coumadin clinic for management of your Coumadin dosing Continue Lasix 80mg daily Take additional Lasix 40 mg Twice a week (On Saturday and ) along with additional 10 mEq of potassium chloride on Saturday and as recommended by your operations supervisor 2nd shift Further dosing of Lasix as per cardiology Take Coumadin 7.5 mg today (12/18/18), your PT/INR is 1.6 today Complete the antibiotic, doxycycline as prescribed Seek immediate medical attention if your symptoms reoccur or worsen Use oxygen 2 Liters via nasal cannula with activity. Call your Primary Care doctor if any of the following symptoms or problems start or get worse: * Shortness of breath or difficulty breathing * Wake up at night short of breath * Chest pain * Cough * Swelling of your hands, feet, or legs * More fatigued or tired with your normal activity * Palpitations - sudden fast heart beats WEIGHT * Weigh yourself every morning after using the bathroom. * Use the same scale. * Wear the same amount of clothing. * Write your weight down on a chart. * Call your Primary Care doctor if you gain more than 2-3 pounds in 1-2 days. MEDICATIONS * Use this discharge instruction sheet for medication instructions. * Take your medications at the time your doctor ordered. * Do not skip a dose of your medicines. * If you miss a dose of medicine, take it as soon as possible, but DO NOT DOUBLE A DOSE. * Read your medicine information when you get home. * Know all of the side effects of your medicine. If in doubt, ask your pharmacist * Call your Primary Care doctor's office if you have any side effects. * Be sure all of your doctors know what medicine and herbs you take (including cold, flu, and herbal medicine). Take the following with you to your follow-up doctor appointments: * Weight Chart * Medication List * List of questions Do not drink excessive alcohol, beer or wine. Prescriptions: New doxycycline hyclate 100 mg Capsule 100 mg PO BID 3 Days Qty: 6 RF: 0 Continued metformin 500 mg tablet 1,000 mg PO BID RF: 0 cyanocobalamin (vitamin B-12) 100 mcg tablet 100 mcg PO DAILY RF: 0 warfarin 7.5 mg Tablet 7.5 mg PO SUMOWETHFR RF: 0 ferrous sulfate 325 mg (65 mg iron) tablet 325 mg PO QAM RF: 0 levothyroxine 125 mcg tablet 125 mcg PO DIRECTED RF: 0 warfarin 5 mg tablet 5 mg PO TU RF: 0 digoxin 125 mcg tablet 125 mcg PO MOTUWETHFR RF: 0 gabapentin 100 mg capsule 100 mg PO DAILY RF: 0 fluticasone propionate 50 mcg/actuation spray,suspension 1 spray intranasal DAILY RF: 0 atorvastatin 20 mg tablet 20 mg PO DAILY RF: 0 metoprolol succinate 50 mg tablet extended release 24 hr 50 mg PO DAILY RF: 0 potassium chloride 10 mEq tablet extended release 10 meq PO Q2D RF: 0 furosemide 80 mg tablet 80 mg PO DAILY RF: 0 pantoprazole 40 mg tablet,delayed release (DR/EC) 40 mg PO BID RF: 0 fluoxetine 20 mg capsule 20 mg PO DAILY RF: 0 ascorbic acid (vitamin C) 500 mg Tablet 500 mg PO DAILY RF: 0 cholecalciferol (vitamin D3) 4,000 unit Tablet 4,000 unit PO DAILY RF: 0 Slow-Mag 71.5 mg Tablet,Delayed Release (Dr/Ec) 71.5 mg PO DAILY RF: 0 potassium chloride 20 mEq Tablet Extended Release 20 meq PO Q2D RF: 0 Stand-Alone Forms: [facility] Admission Data Admit Date/Time: 12/15/18 13:49 Attending Provider: Faustino Kulkarni Admit Provider: Andree Zhao Primary Care Provider: Eliceo Woods Other Providers: Andree Zhao ; Ramirez Dover Service: Telemetry Medical Other Pending Studies at Discharge: No
[2018-12-18] MEDS: DIGOXIN 0.125 MG TAB PO SCH (16:57)
[2018-12-18] MEDS: WARFARIN SOD 7.5 MG TAB PO SCH (16:57)
[2018-12-18] MEDS ORDERED: VANCOMYCIN CONSULT ACTIVE PRN (17:39)
[2018-12-18] MEDS ORDERED: VANCOMYCIN HCL 2,500 MG in SODIUM CHLORIDE 0.9% 500 ML IV SCH (18:00)
[2018-12-19] MEDS: MAGNESIUM CHLORIDE 64MG DELAYED REL TAB PO SCH (05:34)
[2018-12-19] MEDS: LEVOTHYROXINE SODIUM 125 MCG TABLET PO SCH (05:34)
[2018-12-19] MEDS: FERROUS SULFATE 325 MG TAB PO SCH (05:35)
[2018-12-19 06:15] LABS: INR 1.5 (0.9-1.1); Prothrombin Time 15.3 Seconds (9.0-12.0)
[2018-12-19 08:51] LABS: BUN Creatinine Ratio 39.9 (10-20); Calcium 8.4 mg/dl (8.5-10.1); Est GFR (African American) 61.7; Est GFR (Non-African American) 53.3
[2018-12-19] MEDS: INSULIN ASPART 100 UNITS/ML 3 ML PEN SC SCH ×4 (09:25→21:28)
[2018-12-19] MEDS: POTASSIUM CHLORIDE 10 MEQ TABCR PO SCH (09:43)
[2018-12-19] MEDS: ATORVASTATIN 20 MG TAB PO SCH (09:44)
[2018-12-19] MEDS: FUROSEMIDE 80 MG TAB PO SCH (09:44)
[2018-12-19] MEDS: CHOLECALCIFEROL 1,000 UNITS TAB PO SCH (09:45)
[2018-12-19] MEDS: FLUOXETINE HCL 20 MG CAP PO SCH (09:46)
[2018-12-19] MEDS: ASCORBIC ACID 500 MG TAB PO SCH (09:46)
[2018-12-19] MEDS: CYANOCOBALAMIN (VITAMIN B-12) 100 MCG TABLET PO SCH (09:46)
[2018-12-19] MEDS: METOPROLOL SUCC 50MG EXT REL TAB PO SCH (09:46)
[2018-12-19] MEDS: PANTOprazole 40 MG TAB PO SCH ×2 (09:47→20:37)
[2018-12-19] MEDS: DOXYCYCLINE HYCLATE 100 MG CAP PO SCH ×2 (09:47→20:52)
[2018-12-19] MEDS: GABAPENTIN 100 MG CAP PO SCH (09:48)
--- NOTE | 2018-12-19 09:58 | Pharmacy Report ---
Pharmacy Abx Initial Consult - Date of Service December 19, 2018 - Pharmacy Dosing Scope Date of Consult: 12/18 Consultation requested by: Dr. Kulkarni Pharmacy is consulted to initiate vancomycin dosing therapy, order appropriate labs and adjust drug dose/frequency. - Subjective The patient is a 73 year old F admitted on 12/15/18 13:49. - Objective Height: 5 ft 6 in Weight: 101.7 kg Vital Signs (Past 12hrs): Vital Signs Temp Pulse Pulse Resp BP Pulse Ox 12/19/18 06:29 36.8 C 79 19 179/69 H 90 12/19/18 03:37 36.6 C 71 20 162/69 H 97 12/19/18 01:49 68 12/18/18 23:21 36.8 C 62 19 132/68 97 Lab Results (24hrs): Laboratory Tests (24 Hours) 12/19/18 05:48 Creatinine 1.04 Est Cr Clr Drug Dosing 58.0 Micro Results: 12/17/18 10:53 Anaerobic Blood Culture - Final Blood - Assessment & Plan Assessment 73 year old female admitted with bronchitis, receiving doxycycline. Blood cultures 1/2 now growing staph species, further identification/sensitivity is pending. Plan Vancomycin IV * Patient received loading dose of vancomycin 2500 mg (~25 mg/kg) iv x 1 last evening * Will start maintenance dose of vancomycin 1500 (~15 mg/kg) iv q 18 hrs to achieve an estimated trough ~15-20 mcg/ml * Estimated kinetics: t1/2~14 hrs, ke~0.06, CrCl ~60 ml/min, Vdf 0.6 L/kg * Ordered abx only empirically x 48 hrs - no trough ordered at this time, awaiting cx's Pharmacy will continue to follow and will adjust dose/frequency as necessary. Thank you.
[2018-12-19] MEDS: VANCOMYCIN HCL 1,500 MG in SODIUM CHLORIDE 0.9% 500 ML IV SCH (13:06)
[2018-12-19] MEDS: WARFARIN SOD 7.5 MG TAB PO SCH (16:20)
[2018-12-19] MEDS: DIGOXIN 0.125 MG TAB PO SCH (16:50)
--- NOTE | 2018-12-19 16:50 | Hospitalist Progress Note ---
Date of Service December 19, 2018 Assessment & Plan (1) Acute on chronic diastolic heart failure due to valvular disease: Acute on chronic diastolic CHF Severe mitral regurgitation, severe aortic stenosis H/O valvular disease secondary to rheumatic fever, declined surgical intervention in the past CXR:Cardiomegaly with mild pulmonary vascular congestion. Suspect trace pleural effusions. IV Lasix 40 mg BID>> Transitioned to PO lasix Monitor daily weight, I's and O's, low-sodium diet Appreciate Cardiology Input Plan to discharge on additional 40 mg of Lasix couple of weeks per week in addition to home dose Acute Bronchitis CXR: Cardiomegaly with mild pulmonary vascular congestion. Suspect trace pleural effusions. Bibasilar airspace opacities likely represent atelectasis. Clinical correlation will be required. Continue Doxycycline Day #4 R/O Bacteremia: 1/2 Blood Cultures: Staph species Empirically started on Vancomycin (2) Acute respiratory failure with hypoxia: Likely secondary to volume overload due to CHF Continue Supplemental Oxygen as needed Transient confusion: Resolved CT head:No acute intracranial findings Monitor for delirium (3) Abnormal chest x-ray: Management as above (4) Atrial fibrillation: Rate controlled Continue metoprolol, digoxin On Coumadin for anticoagulation Monitor INR: 3.9>>>3.1>>2.0>> 1.5 Continue Coumadin to 7.5 mg daily Needs follow up with Coumadin clinic upon discharge (5) Diabetes mellitus type II, controlled: Hb A1C:6.1 Hold oral agents Continue NovoLog per protocol Monitor BGs (6) Ischemic heart disease: Mild nonobstructive disease on cath 07/2017 Continue statin, Metoprolol (7) Anemia: Hb stable Continue Iron supplement Monitor CBC (8) Hypothyroidism: Continue levothyroxine (9) Depression: Continue fluoxetine (10) DVT prophylaxis: on Coumadin Code Status Full Code Disposition: Home with Home Health Subjective Patient is seen and examined at bedside No new complaints Less Cough, shortness of breath Denies any chest pain, nausea, abdominal pain, dizziness Discussed with family in detail Blood Cultures pending Review of Systems Review of Systems: All systems reviewed & are unremarkable except as noted in HPI & below Physical Exam Physical Exam: Physical Exam: Vitals signs as noted above General Appearance:Obese, no apparent distress Head: normocephalic, Atraumatic Eyes: normal inspection, EOMI Neck: supple, Trachea midline Respiratory/Chest: Decreased breath sounds, CTA Cardiovascular: S1, S2, + systolic murmur Abdomen/GI:Soft, Non tender, Bowel sounds present Extremities/Musculoskelatal:normal inspection, Chronic venous stasis Neurologic/Psych:AAOX3, grossly no focal neurological deficits Skin: normal color, warm Results & Data Vital Signs (Past 12 Hours) Vital Signs Temp Pulse Pulse Resp BP Pulse Ox 12/19/18 15:00 37.0 C 62 20 151/79 H 98 12/19/18 12:40 82 20 94 12/19/18 12:00 36.9 C 72 18 120/54 L 96 12/19/18 06:29 36.8 C 79 19 179/69 H 90 Laboratory Results BMP 12/19/18 05:48 Sodium 140 Potassium 4.0 Chloride 101 Carbon Dioxide 35 H BUN 42 H Creatinine 1.04 Glucose 149 H Calcium 8.4 L
[2018-12-20] MEDS: VANCOMYCIN HCL 1,500 MG in SODIUM CHLORIDE 0.9% 500 ML IV SCH (05:49)
[2018-12-20] MEDS: LEVOTHYROXINE SODIUM 125 MCG TABLET PO SCH (05:54)
[2018-12-20] MEDS: MAGNESIUM CHLORIDE 64MG DELAYED REL TAB PO SCH (05:54)
[2018-12-20] MEDS: FERROUS SULFATE 325 MG TAB PO SCH (05:54)
[2018-12-20 06:46] LABS: Hematocrit (blood only) 33.8 % (37-47); Hemoglobin 10.9 g/dL (12.0-16.0); Mean Corpuscular Hemoglobin 29.3 pg (25-34); Mean Corpuscular Hgb Conc 32.2 g/dL (32-36); Mean Corpuscular Volume 90.9 fL (80-100); Mean Platelet Volume 10.2 fL (7.4-10.4); Platelet Count 235 K/uL (130-400); RDW Coefficient of Variation 15.4 % (11.5-14.5); RDW Standard Deviation 51.5 fL (36.4-46.3); Red Blood Count 3.72 M/uL (4.2-5.4); White Blood Count 9.55 K/uL (4.8-10.8)
[2018-12-20 06:51] LABS: INR 1.9 (0.9-1.1)
[2018-12-20 07:18] LABS: Creatinine Clr Calc Pharmacy 64.2 ml/min; Est GFR (African American) 70.7
[2018-12-20] MEDS: INSULIN ASPART 100 UNITS/ML 3 ML PEN SC SCH ×4 (09:16→20:32)
[2018-12-20] MEDS: POTASSIUM CHLORIDE 20 MEQ TABCR PO SCH (09:17)
[2018-12-20] MEDS: ATORVASTATIN 20 MG TAB PO SCH (09:18)
[2018-12-20] MEDS: PANTOprazole 40 MG TAB PO SCH ×2 (09:18→20:31)
[2018-12-20] MEDS: GABAPENTIN 100 MG CAP PO SCH (09:18)
[2018-12-20] MEDS: FUROSEMIDE 80 MG TAB PO SCH (09:18)
[2018-12-20] MEDS: FLUOXETINE HCL 20 MG CAP PO SCH (09:19)
[2018-12-20] MEDS: DOXYCYCLINE HYCLATE 100 MG CAP PO SCH ×2 (09:19→20:31)
[2018-12-20] MEDS: METOPROLOL SUCC 50MG EXT REL TAB PO SCH (09:19)
[2018-12-20] MEDS: ASCORBIC ACID 500 MG TAB PO SCH (09:20)
[2018-12-20] MEDS: CYANOCOBALAMIN (VITAMIN B-12) 100 MCG TABLET PO SCH (09:20)
[2018-12-20] MEDS: CHOLECALCIFEROL 1,000 UNITS TAB PO SCH (09:21)
--- NOTE | 2018-12-20 11:24 | Cardiology Progress Note ---
Date of Service December 20, 2018 Assessment & Plan (1) Heart failure due to valvular disease: Patient is declined surgical intervention for mitral valve disease and aortic valve disease in the past with echocardiographic findings of calcified mitral apparatus with moderate to severe mitral regurgitation, and severe calcific aortic stenosis. Her mental status has improved having received initial treatment for bronchitis, as well as IV diuretic therapy. 1 of 2 blood cultures revealed Staphylococcus species. Currently no signs of sepsis. Stable from discharge from heart failure standpoint on furosemide 80 mg daily. Subjective Chief complaint: Follow-up shortness of breath Subjective: Patient sitting in bedside chair. She is comfortable, eager for discharge. Review of Systems Review of Systems: All systems reviewed & are unremarkable except as noted in HPI & below Physical Exam Physical Exam: Temp Pulse Resp BP Pulse Ox 36.5 C 66 20 144/68 H 97 12/20/18 07:30 12/20/18 07:30 12/20/18 07:30 12/20/18 07:30 12/20/18 07:30 Respiratory: normal respiratory effort, lungs clear to auscultation Cardiovascular: Rate/Rhythm: + irregularly irregular Heart Sounds: + murmur (I/mineral 6 systolic murmur) Chronic venous stasis changes, no lower extremity edema Neurologic: moves all extremities; no focal motor deficits Results & Data Medications Administered Current Inpatient Medications Acetaminophen (Tylenol) 650 mg PO Q4H PRN PRN Reason: pain/fever Stop: 01/14/19 15:48 Ascorbic Acid (Vitamin C) 500 mg PO DAILY [facility] Stop: 01/15/19 08:59 Last Admin: 12/20/18 09:20 Dose: 500 mg Documented by: Atorvastatin Calcium (Lipitor) 20 mg PO DAILY [facility] Stop: 01/15/19 08:59 Last Admin: 12/20/18 09:18 Dose: 20 mg Documented by: Cyanocobalamin (Vitamin B-12) 100 mcg PO DAILY [facility] Stop: 01/15/19 08:59 Last Admin: 12/20/18 09:20 Dose: 100 mcg Documented by: Dextrose (Dextrose 50%) 25 - 50 ml IV UD PRN; Protocol PRN Reason: Hypoglycemia Protocol Stop: 01/14/19 14:45 Digoxin (Lanoxin) 0.125 mg PO [id number]@1600 [facility] Stop: 01/14/19 16:44 Last Admin: 12/19/18 16:50 Dose: 0.125 mg Documented by: Doxycycline Hyclate (Vibramycin) 100 mg PO BID [facility] Stop: 12/23/18 10:59 Last Admin: 12/20/18 09:19 Dose: 100 mg Documented by: [facility] Protocol Stop: 01/15/19 08:59 Last Admin: 12/20/18 05:54 Dose: 325 mg Documented by: Fluoxetine HCl (Prozac) 20 mg PO DAILY [facility] Stop: 01/15/19 08:59 Last Admin: 12/20/18 09:19 Dose: 20 mg Documented by: [facility]) [facility] [place]: 01/17/19 08:59 Last Admin: 12/20/18 09:18 Dose: 80 mg Documented by: Gabapentin (Neurontin) 100 mg PO DAILY [facility] Stop: 01/15/19 08:59 Last Admin: 12/20/18 09:18 Dose: 100 mg Documented by: Glucagon (Glucagen) 1 mg SQ UD PRN; Protocol PRN Reason: Hypoglycemia Protocol Stop: 01/14/19 14:45 Glucose (Dex4 Glucose) 4 - 8 tabs PO UD PRN; Protocol PRN Reason: Hypoglycemia Protocol Stop: 01/14/19 14:45 Glucose (Glucose 40%) 15 - 30 gm PO UD PRN; Protocol PRN Reason: Hypoglycemia Protocol Stop: 01/14/19 14:45 Vancomycin HCl 1,500 mg/ (Sodium Chloride) 530 mls @ 200 mls/hr IV Q18H [facility] Stop: 12/20/18 17:59 Last Infusion: 12/20/18 09:22 Dose: Infused Documented by: Insulin Aspart (Novolog Flexpen) 0 units [facility] Stop: 01/14/19 16:29 Last Admin: 12/20/18 09:16 Dose: 7 units Documented by: Levothyroxine Sodium (Synthroid) 125 mcg PO DAILYBB [facility] Stop: 01/15/19 06:29 Last Admin: 12/20/18 05:54 Dose: 125 mcg Documented by: Magnesium Chloride (Slow-Mag) 64 mg PO DAILYBB [facility]; Protocol Stop: 01/15/19 08:59 Last Admin: 12/20/18 05:54 Dose: 64 mg Documented by: Metoprolol Succinate (Toprol Xl) 50 mg PO DAILY [facility] Stop: 01/15/19 08:59 Last Admin: 12/20/18 09:19 Dose: 50 mg Documented by: Miconazole Nitrate (Desenex) 1 appln EXT PRN PRN PRN Reason: Affected Skin Folds Stop: 01/15/19 11:46 Last Admin: 12/16/18 14:16 Dose: 1 appln Documented by: Miscellaneous (Carbohydrates For Hypoglycemia) 15 - 30 gm PO UD PRN PRN Reason: Hypoglycemia Treatment Stop: 01/14/19 14:45 Miscellaneous Information (Consult) 1 ea N/A UD PRN PRN Reason: Consult Stop: 01/17/19 17:38 Pantoprazole Sodium (Protonix) 40 mg PO BID [facility] Stop: 01/14/19 20:59 Last Admin: 12/20/18 09:18 Dose: 40 mg Documented by: Potassium Chloride (Klor-Con M10) 10 meq PO Q2D@0900 [facility] Stop: 01/14/19 15:48 Last Admin: 12/19/18 09:43 Dose: 10 meq Documented by: Potassium Chloride (Klor-Con M20) 20 meq PO Q2D@0900 [facility] Stop: 01/15/19 08:59 Last Admin: 12/20/18 09:17 Dose: 20 meq Documented by: Vitamin D (Vitamin D3) 4,000 units PO QAM [facility] Stop: 01/15/19 08:59 Last Admin: 12/20/18 09:21 Dose: 4,000 units Documented by: Warfarin Sodium (Coumadin) 7.5 mg PO DAILY@1600 [facility] Stop: 01/17/19 15:59 Last Admin: 12/19/18 16:20 Dose: 7.5 mg Documented by:
--- NOTE | 2018-12-20 17:04 | Hospitalist Progress Note ---
Date of Service December 20, 2018 Assessment & Plan (1) Acute on chronic diastolic heart failure due to valvular disease: Acute on chronic diastolic CHF Severe mitral regurgitation, severe aortic stenosis H/O valvular disease secondary to rheumatic fever, declined surgical intervention in the past CXR:Cardiomegaly with mild pulmonary vascular congestion. Suspect trace pleural effusions. IV Lasix 40 mg BID>> Transitioned to PO lasix Monitor daily weight, I's and O's, low-sodium diet Appreciate Cardiology Input Plan to discharge on additional 40 mg of Lasix couple of weeks per week in addition to home dose Euvolemic currently Acute Bronchitis CXR: Cardiomegaly with mild pulmonary vascular congestion. Suspect trace pleural effusions. Bibasilar airspace opacities likely represent atelectasis. Clinical correlation will be required. Continue Doxycycline Day #5 R/O Bacteremia: 1/2 Blood Cultures: Staph species--Likely contamination On Vancomycin Await for final cultures (2) Acute respiratory failure with hypoxia: Likely secondary to volume overload due to CHF Continue Supplemental Oxygen as needed Transient confusion: Resolved CT head:No acute intracranial findings Monitor for delirium (3) Abnormal chest x-ray: Management as above (4) Atrial fibrillation: Rate controlled Continue metoprolol, digoxin On Coumadin for anticoagulation Monitor INR: 3.9>>>3.1>>2.0>> 1.5>>1.9 Continue Coumadin to 7.5 mg daily Needs follow up with Coumadin clinic upon discharge (5) Diabetes mellitus type II, controlled: Hb A1C:6.1 Hold oral agents Continue NovoLog per protocol Monitor BGs (6) Ischemic heart disease: Mild nonobstructive disease on cath 07/2017 Continue statin, Metoprolol (7) Anemia: Hb stable Continue Iron supplement Monitor CBC (8) Hypothyroidism: Continue levothyroxine (9) Depression: Continue fluoxetine (10) DVT prophylaxis: on Coumadin Code Status Full Code Disposition: Home with Home Health Subjective Patient is seen and examined at bedside Eager to get discharged Still waiting for final blood cultures No new complaints Cough continues to improve Denies any chest pain, SOB, nausea, abdominal pain, dizziness Discussed with patient's daughter today Review of Systems Review of Systems: All systems reviewed & are unremarkable except as noted in HPI & below Physical Exam Physical Exam: Physical Exam: Vitals signs as noted above General Appearance:Obese, no apparent distress Head: normocephalic, Atraumatic Eyes: normal inspection, EOMI Neck: supple, Trachea midline Respiratory/Chest: Decreased breath sounds, CTA Cardiovascular: S1, S2, + systolic murmur Abdomen/GI:Soft, Non tender, Bowel sounds present Extremities/Musculoskelatal:normal inspection, Chronic venous stasis Neurologic/Psych:AAOX3, grossly no focal neurological deficits Skin: normal color, warm Results & Data Vital Signs (Past 12 Hours) Vital Signs Temp Pulse Pulse Resp BP Pulse Ox 12/20/18 16:13 36.5 C 54 L 20 127/67 94 12/20/18 07:30 36.5 C 66 20 144/68 H 97 Laboratory Results Short CBC 12/20/18 Range/Units 06:19 WBC 9.55 (4.8-10.8) K/uL Hgb 10.9 L (12.0-16.0) g/dL Hct 33.8 L (37-47) % Plt Count 235 (130-400) K/uL BMP 12/20/18 06:19 Creatinine 0.93
[2018-12-20] MEDS: WARFARIN SOD 7.5 MG TAB PO SCH (17:35)
[2018-12-21] MEDS: FERROUS SULFATE 325 MG TAB PO SCH (05:48)
[2018-12-21] MEDS: MAGNESIUM CHLORIDE 64MG DELAYED REL TAB PO SCH (05:49)
[2018-12-21] MEDS: LEVOTHYROXINE SODIUM 125 MCG TABLET PO SCH (05:49)
[2018-12-21 07:58] LABS: INR 2.2 (0.9-1.1); Prothrombin Time 21.7 Seconds (9.0-12.0)
[2018-12-21 08:15] LABS: BUN Creatinine Ratio 39.2 (10-20); Calcium 8.7 mg/dl (8.5-10.1); Est GFR (African American) 64.7; Est GFR (Non-African American) 55.8
[2018-12-21] MEDS: INSULIN ASPART 100 UNITS/ML 3 ML PEN SC SCH (09:01)
[2018-12-21] MEDS: POTASSIUM CHLORIDE 10 MEQ TABCR PO SCH (09:02)
[2018-12-21] MEDS: FUROSEMIDE 80 MG TAB PO SCH (09:02)
[2018-12-21] MEDS: ATORVASTATIN 20 MG TAB PO SCH (09:03)
[2018-12-21] MEDS: GABAPENTIN 100 MG CAP PO SCH (09:03)
[2018-12-21] MEDS: PANTOprazole 40 MG TAB PO SCH (09:03)
[2018-12-21] MEDS: FLUOXETINE HCL 20 MG CAP PO SCH (09:04)
[2018-12-21] MEDS: METOPROLOL SUCC 50MG EXT REL TAB PO SCH (09:04)
[2018-12-21] MEDS: DOXYCYCLINE HYCLATE 100 MG CAP PO SCH (09:05)
[2018-12-21] MEDS: CYANOCOBALAMIN (VITAMIN B-12) 100 MCG TABLET PO SCH (09:06)
[2018-12-21] MEDS: ASCORBIC ACID 500 MG TAB PO SCH (09:06)
[2018-12-21] MEDS: CHOLECALCIFEROL 1,000 UNITS TAB PO SCH (09:06)
--- NOTE | 2018-12-21 10:15 | Hospitalist Progress Note ---
Date of Service December 21, 2018 Assessment & Plan (1) Acute on chronic diastolic heart failure due to valvular disease: Acute on chronic diastolic CHF Severe mitral regurgitation, severe aortic stenosis H/O valvular disease secondary to rheumatic fever, declined surgical intervention in the past CXR:Cardiomegaly with mild pulmonary vascular congestion. Suspect trace pleural effusions. IV Lasix 40 mg BID>> Transitioned to PO lasix Monitor daily weight, I's and O's, low-sodium diet Appreciate Cardiology Input Plan to discharge on additional 40 mg of Lasix couple of weeks per week in addition to home dose Euvolemic currently Acute Bronchitis CXR: Cardiomegaly with mild pulmonary vascular congestion. Suspect trace pleural effusions. Bibasilar airspace opacities likely represent atelectasis. Clinical correlation will be required. Completed Doxycycline course Ruled out Bacteremia: 1/ Blood Cultures: Coag Negative Staph (2) Acute respiratory failure with hypoxia: Likely secondary to volume overload due to CHF Continue Supplemental Oxygen as needed Transient confusion: Resolved CT head:No acute intracranial findings Monitor for delirium (3) Abnormal chest x-ray: Management as above (4) Atrial fibrillation: Rate controlled Continue metoprolol, digoxin On Coumadin for anticoagulation Monitor INR: 3.9>>>3.1>>2.0>> 1.5>>1.9>>2.2 Continue Coumadin Needs follow up with Coumadin clinic upon discharge (5) Diabetes mellitus type II, controlled: Hb A1C:6.1 Hold oral agents Continue NovoLog per protocol Monitor BGs (6) Ischemic heart disease: Mild nonobstructive disease on cath 07/2017 Continue statin, Metoprolol (7) Anemia: Hb stable Continue Iron supplement Monitor CBC (8) Hypothyroidism: Continue levothyroxine (9) Depression: Continue fluoxetine (10) DVT prophylaxis: on Coumadin Code Status Full Code Disposition: Home with Home Health Subjective Patient is seen and examined at bedside Doing well today Offers no complaints Discussed with daughter today Denies any chest pain, cough, SOB, nausea, abdominal pain, dizziness Plan to discharge home today Review of Systems Review of Systems: All systems reviewed & are unremarkable except as noted in HPI & below Physical Exam Physical Exam: Physical Exam: Vitals signs as noted above General Appearance:Obese, no apparent distress Head: normocephalic, Atraumatic Eyes: normal inspection, EOMI Neck: supple, Trachea midline Respiratory/Chest: Decreased breath sounds, CTA Cardiovascular: S1, S2, + systolic murmur Abdomen/GI:Soft, Non tender, Bowel sounds present Extremities/Musculoskelatal:normal inspection, Chronic venous stasis Neurologic/Psych:AAOX3, grossly no focal neurological deficits Skin: normal color, warm Results & Data Vital Signs (Past 12 Hours) Vital Signs Temp Pulse Resp BP BP Pulse Ox 12/21/18 06:21 36.9 C 67 17 142/79 H 97 12/21/18 04:20 36.6 C 61 19 147/64 H 95 12/20/18 23:43 36.9 C 59 L 18 142/78 H 98 Laboratory Results BMP 12/21/18 07:05 Sodium 138 Potassium 4.0 Chloride 100 Carbon Dioxide 34 H BUN 39 H Creatinine 1.00 Glucose 144 H Calcium 8.7
--- NOTE | 2018-12-21 10:21 | Discharge Summary ---
Date of Service December 21, 2018 Admission HPI Per Admitting Provider Chief Complaint: Cough, shortness of breath Primary Care Provider: Eliceo Woods MD 73-year-old female who presents to the ED with cough and shortness of breath. Patient reports her symptoms began yesterday. She states that she was around her daughter who recently had a URI. Patient reports a cough productive for yellow sputum at times. She also has been having increasing exertional shortness of breath. She denies any shortness of breath at baseline. Patient has lymphedema to the bilateral lower extremities. She reports that her swelling is at baseline. She denies chest pain palpitations. No lighthea dedness, dizziness, diaphoresis, syncopal events. No abdominal pain, nausea, vomiting, diarrhea. She denies any other recent illnesses, fevers, chills. No urinary symptoms. In the ED, patient was found to be hypoxic at 81% on room air. She was placed on 2 L of oxygen via nasal cannula with improvement. CXR shows mild pulmonary vascular congestion. She was given Lasix 60 mg IV. Allergies Admission Exam Per Admitting Provider Constitutional: WD/WN, vitals as above Eyes: PERRL, conjunctivae normal, anicteric sclerae ENMT: external ear and nose normal, oropharynx normal Respiratory: normal respiratory effort; no respiratory distress Auscultation: + diminished lung sounds, + crackles (Bilateral) and + wheezes (Faint, scattered, end expiratory) Cardiovascular: Rate/Rhythm: regular rate and + irregularly irregular Heart Sounds: + murmur (Systolic) Vessels: normal peripheral pulses Extremities: + edema (Lymphedema noted BLE, at baseline per patient) Gastrointestinal (Abdomen): normal bowel sounds, soft, nontender, no hepatosplenomegaly Musculoskeletal: no cyanosis or clubbing, extremities motor strength 5/5 Skin: no rashes, warm and dry Neurologic: PERRL, EOMI, accommodation nl, no face palsy, no dysarthria Psychiatric: A+Ox3, euthymic affect Principal Diagnosis Discharge Information Discharge Diagnosis Acute on chronic diastolic heart failure Acute bronchitis Discharge Goals Decrease discomfort,Improve disease control, Improve function Discharge Activity Limitations Resume your previous activity Discharge Data Allergies Allergy/AdvReac Type Severity Reaction Status Date / Time cephalexin Allergy Unknown BURNING, Verified 08/16/17 12:14 NAUSEA, AND TROUBLE BREATHING Penicillins Allergy Unknown KIDNEY Verified 08/16/17 12:14 INFECTION, HIVES Sulfa (Sulfonamide Allergy Unknown NAUSEA AND Verified 08/16/17 12:14 Antibiotics) TIRED Consultations 12/15/18 13:36 ED Decision to Admit Stat 12/15/18 15:49 Consult Cardiology Routine Consult Case Management - Discharge Planning Routine Procedures Performed Head CT: No acute intracranial findings CXR: 1. Cardiomegaly with mild pulmonary vascular congestion. 2. Suspect trace pleural effusions. 3. Bibasilar airspace opacities likely represent atelectasis. Clinical correlation will be required. Ordered Studies 12/17/18 10:25 CT head/brain wo con Routine Hospital Course (1) Acute on chronic diastolic heart failure due to valvular disease: Acute on chronic diastolic CHF Severe mitral regurgitation, severe aortic stenosis H/O valvular disease secondary to rheumatic fever, declined surgical intervention in the past CXR:Cardiomegaly with mild pulmonary vascular congestion. Suspect trace pleural effusions. IV Lasix 40 mg BID>> Transitioned to PO lasix Monitor daily weight, I's and O's, low-sodium diet Appreciate Cardiology Input Plan to discharge on additional 40 mg of Lasix couple of weeks per week in addition to home dose Euvolemic currently Acute Bronchitis CXR: Cardiomegaly with mild pulmonary vascular congestion. Suspect trace pleural effusions. Bibasilar airspace opacities likely represent atelectasis. Clinical correlation will be required. Completed Doxycycline course Ruled out Bacteremia: 1/2 Blood Cultures: Coag Negative Staph (2) Acute respiratory failure with hypoxia: Likely secondary to volume overload due to CHF Continue Supplemental Oxygen as needed Transient confusion: Resolved CT head:No acute intracranial findings Monitor for delirium (3) Abnormal chest x-ray: Management as above (4) Atrial fibrillation: Rate controlled Continue metoprolol, digoxin On Coumadin for anticoagulation Monitor INR: 3.9>>>3.1>>2.0>> 1.5>>1.9>>2.2 Continue Coumadin Needs follow up with Coumadin clinic upon discharge (5) Diabetes mellitus type II, controlled: Hb A1C:6.1 Hold oral agents Continue NovoLog per protocol Monitor BGs (6) Ischemic heart disease: Mild nonobstructive disease on cath 07/2017 Continue statin, Metoprolol (7) Anemia: Hb stable Continue Iron supplement Monitor CBC (8) Hypothyroidism: Continue levothyroxine (9) Depression: Continue fluoxetine (10) DVT prophylaxis: on Coumadin Code Status Full Code Disposition: Home with Home Health Total Time Total Time Spent Total Time Spent (In Minutes): 38 minutes Total Time Includes: Examination of the Patient, Discharge Planning, Medication Reconciliation, Communication With Other Providers and Other Discharge Plan Discharge Items Patient Disposition: Home - Home Health Services Reason For Visit: CHF Discharge Diagnosis: Acute on chronic diastolic heart failure Acute bronchitis Discharge Goals: Decrease discomfort, Improve disease control and Improve function Activity: Resume your previous activity Exercise/Sports: Gradually increase as tolerated Non-emergency contact: Primary Care Provider and [employer] Call non-emergency contact if: you have any medication questions, your symptoms worsen, your pain is not controlled, your pain is worsening, your pain is unusual for you, your pain is concerning for you and you have a fever Follow-up/Referrals: Eliceo Woods MD [Primary Care Provider] - Diet: Heart Healthy and Low Sodium (2gm) Addtl Provider Instructions: Follow-up with your primary care physician Dr. Woods December 22, 2018 at 9:45 AM Follow-up with your resource management specialist Agustin Sage PA-C on January 06, 2019 at 10:15 AM Follow-up with Coumadin clinic for management of your Coumadin dosing Continue Lasix 80mg daily Take additional Lasix 40 mg Twice a week (On Saturday and ) along with additional 10 mEq of potassium chloride on Saturday and as recommended by your resource management specialist Further dosing of Lasix as per cardiology Seek immediate medical attention if your symptoms reoccur or worsen Use oxygen 2 Liters via nasal cannula with activity. Call your Primary Care doctor if any of the following symptoms or problems start or get worse: * Shortness of breath or difficulty breathing * Wake up at night short of breath * Chest pain * Cough * Swelling of your hands, feet, or legs * More fatigued or tired with your normal activity * Palpitations - sudden fast heart beats WEIGHT * Weigh yourself every morning after using the bathroom. * Use the same scale. * Wear the same amount of clothing. * Write your weight down on a chart. * Call your Primary Care doctor if you gain more than 2-3 pounds in 1-2 days. MEDICATIONS * Use this discharge instruction sheet for medication instructions. * Take your medications at the time your doctor ordered. * Do not skip a dose of your medicines. * If you miss a dose of medicine, take it as soon as possible, but DO NOT DOUBLE A DOSE. * Read your medicine information when you get home. * Know all of the side effects of your medicine. If in doubt, ask your pharmacist * Call your Primary Care doctor's office if you have any side effects. * Be sure all of your doctors know what medicine and herbs you take (including cold, flu, and herbal medicine). Take the following with you to your follow-up doctor appointments: * Weight Chart * Medication List * List of questions Do not drink excessive alcohol, beer or wine. Prescriptions: Continued metformin 500 mg tablet 1,000 mg PO BID RF: 0 cyanocobalamin (vitamin B-12) 100 mcg tablet 100 mcg PO DAILY RF: 0 warfarin 7.5 mg Tablet 7.5 mg PO SUMOWETHFRSA RF: 0 ferrous sulfate 325 mg (65 mg iron) tablet 325 mg PO QAM RF: 0 levothyroxine 125 mcg tablet 125 mcg PO DIRECTED RF: 0 warfarin 5 mg tablet 5 mg PO TU RF: 0 digoxin 125 mcg tablet 125 mcg PO MOTUWETHFR RF: 0 gabapentin 100 mg capsule 100 mg PO DAILY RF: 0 fluticasone propionate 50 mcg/actuation spray,suspension 1 spray intranasal DAILY RF: 0 atorvastatin 20 mg tablet 20 mg PO DAILY RF: 0 metoprolol succinate 50 mg tablet extended release 24 hr 50 mg PO DAILY RF: 0 potassium chloride 10 mEq tablet extended release 10 meq PO Q2D RF: 0 furosemide 80 mg tablet 80 mg PO DAILY RF: 0 pantoprazole 40 mg tablet,delayed release (DR/EC) 40 mg PO BID RF: 0 fluoxetine 20 mg capsule 20 mg PO DAILY RF: 0 ascorbic acid (vitamin C) 500 mg Tablet 500 mg PO DAILY RF: 0 cholecalciferol (vitamin D3) 4,000 unit Tablet 4,000 unit PO DAILY RF: 0 Slow-Mag 71.5 mg Tablet,Delayed Release (Dr/Ec) 71.5 mg PO DAILY RF: 0 potassium chloride 20 mEq Tablet Extended Release 20 meq PO Q2D RF: 0 Stand-Alone Forms: [facility] Discharge Orders: Discharge Order (Routine); Ordered 12/21/18 Ordered By: Faustino Kulkarni Admission Data Admit Date/Time: 12/15/18 13:49 Attending Provider: Faustino Kulkarni Admit Provider: Andree Zhao Primary Care Provider: Eliceo Woods Other Providers: Andree Zhao ; Ramirez Dover Service: Telemetry Medical Other Interventions: Discharge Summary Assessment (RN) Last Done: 12/21/18 11:12 Pending Studies at Discharge: No DC Date/Time DO NOT enter until pt leaves facility: 12/21/18 12:57
== END 2018-12-21 12:57 | disposition home health service (06) | DRG 291 ==
LOC: ED 10:49 → 2W 13:49

== ENCOUNTER 2020-05-15 08:48 | Inpatient (IN) ==
--- NOTE | 2020-05-15 09:13 | Emergency Department Note ---
History of Present Illness General Chief complaint: Weakness Stated complaint: SYNCOPE, WEAKNESS Time Seen by Provider: 05/15/20 08:51 Source: patient Mode of arrival: ambulatory Limitations: no limitations History of Present Illness This patient comes in after having a syncopal episode. She said she woke up this morning and did not feel right. She has nonspecific complaints. She denied any chest pain or shortness of breath. She was walking the kitchen and collapsed. This was witnessed by the family she had a brief syncopal episode. She has found to be hypoxemic however denies any shortness of breath. She has had no fever or chills or recent cough or shortness of breath. She is in chronic A. fib but denies any chest pain or palpitations. No blood or melena stool. She has been feeling weak but diffusely no focal numbness weakness no headache or head trauma. She is tells me that they stopped her Coumadin recently. No known exposure to Covid. Home Medications Medication Instructions Recorded Confirmed Type ascorbic acid (vitamin C) 1,000 mg PO DAILY 12/15/18 05/15/20 History atorvastatin 20 mg PO DAILY 12/15/18 05/15/20 History cyanocobalamin (vitamin B-12) 100 mcg PO QAM 12/15/18 05/15/20 History digoxin 62.5 mcg PO MOWEFR 12/15/18 05/15/20 History ferrous sulfate 325 mg PO HS 12/15/18 05/15/20 History fluoxetine 20 mg PO DAILY 12/15/18 05/15/20 History fluticasone propionate 1 spray INTRANASAL DAILY 12/15/18 05/15/20 History gabapentin 100 mg PO BID 12/15/18 05/15/20 History levothyroxine 125 mcg PO QAM 12/15/18 05/15/20 History metformin 1,000 mg PO BID 12/15/18 05/15/20 History metoprolol succinate 50 mg PO DAILY 12/15/18 05/15/20 History pantoprazole 40 mg PO BID 12/15/18 05/15/20 History potassium chloride 20 meq PO DAILY 12/15/18 05/15/20 History warfarin 7.5 mg PO MOFR@1600 12/15/18 05/15/20 History furosemide 80 mg PO DAILY 05/15/20 05/15/20 History warfarin 5 mg PO SUTUWETHSA@1600 05/15/20 05/15/20 History Allergies Allergy/AdvReac Type Severity Reaction Status Date / Time cephalexin Allergy Unknown BURNING, Verified 05/15/20 09:24 NAUSEA, AND TROUBLE BREATHING Penicillins Allergy Unknown KIDNEY Verified 05/15/20 09:24 INFECTION, HIVES Sulfa (Sulfonamide Allergy Unknown NAUSEA AND Verified 05/15/20 09:24 Antibiotics) TIRED Past Med/Surg History Medical History (Updated 05/15/20 @ 14:42 by Scotty Stout MD) Anemia Atrial fibrillation Depression Diabetes mellitus type II, controlled Diabetic neuropathy Diastolic CHF due to valvular disease Diverticular disease of colon "per colonoscopy February 2016" Dyslipidemia History of breast cancer "Right breast" Hypertension Hypothyroidism Ischemic heart disease "nonocclusive CAD per cath [facility] 07/24/17" Lymphedema of both lower extremities Mild tricuspid regurgitation Moderate mitral stenosis Morbid obesity with BMI of 40.0-44.9, adult Pulmonary hypertension "PAP 70/33 per cath 07/24/17" Severe aortic stenosis Severe mitral regurgitation Surgical History History of lumpectomy of right breast History of tonsillectomy Status post cardiac catheterization "[facility] 07/24/17 - nonocclusive CAD, pulmonary hypertension" Family History Father Heart failure Mother Heart failure Social History Smoking Status: Never smoker Hx Alcohol Use: No Hx Substance Use: No Preferred Language: Kosovan Communication Ability: Effective Blood Bank Coordinator Required: No Beliefs That Will Affect Care: None marital status: / Current Living Situation: Family Current Living Situation Comment: lives with dtr Other Information That Helps Us Care for You: No Feels Safe at Home: Yes Safety Concerns: Feels Safe At This Time Assistive Devices: Denture - Upper, Denture - Lower, Glasses and Walker Review of Systems A total of 10 systems reviewed and were otherwise negative Physical Exam Vital Signs Vital Signs - 24 hr 05/15/20 09:01 05/15/20 09:09 05/15/20 10:10 Temperature 36.7 C Temperature Source Oral Pulse Rate 139 H Pulse Rate [Left Finger] 93 H Respiratory Rate 18 24 Blood Pressure 216/167 H Blood Pressure [Left Arm] 91/49 L Blood Pressure Mean 183 Blood Pressure Mean [Left Arm] 63 Pulse Oximetry 93 93 96 Oxygen Delivery Method Nasal Cannula Nasal Cannula Room Air Oxygen Flow Rate 3 3 Sepsis Recent Fever Within 48 Hours No Sepsis New/Unexplained Change in Mental Status N/A Sepsis Action Taken by Nursing No Action Required 05/15/20 10:51 05/15/20 12:07 05/15/20 13:27 Temperature Temperature Source Pulse Rate Pulse Rate [Left Finger] 91 H 103 H 92 H Respiratory Rate 18 20 20 Blood Pressure Blood Pressure [Left Arm] 129/87 110/67 124/46 L Blood Pressure Mean Blood Pressure Mean [Left Arm] 101 81 72 Pulse Oximetry 99 97 98 Oxygen Delivery Method Nasal Cannula Nasal Cannula Nasal Cannula Oxygen Flow Rate 3 3 3 Sepsis Recent Fever Within 48 Hours Sepsis New/Unexplained Change in Mental Status Sepsis Action Taken by Nursing 05/15/20 14:20 Temperature Temperature Source Pulse Rate 95 H Pulse Rate [Left Finger] Respiratory Rate 20 Blood Pressure 102/66 Blood Pressure [Left Arm] Blood Pressure Mean Blood Pressure Mean [Left Arm] Pulse Oximetry 98 Oxygen Delivery Method Nasal Cannula Oxygen Flow Rate 3 Sepsis Recent Fever Within 48 Hours Sepsis New/Unexplained Change in Mental Status Sepsis Action Taken by Nursing General: Well developed well nourished older female who appears in no acute distress, breathing comfortably on room air. Normal speech HEENT: Normal cephalic atraumatic. Pupils are equal round and reactive to light. Extraocular movements are intact. Oropharynx is pink with moist mucous membranes. No swelling of the mouth lips or tongue. Neck: Supple with a midline trachea. No meningeal signs or stiffness, no JVD or bruits. No Stridor. Chest: Crackles to auscultation in the bases bilaterally. No wheezes or rhonc hi. No increased work of breathing. Heart: Irregularly irregular rhythm consistent with A. fib with a rate of about 100. Without murmurs or gallops. Abdomen: Soft nontender, nondistended without rebound guarding or rigidity. Extremities: No cyanosis clubbing. She does have some mild lower extremity edema bilaterally. No calf tenderness or assymetry Spine/Back. Non tender to palpation. No CVA tenderness Skin: Good turgor without rashes. Neurologic exam: Cranial nerves two through 12 are intact. Motor and sensation are intact and symmetrical throughout. Course Administered Medications Discontinued Medications Furosemide (Furosemide 40 Mg/4 Ml Vial) 40 mg IV NOW STA Stop: 05/15/20 10:40 Last Admin: 05/15/20 11:03 Dose: 40 mg Documented by: [id number] Sodium Chloride (Nss 1000ml) 250 mls @ 999 mls/hr IV .Q16M ONE Stop: 05/15/20 10:29 Last Infusion: 05/15/20 11:07 Dose: 0 mls/hr Documented by: [id number] Admin: 05/15/20 10:54 Dose: 999 mls/hr Documented by: [id number] Medical Decision Making Differential Diagnosis Syncope, arrhythmia, CHF, hypertension, Covid, anemia, CVA, infection, electrolyte or metabolic abnormality Medical Records Attestation: I reviewed the patient's medical records. Home Medications Current Medication List: was personally reviewed by me Laboratory Data Attestation: I reviewed the patient's lab results. Result diagrams: 05/15/20 09:22 05/15/20 09:22 Lab Results 05/15/20 05/15/20 05/15/20 Range/Units 09:22 09:22 09:22 WBC 13.46 H (4.8-10.8) K/uL RBC 3.30 L (4.2-5.4) M/uL Hgb 9.5 L (12.0-16.0) g/dL Hct 30.2 L (37-47) % MCV 91.5 (80-100) fL MCH 28.8 (25-34) pg MCHC 31.5 L (32-36) g/dL RDW Std Deviation 61.1 H (36.4-46.3) fL RDW Coeff of Paresh 18.2 H (11.5-14.5) % Plt Count 293 (130-400) K/uL MPV 9.5 (7.4-10.4) fL Immature Gran % (Auto) 0.4 % Neut % (Auto) 84.1 % Lymph % (Auto) 5.3 % Henderson % (Auto) 8.5 % Eos % (Auto) 1.3 % Baso % (Auto) 0.4 % Neut # (Auto) 11.30 H (1.4-6.5) K/uL Lymph # (Auto) 0.72 L (1.2-3.4) K/uL Henderson # (Auto) 1.15 H (0.11-0.59) K/uL Eos # (Auto) 0.18 (0-0.5) K/uL Baso # (Auto) 0.05 (0-0.2) K/uL Immature Gran # (Auto) 0.06 H (0.00-0.02) K/uL PT 25.9 H (9.0-12.0) Seconds INR 2.6 H (0.9-1.1) APTT 33.4 H (21.0-31.0) Seconds PTT Ratio 1.2 D-Dimer 1010 H* (0-500) ug/L FEU Sodium 142 (136-145) mmol/L Potassium 3.9 (3.5-5.1) mmol/L Chloride 103 (98-107) mmol/L Carbon Dioxide 30 (21-32) mmol/L Anion Gap 9.0 (3-11) BUN 57 H (7-18) mg/dl Creatinine 1.29 H (0.6-1.2) mg/dl Est Cr Clr Drug Dosing 44.4 ml/min Est GFR ( Amer) 46.9 Est GFR (Non-Af Amer) 40.5 BUN/Creatinine Ratio 43.8 H (10-20) Glucose 130 H (70-99) mg/dl Lactate (0.4-2.0) mmol/L Calcium 9.1 (8.5-10.1) mg/dl Magnesium 1.4 L (1.8-2.4) mg/dl Ferritin (8-388) ng/ml Total Bilirubin 0.9 (0.2-1) mg/dl AST 12 L (15-37) U/L ALT 13 (12-78) U/L Alkaline Phosphatase 75 (45-117) U/L Troponin I < 0.015 (0-0.045) ng/ml C-Reactive Protein (0-0.29) mg/dl NT-Pro-B Natriuret Pep 5275 H (0-900) pg/ml Total Protein 7.8 (6.4-8.2) gm/dl Albumin 2.8 L (3.4-5.0) gm/dl Globulin 5.0 H (2.5-4.0) gm/dl Albumin/Globulin Ratio 0.6 L (0.9-2) Procalcitonin (0-0.5) ng/ml TSH 4.200 (0.300-4.500) uIu/ml Urine Color Urine Appearance (Clear) Urine pH (4.5-7.5) Ur Specific [place] (1.000-1.030) Urine Protein (Negative) Urine Glucose (UA) (Negative) Urine Ketones (Negative) Urine Blood (Negative) Urine Nitrite (Negative) Urine Bilirubin (Negative) Urine Urobilinogen (Negative) Ur Leukocyte Esterase (Negative) Urine WBC (Auto) (0-5) /hpf Urine RBC (Auto) (0-4) /hpf U Hyaline Cast (Auto) (0-5) /lpf U Epithel Cells (Auto) (0-5) /lpf Urine Bacteria (Auto) (Negative) Digoxin (0.8-2.0) ng/ml COVID-19 Eval Order Influ A Molecular Assay (Negative) Influ B Molecular Assay (Negative) RSV (Molecular) (Negative) SARS-CoV-2, RNA, NAAT (NEGATIVE) 05/15/20 05/15/20 05/15/20 Range/Units 09:22 09:22 09:24 WBC (4.8-10.8) K/uL RBC (4.2-5.4) M/uL Hgb (12.0-16.0) g/dL Hct (37-47) % MCV (80-100) fL MCH (25-34) pg MCHC (32-36) g/dL RDW Std Deviation (36.4-46.3) fL RDW Coeff of Parseh (11.5-14.5) % Plt Count (130-400) K/uL MPV (7.4-10.4) fL Immature Gran % (Auto) % Neut % (Auto) % Lymph % (Auto) % Henderson % (Auto) % Eos % (Auto) % Baso % (Auto) % Neut # (Auto) (1.4-6.5) K/uL Lymph # (Auto) (1.2-3.4) K/uL Henderson # (Auto) (0.11-0.59) K/uL Eos # (Auto) (0-0.5) K/uL Baso # (Auto) (0-0.2) K/uL Immature Gran # (Auto) (0.00-0.02) K/uL PT (9.0-12.0) Seconds INR (0.9-1.1) APTT (21.0-31.0) Seconds PTT Ratio D-Dimer (0-500) ug/L FEU Sodium (136-145) mmol/L Potassium (3.5-5.1) mmol/L Chloride (98-107) mmol/L Carbon Dioxide (21-32) mmol/L Anion Gap (3-11) BUN (7-18) mg/dl Creatinine (0.6-1.2) mg/dl Est Cr Clr Drug Dosing ml/min Est GFR ( Amer) Est GFR (Non-Af Amer) BUN/Creatinine Ratio (10-20) Glucose (70-99) mg/dl Lactate (0.4-2.0) mmol/L Calcium (8.5-10.1) mg/dl Magnesium (1.8-2.4) mg/dl Ferritin 190.6 (8-388) ng/ml Total Bilirubin (0.2-1) mg/dl AST (15-37) U/L ALT (12-78) U/L Alkaline Phosphatase (45-117) U/L Troponin I (0-0.045) ng/ml C-Reactive Protein 1.85 H (0-0.29) mg/dl NT-Pro-B Natriuret Pep (0-900) pg/ml Total Protein (6.4-8.2) gm/dl Albumin (3.4-5.0) gm/dl Globulin (2.5-4.0) gm/dl Albumin/Globulin Ratio (0.9-2) Procalcitonin (0-0.5) ng/ml TSH (0.300-4.500) uIu/ml Urine Color Urine Appearance (Clear) Urine pH (4.5-7.5) Ur Specific [place] (1.000-1.030) Urine Protein (Negative) Urine Glucose (UA) (Negative) Urine Ketones (Negative) Urine Blood (Negative) Urine Nitrite (Negative) Urine Bilirubin (Negative) Urine Urobilinogen (Negative) Ur Leukocyte Esterase (Negative) Urine WBC (Auto) (0-5) /hpf Urine RBC (Auto) (0-4) /hpf U Hyaline Cast (Auto) (0-5) /lpf U Epithel Cells (Auto) (0-5) /lpf Urine Bacteria (Auto) (Negative) Digoxin 0.3 L (0.8-2.0) ng/ml COVID-19 Eval [facility] A Molecular Assay (Negative) Influ B Molecular Assay (Negative) RSV (Molecular) (Negative) SARS-CoV-2, RNA, NAAT (NEGATIVE) 05/15/20 05/15/20 05/15/20 Range/Units 09:24 09:25 10:28 WBC (4.8-10.8) K/uL RBC (4.2-5.4) M/uL Hgb (12.0-16.0) g/dL Hct (37-47) % MCV (80-100) fL MCH (25-34) pg MCHC (32-36) g/dL RDW Std Deviation (36.4-46.3) fL RDW Coeff of Paresh (11.5-14.5) % Plt Count (130-400) K/uL MPV (7.4-10.4) fL Immature Gran % (Auto) % Neut % (Auto) % Lymph % (Auto) % Henderson % (Auto) % Eos % (Auto) % Baso % (Auto) % Neut # (Auto) (1.4-6.5) K/uL Lymph # (Auto) (1.2-3.4) K/uL Henderson # (Auto) (0.11-0.59) K/uL Eos # (Auto) (0-0.5) K/uL Baso # (Auto) (0-0.2) K/uL Immature Gran # (Auto) (0.00-0.02) K/uL PT (9.0-12.0) Seconds INR (0.9-1.1) APTT (21.0-31.0) Seconds PTT Ratio D-Dimer (0-500) ug/L FEU Sodium (136-145) mmol/L Potassium (3.5-5.1) mmol/L Chloride (98-107) mmol/L Carbon Dioxide (21-32) mmol/L Anion Gap (3-11) BUN (7-18) mg/dl Creatinine (0.6-1.2) mg/dl Est Cr Clr Drug Dosing ml/min Est GFR ( Amer) Est GFR (Non-Af Amer) BUN/Creatinine Ratio (10-20) Glucose (70-99) mg/dl Lactate 2.6 H* (0.4-2.0) mmol/L Calcium (8.5-10.1) mg/dl Magnesium (1.8-2.4) mg/dl Ferritin (8-388) ng/ml Total Bilirubin (0.2-1) mg/dl AST (15-37) U/L ALT (12-78) U/L Alkaline Phosphatase (45-117) U/L Troponin I (0-0.045) ng/ml C-Reactive Protein (0-0.29) mg/dl NT-Pro-B Natriuret Pep (0-900) pg/ml Total Protein (6.4-8.2) gm/dl Albumin (3.4-5.0) gm/dl Globulin (2.5-4.0) gm/dl Albumin/Globulin Ratio (0.9-2) Procalcitonin < 0.05 (0-0.5) ng/ml TSH (0.300-4.500) uIu/ml Urine Color Urine Appearance (Clear) Urine pH (4.5-7.5) Ur Specific [place] (1.000-1.030) Urine Protein (Negative) Urine Glucose (UA) (Negative) Urine Ketones (Negative) Urine Blood (Negative) Urine Nitrite (Negative) Urine Bilirubin (Negative) Urine Urobilinogen (Negative) Ur Leukocyte Esterase (Negative) Urine WBC (Auto) (0-5) /hpf Urine RBC (Auto) (0-4) /hpf U Hyaline Cast (Auto) (0-5) /lpf U Epithel Cells (Auto) (0-5) /lpf Urine Bacteria (Auto) (Negative) Digoxin (0.8-2.0) ng/ml COVID-19 Eval Order Influ A Molecular Assay (Negative) Influ B Molecular Assay (Negative) RSV (Molecular) (Negative) SARS-CoV-2, RNA, NAAT NEGATIVE (NEGATIVE) 05/15/20 05/15/20 Range/Units 11:05 12:00 WBC (4.8-10.8) K/uL RBC (4.2-5.4) M/uL Hgb (12.0-16.0) g/dL Hct (37-47) % MCV (80-100) fL MCH (25-34) pg MCHC (32-36) g/dL RDW Std Deviation (36.4-46.3) fL RDW Coeff of Paresh (11.5-14.5) % Plt Count (130-400) K/uL MPV (7.4-10.4) fL Immature Gran % (Auto) % Neut % (Auto) % Lymph % (Auto) % Henderson % (Auto) % Eos % (Auto) % Baso % (Auto) % Neut # (Auto) (1.4-6.5) K/uL Lymph # (Auto) (1.2-3.4) K/uL Henderson # (Auto) (0.11-0.59) K/uL Eos # (Auto) (0-0.5) K/uL Baso # (Auto) (0-0.2) K/uL Immature Gran # (Auto) (0.00-0.02) K/uL PT (9.0-12.0) Seconds INR (0.9-1.1) APTT (21.0-31.0) Seconds PTT Ratio D-Dimer (0-500) ug/L FEU Sodium (136-145) mmol/L Potassium (3.5-5.1) mmol/L Chloride (98-107) mmol/L Carbon Dioxide (21-32) mmol/L Anion Gap (3-11) BUN (7-18) mg/dl Creatinine (0.6-1.2) mg/dl Est Cr Clr Drug Dosing ml/min Est GFR ( Amer) Est GFR (Non-Af Amer) BUN/Creatinine Ratio (10-20) Glucose (70-99) mg/dl Lactate (0.4-2.0) mmol/L Calcium (8.5-10.1) mg/dl Magnesium (1.8-2.4) mg/dl Ferritin (8-388) ng/ml Total Bilirubin (0.2-1) mg/dl AST (15-37) U/L ALT (12-78) U/L Alkaline Phosphatase (45-117) U/L Troponin I (0-0.045) ng/ml C-Reactive Protein (0-0.29) mg/dl NT-Pro-B Natriuret Pep (0-900) pg/ml Total Protein (6.4-8.2) gm/dl Albumin (3.4-5.0) gm/dl Globulin (2.5-4.0) gm/dl Albumin/Globulin Ratio (0.9-2) Procalcitonin (0-0.5) ng/ml TSH (0.300-4.500) uIu/ml Urine Color Yellow Urine Appearance Clear (Clear) Urine pH 6.0 (4.5-7.5) Ur Specific [place] 1.011 (1.000-1.030) Urine Protein Negative (Negative) Urine Glucose (UA) Negative (Negative) Urine Ketones Negative (Negative) Urine Blood Negative (Negative) Urine Nitrite Negative (Negative) Urine Bilirubin Negative (Negative) Urine Urobilinogen Negative (Negative) Ur Leukocyte Esterase 2+ H (Negative) Urine WBC (Auto) >30 H (0-5) /hpf Urine RBC (Auto) 0-4 (0-4) /hpf U Hyaline Cast (Auto) 1-5 (0-5) /lpf U Epithel Cells (Auto) 0-5 (0-5) /lpf Urine Bacteria (Auto) 4+ H (Negative) Digoxin (0.8-2.0) ng/ml COVID-19 Eval Order Influ A Molecular Assay Negative (Negative) Influ B Molecular Assay Negative (Negative) RSV (Molecular) Negative (Negative) SARS-CoV-2, RNA, NAAT (NEGATIVE) Imaging Data Attestation: I personally reviewed and interpreted this imaging study as follows: My Impression: Chest x-ray Radiologist's Impression: XR chest 1V portable CLINICAL HISTORY: Shortness of breath COMPARISON STUDY: 12/15/2018 FINDINGS: The heart is enlarged. There are bilateral pulmonary airspace opacities suspicious for a multifocal pneumonia. Surgical clips project over the right axillary region. Advanced arthritic changes are present within the left shoulder. There is calcific tendinopathy of the right shoulder.[ IMPRESSION: Cardiomegaly and bilateral pulmonary airspace opacities suspicious for multifocal pneumonia. CT chest diagnostic wo con CLINICAL HISTORY: Shortness of breath. ABNORMAL CHEST X-RAY COMPARISON STUDY: Chest x-ray dated 05/15/2010 CT DOSE: TECHNIQUE: CT of the thorax was performed from the thoracic inlet to the lung bases. Images are reviewed in the axial, sagittal, and coronal planes. IV contrast was not administered for this examination. A dose lowering technique was utilized adhering to the principles of ALARA. FINDINGS: Thyroid: Imaged portions of the thyroid gland are normal in appearance. Thoracic aorta: The thoracic aorta is normal in course and caliber, noting standard 3 vessel arch anatomy. Heart: The heart is enlarged. There are coronary artery calcifications. There is dilatation of the pulmonary arteries suggesting pulmonary arterial hypertension Lungs and pleural spaces: There are bilateral pleural effusions. There are bilateral groundglass pulmonary opacities. This could represent pulmonary edema or an infectious process. Correlation with Covid 19 testing is recommended. Mediastinum: There is mediastinal lymphadenopathy, possibly reactive. Ericka: There is mild hilar lymphadenopathy. Axilla: There is no evidence of pathologic axillary lymphadenopathy Upper abdomen: Partially visualized upper abdominal viscera is within normal limits. Skeletal structures: There are advanced arthritic changes present within the left shoulder. There is calcific tendinopathy involving the right shoulder. No destructive lesions are visualized IMPRESSION: 1. Mediastinal and hilar lymphadenopathy 2. Suspected pulmonary arterial hypertension 3. Cardiomegaly, bilateral pleural effusions, and bilateral groundglass pulmon suad opacities. The findings could represent pulmonary edema or an infectious process (viral pneumonia). Clinical and radiographic follow-up recommended CT head/brain wo con CLINICAL HISTORY: fall, confusion COMPARISON STUDY: 12/17/2018 TECHNIQUE: Axial CT of the brain is performed from the vertex to the skull base. IV contrast was not administered for this examination. A dose lowering technique was utilized adhering to the principles of ALARA. CT DOSE: 1220.59 mGy.cm FINDINGS: No intra or extra-axial mass lesions are visualized. There is no CT evidence of acute cortical infarction. There is no evidence of midline shift. There is no acute hemorrhage. No calvarial fractures are visualized. There are patchy white matter hypodensities likely on a small vessel basis. There is no evidence of pathologic ventricular dilatation. 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 There is no evidence of acute sinusitis IMPRESSION: No acute intracranial findings ECG Data Attestation: I personally reviewed and interpreted this ECG as follows: Indication: + syncope Rate (beats per minute): 111 Rhythm: + atrial fibrillation ECG Intervals/blocks: + Normal QRS ECG Kunkle: + Normal ECG ST segments: + Normal ST segments ECG Findings: + Other (Nonspecific ST/T wave abnormality) Comparison ECG Date: from (12/15/18) Change: no significant change MDM Narrative This patient comes in as described above she has syncopal episode. She does a very complex medical history including A. fib and valvular heart disease. It is possible this is related to her aortic stenosis. Her blood pressure is elevated although given her body habitus I am not sure how accurate it is. She does have some crackles in her lungs and were concerned about potential CHF as well. With her low oxygen and weakness I am worried about Covid as well. Multi ple blood testing was obtained IV access was established she was placed on a playground monitor room C9. EKG chest x-ray were obtained and she was reassessed frequently. Her chest x-ray is concerning for multifocal pneumonia which could be Covid. Could also be related to CHF. Her white count is elevated at 13. She has anemia in the mid 9 range looking back through her chart she tends to run in the 9-10 range. Her Covid test did come back negative however it is possible this is a false negative given her x-ray. Her x-ray may be more congestive heart failure. It could also be pneumonia. She has an elevated white count but her procalcitonin was negative. Her blood pressure remained normal she had one episode in the 90s but she was normotensive otherwise and responded to small fluid bolus. Lactic acid was mildly elevated. Her troponin was negative and she has had no chest pain to suggest acute ischemia. Her BNP was elevated. I definitely think there is a congestive heart failure component here but there could be an underlying infectious or Covid component as well. I did consult the [facility] hospitalist to see her and they did a CAT scan of her head which was negative chest which shows no PE but infiltrative changes consistent with either pneumonia or CHF. I did talk to the daughter on the phone as well. Continuous cardiac monitoring: Order was placed in the EMR for continuous cardiac monitoring and the patient was noted to be in A. fib with a rate of 100 Impression & Plan Syncope, Hypoxemia, CHF (congestive heart failure), Pneumonia Discharge Plan Visit Data Chief Complaint: Weakness Stated Complaint: SYNCOPE, WEAKNESS ED Provider: Scotty Stout Discharge Problem: Syncope, Hypoxemia, CHF (congestive heart failure), Pneumonia Discharge Instructions Interventions: ED Discharge Assessment Last Done: 05/15/20 14:20 Forms Stand Alone Forms: My [facility] Apropose Prescriptions Prescriptions: No Action metformin 500 mg tablet 1,000 mg PO BID RF: 0 cyanocobalamin (vitamin B-12) 100 mcg tablet 100 mcg PO QAM RF: 0 warfarin 7.5 mg Tablet 7.5 mg PO MOFR@1600 RF: 0 ferrous sulfate 325 mg (65 mg iron) tablet 325 mg PO HS RF: 0 levothyroxine 125 mcg tablet 125 mcg PO QAM RF: 0 digoxin 125 mcg tablet 62.5 mcg PO MOWEFR RF: 0 gabapentin 100 mg capsule 100 mg PO BID RF: 0 fluticasone propionate 50 mcg/actuation spray,suspension 1 spray intranasal DAILY RF: 0 atorvastatin 20 mg tablet 20 mg PO DAILY RF: 0 metoprolol succinate 50 mg tablet extended release 24 hr 50 mg PO DAILY RF: 0 potassium chloride 10 mEq tablet extended release 20 meq PO DAILY RF: 0 pantoprazole 40 mg tablet,delayed release (DR/EC) 40 mg PO BID RF: 0 fluoxetine 20 mg capsule 20 mg PO DAILY RF: 0 ascorbic acid (vitamin C) 500 mg Tablet 1,000 mg PO DAILY RF: 0 furosemide 20 mg tablet 80 mg PO DAILY RF: 0 warfarin 5 mg Tablet 5 mg PO SUTUWETHSA@1600 RF: 0 Referrals Referrals: PCP,NO [Primary Care Provider] - Discharge Problem: Syncope Qualifiers: Syncope type: unspecified Qualified Code(s): R55 - Syncope and collapse CHF (congestive heart failure) Qualifiers: Heart failure type: unspecified Heart failure chronicity: acute on chronic Qualified Code(s): I50.9 - Heart failure, unspecified Pneumonia Qualifiers: Pneumonia type: due to unspecified organism Laterality: bilateral Lung location: unspecified part of lung Qualified Code(s): J18.9 - Pneumonia, unspecified organism
--- NOTE | 2020-05-15 09:18 | XRay Report ---
XR chest 1V portable CLINICAL HISTORY: Shortness of breath COMPARISON STUDY: 12/15/2018 FINDINGS: The heart is enlarged. There are bilateral pulmonary airspace opacities suspicious for a mu ltifocal pneumonia. Surgical clips project over the right axillary region. Advanced arthritic changes are present within the left shoulder. There is calcific tendinopathy of the right shoulder.[ IMPRESSION: Cardiomegaly and bilateral pulmonary airspace opacities suspicious for multifocal pneumon ia. ACT 112: Negative or not required by law. Electronically signed by: Pete Beltrán M.D. 05/15/2020 9:17 AM
[2020-05-15 09:33] LABS: Basophils # (auto) 0.05 K/uL (0-0.2); Basophils % (auto) 0.4 %; Eosinophils # (auto) 0.18 K/uL (0-0.5); Eosinophils % (auto) 1.3 %; Hematocrit (blood only) 30.2 % (37-47); Hemoglobin 9.5 g/dL (12.0-16.0); Immature Granulocytes # (auto) 0.06 K/uL (0.00-0.02); Immature Granulocytes % (auto) 0.4 %; Lymphocytes # (auto) 0.72 K/uL (1.2-3.4); Lymphocytes % (auto) 5.3 %; Mean Corpuscular Hemoglobin 28.8 pg (25-34); Mean Corpuscular Hgb Conc 31.5 g/dL (32-36); Mean Corpuscular Volume 91.5 fL (80-100); Mean Platelet Volume 9.5 fL (7.4-10.4); Monocytes # (auto) 1.15 K/uL (0.11-0.59); Monocytes % (auto) 8.5 %; Neutrophils % (auto) 84.1 %; Platelet Count 293 K/uL (130-400); RDW Coefficient of Variation 18.2 % (11.5-14.5); RDW Standard Deviation 61.1 fL (36.4-46.3); White Blood Count 13.46 K/uL (4.8-10.8)
[2020-05-15 09:52] LABS: Alanine Aminotransferase 13 U/L (12-78); Albumin Level 2.8 gm/dl (3.4-5.0); Aspartate Aminotransferase 12 U/L (15-37); BUN Creatinine Ratio 43.8 (10-20); Blood Urea Nitrogen 57 mg/dl (7-18); Calcium 9.1 mg/dl (8.5-10.1); Carbon Dioxide 30 mmol/L (21-32); Chloride 103 mmol/L (98-107); Creatinine Clr Calc Pharmacy 44.4 ml/min; Est GFR (African American) 46.9; Est GFR (Non-African American) 40.5; Glucose 130 mg/dl (70-99); Magnesium 1.4 mg/dl (1.8-2.4); Potassium 3.9 mmol/L (3.5-5.1); Sodium 142 mmol/L (136-145)
[2020-05-15 09:54] LABS: INR 2.6 (0.9-1.1); Partial Thromboplastin Ratio 1.2; Partial Thromboplastin Time 33.4 Seconds (21.0-31.0); Prothrombin Time 25.9 Seconds (9.0-12.0)
[2020-05-15 10:03] LABS: Albumin Globulin Ratio 0.6 (0.9-2); Alkaline Phosphatase 75 U/L (45-117); Bilirubin,Total 0.9 mg/dl (0.2-1); NT Pro B Type Natriuretic Pept 5275 pg/ml (0-900); Total Protein 7.8 gm/dl (6.4-8.2); Troponin I < 0.015 ng/ml (0-0.045)
[2020-05-15] MEDS ORDERED: SODIUM CHLORIDE 0.9% 1000ML 250 ML IV ONE (10:14)
[2020-05-15] MEDS ORDERED: FUROSEMIDE 40 MG/4 ML VIAL IV STA (10:39)
--- NOTE | 2020-05-15 10:46 | History & Physical Report ---
Date of Service May 15, 2020 Assessment & Plan (1) Near syncope: (2) Acute respiratory failure with hypoxia: (3) Person under investigation for COVID-19: (4) Heart failure due to valvular disease: (5) Acute kidney injury: (6) Diabetes mellitus type II, controlled: (7) Hypothyroidism: (8) Hypertension: (9) Anemia: (10) Depression: (11) Dyslipidemia: (12) Lymphedema of both lower extremities: This is a 75 yo F with a PMH of chronic diastolic heart failure with severe mitral regurgitation, severe aortic stenosis, atrial fibrillation on coumadin, DM II, anemia, hypothyroidism, depression and other medical problems as below who presents after near syncopal episode this morning. Near syncope Occurred this morning in setting of possible infection, hypoxia No fall or head trauma Severe aortic stenosis known. Recently instructed to take 2 additional 80mg lasix doses each week, per cards Orthostatics ordered. Infection possibly contributing Monitor on telemetry. Echo from 12/22 with preserved EF, severe , mod-severe MR Routine cardiology consult- defer repeating echo for now. Trend troponin, monitor volume status closely Acute respiratory failure with hypoxia PUI for Covid 19 Multifocal pneumonia on CXR Initially hypoxic at 84%. Now saturating at 91% on 3 L nasal cannula CXR with cardiomegaly and bilateral pulmonary airspace opacities suspicious for multifocal pneumonia. Mild leukocytosis of 13.46, hgb 9.5 (@ baseline), lactic acid 2.6, procal wnl, d-dimer 1,010, CRP 1.85, ferritin wnl Initial covid screen negative. Flu A/B and RSV negative INR 2.6 so low concern for PE. CT chest wo con ordered for help differentiating possible pna vs pulmonary edema Keep on airborne precautions for now at PUI Trend lactate. Follow blood cultures. Empirically cover for CAP with Rocephin, azithromycin Acute metabolic encephalopathy In setting of UTI, possible pna, hypoxia Improved on oxygen, starting abx CT head pending UTI: Increased urinary frequency per daughter UA abnormal, urine cx pending. Blood cx pending Empiric Rocephin Chronic diastolic heart failure Severe aortic stenosis Severe mitral regurgitation Has significant valvular disease secondary to rheumatic fever and has declined surgical intervention in the past BNP elevated at 5,275, no evidence of volume overload on CXR. CT chest pending Patient taking 80mg Lasix daily. Daughter has been giving additional 80mg 2x/week for past 2 months Acute kidney injury Cr elevated at 1.29 (baseline ~1) in setting of increased diuretics. Following with Kati carrington Chronic Atrial fibrillation Rate controlled. Continue metoprolol and low-dose digoxin as prescribed. Continue Coumadin anticoagulation History of NSTEMI In 2018. Cardiac catheterization with nonocclusive coronary disease. 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 Monitor with daily CBC DVT Ppx: Coumadin Code status: FULL PCP: Adrian Dispo: Admitted to med tele. Discharge planning ordered. Patient seen in collaboration with Dr. Serna. Please see addendum. History of Present Illness Chief Complaint: SOB, syncope Primary Care Provider: NIKOLE PCP This is a 75 yo F with a PMH of chronic diastolic heart failure with severe mitral regurgitation, severe aortic stenosis, atrial fibrillation on coumadin, DM II, anemia, hypothyroidism, depression and other medical problems as below who presents after ? syncopal episode this morning. Woke up feeling shaky and fatigued with muscle aches and a dry cough. Got out of bed and was ambulating and talking with nephew when she reportedly felt lightheaded and had to sit down. Patient did not remember any other details so called daughter for more information. Per daughter, patient is confused at baseline. She did not syncopized but had an episode of limited responsiveness when she had to sit down. Last time this happened patient had an infection. No recent known exposures to Covid. Denies any fall. Has been taking medication as scheduled, including 80 mg Lasix daily with 2 additional doses of 80 mg each night, as di rected per operator cavity pump BELLA. Has urinary incontinence at baseline but increased frequency lately, per daughter. Does not require home O2. Denies any fever, chills, loss of taste or smell, chest pain, palpitations, shortness of breath, nausea, vomiting, abdominal pain, dysuria, diarrhea or constipation. Does not require oxygen at baseline. In the ED, patient initially hypoxic at 84%. Now saturating at 91% on 3 L nasal cannula. CXR with cardiomegaly and bilateral pulmonary airspace opacities suspicious for multifocal pneumonia. Mild leukocytosis of 13.46, hgb 9.5 (@ baseline), Cr elevated at 1.29 (baseline ~1), BNP 5,275, INR 2.6, troponin negative. Lactate, procal pending. Has significant valvular disease secondary to rheumatic fever and has declined surgical intervention in the past. Is on Coumadin for anticoagulation in setting of atrial fibrillation. Patient is unsure about medications since daughter manages them. We will call her to confirm med rec. Allergies Allergy/AdvReac Type Severity Reaction Status Date / Time cephalexin Allergy Unknown BURNING, Verified 05/15/20 09:24 NAUSEA, AND TROUBLE BREATHING Penicillins Allergy Unknown KIDNEY Verified 05/15/20 09:24 INFECTION, HIVES Sulfa (Sulfonamide Allergy Unknown NAUSEA AND Verified 05/15/20 09:24 Antibiotics) TIRED Home Medications Medication Instructions Recorded Confirmed Type ascorbic acid (vitamin C) 1,000 mg PO DAILY 12/15/18 05/15/20 History atorvastatin 20 mg PO DAILY 12/15/18 05/15/20 History cyanocobalamin (vitamin B-12) 100 mcg PO QAM 12/15/18 05/15/20 History digoxin 62.5 mcg PO MOWEFR 12/15/18 05/15/20 History ferrous sulfate 325 mg PO HS 12/15/18 05/15/20 History fluoxetine 20 mg PO DAILY 12/15/18 05/15/20 History fluticasone propionate 1 spray INTRANASAL DAILY 12/15/18 05/15/20 History gabapentin 100 mg PO BID 12/15/18 05/15/20 History levothyroxine 125 mcg PO QAM 12/15/18 05/15/20 History metformin 1,000 mg PO BID 12/15/18 05/15/20 History metoprolol succinate 50 mg PO DAILY 12/15/18 05/15/20 History pantoprazole 40 mg PO BID 12/15/18 05/15/20 History potassium chloride 20 meq PO DAILY 12/15/18 05/15/20 History warfarin 7.5 mg PO MOFR@1600 12/15/18 05/15/20 History furosemide 80 mg PO DAILY 05/15/20 05/15/20 History warfarin 5 mg PO SUTUWETHSA@1600 05/15/20 05/15/20 History Past Med/Surg History Medical History (Updated 05/15/20 @ 14:42 by Scotty Stout MD) Anemia Atrial fibrillation Depression Diabetes mellitus type II, controlled Diabetic neuropathy Diastolic CHF due to valvular disease Diverticular disease of colon "per colonoscopy February 2016" Dyslipidemia History of breast cancer "Right breast" Hypertension Hypothyroidism Ischemic heart disease "nonocclusive CAD per cath [facility] [place] 07/24/17" Lymphedema of both lower extremities Mild tricuspid regurgitation Moderate mitral stenosis Morbid obesity with BMI of 40.0-44.9, adult Pulmonary hypertension "PAP 70/33 per cath 07/24/17" Severe aortic stenosis Severe mitral regurgitation Surgical History History of lumpectomy of right breast History of tonsillectomy Status post cardiac catheterization "[facility] [place] 07/24/17 - nonocclusive CAD, pulmonary hypertension" Family History Father Heart failure Mother Heart failure Social History Smoking Status: Never smoker Hx Alcohol Use: No Hx Substance Use: No Preferred Language: Chinese Communication Ability: Effective Utility Assembler Required: No Beliefs That Will Affect Care: None marital status: / Current Living Situation: Family Current Living Situation Comment: lives with dtr Other Information That Helps Us Care for You: No Feels Safe at Home: Yes Safety Concerns: Feels Safe At This Time Assistive Devices: Denture - Upper, Denture - Lower, Glasses and Walker Review of Systems Review of Systems: At least ten systems reviewed and negative except as noted in the HPI. Physical Exam Physical Exam: Please see Dr. Serna's addendum for physical exam. Constitutional: WD/WN, vitals as above + ill appearing Eyes: PERRL, conjunctivae normal, anicteric sclerae ENMT: external ear and nose normal, oropharynx normal Neck: trachea midline, no thyromegaly Respiratory: Auscultation: + diminished lung sounds and + rales Cardiovascular: RRR, no murmur, no edema Heart Sounds: no cardiac rub Gastrointestinal (Abdomen): normal bowel sounds, soft, nontender, no hepatosplenomegaly Percussion/Palpation: abdomen soft Skin: no rashes, warm and dry Neurologic: PERRL, EOMI, accommodation nl, no face palsy, no dysarthria Psychiatric: A+Ox3, euthymic affect Results & Data Results & Data ([facility]) Vital Signs (Past 12 Hours) Vital Signs Temp Pulse Pulse Resp BP BP Pulse Ox 05/15/20 10:10 93 H 24 91/49 L 96 05/15/20 09:09 93 05/15/20 09:01 36.7 C 139 H 18 216/167 H 93 Laboratory Results Short CBC 05/15/20 05/15/20 05/15/20 Range/Units 09:22 09:22 09:22 WBC 13.46 H (4.8-10.8) K/uL RBC 3.30 L (4.2-5.4) M/uL Hgb 9.5 L (12.0-16.0) g/dL Hct 30.2 L (37-47) % MCV 91.5 (80-100) fL MCH 28.8 (25-34) pg MCHC 31.5 L (32-36) g/dL RDW Std Deviation 61.1 H (36.4-46.3) fL RDW Coeff of Paresh 18.2 H (11.5-14.5) % Plt Count 293 (130-400) K/uL MPV 9.5 (7.4-10.4) fL Immature Gran % (Auto) 0.4 % Neut % (Auto) 84.1 % Lymph % (Auto) 5.3 % Reeves % (Auto) 8.5 % Eos % (Auto) 1.3 % Baso % (Auto) 0.4 % Neut # (Auto) 11.30 H (1.4-6.5) K/uL Lymph # (Auto) 0.72 L (1.2-3.4) K/uL Reeves # (Auto) 1.15 H (0.11-0.59) K/uL Eos # (Auto) 0.18 (0-0.5) K/uL Baso # (Auto) 0.05 (0-0.2) K/uL Immature Gran # (Auto) 0.06 H (0.00-0.02) K/uL PT 25.9 H (9.0-12.0) Seconds INR 2.6 H (0.9-1.1) APTT 33.4 H (21.0-31.0) Seconds PTT Ratio 1.2 Sodium 142 (136-145) mmol/L Potassium 3.9 (3.5-5.1) mmol/L Chloride 103 (98-107) mmol/L Carbon Dioxide 30 (21-32) mmol/L Anion Gap 9.0 (3-11) BUN 57 H (7-18) mg/dl Creatinine 1.29 H (0.6-1.2) mg/dl Est Cr Clr Drug Dosing 44.4 ml/min Est GFR ( Amer) 46.9 Est GFR (Non-Af Amer) 40.5 BUN/Creatinine Ratio 43.8 H (10-20) Glucose 130 H (70-99) mg/dl Lactate (0.4-2.0) mmol/L Calcium 9.1 (8.5-10.1) mg/dl Magnesium 1.4 L (1.8-2.4) mg/dl Total Bilirubin 0.9 (0.2-1) mg/dl AST 12 L (15-37) U/L ALT 13 (12-78) U/L Alkaline Phosphatase 75 (45-117) U/L Troponin I < 0.015 (0-0.045) ng/ml NT-Pro-B Natriuret Pep 5275 H (0-900) pg/ml Total Protein 7.8 (6.4-8.2) gm/dl Albumin 2.8 L (3.4-5.0) gm/dl Globulin 5.0 H (2.5-4.0) gm/dl Albumin/Globulin Ratio 0.6 L (0.9-2) Procalcitonin (0-0.5) ng/ml TSH 4.200 (0.300-4.500) uIu/ml Digoxin (0.8-2.0) ng/ml COVID-19 Eval Order SARS-CoV-2, RNA, NAAT (NEGATIVE) 05/15/20 05/15/20 05/15/20 Range/Units 09:22 09:24 09:24 WBC (4.8-10.8) K/uL RBC (4.2-5.4) M/uL Hgb (12.0-16.0) g/dL Hct (37-47) % MCV (80-100) fL MCH (25-34) pg MCHC (32-36) g/dL RDW Std Deviation (36.4-46.3) fL RDW Coeff of Paresh (11.5-14.5) % Plt Count (130-400) K/uL MPV (7.4-10.4) fL Immature Gran % (Auto) % Neut % (Auto) % Lymph % (Auto) % Reeves % (Auto) % Eos % (Auto) % Baso % (Auto) % Neut # (Auto) (1.4-6.5) K/uL Lymph # (Auto) (1.2-3.4) K/uL Reeves # (Auto) (0.11-0.59) K/uL Eos # (Auto) (0-0.5) K/uL Baso # (Auto) (0-0.2) K/uL Immature Gran # (Auto) (0.00-0.02) K/uL PT (9.0-12.0) Seconds INR (0.9-1.1) APTT (21.0-31.0) Seconds PTT Ratio Sodium (136-145) mmol/L Potassium (3.5-5.1) mmol/L Chloride (98-107) mmol/L Carbon Dioxide (21-32) mmol/L Anion Gap (3-11) BUN (7-18) mg/dl Creatinine (0.6-1.2) mg/dl Est Cr Clr Drug Dosing ml/min Est GFR ( Amer) Est GFR (Non-Af Amer) BUN/Creatinine Ratio (10-20) Glucose (70-99) mg/dl Lactate (0.4-2.0) mmol/L Calcium (8.5-10.1) mg/dl Magnesium (1.8-2.4) mg/dl Total Bilirubin (0.2-1) mg/dl AST (15-37) U/L ALT (12-78) U/L Alkaline Phosphatase (45-117) U/L Troponin I (0-0.045) ng/ml NT-Pro-B Natriuret Pep (0-900) pg/ml Total Protein (6.4-8.2) gm/dl Albumin (3.4-5.0) gm/dl Globulin (2.5-4.0) gm/dl Albumin/Globulin Ratio (0.9-2) Procalcitonin (0-0.5) ng/ml TSH (0.300-4.500) uIu/ml Digoxin 0.3 L (0.8-2.0) ng/ml COVID-19 Eval [facility] SARS-CoV-2, RNA, NAAT NEGATIVE (NEGATIVE) 05/15/20 05/15/20 Range/Units 09:25 10:28 WBC (4.8-10.8) K/uL RBC (4.2-5.4) M/uL Hgb (12.0-16.0) g/dL Hct (37-47) % MCV (80-100) fL MCH (25-34) pg MCHC (32-36) g/dL RDW Std Deviation (36.4-46.3) fL RDW Coeff of Paresh (11.5-14.5) % Plt Count (130-400) K/uL MPV (7.4-10.4) fL Immature Gran % (Auto) % Neut % (Auto) % Lymph % (Auto) % Reeves % (Auto) % Eos % (Auto) % Baso % (Auto) % Neut # (Auto) (1.4-6.5) K/uL Lymph # (Auto) (1.2-3.4) K/uL Reeves # (Auto) (0.11-0.59) K/uL Eos # (Auto) (0-0.5) K/uL Baso # (Auto) (0-0.2) K/uL Immature Gran # (Auto) (0.00-0.02) K/uL PT (9.0-12.0) Seconds INR (0.9-1.1) APTT (21.0-31.0) Seconds PTT Ratio Sodium (136-145) mmol/L Potassium (3.5-5.1) mmol/L Chloride (98-107) mmol/L Carbon Dioxide (21-32) mmol/L Anion Gap (3-11) BUN (7-18) mg/dl Creatinine (0.6-1.2) mg/dl Est Cr Clr Drug Dosing ml/min Est GFR ( Amer) Est GFR (Non-Af Amer) BUN/Creatinine Ratio (10-20) Glucose (70-99) mg/dl Lactate 2.6 H* (0.4-2.0) mmol/L Calcium (8.5-10.1) mg/dl Magnesium (1.8-2.4) mg/dl Total Bilirubin (0.2-1) mg/dl AST (15-37) U/L ALT (12-78) U/L Alkaline Phosphatase (45-117) U/L Troponin I (0-0.045) ng/ml NT-Pro-B Natriuret Pep (0-900) pg/ml Total Protein (6.4-8.2) gm/dl Albumin (3.4-5.0) gm/dl Globulin (2.5-4.0) gm/dl Albumin/Globulin Ratio (0.9-2) Procalcitonin < 0.05 (0-0.5) ng/ml TSH (0.300-4.500) uIu/ml Digoxin (0.8-2.0) ng/ml COVID-19 Eval Order SARS-CoV-2, RNA, NAAT (NEGATIVE) BMP 05/15/20 09:22 Sodium 142 Potassium 3.9 Chloride 103 Carbon Dioxide 30 BUN 57 H Creatinine 1.29 H Glucose 130 H Calcium 9.1 Cardiac Enzymes 05/15/20 Range/Units 09:22 Troponin I < 0.015 (0-0.045) ng/ml Liver Function 05/15/20 Range/Units 09:22 Total Bilirubin 0.9 (0.2-1) mg/dl AST 12 L (15-37) U/L ALT 13 (12-78) U/L Alkaline Phosphatase 75 (45-117) U/L Albumin 2.8 L (3.4-5.0) gm/dl Diagnostic Findings CXR: IMPRESSION: Cardiomegaly and bilateral pulmonary airspace opacities suspicious for multifocal pneumonia. Supervising Physician Co-Signing Physician Notes ,Attending addendum : pt seen and examined , care co-ordinated with Milli Valencia PA-C this is a 75 yo F with complex medical hx of severe valvular heart disease , CKD stage 3, chronic diastolic heart , type 2 DM admitted with pre syncope noted to be hypoxic , cxray bilateral pulm congestion .infiltrate admit to tele , empiric abx, initial COVID 19 negative , given high suspicion of respiratory symptoms , will continue airborne and droplet isolation ( incidents of false negative covid test noted in cases ) if respiratory status continues to decline , will do a repeat covid test in next 24-48 hrs pre syncope : possible due to intravascular vol depletion due to aggregative diuretics Lasix kept on hold given severe valvular heart disease with have cardiology consult to adjust diur etics dose Acute renal failure : possible due to diuresis hold lasix Iv fluid avoided due to concern for pulm vascular congestion repeat BMP Diastolic heart failure severe valvular heart disease ; clinically pt appears to be dry hold Lasix pt has refused valve surgery in past over all prognosis remains poor pt is full code
--- NOTE | 2020-05-15 11:10 | Electrocardiogram Report ---
Test Reason : Blood Pressure : / mmHG Vent. Rate : 111 BPM Atrial Rate : 111 BPM P-R Int : 000 ms QRS Dur : 112 ms QT Int : 374 ms P-R-T Axes : 000 035 086 degrees QTc Int : 508 ms Atrial fibrillation with rapid ventricular response Nonspecific ST and T wave abnormality Abnormal ECG When compared with ECG of 15-DEC-2018 11:03, Nonspecific T wave abnormality now evident in Lateral leads Confirmed by Franco Shaver ([id number]) on 05/15/2020 11:10:22 AM Referred By: REFERRED SELF Confirmed By:Valentino Shaver
[2020-05-15 11:38] LABS: Influenza A virus by PCR Negative (Negative); Influenza B virus by PCR Negative (Negative); RSV by PCR Negative (Negative)
[2020-05-15 11:38] LABS: D Dimer 1010 ug/L FEU (0-500)
[2020-05-15 11:42] LABS: C Reactive Protein 1.85 mg/dl (0-0.29); Ferritin 190.6 ng/ml (8-388)
[2020-05-15 12:15] LABS: Appearance Urine Clear (Clear); Bacteria Urine Automated 4+ (Negative); Bilirubin Urine Negative (Negative); Blood Urine Negative (Negative); Color Urine Yellow; Epithelial Cell Urine Auto 0-5 /lpf (0-5); Glucose Urine UA Negative (Negative); Ketones Urine Negative (Negative); Leukocyte Esterase Urine 2+ (Negative); Nitrite Urine Negative (Negative); Protein Urine Negative (Negative); RBC Urine Automated 0-4 /hpf (0-4); Specific Gravity Urine 1.011 (1.000-1.030); Urobilinogen Urine Negative (Negative); WBC Urine Automated >30 /hpf (0-5)
--- NOTE | 2020-05-15 12:39 | CT Scan Report ---
CT head/brain wo con CLINICAL HISTORY: fall, confusion COMPARISON STUDY: 12/17/2018 TECHNIQUE: Axial CT of the brain is performed from the vertex to the skull base. IV contrast was not administered for this examination. A dose lowering technique was utilized adhering to the principles of ALARA. CT DOSE: 1220.59 mGy.cm FINDINGS: No intra or extra-axial mass lesions are visualized. There is no CT evidence of acute cortical infarc tion. There is no evidence of midline shift. There is no acute hemorrhage. No calvarial fractures ar e visualized. There are patchy white matter hypodensities likely on a small vessel basis. There is no evidence of pathologic ventricular dilatation. There is an old right cerebellar lacunar i nfarct. There is no evidence of acute sinusitis IMPRESSION: No acute intracranial findings ACT 112: Negative or not required by law. Electronically signed by: Pete Beltrán M.D. 05/15/2020 12:37 PM
--- NOTE | 2020-05-15 12:44 | CT Scan Report ---
CT chest diagnostic wo con CLINICAL HISTORY: Shortness of breath. ABNORMAL CHEST X-RAY COMPARISON STUDY: Chest x-ray dated 05/15/2010 CT DOSE: TECHNIQUE: CT of the thorax was performed from the thoracic inlet to the lung bases. Images are revi ewed in the axial, sagittal, and coronal planes. IV contrast was not administered for this examinatio n. A dose lowering technique was utilized adhering to the principles of ALARA. FINDINGS: Thyroid: Imaged portions of the thyroid gland are normal in appearance. Thoracic aorta: The thoracic aorta is normal in course and caliber, noting standard 3 vessel arch sarath dave. Heart: The heart is enlarged. There are coronary artery calcifications. There is dilatation of the pu lmonary arteries suggesting pulmonary arterial hypertension Lungs and pleural spaces: There are bilateral pleural effusions. There are bilateral groundglass pulm onary opacities. This could represent pulmonary edema or an infectious process. Correlation with Covi d 19 testing is recommended. Mediastinum: There is mediastinal lymphadenopathy, possibly reactive. Ericka: There is mild hilar lymphadenopathy. Axilla: There is no evidence of pathologic axillary lymphadenopathy Upper abdomen: Partially visualized upper abdominal viscera is within normal limits. Skeletal structures: There are advanced arthritic changes present within the left shoulder. There is calcific tendinopathy involving the right shoulder. No destructive lesions are visualized IMPRESSION: 1. Mediastinal and hilar lymphadenopathy 2. Suspected pulmonary arterial hypertension 3. Cardiomegaly, bilateral pleural effusions, and bilateral groundglass pulmonary opacities. The find ings could represent pulmonary edema or an infectious process (viral pneumonia). Clinical and radiogr aphic follow-up recommended ACT 112: Negative or not required by law. Electronically signed by: Pete Beltrán M.D. 05/15/2020 12:43 PM
[2020-05-15] MEDS ORDERED: GLUCOSE 40% GEL 15 GM TUBE PO PRN (14:51)
[2020-05-15] MEDS ORDERED: CARBOHYDRATES FOR HYPOGLYCEMIA PO PRN (14:51)
[2020-05-15] MEDS ORDERED: GLUCOSE 10 TABS/TUBE PO PRN (14:51)
[2020-05-15] MEDS ORDERED: ACETAMINOPHEN 325 MG TAB PO PRN (14:51)
[2020-05-15] MEDS ORDERED: POLYETHYLENE (MIRALAX) 17 GM PACK PO PRN (14:51)
[2020-05-15] MEDS ORDERED: DEXTROSE 50% 50 ML SYRINGE IV PRN (14:51)
[2020-05-15] MEDS ORDERED: GLUCAGON FOR INJ 1 MG VIAL SQ PRN (14:51)
[2020-05-15] MEDS: cefTRIAXone SODIUM 2,000 MG in DEXTROSE 5% 50 ML IV SCH (15:28)
[2020-05-15] MEDS ORDERED: MAGNESIUM OXIDE 400 MG TAB PO ONE (15:30)
[2020-05-15] MEDS: AZITHROMYCIN 500 MG in DEXTROSE 5% 250 ML IV SCH (16:15)
[2020-05-15] MEDS: WARFARIN SOD 5 MG TAB PO SCH (16:18)
[2020-05-15] MEDS: INSULIN ASPART 100 UNITS/ML 3 ML PEN SC SCH ×2 (18:06→21:33)
[2020-05-15] MEDS: GABAPENTIN 100 MG CAP PO SCH (21:10)
[2020-05-15] MEDS: FERROUS SULFATE 325 MG TAB PO SCH (21:10)
[2020-05-15] MEDS: PANTOprazole 40 MG TAB PO SCH (21:10)
[2020-05-16] MEDS: LEVOTHYROXINE SODIUM 125 MCG TABLET PO SCH (05:17)
[2020-05-16 07:28] LABS: Hematocrit (blood only) 28.6 % (37-47); Hemoglobin 8.9 g/dL (12.0-16.0); Mean Corpuscular Hemoglobin 28.5 pg (25-34); Mean Corpuscular Hgb Conc 31.1 g/dL (32-36); Mean Corpuscular Volume 91.7 fL (80-100); Mean Platelet Volume 10.3 fL (7.4-10.4); Platelet Count 270 K/uL (130-400); RDW Coefficient of Variation 18.4 % (11.5-14.5); RDW Standard Deviation 61.5 fL (36.4-46.3); Red Blood Count 3.12 M/uL (4.2-5.4); White Blood Count 9.73 K/uL (4.8-10.8)
[2020-05-16] MEDS: PANTOprazole 40 MG TAB PO SCH ×2 (08:19→20:39)
[2020-05-16] MEDS: ATORVASTATIN 20 MG TAB PO SCH (08:20)
[2020-05-16] MEDS: POTASSIUM CHLORIDE CRTAB 20 MEQ TABCR PO SCH (08:20)
[2020-05-16] MEDS: ASCORBIC ACID 500 MG TAB PO SCH (08:20)
[2020-05-16] MEDS: METOPROLOL SUCC 50MG EXT REL TAB PO SCH (08:20)
[2020-05-16] MEDS: GABAPENTIN 100 MG CAP PO SCH ×2 (08:20→20:39)
[2020-05-16] MEDS: CYANOCOBALAMIN (VITAMIN B-12) 100 MCG TABLET PO SCH (08:20)
[2020-05-16] MEDS: DIGOXIN 0.125 MG TAB PO SCH (08:21)
[2020-05-16] MEDS: FLUTICASONE PROPIONATE NA SPR 16 GM BTL SCH (08:22)
[2020-05-16] MEDS: FLUoxetine HCL 20 MG CAP PO SCH (08:22)
[2020-05-16 08:31] LABS: BUN Creatinine Ratio 35.3 (10-20); Calcium 8.8 mg/dl (8.5-10.1); Creatinine Clr Calc Pharmacy 46.5 ml/min; Est GFR (African American) 50.7; Est GFR (Non-African American) 43.7; Magnesium 1.5 mg/dl (1.8-2.4); Potassium 3.3 mmol/L (3.5-5.1)
[2020-05-16] MEDS: INSULIN ASPART 100 UNITS/ML 3 ML PEN SC SCH ×4 (08:39→20:38)
--- NOTE | 2020-05-16 08:45 | Cardiology Consultation ---
Date of Consultation May 16, 2020 Assessment & Plan (1) Pneumonia: (2) UTI (urinary tract infection): (3) Near syncope: (4) Acute kidney injury: (5) Person under investigation for COVID-19: (6) Hypoxemia: (7) Heart failure due to valvular disease: (8) Severe mitral regurgitation: (9) Moderate mitral stenosis: (10) Severe aortic stenosis: (11) Diastolic CHF due to valvular disease: (12) Atrial fibrillation: (13) Morbid obesity with BMI of 40.0-44.9, adult: (14) Dyslipidemia: (15) Pulmonary hypertension: (16) Status post cardiac catheterization: The patient is a very cardiovascularly complex patient with severe valvular disease, permanent atrial fibrillation and pulmonary hypertension. She has repeatedly declined surgical intervention as an outpatient. I do not believe her presenting symptoms represent a cardiovascular event rather due to pneumonia and possible urinary tract infection. No benefit to repeat echocardiogram at this time Recommend appropriate treatment for her infections and but no changes from a cardiovascular standpoint. Given her complex coronary artery disease I do believe it represents end-stage disease and recommend palliative care consult to discuss goals of care given her full CODE STATUS and overall poor prognosis History of Present Illness Reason for Consultation: near syncope Requesting Physician: Dr. Serna Attending Physician: Leah Serna MD History of Present Illness The patient is a very cardiovascular complex 75-year-old woman who presented to [facility] on 05/15/2020 with complaints of a near syncopal spell. She states that she woke up that morning feeling shaky and fatigued along with a dry cough. She was on the phone with a family member where she became lightheaded and had to sit down. She states that this is similar to previous events when she was suffering from an infection. Upon arrival to the emergency department she was found to be hypoxic and a chest x-ray showed pulmonary airspace opacities suspicious for multifocal pneumonia. Covid was negative. She was admitted to telemetry and treatment was started for pneumonia and possible UTI. Cardiovascular she states that she has been feeling rather well lately. Her dyspnea has not changed and she denies any chest pain or palpitations. Past Medical and Surgical History: 1. 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 2. Atrial fibrillation 3. Mild nonobstructive coronary artery disease by July 24, 2017 diagnostic cardiac catheterization 4. Hypertension 5. Dyslipidemia 6. Type 2 diabetes mellitus with triopathy. 7. Chronic lower extremity lymphedema 8. Right breast cancer status post lumpectomy and radiation therapy 9. Nocturnal hypoxemia 10. Hypothyroidism 11. GERD 12. Anxiety and depression 13. Morbid obesity. 14. Vitamin D deficiency 15. Osteoarthritis of both knees 16. Colonoscopy with adenomatous polypectomy in February 2016 17. Diverticulosis 18. Tonsillectomy as a child 19. Right lower extremity fracture status post surgical intervention Allergies Allergy/AdvReac Type Severity Reaction Status Date / Time cephalexin Allergy Unknown BURNING, Verified 05/15/20 09:24 NAUSEA, AND TROUBLE BREATHING Penicillins Allergy Unknown KIDNEY Verified 05/15/20 09:24 INFECTION, HIVES Sulfa (Sulfonamide Allergy Unknown NAUSEA AND Verified 05/15/20 09:24 Antibiotics) TIRED Home Medications Medication Instructions Recorded Confirmed Type ascorbic acid (vitamin C) 1,000 mg PO DAILY 12/15/18 05/15/20 History atorvastatin 20 mg PO DAILY 12/15/18 05/15/20 History cyanocobalamin (vitamin B-12) 100 mcg PO QAM 12/15/18 05/15/20 History digoxin 62.5 mcg PO MOWEFR 12/15/18 05/15/20 History ferrous sulfate 325 mg PO HS 12/15/18 05/15/20 History fluoxetine 20 mg PO DAILY 12/15/18 05/15/20 History fluticasone propionate 1 spray INTRANASAL DAILY 12/15/18 05/15/20 History gabapentin 100 mg PO BID 12/15/18 05/15/20 History levothyroxine 125 mcg PO QAM 12/15/18 05/15/20 History metformin 1,000 mg PO BID 12/15/18 05/15/20 History metoprolol succinate 50 mg PO DAILY 12/15/18 05/15/20 History pantoprazole 40 mg PO BID 12/15/18 05/15/20 History potassium chloride 20 meq PO DAILY 12/15/18 05/15/20 History warfarin 7.5 mg PO MOFR@1600 12/15/18 05/15/20 History furosemide 80 mg PO DAILY 05/15/20 05/15/20 History warfarin 5 mg PO SUTUWETHSA@1600 05/15/20 05/15/20 History Patient History Medical History Anemia Atrial fibrillation Depression Diabetes mellitus type II, controlled Diabetic neuropathy Diastolic CHF due to valvular disease Diverticular disease of colon "per colonoscopy February 2016" Dyslipidemia History of breast cancer "Right breast" Hypertension Hypothyroidism Ischemic heart disease "nonocclusive CAD [place] [facility] [place] Lymphedema of both lower extremities Mild tricuspid regurgitation Moderate mitral stenosis Morbid obesity with BMI of 40.0-44.9, adult Pulmonary hypertension "PAP 70/33 per cath 07/24/17" Severe aortic stenosis Severe mitral regurgitation Surgical History History of lumpectomy of right breast History of tonsillectomy Status post cardiac catheterization [place] [place] - nonocclusive CAD, pulmonary hypertension" Family History Father Heart failure Mother Heart failure Social History Smoking Status: Never smoker Hx Alcohol Use: No Hx Substance Use: No Preferred Language: South Sudanese Communication Ability: Effective Mobile Battery Technician Required: No Beliefs That Will Affect Care: None marital status: / Current Living Situation: Family Current Living Situation Comment: lives with dtr Other Information That Helps Us Care for You: No Feels Safe at Home: Yes Safety Concerns: Feels Safe At This Time Assistive Devices: Oxygen - Continuous Review of Systems Review of Systems: All systems reviewed & are unremarkable except as noted in HPI & below Physical Exam Physical Exam: General: Awake, alert and oriented x 3. No acute distress. HEENT: Normocephalic, atraumatic. Pupils equal, round and reactive to light and accommodation. Extraocular muscles are intact. Anicteric sclera. Moist mucous membranes. Neck: No JVD. No bruit. Cardiovascular: Regular. Positive S-4. Normal S-1 and S-2. No S-3. 3/6 mid to late systolic ejection murmur, greatest at the right sternal border, second intercostal space with radiation to the bilateral carotids. No rubs. Pulmonary: Clear to auscultation bilaterally. No rales, rhonchi, or wheezing. Abdomen: Bowel sounds x 4, soft. No rebound, guarding or tenderness. No organomegaly. Extremities: No clubbing, cyanosis or edema. +2 pedal pulses bilaterally. Skin: Warm and dry. Results & Data ([facility]) Vital Signs (Past 12 Hours) Vital Signs Temp Pulse Pulse Resp BP Pulse Ox 05/16/20 08:21 75 05/16/20 07:28 36.3 C L 85 20 91/48 L 97 05/16/20 04:00 36.7 C 83 20 101/69 94 05/16/20 00:04 82 05/15/20 22:45 36.7 C 95 H 18 116/61 94 (1) Pneumonia Laterality: bilateral Lung location: unspecified part of lung Pneumonia type: due to unspecified organism Qualified Code(s): J18.9 - Pneumonia, unspecified organism
[2020-05-16] MEDS: MAGNESIUM SULFATE / D5W 1 GM/100 ML BAG IV SCH ×2 (13:36→13:39)
--- NOTE | 2020-05-16 13:53 | Pulmonary Consultation ---
Date of Consultation May 16, 2020 Assessment & Plan (1) Person under investigation for COVID-19: Impression: This is a 75-year-old female that had an episode of near syncope at home. She had no fall or injury from that other than skin tears to her left forearm. She was tested for Covid with ID now which was negative on arrival at the hospital. She does have a history of CAD and CHF and is receiving furosemide 80 mg p.o. daily at home. proBNP was elevated at 5500. Patient also has new onset bilateral pleural effusions. Patient also has atrial fibrillation with chronic anticoagulation with Coumadin. Please refer to history of present illness for further past medical history. Recommendations: 1. PUI for COVID-19: Patient had negative ID now Covid test. She denies any proximity or contact with Covid positive people. She does not come from a long term. She lives at home with her daughter and grandson. Imaging supports concern for viral pneumonia with multifocal opacifications. Would not treat for Covid at this time inasmuch as she had a negative test. Continue supportive care. Titrate supplemental oxygen off as tolerated. 2. Bilateral pleural effusions: Patient appears to be in congestive heart failure with proBNP being elevated and physical findings. We will continue to monitor clinically. Diurese as tolerated. No indication for intervention at this time 3. Congestive heart failure: Cardiology consulted. Patient had elevated BNP on admission. She is prescribed 80 mg of furosemide as an outpatient. We will continue to diurese as tolerated. 4. Hypoxemia: Pleural effusions are not large enough to cause this level of hypoxia. She does have multifocal pneumonia consistent with viral etiology. Covid testing was negative. No outside Covid contacts. Does not live in a long term. Does not live in a half-way. Has not had any contact with Covid positive patients per patient report. We will continue to diurese and titrate supplemental oxygen as tolerated. No prior history of tobacco abuse. No prior pulmonary disease. 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 Continue to monitor. Thank you very much for including us in the care of this patient. We will sign off at this time. Please reconsult as needed. (2) Hypoxemia: (3) CHF (congestive heart failure): Heart failure chronicity: acute on chronic Heart failure type: unspecified Qualified Code(s): I50.9 - Heart failure, unspecified (4) Severe aortic stenosis: (5) Moderate mitral stenosis: (6) Hypothyroidism: (7) Diabetes mellitus type II, controlled: (8) Diabetic neuropathy: (9) Atrial fibrillation: (10) Hypertension: (11) History of breast cancer: (12) Anemia: Supervising Physician Co-Signing Physician Notes Patient seen and examined. Discussed with critical care [place]. Images were independently reviewed. Agree that the CT findings appear consistent with fluid overload especially in light of the patient's elevated BNP level. With a negative Covid test do not think this diagnosis needs to be pursued further. Suspect her severe mitral regurgitation and severe aortic stenosis are likely contributing. Her valvular heart disease makes it a difficult situation. Diuresis may be beneficial. We will sign off. Please contact us if we can be of additional assistance History of Present Illness Attending Physician: Leah Serna MD History of Present Illness Attending: Dr. Stinson This is a 75-year-old female with a past medical history of atrial fibrillation on chronic anticoagulation with Coumadin, congestive heart failure, CAD with STEMI 2018, diabetic neuropathy, diabetes mellitus type II on Metformin at home with no insulin use, hypothyroidism, GERD, chronic hy pokalemia. The patient states that she was in her normal state of health when she began to get dizzy using her walker and started to fall backward. She scraped her arm on the door but never completely felt. She states that she never lost consciousness. Patient has a cardiac history of congestive heart failure with valvular disease as well. She has severe aortic stenosis and moderate to severe mitral regurgitation. Most recent echocardiogram is from December 2018. On presentation emergency department she was initially hypoxic 84%. She was given nasal cannula and improved to 91%. Covid testing was negative with the ID now test. She was also negative for influenza AMB and RSV. INR was therapeutic at 2.6 on admission. WBC was 13.46 and procalcitonin was negative. Patient denies any contact with Covid positive relatives or friends. She lives at home with her daughter and grandson. Patient denies fever, chills, sweats, rigors. She has no diarrhea. She has no chest pain at this time. She denies any nausea or vomiting. She denies shortness of breath but is currently on a nasal cannula at 3 L/min. She has no other acute complaints at this time. Patient denies any tobacco abuse history. 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 She is unsure if there was rosin core or acid core solder but did have inspirational fumes. She has no other occupational or vocational exposure. Allergies Allergy/AdvReac Type Severity Reaction Status Date / Time cephalexin Allergy Unknown BURNING, Verified 05/15/20 09:24 NAUSEA, AND TROUBLE BREATHING Penicillins Allergy Unknown KIDNEY Verified 05/15/20 09:24 INFECTION, HIVES Sulfa (Sulfonamide Allergy Unknown NAUSEA AND Verified 05/15/20 09:24 Antibiotics) TIRED Home Medications Medication Instructions Recorded Confirmed Type ascorbic acid (vitamin C) 1,000 mg PO DAILY 12/15/18 05/15/20 History atorvastatin 20 mg PO DAILY 12/15/18 05/15/20 History cyanocobalamin (vitamin B-12) 100 mcg PO QAM 12/15/18 05/15/20 History digoxin 62.5 mcg PO MOWEFR 12/15/18 05/15/20 History ferrous sulfate 325 mg PO HS 12/15/18 05/15/20 History fluoxetine 20 mg PO DAILY 12/15/18 05/15/20 History fluticasone propionate 1 spray INTRANASAL DAILY 12/15/18 05/15/20 History gabapentin 100 mg PO BID 12/15/18 05/15/20 History levothyroxine 125 mcg PO QAM 12/15/18 05/15/20 History metformin 1,000 mg PO BID 12/15/18 05/15/20 History metoprolol succinate 50 mg PO DAILY 12/15/18 05/15/20 History pantoprazole 40 mg PO BID 12/15/18 05/15/20 History potassium chloride 20 meq PO DAILY 12/15/18 05/15/20 History warfarin 7.5 mg PO MOFR@1600 12/15/18 05/15/20 History furosemide 80 mg PO DAILY 05/15/20 05/15/20 History warfarin 5 mg PO SUTUWETHSA@1600 05/15/20 05/15/20 History Patient History Medical History Anemia Atrial fibrillation Depression Diabetes mellitus type II, controlled Diabetic neuropathy Diastolic CHF due to valvular disease Diverticular disease of colon "per colonoscopy February 2016" Dyslipidemia History of breast cancer "Right breast" Hypertension Hypothyroidism Ischemic heart disease "nonocclusive CAD [place] [facility] [place] Lymphedema of both lower extremities Mild tricuspid regurgitation Moderate mitral stenosis Morbid obesity with BMI of 40.0-44.9, adult Pulmonary hypertension "PAP 70/33 per cath 07/24/17" Severe aortic stenosis Severe mitral regurgitation Surgical History History of lumpectomy of right breast History of tonsillectomy Status post cardiac catheterization [place] [place] nonocclusive CAD, pulmonary hypertension" Family History Father Heart failure Mother Heart failure Social History Smoking Status: Never smoker Hx Alcohol Use: No Hx Substance Use: No Preferred Language: Algerian Communication Ability: Effective Residential Electrician Required: No Beliefs That Will Affect Care: None marital status: / Current Living Situation: Family Current Living Situation Comment: lives with dtr Other Information That Helps Us Care for You: No Feels Safe at Home: Yes Safety Concerns: Feels Safe At This Time Assistive Devices: Walker Review of Systems Review of Systems: All systems reviewed & are unremarkable except as noted in HPI & below Physical Exam Physical Exam: GENERAL : No acute distress EYES: No icterus, gaze conjugate NOSE: No evidence of epistaxis MOUTH: No lesions or candidiasis NECK: Supple LUNGS: Coarse rales at the bilateral bases. No bronchospasm. No rhonchi. Good inspirational effort. No cough induced with deep breathing. HEART: Irregular, irregular, rate controlled ABDOMEN: Soft, NT, ND, BS Present EXTREMITIES: No LE edema, pedal pulses intact NEURO: A&OX3 Results & Data Results & Data ([facility]) Vital Signs (Past 12 Hours) Vital Signs Temp Pulse Pulse Resp BP Pulse Ox 05/16/20 12:14 36.4 C L 81 20 90/53 L 100 05/16/20 08:21 75 05/16/20 07:28 36.3 C L 85 20 91/48 L 97 05/16/20 04:00 36.7 C 83 20 101/69 94 Laboratory Results 05/16/20 06:22 05/16/20 06:[address] chest diagnostic wo con CLINICAL HISTORY: Shortness of breath. ABNORMAL CHEST X-RAY COMPARISON STUDY: Chest x-ray dated 05/15/2010 CT DOSE: TECHNIQUE: CT of the thorax was performed from the thoracic inlet to the lung bases. Images are reviewed in the axial, sagittal, and coronal planes. IV contrast was not administered for this examination. A dose lowering technique was utilized adhering to the principles of ALARA. FINDINGS: Thyroid: Imaged portions of the thyroid gland are normal in appearance. Thoracic aorta: The thoracic aorta is normal in course and caliber, noting standard 3 vessel arch anatomy. Heart: The heart is enlarged. There are coronary artery calcifications. There is dilatation of the pulmonary arteries suggesting pulmonary arterial hypertension Lungs and pleural spaces: There are bilateral pleural effusions. There are b ilateral groundglass pulmonary opacities. This could represent pulmonary edema or an infectious process. Correlation with Covid 19 testing is recommended. Mediastinum: There is mediastinal lymphadenopathy, possibly reactive. Ericka: There is mild hilar lymphadenopathy. Axilla: There is no evidence of pathologic axillary lymphadenopathy Upper abdomen: Partially visualized upper abdominal viscera is within normal limits. Skeletal structures: There are advanced arthritic changes present within the left shoulder. There is calcific tendinopathy involving the right shoulder. No destructive lesions are visualized IMPRESSION: 1. Mediastinal and hilar lymphadenopathy 2. Suspected pulmonary arterial hypertension 3. Cardiomegaly, bilateral pleural effusions, and bilateral groundglass pulmonary opacities. The findings could represent pulmonary edema or an infectious process (viral pneumonia). Clinical and radiographic follow-up recommended Electronically signed by: Pete Beltrán M.D. 05/15/2020 12:43 PM PG Care Time/CCT Total # of Minutes Spent Total Time Spent with Patient: Total time spent is greater than 50% in coordination of care (as documented) at patient's floor/unit and/or counseling patient: 45 minutes Coding Level of Care Code 81087 Inpt Consult Level 3 Diagnoses Person under investigation for COVID-19 Z20.822 Hypoxemia R09.02 CHF (congestive heart failure) I50.9 Heart failure chronicity: acute on chronic Heart failure type: unspecified Severe aortic stenosis I35.0 Moderate mitral stenosis I05.0 Hypothyroidism E03.9 Diabetes mellitus type II, controlled E11.9 Diabetic neuropathy E11.40 Atrial fibrillation I48.91 Hypertension I10 History of breast cancer Z85.3 Anemia D64.9 Time Spent (min) 40
[2020-05-16] MEDS: AZITHROMYCIN 500 MG in DEXTROSE 5% 250 ML IV SCH (15:58)
[2020-05-16] MEDS ORDERED: WARFARIN SOD 7.5 MG TAB PO SCH (16:00)
[2020-05-16] MEDS: cefTRIAXone SODIUM 2,000 MG in DEXTROSE 5% 50 ML IV SCH (18:13)
[2020-05-16] MEDS: FERROUS SULFATE 325 MG TAB PO SCH (20:39)
--- NOTE | 2020-05-16 21:46 | Hospitalist Progress Note ---
Date of Service May 16, 2020 Assessment & Plan (1) Near syncope: Syncope possibly secondary to intravascular volume depletion Possible secondary to dehydration-acute illness with poor p.o. intake /patient was on Lasix 80 mg mg daily -with extra dose taken intermittently for volume overload. with underlying severe valvular heart disease, Lasix kept on hold Pressures been stable, no tachyarrhythmia noted on telemetry remains in rate controlled A. fib No recurrence of symptoms (2) Acute respiratory failure with hypoxia: Possible secondary to compensated CHF with diastolic dysfunction, severe valvular heart disease small bronchitis?, Covid tested negative Was treated empirically with IV Rocephin, Zithromax Respiratory status improved, intermittently requiring 2 L oxygen via nasal cannula, not on home O2 Will need to 2 step exercise prior to discharge (3) Person under investigation for COVID-19: CXR with cardiomegaly and bilateral pulmonary airspace opacities suspicious for multifocal pneumonia. Mild leukocytosis of 13.46, hgb 9.5 (@ baseline), lactic acid 2.6, procal wnl, d-dimer 1,010, CRP 1.85, ferritin wnl INR 2.6 so low concern for PE. CT chest: 1. Mediastinal and hilar lymphadenopathy 2. Suspected pulmonary arterial hypertension 3. Cardiomegaly, bilateral pleural effusions, and bilateral groundglass pulmonary opacities. The findings could represent pulmonary edema or an infectious process (viral pneumonia). Clinical and radiographic follow-up recommended Initial covid screen negative. Flu A/B and RSV negative Appreciate input from pulmonology, Given lack of positive test, patient's gradual improvement with supportive care antibiotic, does not believe patient has underlying COVID-19 pneumonia. Will DC isolation, Continue empiric antibiotic for possible bronchitis as outlined above (4) Heart failure due to valvular disease: (5) Acute kidney injury: Due to diuresis: Lasix kept on hold, no IV fluids ordered secondary to severe valvular heart disease combined aortic and mitral stenosis secondary to rheumatic heart disease, chest x-ray shows pulmonary congestion creatinine improved to gradual baseline (6) Diabetes mellitus type II, controlled: Insulin sliding scale (7) Hypothyroidism: (8) Hypertension: (9) Anemia: (10) Depression: (11) Dyslipidemia: (12) Lymphedema of both lower extremities: Acute respiratory failure with hypoxia PUI for Covid 19 Multifocal pneumonia on CXR Acute metabolic encephalopathy In setting of UTI, possible pna, hypoxia Resolved, mental status back to baseline, CT head shows no acute finding UTI: Increased urinary frequency per daughter UA abnormal, urine cx pending. Blood cx pending Empiric Rocephin Chronic diastolic heart failure Severe aortic stenosis Severe mitral regurgitation Has significant valvular disease secondary to rheumatic fever and has declined surgical intervention in the past BNP elevated at 5,275, no evidence of volume overload on CXR. CT chest pending Patient taking 80mg Lasix daily. Daughter has been giving additional 80mg 2x/week for past 2 months 6 kept on hold secondary to dehydration acute renal failure. Acute kidney injury Cr elevated at 1.29 (baseline ~1) in setting of increased diuretics. Following with [employer] Creatinine gradually improved after holding diuretics Chronic Atrial fibrillation Rate controlled. Continue metoprolol and low-dose digoxin as prescribed. Continue Coumadin anticoagulation History of NSTEMI In 2018. Cardiac catheterization with nonocclusive coronary disease. 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 Monitor with daily CBC DVT Ppx: Coumadin Code status: FULL PCP: Adrian Dispo: PT OT eval requested expected to be discharged home when medically stable Admission and Anticipated Discharge Date Admission Date: May 15, 2020 Subjective Follow-up visit for syncope/acute hypoxemic respiratory failure: Resolved, CHF with severe valvular disease: Patient doing well, still requiring 2 L oxygen via nasal cannula: Not on home O2 Denies of any cough no shortness of breath, remains in rate controlled A. fib No fever or chills, no chest pain no dyspnea on exertion Review of Systems Review of Systems: All systems reviewed & are unremarkable except as noted in HPI & below Constitutional: + fatigue; no fever and no chills Respiratory: no cough, no dyspnea and no dyspnea on exertion Cardiovascular: no chest pain, no palpitations and no lightheadedness Physical Exam Constitutional: WD/WN, vitals as above + ill appearing Eyes: PERRL, conjunctivae normal, anicteric sclerae ENMT: external ear and nose normal, oropharynx normal Neck: trachea midline, no thyromegaly Respiratory: normal respiratory effort Auscultation: + diminished lung sounds; no crackles, no rales and no wheezes Cardiovascular: RRR, no murmur, no edema Heart Sounds: no cardiac rub Gastrointestinal (Abdomen): normal bowel sounds, soft, nontender, no hepatosplenomegaly Percussion/Palpation: abdomen soft Skin: no rashes, warm and dry Neurologic: PERRL, EOMI, accommodation nl, no face palsy, no dysarthria Psychiatric: A+Ox3, euthymic affect Results & Data Results & Data ([facility]) Vital Signs (Past 12 Hours) Vital Signs Temp Pulse Pulse Resp BP BP Pulse Ox 05/16/20 18:24 36.3 C L 76 18 116/79 97 05/16/20 16:00 72 05/16/20 15:30 36.3 C L 76 18 128/74 100 05/16/20 12:14 36.4 C L 81 20 90/53 L 100
[2020-05-17] MEDS: LEVOTHYROXINE SODIUM 125 MCG TABLET PO SCH (05:54)
[2020-05-17 06:34] LABS: Hematocrit (blood only) 27.5 % (37-47); Hemoglobin 8.8 g/dL (12.0-16.0); Mean Corpuscular Hemoglobin 29.3 pg (25-34); Mean Corpuscular Volume 91.7 fL (80-100); Mean Platelet Volume 9.3 fL (7.4-10.4); Platelet Count 245 K/uL (130-400); RDW Standard Deviation 60.7 fL (36.4-46.3); White Blood Count 9.72 K/uL (4.8-10.8)
[2020-05-17 07:14] LABS: BUN Creatinine Ratio 31.9 (10-20); Calcium 8.6 mg/dl (8.5-10.1); Creatinine Clr Calc Pharmacy 54.2 ml/min; Est GFR (African American) 60.9; Est GFR (Non-African American) 52.5; Potassium 3.7 mmol/L (3.5-5.1)
[2020-05-17] MEDS: PANTOprazole 40 MG TAB PO SCH ×2 (08:13→20:03)
[2020-05-17] MEDS: ASCORBIC ACID 500 MG TAB PO SCH (08:13)
[2020-05-17] MEDS: FLUTICASONE PROPIONATE NA SPR 16 GM BTL SCH (08:13)
[2020-05-17] MEDS: METOPROLOL SUCC 50MG EXT REL TAB PO SCH (08:13)
[2020-05-17] MEDS: GABAPENTIN 100 MG CAP PO SCH ×2 (08:13→20:04)
[2020-05-17] MEDS: CYANOCOBALAMIN (VITAMIN B-12) 100 MCG TABLET PO SCH (08:13)
[2020-05-17] MEDS: ATORVASTATIN 20 MG TAB PO SCH (08:14)
[2020-05-17] MEDS: POTASSIUM CHLORIDE CRTAB 20 MEQ TABCR PO SCH (08:14)
[2020-05-17] MEDS: FLUoxetine HCL 20 MG CAP PO SCH (08:14)
[2020-05-17] MEDS: INSULIN ASPART 100 UNITS/ML 3 ML PEN SC SCH ×4 (08:34→20:32)
--- NOTE | 2020-05-17 10:11 | Palliative Care Consultation ---
Date of Consultation May 17, 2020 Assessment & Plan (1) Fatigue: With multiple comorbidities. Discussed that this is to be expected in her situation and unfortunately, rehab potential is limited. She is able to manage at home and lives with her daughter and her family. Her daughter has been her primary caregiver. (2) Palliative care encounter: I spoke with Mrs. Denney at bedside and also with her daughter Kimberly, by phone. Kimberly has a good understanding of her mother's complex medical situation and has noticed a functional decline. Mrs. Denney is also aware of her multiple medical problems and has said that she would not want aggressive measures to prolong her life. Her greatest source of enjoyment and comfort is being with her family. Her hope is to be able to stay at home with her daughter until her dying time. We discussed the discrepancy between her code status and her wish to be at home with her family. On further discussion, she does not want to have CPR or intubation in the event of cardiopulmonary arrest but would want to continue noninvasive interventions and current medications to optimize her function and quality of life. Her daughter supports this decision. Code status changed accordingly. History of Present Illness Reason for Consultation: goals of care Requesting Physician: Dr. Beth Attending Physician: Leah Serna MD History of Present Illness 75 yo lady with h/o diastolic CHF and severe aortic stenosis who was admitted with near syncope and hypoxia. She has b/l pleural effusions and b/l infiltrate and is being treated with diuresis and dual antibiotic therapy. She ambulates at home with a walker and her daughter reports that she has been weak and unsteady on her feet and has had problems with confusion and managing her medications. She lives with her daughter who helps with her care. She has declined surgical intervention for her valvular heart disease and we have been consulted to assist with goals of care discussion. Allergies Allergy/AdvReac Type Severity Reaction Status Date / Time cephalexin Allergy Unknown BURNING, Verified 05/15/20 09:24 NAUSEA, AND TROUBLE BREATHING Penicillins Allergy Unknown KIDNEY Verified 05/15/20 09:24 INFECTION, HIVES Sulfa (Sulfonamide Allergy Unknown NAUSEA AND Verified 05/15/20 09:24 Antibiotics) TIRED Home Medications Medication Instructions Recorded Confirmed Type ascorbic acid (vitamin C) 1,000 mg PO DAILY 12/15/18 05/15/20 History atorvastatin 20 mg PO DAILY 12/15/18 05/15/20 History cyanocobalamin (vitamin B-12) 100 mcg PO QAM 12/15/18 05/15/20 History digoxin 62.5 mcg PO MOWEFR 12/15/18 05/15/20 History ferrous sulfate 325 mg PO HS 12/15/18 05/15/20 History fluoxetine 20 mg PO DAILY 12/15/18 05/15/20 History fluticasone propionate 1 spray INTRANASAL DAILY 12/15/18 05/15/20 History gabapentin 100 mg PO BID 12/15/18 05/15/20 History levothyroxine 125 mcg PO QAM 12/15/18 05/15/20 History metformin 1,000 mg PO BID 12/15/18 05/15/20 History metoprolol succinate 50 mg PO DAILY 12/15/18 05/15/20 History pantoprazole 40 mg PO BID 12/15/18 05/15/20 History potassium chloride 20 meq PO DAILY 12/15/18 05/15/20 History warfarin 7.5 mg PO MOFR@1600 12/15/18 05/15/20 History furosemide 80 mg PO DAILY 05/15/20 05/15/20 History warfarin 5 mg PO SUTUWETHSA@1600 05/15/20 05/15/20 History Patient History Medical History (Updated 05/17/20 @ 15:14 by Yuly Cha MD) Anemia Atrial fibrillation Depression Diabetes mellitus type II, controlled Diabetic neuropathy Diastolic CHF due to valvular disease Diverticular disease of colon "per colonoscopy February 2016" Dyslipidemia History of breast cancer "Right breast" Hypertension Hypothyroidism Ischemic heart disease "nonocclusive CAD per cath [facility] [place] 07/24/17" Lymphedema of both lower extremities Mild tricuspid regurgitation Moderate mitral stenosis Morbid obesity with BMI of 40.0-44.9, adult Pulmonary hypertension "PAP 70/33 per cath 07/24/17" Severe aortic stenosis Severe mitral regurgitation Surgical History History of lumpectomy of right breast History of tonsillectomy Status post cardiac catheterization "[facility] [place] 07/24/17 - nonocclusive CAD, pulmonary hypertension" Family History Father Heart failure Mother Heart failure Social History Smoking Status: Never smoker Hx Alcohol Use: No Hx Substance Use: No Preferred Language: Citizen Of [place] Communication Ability: Effective Assistant Financial Accountant Required: No Beliefs That Will Affect Care: None marital status: / Current Living Situation: Family Current Living Situation Comment: lives with dtr Other Information That Helps Us Care for You: No Feels Safe at Home: Yes Safety Concerns: Feels Safe At This Time Assistive Devices: Oxygen - Continuous Review of Systems Review of Systems: [place] Symptom Assessment Scale Pain 0/3 Dyspnea 1/3 Nausea 0/3 Fatigue 1/3 Drowsiness 0/3 Palliative Performance Score 50% Physical Exam Constitutional: + frail appearing Respiratory: normal respiratory effort; no labored breathing Cardiovascular: Extremities: + edema Gastrointestinal (Abdomen): Inspection/Auscultation: abdomen not distended Musculoskeletal: Extremities: + muscle atrophy Skin: warm and dry Psychiatric: Orientation: alert and oriented x 3 Results & Data ([facility]) Vital Signs (Past 12 Hours) Vital Signs Temp Pulse Resp BP Pulse Ox 05/17/20 06:06 97.7 F 99 H 20 101/59 L 93 05/17/20 03:00 97.9 F 75 20 123/80 94 05/16/20 23:45 97.9 F 81 20 101/74 94 PG Care Time/CCT Total # of Minutes Spent Total Time Spent with Patient: Total time spent is greater than 50% in coordination of care (as documented) at patient's floor/unit and/or counseling patient: Total times spent is 70 minutes with more than 50% of time spent on discussing goals of care, patient and family education. Coding Level of Care Code 18424 Inpt Consult Level 4 Diagnoses Fatigue R53.83 Palliative care encounter Z51.5
--- NOTE | 2020-05-17 12:52 | Cardiology Progress Note ---
Date of Service May 17, 2020 Assessment & Plan (1) Pneumonia: (2) UTI (urinary tract infection): (3) Near syncope: (4) Acute kidney injury: (5) Person under investigation for COVID-19: (6) Hypoxemia: (7) Heart failure due to valvular disease: (8) Severe mitral regurgitation: (9) Moderate mitral stenosis: (10) Severe aortic stenosis: (11) Diastolic CHF due to valvular disease: (12) Atrial fibrillation: (13) Morbid obesity with BMI of 40.0-44.9, adult: (14) Dyslipidemia: (15) Pulmonary hypertension: (16) Status post cardiac catheterization: The patient is a very cardiovascularly complex patient with severe valvular disease, permanent atrial fibrillation and pulmonary hypertension. She has repeatedly declined surgical intervention as an outpatient. I do not believe her presenting symptoms represent a cardiovascular event rather due to pneumonia and possible urinary tract infection. No benefit to repeat echocardiogram at this time Recommend appropriate treatment for her infections and but no changes from a cardiovascular standpoint. Okay to DC to home from a cardiac standpoint. Appreciate input from our palliative care colleagues. Admission and Anticipated Discharge Date Admission Date: May 15, 2020 Subjective Spoke with the patient by phone, chart reviewed. States that she is feeling much better today and back to baseline. Is anxious for discharge. States that breathing is at baseline and denies chest pain or palpitations. Telemetry reviewed: Atrial fibrillation rate controlled Review of Systems Review of Systems: All systems reviewed & are unremarkable except as noted in HPI & below Results & Data ([facility]) Vital Signs (Past 12 Hours) Vital Signs Temp Pulse Resp BP Pulse Ox 05/17/20 12:16 36.7 C 70 18 114/78 96 05/17/20 06:06 36.5 C 99 H 20 101/59 L 93 05/17/20 03:00 36.6 C 75 20 123/80 94 (1) Pneumonia Laterality: bilateral Lung location: unspecified part of lung Pneumonia type: due to unspecified organism Qualified Code(s): J18.9 - Pneumonia, unspecified organism
[2020-05-17] MEDS: cefTRIAXone SODIUM 2,000 MG in DEXTROSE 5% 50 ML IV SCH (14:47)
--- NOTE | 2020-05-17 15:36 | Communication Note ---
Date of Service: May 17, 2020 UTI: Wound culture growing Klebsiella, sensitive to Rocephin, ciprofloxacin DC IV Rocephin and Zithromax, Patient to p.o. Keflex for 7 days which will cover both urinary tract infection and bronchitis. Pharmacy is updated to change antibiotics. Will DC airborne and droplet isolation. Leah Serna MD
[2020-05-17] MEDS: WARFARIN SOD 5 MG TAB PO SCH (15:44)
--- NOTE | 2020-05-17 17:38 | Hospitalist Progress Note ---
Date of Service May 17, 2020 Assessment & Plan (1) Near syncope: Syncope possibly secondary to intravascular volume depletion Possible secondary to dehydration-acute illness with poor p.o. intake /patient was on Lasix 80 mg mg daily -with extra dose taken intermittently for volume overload. with underlying severe valvular heart disease, Lasix kept on hold Pressures been stable, no tachyarrhythmia noted on telemetry remains in rate controlled A. fib No recurrence of symptoms (2) Acute respiratory failure with hypoxia: Possible secondary to compensated CHF with diastolic dysfunction, severe valvular heart disease small bronchitis?, Covid tested negative Was treated empirically with IV Rocephin, Zithromax-change of antibiotic as documented earlier. Respiratory status improved, intermittently requiring 2 L oxygen via nasal cannula, not on home O2 Patient had two-step exercise: Shows adequate oxygenation at rest, Significant desaturation less than 80% noted with ambulation, improved with 2 L oxygen via nasal cannula Prescription for home oxygen 2 L on ambulation will be given to case management Significant deconditioning noted while ambulation, as per physical therapy note, patient lives at home with her daughter, PT recommends can return home with 24- hour care, will benefit with home PT home health (3) Person under investigation for COVID-19: CXR with cardiomegaly and bilateral pulmonary airspace opacities suspicious for multifocal pneumonia. Mild leukocytosis of 13.46, hgb 9.5 (@ baseline), lactic acid 2.6, procal wnl, d-dimer 1,010, CRP 1.85, ferritin wnl INR 2.6 so low concern for PE. CT chest: 1. Mediastinal and hilar lymphadenopathy 2. Suspected pulmonary arterial hypertension 3. Cardiomegaly, bilateral pleural effusions, and bilateral groundglass pulmonary opacities. The findings could represent pulmonary edema or an infectious process (viral pneumonia). Clinical and radiographic follow-up recommended Initial covid screen negative. Flu A/B and RSV negative Appreciate input from pulmonology, Given lack of positive test, patient's gradual improvement with supportive care antibiotic, does not believe patient has underlying COVID-19 pneumonia. Will DC isolation, Continue empiric antibiotic for possible bronchitis as outlined above Pulmonology evaluation, adjustment of inhaler as discussed in prior note (4) Heart failure due to valvular disease: (5) Acute kidney injury: Resolved creatinine back to baseline (6) Diabetes mellitus type II, controlled: Insulin sliding scale (7) Hypothyroidism: (8) Hypertension: (9) Anemia: (10) Depression: (11) Dyslipidemia: (12) Lymphedema of both lower extremities: Acute respiratory failure with hypoxia PUI for Covid 19 Multifocal pneumonia on CXR Acute metabolic encephalopathy In setting of UTI, possible pna, hypoxia Resolved, mental status back to baseline, CT head shows no acute finding UTI: Urine culture Klebsiella antibiotic changed to p.o. ciprofloxacin Chronic diastolic heart failure Severe aortic stenosis Severe mitral regurgitation Has significant valvular disease secondary to rheumatic fever and has declined surgical intervention in the past BNP elevated at 5,275, no evidence of volume overload on CXR. CT chest pending Continue p.o. Lasix as an outpatient dose Acute kidney injury Cr elevated at 1.29 (baseline ~1) in setting of increased diuretics. Following with [facility] Creatinine gradually improved after holding diuretics Chronic Atrial fibrillation Rate controlled. Continue metoprolol and low-dose digoxin as prescribed. Continue Coumadin anticoagulation History of NSTEMI In 2018. Cardiac catheterization with nonocclusive coronary disease. 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 Monitor with daily CBC DVT Ppx: Coumadin Code status: FULL PCP: Adrian Dispo: Plan to discharge patient home tomorrow, Lives with daughter, asked case management to make referral for home health home PT We will try to update patient's daughter over phone Admission and Anticipated Discharge Date Admission Date: May 15, 2020 Subjective Follow-up visit for syncope/acute hypoxemic respiratory failure: Resolved, CHF with severe valvular disease: Denies of any cough no shortness of breath, remains in rate controlled A. fib No fever or chills, no chest pain no dyspnea on exertion Physical Exam Constitutional: WD/WN, vitals as above + ill appearing Eyes: PERRL, conjunctivae normal, anicteric sclerae ENMT: external ear and nose normal, oropharynx normal Neck: trachea midline, no thyromegaly Respiratory: normal respiratory effort Auscultation: + diminished lung sounds; no crackles, no rales and no wheezes Cardiovascular: RRR, no murmur, no edema Heart Sounds: no cardiac rub Gastrointestinal (Abdomen): normal bowel sounds, soft, nontender, no hepatosplenomegaly Percussion/Palpation: abdomen soft Skin: no rashes, warm and dry Neurologic: PERRL, EOMI, accommodation nl, no face palsy, no dysarthria Psychiatric: A+Ox3, euthymic affect Results & Data Results & Data ([facility]) Vital Signs (Past 12 Hours) Vital Signs Temp Pulse Resp BP Pulse Ox 05/17/20 15:08 36.8 C 76 18 117/75 96 05/17/20 12:16 36.7 C 70 18 114/78 96 05/17/20 06:06 36.5 C 99 H 20 101/59 L 93
--- NOTE | 2020-05-17 17:48 | Communication Note ---
Date of Service: May 17, 2020 Spoke with patient's daughter Kimberly Denney phone number [phone]. Daughter will be able to come late afternoon tomorrow to brain picker her mother. Letter once prescription for oxygen should be sent to [facility] patient Daughter is agreeable for home health nursing./ home physical therapy Prescription for home oxygen will be given to patient case manager in the morning, patient needs 2 L oxygen via nasal cannula with ambulation will need a portable tank delivered to patient's room prior to discharge. Leah Serna MD
[2020-05-17] MEDS: DOXYCYCLINE HYCLATE 100 MG CAP PO SCH (20:01)
[2020-05-17] MEDS: CIPROFLOXACIN 500 MG TAB PO SCH (20:01)
[2020-05-17] MEDS: FERROUS SULFATE 325 MG TAB PO SCH (20:04)
[2020-05-18] MEDS: LEVOTHYROXINE SODIUM 125 MCG TABLET PO SCH (05:57)
[2020-05-18 06:46] LABS: INR 2.3 (0.9-1.1); Prothrombin Time 22.8 Seconds (9.0-12.0)
[2020-05-18] MEDS: DIGOXIN 0.125 MG TAB PO SCH (07:36)
[2020-05-18] MEDS: FLUTICASONE PROPIONATE NA SPR 16 GM BTL SCH (07:36)
[2020-05-18] MEDS: CYANOCOBALAMIN (VITAMIN B-12) 100 MCG TABLET PO SCH (07:38)
[2020-05-18] MEDS: POTASSIUM CHLORIDE CRTAB 20 MEQ TABCR PO SCH (07:38)
[2020-05-18] MEDS: DOXYCYCLINE HYCLATE 100 MG CAP PO SCH (07:38)
[2020-05-18] MEDS: FLUoxetine HCL 20 MG CAP PO SCH (07:38)
[2020-05-18] MEDS: ATORVASTATIN 20 MG TAB PO SCH (07:38)
[2020-05-18] MEDS: METOPROLOL SUCC 50MG EXT REL TAB PO SCH (07:38)
[2020-05-18] MEDS: PANTOprazole 40 MG TAB PO SCH (07:38)
[2020-05-18] MEDS: ASCORBIC ACID 500 MG TAB PO SCH (07:38)
[2020-05-18] MEDS: CIPROFLOXACIN 500 MG TAB PO SCH (07:39)
[2020-05-18] MEDS: GABAPENTIN 100 MG CAP PO SCH (07:39)
[2020-05-18] MEDS: INSULIN ASPART 100 UNITS/ML 3 ML PEN SC SCH ×2 (07:58→11:56)
[2020-05-18] MEDS ORDERED: FUROSEMIDE 80 MG TAB PO SCH (09:00)
--- NOTE | 2020-05-18 12:24 | Hospitalist Progress Note ---
Date of Service May 18, 2020 Assessment & Plan (1) Near syncope: Syncope possibly secondary to intravascular volume depletion due to dehydration from acute illness, Poor p.o. intake Diuretics likely could have contributed H/O underlying severe valvular heart disease, CT head: No acute intracranial findings Lasix held during hospitalization No arrhythmia on telemetry Symptoms resolved (2) Acute respiratory failure with hypoxia: Possible secondary to decompensated CHF with diastolic dysfunction, severe valvular heart disease Possible acute Bronchitis/multifocal pneumonia Covid Screen negative --CT Chest:Mediastinal and hilar lymphadenopathy. Suspected pulmonary arterial hypertension. Cardiomegaly, bilateral pleural effusions, and bilateral groundglass pulmonary opacities. The findings could represent pulmonary edema or an infectious process (viral pneumonia). Clinical and radiographic follow-up recommended -Received IV Rocephin, Zithromax Respiratory status improved Requiring 2 L of supplemental oxygen to maintain saturations 2 step: 2 L oxygen with activity only (3) Person under investigation for COVID-19: CXR with cardiomegaly and bilateral pulmonary airspace opacities suspicious for multifocal pneumonia. Mild leukocytosis of 13.46, hgb 9.5 (@ baseline), lactic acid 2.6, procal wnl, d-dimer 1,010, CRP 1.85, ferritin wnl Therapeutic INR--- less concern for PE CT chest as above Covid screen negative. Flu A/B and RSV negative Appreciate input from pulmonology Management as above (4) Heart failure due to valvular disease: (5) Acute kidney injury: Resolved creatinine back to baseline (6) Diabetes mellitus type II, controlled: Insulin sliding scale while hospitalized (7) Hypothyroidism: (8) Hypertension: (9) Anemia: (10) Depression: (11) Dyslipidemia: (12) Lymphedema of both lower extremities: Acute metabolic encephalopathy In setting of UTI, possible pna, hypoxia Resolved CT Head showed no acute findings UTI: Urine culture Klebsiella Received ciprofloxacin As per Prior Hospitalist: Chronic diastolic heart failure Severe aortic stenosis Severe mitral regurgitation Has significant valvular disease secondary to rheumatic fever and has declined surgical intervention in the past BNP elevated at 5,275, no evidence of volume overload on CXR. CT chest pending Continue p.o. Lasix as an outpatient dose Chronic Atrial fibrillation Rate controlled. Continue metoprolol, digoxin Continue Coumadin for anticoagulation Monitor INR H/O NSTEMI In 2018. Cardiac catheterization with nonocclusive coronary disease. 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 Monitor with daily CBC DVT Px: Coumadin Code status: FULL Disposition Home with Home health Admission and Anticipated Discharge Date Admission Date: May 15, 2020 Subjective Patient is seen and examined at bedside Sitting in chair comfortably this morning Offers no complaints Eager to get discharged Denies chest pain, shortness of breath, dizziness, nausea, abdominal pain Review of Systems Review of Systems: All systems reviewed & are unremarkable except as noted in HPI & below Physical Exam Physical Exam: Physical Exam: Vitals signs as noted above General Appearance:Moderately built and nourished, no apparent distress Head: normocephalic, Atraumatic Eyes: normal inspection, EOMI Neck: supple, Trachea midline Respiratory/Chest: Normal breath sounds, Minimal basal crackles Cardiovascular: S1, S2, + murmur Abdomen/GI:Soft, Non tender, Bowel sounds present Extremities/Musculoskelatal:normal inspection, B/L LE lymphedema Neurologic/Psych:AAOX3, grossly no focal neurological deficits Skin: normal color, warm Results & Data Results & Data ([facility]) Vital Signs (Past 12 Hours) Vital Signs Temp Pulse Pulse Pulse Pulse Pulse Pulse 05/18/20 09:07 75 73 87 61 05/18/20 07:36 72 05/18/20 07:23 36.7 C 64 05/18/20 03:08 36.8 C 78 Resp Resp Resp Resp Resp BP BP 05/18/20 09:07 20 20 20 20 05/18/20 07:36 05/18/20 07:23 18 120/68 05/18/20 03:08 20 110/64 Pulse Ox Pulse Ox Pulse Ox Pulse Ox Pulse Ox 05/18/20 09:07 91 86 L 91 90 05/18/20 07:36 05/18/20 07:23 96 05/18/20 03:08 92
--- NOTE | 2020-05-18 19:06 | Discharge Summary ---
Date of Service May 18, 2020 Admission HPI Per Admitting Provider This is a 75 yo F with a PMH of chronic diastolic heart failure with severe mitral regurgitation, severe aortic stenosis, atrial fibrillation on coumadin, DM II, anemia, hypothyroidism, depression and other medical problems as below who presents after ? syncopal episode this morning. Woke up feeling shaky and fatigued with muscle aches and a dry cough. Got out of bed and was ambulating and talking with nephew when she reportedly felt lightheaded and had to sit down. Patient did not remember any other details so called daughter for more information. Per daughter, patient is confused at baseline. She did not syncopized but had an episode of limited responsiveness when she had to sit down. Last time this happened patient had an infection. No recent known exposures to Covid. Denies any fall. Has been taking medication as scheduled, including 80 mg Lasix daily with 2 additional doses of 80 mg each night, as directed per facility technician BELLA. Has urinary incontinence at baseline but increased frequency lately, per daughter. Does not require home O2. Denies any fever, chills, loss of taste or smell, chest pain, palpitations, shortness of breath, nausea, vomiting, abdominal pain, dysuria, diarrhea or constipation. Does not require oxygen at baseline. In the ED, patient initially hypoxic at 84%. Now saturating at 91% on 3 L nasal cannula. CXR with cardiomegaly and bilateral pulmonary airspace opacities suspicious for multifocal pneumonia. Mild leukocytosis of 13.46, hgb 9.5 (@ baseline), Cr elevated at 1.29 (baseline ~1), BNP 5,275, INR 2.6, troponin negative. Lactate, procal pending. Has significant valvular disease secondary to rheumatic fever and has declined surgical intervention in the past. Is on Coumadin for anticoagulation in setting of atrial fibrillation. Patient is unsure about medications since daughter manages them. We will call her to confirm med rec. Admission Exam Per Admitting Provider Physical Exam Physical Exam: Please see Dr. Serna's addendum for physical exam. Constitutional: WD/WN, vitals as above + ill appearing Eyes: PERRL, conjunctivae normal, anicteric sclerae ENMT: external ear and nose normal, oropharynx normal Neck: trachea midline, no thyromegaly Respiratory: Auscultation: + diminished lung sounds and + rales Cardiovascular: RRR, no murmur, no edema Heart Sounds: no cardiac rub Gastrointestinal (Abdomen): normal bowel sounds, soft, nontender, no hepatosplenomegaly Percussion/Palpation: abdomen soft Skin: no rashes, warm and dry Neurologic: PERRL, EOMI, accommodation nl, no face palsy, no dysarthria Psychiatric: A+Ox3, euthymic affect Principal Diagnosis Acute Hypoxemic respiratory failure Community-acquired pneumonia. 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 Acute renal failure on CKD stage III-resolved UTI Discharge Data Allergies Allergy/AdvReac Type Severity Reaction Status Date / Time cephalexin Allergy Unknown BURNING, Verified 05/15/20 09:24 NAUSEA, AND TROUBLE BREATHING Penicillins Allergy Unknown KIDNEY Verified 05/15/20 09:24 INFECTION, HIVES Sulfa (Sulfonamide Allergy Unknown NAUSEA AND Verified 05/15/20 09:24 Antibiotics) TIRED Consultations 05/15/20 10:27 ED Decision to Admit Stat 05/15/20 14:51 Consult Cardiology Routine Consult Case Management - Discharge Planning Routine Consult Pulmonology Routine 05/16/20 15:10 Consult Palliative Care Routine Procedures Performed CT Chest:Mediastinal and hilar lymphadenopathy. Suspected pulmonary arterial hypertension. Cardiomegaly, bilateral pleural effusions, and bilateral g roundglass pulmonary opacities. The findings could represent pulmonary edema or an infectious process (viral pneumonia). Clinical and radiographic follow-up recommended Ordered Studies 05/15/20 11:07 CT head/brain wo con Urgent 05/15/20 12:16 CT chest diagnostic wo con Routine Hospital Course (1) Near syncope: Syncope possibly secondary to intravascular volume depletion due to dehydration from acute illness, Poor p.o. intake Diuretics likely could have contributed H/O underlying severe valvular heart disease, CT head: No acute intracranial findings Lasix held during hospitalization No arrhythmia on telemetry Symptoms resolved (2) Acute respiratory failure with hypoxia: Possible secondary to decompensated CHF with diastolic dysfunction, severe valvular heart disease Possible acute Bronchitis/multifocal pneumonia Covid Screen negative --CT Chest:Mediastinal and hilar lymphadenopathy. Suspected pulmonary arterial hypertension. Cardiomegaly, bilateral pleural effusions, and bilateral groundglass pulmonary opacities. The findings could represent pulmonary edema or an infectious process (viral pneumonia). Clinical and radiographic follow-up recommended -Received IV Rocephin, Zithromax Respiratory status improved Requiring 2 L of supplemental oxygen to maintain saturations 2 step: 2 L oxygen with activity only (3) Person under investigation for COVID-19: CXR with cardiomegaly and bilateral pulmonary airspace opacities suspicious for multifocal pneumonia. Mild leukocytosis of 13.46, hgb 9.5 (@ baseline), lactic acid 2.6, procal wnl, d-dimer 1,010, CRP 1.85, ferritin wnl Therapeutic INR--- less concern for PE CT chest as above Covid screen negative. Flu A/B and RSV negative Appreciate input from pulmonology Management as above (4) Heart failure due to valvular disease: (5) Acute kidney injury: Resolved creatinine back to baseline (6) Diabetes mellitus type II, controlled: Insulin sliding scale while hospitalized (7) Hypothyroidism: (8) Hypertension: (9) Anemia: (10) Depression: (11) Dyslipidemia: (12) Lymphedema of both lower extremities: Acute metabolic encephalopathy In setting of UTI, possible pna, hypoxia Resolved CT Head showed no acute findings UTI: Urine culture Klebsiella Received ciprofloxacin As per Prior Hospitalist: Chronic diastolic heart failure Severe aortic stenosis Severe mitral regurgitation Has significant valvular disease secondary to rheumatic fever and has declined surgical intervention in the past BNP elevated at 5,275, no evidence of volume overload on CXR. CT chest pending Continue p.o. Lasix as an outpatient dose Chronic Atrial fibrillation Rate controlled. Continue metoprolol, digoxin Continue Coumadin for anticoagulation Monitor INR H/O NSTEMI In 2018. Cardiac catheterization with nonocclusive coronary disease. 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 Monitor with daily CBC DVT Px: Coumadin Code status: FULL Disposition Home with Home health Total Time Total Time Spent Total Time Spent (In Minutes): 48 minutes Total Time Includes: Examination of the Patient, Discharge Planning, Medication Reconciliation, Communication With Other Providers and Other Discharge Plan Discharge Items Patient Disposition: Home - Home Health Services Reason For Visit: PUI,HYPOXIA,UTI,NEAR SYNCOPE Discharge Diagnosis: Acute Hypoxemic respiratory failure Community-acquired pneumonia. 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 Acute renal failure on CKD stage III-resolved UTI Activity: As commented below Activity Comment: As tolerated Exercise/Sports: Gradually increase as tolerated Non-emergency contact: Primary Care Provider and Oracle Engineer Call non-emergency contact if: you have any medication questions Follow-up/Referrals: Fawn Evans MD [Outside Practitioners] - 05/23/20 1:00 pm (Date & Time 05/23/2020 1:00 PM Provider Fawn Trejo MD Department Internal Medicine [facility] ) Diet: Carb Consistent or DM2 and Heart Healthy Addtl Attending Provider Instructions: Follow-up with your primary care physician Dr. Boy Trejo on 05/23/2020 1:00 PM as scheduled Follow-up with your facility technician as needed Complete antibiotic course for pneumonia, urinary tract infection as prescribed. Get Lab work: Basic metabolic panel in 1 week and follow up with your physician. Seek immediate medical attention if your symptoms reoccur or worsen Call your Primary Care doctor if any of the following symptoms or problems start or get worse: * Shortness of breath or difficulty breathing * Wake up at night short of breath * Chest pain * Cough * Swelling of your hands, feet, or legs * More fatigued or tired with your normal activity * Palpitations - sudden fast heart beats WEIGHT * Weigh yourself every morning after using the bathroom. * Use the same scale. * Wear the same amount of clothing. * Write your weight down on a chart. * Call your Primary Care doctor if you gain more than 2-3 pounds in 1-2 days. MEDICATIONS * Use this discharge instruction sheet for medication instructions. * Take your medications at the time your doctor ordered. * Do not skip a dose of your medicines. * If you miss a dose of medicine, take it as soon as possible, but DO NOT DOUBLE A DOSE. * Read your medicine information when you get home. * Know all of the side effects of your medicine. If in doubt, ask your pharmacist * Call your Primary Care doctor's office if you have any side effects. * Be sure all of your doctors know what medicine and herbs you take (including cold, flu, and herbal medicine). Take the following with you to your follow-up doctor appointments: * Weight Chart * Medication List * List of questions Do not drink excessive alcohol, beer or wine. Pending Studies at Discharge: No Stand-Alone Forms: My [facility], Smoking Cessation Medications and DC Order Prescriptions: New doxycycline hyclate 100 mg Capsule 100 mg PO BID 5 Days Qty: 10 RF: 0 ciprofloxacin HCl 500 mg Tablet 500 mg PO BID 5 Days Qty: 10 RF: 0 Continued metformin 500 mg tablet 1,000 mg PO BID RF: 0 cyanocobalamin (vitamin B-12) 100 mcg tablet 100 mcg PO QAM RF: 0 warfarin 7.5 mg Tablet 7.5 mg PO MOFR@1600 RF: 0 ferrous sulfate 325 mg (65 mg iron) tablet 325 mg PO HS RF: 0 levothyroxine 125 mcg tablet 125 mcg PO QAM RF: 0 digoxin 125 mcg tablet 62.5 mcg PO MOWEFR RF: 0 gabapentin 100 mg capsule 100 mg PO BID RF: 0 fluticasone propionate 50 mcg/actuation spray,suspension 1 spray intranasal DAILY RF: 0 atorvastatin 20 mg tablet 20 mg PO DAILY RF: 0 metoprolol succinate 50 mg tablet extended release 24 hr 50 mg PO DAILY RF: 0 potassium chloride 10 mEq tablet extended release 20 meq PO DAILY RF: 0 pantoprazole 40 mg tablet,delayed release (DR/EC) 40 mg PO BID RF: 0 fluoxetine 20 mg capsule 20 mg PO DAILY RF: 0 ascorbic acid (vitamin C) 500 mg Tablet 1,000 mg PO DAILY RF: 0 furosemide 20 mg tablet 80 mg PO DAILY RF: 0 warfarin 5 mg Tablet 5 mg PO SUTUWETHSA@1600 RF: 0 Discharge Orders: Discharge Order (Routine); Ordered 05/18/20 Ordered By: Faustino Kulkarni Admission Data Admit Date/Time: 05/15/20 13:07 Attending Provider: Faustino Kulkarni Admit Provider: Leah Serna Primary Care Provider: PCP,NO Other Providers: [facility] ; Leah Serna ; Mike Beth Muqueet ; Yuly Cha Other Interventions: Discharge Summary Assessment (RN) Last Done: 05/18/20 12:36
== END 2020-05-18 13:55 | disposition home health service (06) | DRG 193 ==
LOC: ED 08:48 → SUATTDRO 13:07 → 2N 13:07

== ENCOUNTER 2020-09-25 12:55 | Inpatient (IN) ==
--- NOTE | 2020-09-25 14:45 | XRay Report ---
XR pelvis 1-2V routine CLINICAL HISTORY: fall. Pelvic pain. COMPARISON STUDY: None. FINDINGS: Lucency overlying the left greater trochanter is likely external to the patient. No definit e fracture or dislocation within the pelvis or hips. The sacrum appears intact. Mild degenerative adan nges within the bilateral hips and sacroiliac joints. IMPRESSION: No definite fracture or dislocation within the pelvis or hips. Lucency overlying the lef t greater trochanter is likely external to the patient. This will be better assessed on the same day abdomen and pelvis CT. ACT 112: Negative or not required by law. Electronically signed by: Smooth Thibodeaux M.D. 09/25/2020 2:44 PM
--- NOTE | 2020-09-25 14:47 | XRay Report ---
XR chest 1V portable HISTORY: fall COMPARISON: Chest 05/15/2020. FINDINGS: No pneumothorax. No pleural effusions. There are low lung findings. The heart remains enlar ged. Perihilar and facial/vascular thickening has improved. This likely represents mild congestive ch lyssa. Bilateral hilar lymphadenopathy persists. Advanced degenerative changes within the left shoulde r with flattening of the humeral head suggesting superimposed avascular necrosis. IMPRESSION: 1. Cardiomegaly and mild congestive change. This has slightly improved. 2. Bilateral hilar lymphadenopathy, unchanged. ACT 112: Negative or not required by law. Electronically signed by: Smooth Thibodeaux M.D. 09/25/2020 2:46 PM
[2020-09-25 14:56] LABS: Basophils # (auto) 0.02 K/uL (0-0.2); Basophils % (auto) 0.2 %; Hematocrit (blood only) 28.6 % (37-47); Hemoglobin 9.2 g/dL (12.0-16.0); Immature Granulocytes # (auto) 0.02 K/uL (0.00-0.02); Immature Granulocytes % (auto) 0.2 %; Lymphocytes # (auto) 0.83 K/uL (1.2-3.4); Lymphocytes % (auto) 8.7 %; Mean Corpuscular Hemoglobin 28.3 pg (25-34); Mean Corpuscular Hgb Conc 32.2 g/dL (32-36); Mean Platelet Volume 9.8 fL (7.4-10.4); Monocytes # (auto) 0.95 K/uL (0.11-0.59); Neutrophils # (auto) 7.61 K/uL (1.4-6.5); Neutrophils % (auto) 79.9 %; Platelet Count 280 K/uL (130-400); RDW Coefficient of Variation 19.3 % (11.5-14.5); RDW Standard Deviation 62.6 fL (36.4-46.3); Red Blood Count 3.25 M/uL (4.2-5.4); White Blood Count 9.53 K/uL (4.8-10.8)
[2020-09-25 15:13] LABS: Albumin Level 2.6 gm/dl (3.4-5.0); Blood Urea Nitrogen 60 mg/dl (7-18); Calcium 8.3 mg/dl (8.5-10.1); Carbon Dioxide 27 mmol/L (21-32); Chloride 104 mmol/L (98-107); Glucose 107 mg/dl (70-99); INR 3.3 (0.9-1.1); Magnesium 1.6 mg/dl (1.8-2.4); Partial Thromboplastin Ratio 1.3; Partial Thromboplastin Time 33.6 Seconds (21.0-31.0); Potassium 4.5 mmol/L (3.5-5.1); Prothrombin Time 30.3 Seconds (9.0-12.0); Sodium 138 mmol/L (136-145)
[2020-09-25 15:15] LABS: Alanine Aminotransferase 29 U/L (12-78); Aspartate Aminotransferase 26 U/L (15-37); BUN Creatinine Ratio 49.8 (10-20); Bilirubin Direct 0.3 mg/dl (0-0.2); Creatinine Clr Calc Pharmacy 46.6 ml/min; Est GFR (African American) 50.7 ml/min; Est GFR (Non-African American) 43.7 ml/min
[2020-09-25 15:20] LABS: Alkaline Phosphatase 119 U/L (45-117); Bilirubin,Total 0.7 mg/dl (0.2-1); Lipase 261 U/L (73-393); NT Pro B Type Natriuretic Pept 9531 pg/ml (0-900); Troponin I < 0.015 ng/ml (0-0.045)
--- NOTE | 2020-09-25 15:21 | CT Scan Report ---
HEAD CT NONCONTRAST CT DOSE: HISTORY: Head injury. fall TECHNIQUE: Multiaxial CT images of the head were performed without the use of intravenous contrast. A utomated exposure control was utilized for this study. A dose lowering technique was utilized adheri ng to the principles of ALARA. Comparison: Head CT 05/15/2020. Findings: The paranasal sinuses and mastoid air cells are clear. The calvarium and skull base are int act. There is no mass, hematoma, midline shift, acute infarct. White matter hypodensity is nonspecifi c but suggestive of microvascular ischemic change. The ventricles and sulci demonstrate mild age-rela rosalio involutional changes. Old small lacunar infarcts within the cerebellar hemispheres, unchanged. Impression: No significant change compared to the prior study. No acute intracranial abnormality. ACT 112: Negative or not required by law. Electronically signed by: Smooth Thibodeaux M.D. 09/25/2020 3:20 PM
--- NOTE | 2020-09-25 15:26 | CT Scan Report ---
CERVICAL SPINE CT CT DOSE: 2339.39 mGy.cm HISTORY: fall TECHNIQUE: Multiaxial CT images of the cervical spine were performed and reformatted in the sagittal and coronal plane without the use of contrast. A dose lowering technique was utilized adhering to th e principles of ALARA. COMPARISON: None. FINDINGS: No fractures. No subluxation. Prevertebral soft tissues and the C1-C2 interval are intact. No pneumothorax. Severe calcified plaque within the bilateral carotid bifurcations. IMPRESSION: No fractures within the cervical spine. ACT 112: Negative or not required by law. Electronically signed by: Smooth Thibodeaux M.D. 09/25/2020 3:25 PM
--- NOTE | 2020-09-25 15:41 | CT Scan Report ---
ABDOMEN AND PELVIS CT WITHOUT CONTRAST CT DOSE: HISTORY: fall TECHNIQUE: Multiaxial CT images of the abdomen and pelvis were performed without contrast. A dose lo wering technique was utilized adhering to the principles of ALARA. COMPARISON STUDY: Abdomen and pelvis CT 07/21/2017. FINDINGS: There are small bilateral pleural effusions, right greater than left. The heart is mildly e nlarged. Dense mitral anus calcifications are noted. There is mild diffuse body wall edema. Groundgla ss densities in interlobular septal thickening within the lung bases favors mild pulmonary edema. An atypical/viral pneumonia could also a similar appearance. There is a 1.1 cm nodular density within th e right lower lobe in image 16. No pneumoperitoneum. No pneumatosis. No acute fractures within the vi sualized osseous structures. Specifically, the left hip is intact. No retroperitoneal hematoma. The u nenhanced liver, spleen, adrenal glands, and pancreas are unremarkable. Streak artifact from the pj ent's overlapping the left arm partially obscures the abdominal structures. No definite renal calculi or hydronephrosis. Small calcifications within the renal sinuses appear be vascular. Calcified plaqu e within the normal caliber abdominal aorta. No retroperitoneal lymphadenopathy. There are multiple s mall gallstones. Trace pericholecystic fluid is noted. The bladder, uterus, bilateral adnexa are with in normal limits. Trace pelvic free fluid is noted. Suboptimal evaluation for bowel pathology due to the lack of intravenous and oral contrast. However, there is no definite bowel wall thickening or obs truction. Normal appendix. Colonic diverticulosis. No evidence for acute diverticulitis. IMPRESSION: 1. No acute traumatic process within the abdomen or pelvis. 2. Mild pulmonary edema with cardiomegaly and small bilateral pleural effusions. Groundglass densitie s within the lung bases arelikely secondary to the pulmonary edema. A superimposed atypical pneumonia cannot be excluded. 3. Multiple gallstones and trace pericholecystic fluid raises the possibility of a developing acute c holecystitis. Clinical correlation recommended. 4. A 1.1 cm nodular density within the base the right lower lobe. This is also likely secondary to th e edema. [address] follow-up recommended to ensure resolution. 5. Additional findings as described above. ACT 112: Negative or not required by law. Electronically signed by: Smooth Thibodeaux M.D. 09/25/2020 3:40 PM
[2020-09-25] MEDS ORDERED: FUROSEMIDE 40 MG/4 ML VIAL IV STA (16:25)
[2020-09-25] MEDS ORDERED: MAGNESIUM SULFATE / D5W 1 GM/100 ML BAG IV ONE (16:55)
[2020-09-25] MEDS ORDERED: POLYETHYLENE (MIRALAX) 17 GM PACK PO PRN (17:09)
--- NOTE | 2020-09-25 17:21 | History & Physical Report ---
Date of Service September 25, 2020 Assessment & Plan (1) Heart failure due to valvular disease: (2) Severe aortic stenosis: (3) Severe mitral regurgitation: Fall -Patient presents after falling, denies any loss of consciousness -Imaging in the ED without any fractures noted, small skin tears, wound care consulted History of diastolic heart failure, valvular heart disease Now presents with acute exacerbation Has had increased lower extremity edema for several days, dose of Lasix was increased from 80 p.o. daily to 80 twice daily as outpt Chest x-ray with cardiomegaly and mild congestive change, CT showing mild pulmonary edema with cardiomegaly and small bilateral pleural effusions, groundglass densities at the lung bases likely secondary to pulmonary edema Not likely infectious etiology as patient denies any fevers, WBC is not elevated, procalcitonin is also negative proBNP 9500 Received IV Lasix in the ED, seems to be responding well Currently using supplemental oxygen, 2 L, reports at home she only uses supplemental oxygen occasionally, in the morning but not when she sleeps. This will need to be clarified with family. Close monitor I's and O's, low sodium diet, daily weights We will discuss further with cardiology tomorrow Previously patient had discussions with hand hose cutter regarding her valvular heart disease, she was not interested in any intervention During her last admission in May palliative medicine was also consulted, at that time patient decided for DNR/DNI status which she confirmed today as well Chronic Atrial fibrillation Rate controlled. Continue metoprolol and low-dose digoxin as prescribed. Continue Coumadin anticoagulation. Recent history of UTI -Per chart review, patient was on ciprofloxacin, patient reports finishing antibiotic course yesterday -We will obtain UA SALOME - current creatinine 1.2, baseline seems to be around 1 -Continue to closely monitor BMP while diuresing Diabetes mellitus type 2 -hemoglobin A1c of 6.4% in 04/24 -Hold home Metformin, sliding scale insulin while inpatient, continue to monitor blood glucose Anemia Hgb 9.2, at baseline. No signs of active bleeding, monitor with daily CBC DVT Ppx: Coumadin Code status: DNR/DNI -discussed with the patient at the bedside. Patient was consulted by palliative medicine at the last admission in May, at that time CODE STATUS changed. PCP: Dr. Campbell Dispo: Admitted to [facility]. History of Present Illness Chief Complaint: Fall, shortness of breath, incr. edema Primary Care Provider: Fawn Trejo MD Pt is a 75 yo F with a chronic diastolic heart failure with severe aortic stenosis, severe mitral regurgitation, atrial fibrillation on coumadin, DM II, anemia, hypothyroidism, morbid obesity, depression and other medical problems who presents after a fall this morning. Patient reports that she was in the bathroom, and often needs help, she was about to grab a bar however she reached out to around think and unfortunately fell and hit her right arm, and other body parts. She reports that she remembers the whole event, and denies any loss of consciousness. She reports she has been more short of breath lately, and had increased edema especially in her legs. Reviewed home nursing notes, patient was seen by home nursing recently and patient was treated for UTI with ciprofloxacin, patient reports that she just finished antibiotic yesterday. Also she was treated for increased lower extremity edema with increased dose of Lasix. Usually patient takes 80 mg daily, it was increased to twice a day. Patient reports that she did not get much improvement with the increased dose of Lasix. She received IV Lasix in the ED, and currently reports that she is feeling better. She was scanned in the ED due to her fall, no fractures were found. Her BNP was elevated at 9500, and images concerning for pulmonary edema. She is currently on supplemental oxygen via nasal cannula, she reports that she uses supplemental oxygen at home usually in the morning, when she is getting ready. Currently she denies use at night. Will clarify with family when available. Daughter was present in the ED earlier however left home. Patient currently denies any recent history of fevers or chills, chest pain, abdominal pain, diarrhea. Patient reports no loss of appetite. Discussed CODE STATUS, as she was seen by palliative medicine during her last admission in May. At that time patient decided to be DNR/DNI, and this was confirmed also with me today. Allergies Allergy/AdvReac Type Severity Reaction Status Date / Time cephalexin Allergy Unknown BURNING, Verified 09/25/20 14:34 NAUSEA, AND TROUBLE BREATHING Penicillins Allergy Unknown KIDNEY Verified 09/25/20 14:34 INFECTION, HIVES Sulfa (Sulfonamide Allergy Unknown NAUSEA AND Verified 09/25/20 14:34 Antibiotics) TIRED Home Medications Medication Instructions Recorded Confirmed Type ascorbic acid (vitamin C) 1,000 mg PO DAILY 12/15/18 09/25/20 History atorvastatin 20 mg PO DAILY 12/15/18 09/25/20 History cyanocobalamin (vitamin B-12) 100 mcg PO QAM 12/15/18 09/25/20 History digoxin 62.5 mcg PO MOWEFR 12/15/18 09/25/20 History ferrous sulfate 325 mg PO BID 12/15/18 09/25/20 History fluoxetine 20 mg PO DAILY 12/15/18 09/25/20 History fluticasone propionate 1 spray INTRANASAL DAILY 12/15/18 09/25/20 History gabapentin 100 mg PO BID 12/15/18 09/25/20 History levothyroxine 125 mcg PO QAM 12/15/18 09/25/20 History metformin 1,000 mg PO BID 12/15/18 09/25/20 History metoprolol succinate 50 mg PO DAILY 12/15/18 09/25/20 History pantoprazole 40 mg PO BID 12/15/18 09/25/20 History potassium chloride 30 meq PO DAILY 12/15/18 09/25/20 History warfarin 7.5 mg PO MOFR@1600 12/15/18 09/25/20 History warfarin 5 mg PO SUTUWETHSA@1600 05/15/20 09/25/20 History furosemide 80 mg PO BID 09/25/20 09/25/20 History loperamide 2 mg PO QID PRN 09/25/20 09/25/20 History Past Med/Surg History Medical History Anemia Atrial fibrillation Depression Diabetes mellitus type II, controlled Diabetic neuropathy Diastolic CHF due to valvular disease Diverticular disease of colon "per colonoscopy February 2016" Dyslipidemia History of breast cancer "Right breast" Hypertension Hypothyroidism Ischemic heart disease "nonocclusive [place] [facility] Lymphedema of both lower extremities Mild tricuspid regurgitation Moderate mitral stenosis Morbid obesity with BMI of 40.0-44.9, adult Pulmonary hypertension "PAP 70/33 per cath 07/24/17" Severe aortic stenosis Severe mitral regurgitation Surgical History History of lumpectomy of right breast History of tonsillectomy Status post cardiac catheterization [place] [place] - nonocclusive CAD, pulmonary hypertension" Family History Father Heart failure Mother Heart failure Social History Smoking Status: Never smoker Hx Alcohol Use: No Hx Substance Use: No Preferred Language: Cymraes Communication Ability: Effective Industrial Eng Required: No Beliefs That Will Affect Care: None marital status: / Current Living Situation: Family Current Living Situation Comment: lives with dtr Feels Safe at Home: Yes Assistive Devices: Glasses, Oxygen - Continuous and Walker Review of Systems Review of Systems: All systems reviewed & are unremarkable except as noted in HPI & below Constitutional: no fever and no chills Eyes: no problem reported Ear, Nose, Mouth, Throat: no problem reported Respiratory: + dyspnea (now seems improved) Cardiovascular: + edema; no chest pain and no palpitations Gastrointestinal: no abdominal pain, no nausea and no vomiting Genitourinary: no problem reported Musculoskeletal: no problem reported Integumentary: no problem reported Neurologic: no problem reported Psychiatric: no problem reported Endocrine: no problem reported Hematologic / Lymphatic: no problem reported Allergy / Immunological: no problem reported Physical Exam Constitutional: WD/WN, vitals as above + morbidly obese; no acute distress Eyes: PERRL, conjunctivae normal, anicteric sclerae ENMT: external ear and nose normal, oropharynx normal Neck: trachea midline, no thyromegaly normal visual inspection Respiratory: normal respiratory effort; no respiratory distress and no labored breathing Auscultation: + crackles (mild bibasilar); no wheezes somewhat diminished breath sounds Cardiovascular: Rate/Rhythm: + irregularly irregular Heart Sounds: + murmur (systolic at RUSB and at apex) Chest (Breasts): Chest: normal inspection of chest Gastrointestinal (Abdomen): Inspection/Auscultation: abdomen normal to inspection and normal bowel sounds; abdomen not distended Percussion/Palpation: abdomen soft; abdomen nontender, no guarding and abdomen not rigid Musculoskeletal: Head/Neck/Chest: normocephalic, head atraumatic and neck supple Moves extremities, generalized weakness Skin: no rashes, warm and dry Neurologic: PERRL, EOMI, accommodation nl, no face palsy, no dysarthria Psychiatric: A+Ox3, euthymic affect Genitourinary: no CVA tenderness Results & Data Results & Data ([facility]) Vital Signs (Past 12 Hours) Vital Signs Temp Pulse Resp BP Pulse Ox 09/25/20 17:00 85 16 97 09/25/20 16:30 75 15 97 09/25/20 16:01 83 21 138/67 98 09/25/20 13:13 36.7 C 86 16 121/72 95 Laboratory Results 09/25/20 09/25/20 09/25/20 Range/Units 16:00 16:00 14:44 WBC (4.8-10.8) K/uL RBC (4.2-5.4) M/uL Hgb (12.0-16.0) g/dL Hct (37-47) % MCV (80-100) fL MCH (25-34) pg MCHC (32-36) g/dL RDW Std Deviation (36.4-46.3) fL RDW Coeff of Paresh (11.5-14.5) % Plt Count (130-400) K/uL MPV (7.4-10.4) fL Immature Gran % (Auto) % Neut % (Auto) % Lymph % (Auto) % [place] % (Auto) % Eos % (Auto) % Baso % (Auto) % Neut # (Auto) (1.4-6.5) K/uL Lymph # (Auto) (1.2-3.4) K/uL [place] # (Auto) (0.11-0.59) K/uL Eos # (Auto) (0-0.5) K/uL Baso # (Auto) (0-0.2) K/uL Immature Gran # (Auto) (0.00-0.02) K/uL PT (9.0-12.0) Seconds INR (0.9-1.1) APTT (21.0-31.0) Seconds PTT Ratio Sodium (136-145) mmol/L Potassium (3.5-5.1) mmol/L Chloride (98-107) mmol/L Carbon Dioxide (21-32) mmol/L Anion Gap (3-11) BUN (7-18) mg/dl Creatinine (0.6-1.2) mg/dl Est Cr Clr Drug Dosing ml/min Est GFR ( Amer) ml/min Est GFR (Non-Af Amer) ml/min BUN/Creatinine Ratio (10-20) Glucose (70-99) mg/dl Calcium (8.5-10.1) mg/dl Magnesium (1.8-2.4) mg/dl Total Bilirubin (0.2-1) mg/dl Direct Bilirubin (0-0.2) mg/dl AST (15-37) U/L ALT (12-78) U/L Alkaline Phosphatase (45-117) U/L Troponin I (0-0.045) ng/ml NT-Pro-B Natriuret Pep (0-900) pg/ml Total Protein (6.4-8.2) gm/dl Albumin (3.4-5.0) gm/dl Lipase (73-393) U/L Procalcitonin Pending COVID-19 Eval Order Covid19 at [facility] SARS-CoV-2 (PCR) NEGATIVE (Negative) 09/25/20 09/25/20 09/25/20 Range/Units 14:43 14:43 14:43 WBC (4.8-10.8) K/uL RBC (4.2-5.4) M/uL Hgb (12.0-16.0) g/dL Hct (37-47) % MCV (80-100) fL MCH (25-34) pg MCHC (32-36) g/dL RDW Std Deviation (36.4-46.3) fL RDW Coeff of Paresh (11.5-14.5) % Plt Count (130-400) K/uL MPV (7.4-10.4) fL Immature Gran % (Auto) % Neut % (Auto) % Lymph % (Auto) % [place] % (Auto) % Eos % (Auto) % Baso % (Auto) % Neut # (Auto) (1.4-6.5) K/uL Lymph # (Auto) (1.2-3.4) K/uL [place] # (Auto) (0.11-0.59) K/uL Eos # (Auto) (0-0.5) K/uL Baso # (Auto) (0-0.2) K/uL Immature Gran # (Auto) (0.00-0.02) K/uL PT 30.3 H (9.0-12.0) Seconds INR 3.3 H (0.9-1.1) APTT 33.6 H (21.0-31.0) Seconds PTT Ratio 1.3 Sodium 138 (136-145) mmol/L Potassium 4.5 (3.5-5.1) mmol/L Chloride 104 (98-107) mmol/L Carbon Dioxide 27 (21-32) mmol/L Anion Gap 7.0 (3-11) BUN 60 H (7-18) mg/dl Creatinine 1.21 H (0.6-1.2) mg/dl Est Cr Clr Drug Dosing 46.6 ml/min Est GFR ( Amer) 50.7 ml/min Est GFR (Non-Af Amer) 43.7 ml/min BUN/Creatinine Ratio 49.8 H (10-20) Glucose 107 H (70-99) mg/dl Calcium 8.3 L (8.5-10.1) mg/dl Magnesium 1.6 L (1.8-2.4) mg/dl Total Bilirubin 0.7 (0.2-1) mg/dl Direct Bilirubin 0.3 H (0-0.2) mg/dl AST 26 (15-37) U/L ALT 29 (12-78) U/L Alkaline Phosphatase 119 H (45-117) U/L Troponin I < 0.015 (0-0.045) ng/ml NT-Pro-B Natriuret Pep 9531 H (0-900) pg/ml Total Protein 8.0 (6.4-8.2) gm/dl Albumin 2.6 L (3.4-5.0) gm/dl Lipase Cancelled 261 (73-393) U/L Procalcitonin COVID-19 Eval Order SARS-CoV-2 (PCR) (Negative) 09/25/20 Range/Units 14:43 WBC 9.53 (4.8-10.8) K/uL RBC 3.25 L (4.2-5.4) M/uL Hgb 9.2 L (12.0-16.0) g/dL Hct 28.6 L (37-47) % MCV 88.0 (80-100) fL MCH 28.3 (25-34) pg MCHC 32.2 (32-36) g/dL RDW Std Deviation 62.6 H (36.4-46.3) fL RDW Coeff of Paresh 19.3 H (11.5-14.5) % Plt Count 280 (130-400) K/uL MPV 9.8 (7.4-10.4) fL Immature Gran % (Auto) 0.2 % Neut % (Auto) 79.9 % Lymph % (Auto) 8.7 % [place] % (Auto) 10.0 % Eos % (Auto) 1.0 % Baso % (Auto) 0.2 % Neut # (Auto) 7.61 H (1.4-6.5) K/uL Lymph # (Auto) 0.83 L (1.2-3.4) K/uL [place] # (Auto) 0.95 H (0.11-0.59) K/uL Eos # (Auto) 0.10 (0-0.5) K/uL Baso # (Auto) 0.02 (0-0.2) K/uL Immature Gran # (Auto) 0.02 (0.00-0.02) K/uL PT (9.0-12.0) Seconds INR (0.9-1.1) APTT (21.0-31.0) Seconds PTT Ratio Sodium (136-145) mmol/L Potassium (3.5-5.1) mmol/L Chloride (98-107) mmol/L Carbon Dioxide (21-32) mmol/L Anion Gap (3-11) BUN (7-18) mg/dl Creatinine (0.6-1.2) mg/dl Est Cr Clr Drug Dosing ml/min Est GFR ( Amer) ml/min Est GFR (Non-Af Amer) ml/min BUN/Creatinine Ratio (10-20) Glucose (70-99) mg/dl Calcium (8.5-10.1) mg/dl Magnesium (1.8-2.4) mg/dl Total Bilirubin (0.2-1) mg/dl Direct Bilirubin (0-0.2) mg/dl AST (15-37) U/L ALT (12-78) U/L Alkaline Phosphatase (45-117) U/L Troponin I (0-0.045) ng/ml NT-Pro-B Natriuret Pep (0-900) pg/ml Total Protein (6.4-8.2) gm/dl Albumin (3.4-5.0) gm/dl Lipase (73-393) U/L Procalcitonin COVID-19 Eval Order SARS-CoV-2 (PCR) (Negative) Diagnostic Findings CXR IMPRESSION: 1. Cardiomegaly and mild congestive change. This has slightly improved. 2. Bilateral hilar lymphadenopathy, unchanged. CT abd./pelvis IMPRESSION: 1. No acute traumatic process within the abdomen or pelvis. 2. Mild pulmonary edema with cardiomegaly and small bilateral pleural effusions. Groundglass densities within the lung bases arelikely secondary to the pulmonary edema. A superimposed atypical pneumonia cannot be excluded. 3. Multiple gallstones and trace pericholecystic fluid raises the possibility of a developing acute cholecystitis. Clinical correlation recommended. 4. A 1.1 cm nodular density within the base the right lower lobe. This is also likely secondary to the edema. [address] follow-up recommended to ensure resolution. 5. Additional findings as described above.
--- NOTE | 2020-09-25 19:52 | Emergency Department Note ---
History of Present Illness General Chief complaint: Fall Time Seen by Provider: 09/25/20 13:59 History of Present Illness Provider complaint: Fall Onset (ago): hour(s) 2 75-year-old female presents emergency department with her daughter at bedside for fall. Daughter states the patient fell in the bathroom approximately 2 hours ago. She states she is not using her walker. Patient is on Coumadin. Patient states she did hit her head but is unsure if she lost consciousness. Daughter also reports that the patient was recently started on increased doses of Lasix to help get fluid off of her chest. The daughter states has not been helping as the patient's legs are still swollen and she is not been urinating as much as she should. Home Medications Medication Instructions Recorded Confirmed Type ascorbic acid (vitamin C) 1,000 mg PO DAILY 12/15/18 09/25/20 History atorvastatin 20 mg PO DAILY 12/15/18 09/25/20 History cyanocobalamin (vitamin B-12) 100 mcg PO QAM 12/15/18 09/25/20 History digoxin 62.5 mcg PO MOWEFR 12/15/18 09/25/20 History ferrous sulfate 325 mg PO BID 12/15/18 09/25/20 History fluoxetine 20 mg PO DAILY 12/15/18 09/25/20 History fluticasone propionate 1 spray INTRANASAL DAILY 12/15/18 09/25/20 History gabapentin 100 mg PO BID 12/15/18 09/25/20 History levothyroxine 125 mcg PO QAM 12/15/18 09/25/20 History metformin 1,000 mg PO BID 12/15/18 09/25/20 History metoprolol succinate 50 mg PO DAILY 12/15/18 09/25/20 History pantoprazole 40 mg PO BID 12/15/18 09/25/20 History potassium chloride 30 meq PO DAILY 12/15/18 09/25/20 History warfarin 7.5 mg PO MOFR@1600 12/15/18 09/25/20 History warfarin 5 mg PO SUTUWETHSA@1600 05/15/20 09/25/20 History furosemide 80 mg PO BID 09/25/20 09/25/20 History loperamide 2 mg PO QID PRN 09/25/20 09/25/20 History Allergies Allergy/AdvReac Type Severity Reaction Status Date / Time cephalexin Allergy Unknown BURNING, Verified 09/25/20 14:34 NAUSEA, AND TROUBLE BREATHING Penicillins Allergy Unknown KIDNEY Verified 09/25/20 14:34 INFECTION, HIVES Sulfa (Sulfonamide Allergy Unknown NAUSEA AND Verified 09/25/20 14:34 Antibiotics) TIRED Past Med/Surg History Medical History (Updated 09/25/20 @ 21:45 by Jaime Santos) Anemia Atrial fibrillation Depression Diabetes mellitus type II, controlled Diabetic neuropathy Diastolic CHF due to valvular disease Diverticular disease of colon "per colonoscopy February 2016" Dyslipidemia History of breast cancer "Right breast" Hypertension Hypothyroidism Ischemic heart disease "nonocclusive CAD per cath [facility] [place] 07/24/17" Lymphedema of both lower extremities Mild tricuspid regurgitation Moderate mitral stenosis Morbid obesity with BMI of 40.0-44.9, adult Pulmonary hypertension "PAP 70/33 per cath 07/24/17" Severe aortic stenosis Severe mitral regurgitation Surgical History History of lumpectomy of right breast History of tonsillectomy Status post cardiac catheterization "[facility] [place] 07/24/17 - nonocclusive CAD, pulmonary hypertension" Family History Father Heart failure Mother Heart failure Social History Smoking Status: Never smoker Hx Alcohol Use: No Hx Substance Use: No Preferred Language: Yakut Communication Ability: Effective Wildlife Enforcement Major Required: No Beliefs That Will Affect Care: None marital status: / Current Living Situation: Family Current Living Situation Comment: lives with dtr Other Information That Helps Us Care for You: No Feels Safe at Home: Yes Safety Concerns: Feels Safe At This Time Assistive Devices: Denture - Upper, Denture - Lower, Glasses and Walker Assistive Devices Comment: oxygen PRN at home Review of Systems A total of 10 systems reviewed and were otherwise negative Physical Exam Vital Signs Vital Signs - 24 hr 09/25/20 13:13 09/25/20 16:01 09/25/20 16:30 Temperature 36.7 C Temperature Source Oral Pulse Rate 86 83 75 Pulse Rate from SpO2 Sensor 79 82 Pulse Rhythm Regular Pulse Strength Normal Respiratory Rate 16 21 15 Respiratory Effort / Characteristics Non-Labored Spontaneous Respiratory Depth Normal Respiratory Pattern Regular Blood Pressure 121/72 138/67 Blood Pressure Mean 88 90 Blood Pressure Position Lying Pulse Oximetry 95 98 97 Oxygen Delivery Method Room Air Sepsis Recent Fever Within 48 Hours No Sepsis New/Unexplained Change in Mental Status No Sepsis Action Taken by Nursing No Action Required 09/25/20 17:00 Temperature Temperature Source Pulse Rate 85 Pulse Rate from SpO2 Sensor 82 Pulse Rhythm Pulse Strength Respiratory Rate 16 Respiratory Effort / Characteristics Respiratory Depth Respiratory Pattern Blood Pressure Blood Pressure Mean Blood Pressure Position Pulse Oximetry 97 Oxygen Delivery Method Sepsis Recent Fever Within 48 Hours Sepsis New/Unexplained Change in Mental Status Sepsis Action Taken by Nursing Physical Exam GENERAL: She is oriented to person, place, and time. She appears well-developed and well-nourished. She does not appear distressed. HENT: Exam performed. -Head: Normocephalic and atraumatic. -Right Ear: External ear normal. No mastoid tenderness. -Left Ear: External ear normal. No mastoid tenderness. -Mouth/Throat: The oropharynx is clear and moist. No trismus in the jaw. No dental abscesses or uvula swelling. No oropharyngeal exudate or tonsillar abscesses. EYES: Conjunctivae and EOM are normal. Pupils are equal, round, and reactive to light. Right eye exhibits no discharge. Left eye exhibits no discharge. No scleral icterus. NECK: Normal range of motion. Neck supple. No JVD present. No spinous process tenderness present. No carotid bruit present. No rigidity. No tracheal deviation and normal range of motion present. No Brudzinski's sign and no Kernig's sign noted. CV: Normal rate, irregular rhythm, normal heart sounds and intact distal pulses. Palpable radial pulses bue. PULM/CHEST: Inspiratory Rales at the bases of the bilateral lungs. ABD: The abdomen is soft morbidly obese. Bowel sounds are normal. She has no distension. No mass is present. There is no tenderness. There is no rebound, no guarding, no Bustillo's sign and no tenderness at McBurney's point. Rovsig negative MUSC/SKEL: 3+ pitting edema of the bilateral lower extremities. LYMPH: No cervical adenopathy. NEURO: She is alert and oriented to person, place, and time. She has normal strength. No cranial nerve deficit or sensory deficit. Coordination and gait normal. GCS eye subscore is 4. GCS verbal subscore is 5. GCS motor subscore is 6. Cerebellar tests wnl. SKIN: Skin is warm and dry. She is not diaphoretic. PSYCH: She has a normal mood and affect. Behavior is normal. Judgment and thought content normal. Course Course 1359: The patient was evaluated in room B9. A complete history and physical exam was performed Cardiac monitoring: An order was placed for continuous cardiac monitoring. The monitor shows a rate of 80 with atiral fib rhythm 1630: Vital signs stable. proBNP elevated. Imaging shows no traumatic injury. Imaging does show cardiomegaly with cephalization. I had a discussion with the patient and daughter at bedside. Daughter at bedside states she wants the patient admitted to the hospital because she states that the extra dose of Lasix that she has been giving has not been helping and she states the patient is too weak for her to take care of at home. Patient will be admitted to the [facility] hospitalist team Dr. Mishra Administered Medications Gabapentin (Gabapentin 100 Mg Cap) 100 mg PO BID YARELIS Stop: 10/25/20 20:59 Last Admin: 09/25/20 20:34 Dose: 100 mg Documented by: [id number] Pantoprazole Sodium (Pantoprazole 40 Mg Tab) 40 mg PO BID YARELIS Stop: 10/25/20 20:59 Last Admin: 09/25/20 20:34 Dose: 40 mg Documented by: [id number] Discontinued Medications Furosemide (Furosemide 40 Mg/4 Ml Vial) 40 mg IV NOW STA Stop: 09/25/20 16:26 Last Admin: 09/25/20 17:07 Dose: 40 mg Documented by: [id number] Magnesium Sulfate/Dextrose (Magnesium Sulfate / D5w) 1 gm in 100 mls @ 50 mls/hr IV ONE ONE Stop: 09/25/20 18:54 Last Infusion: 09/25/20 19:00 Dose: 0 mls/hr Documented by: [id number] Admin: 09/25/20 17:07 Dose: 50 mls/hr Documented by: [id number] Medical Decision Making Laboratory Data Result diagrams: 09/25/20 14:43 09/25/20 14:43 Lab Results 09/25/20 09/25/20 09/25/20 Range/Units 14:43 14:43 14:43 WBC 9.53 (4.8-10.8) K/uL RBC 3.25 L (4.2-5.4) M/uL Hgb 9.2 L (12.0-16.0) g/dL Hct 28.6 L (37-47) % MCV 88.0 (80-100) fL MCH 28.3 (25-34) pg MCHC 32.2 (32-36) g/dL RDW Std Deviation 62.6 H (36.4-46.3) fL RDW Coeff of Paresh 19.3 H (11.5-14.5) % Plt Count 280 (130-400) K/uL MPV 9.8 (7.4-10.4) fL Immature Gran % (Auto) 0.2 % Neut % (Auto) 79.9 % Lymph % (Auto) 8.7 % [place] % (Auto) 10.0 % Eos % (Auto) 1.0 % Baso % (Auto) 0.2 % Neut # (Auto) 7.61 H (1.4-6.5) K/uL Lymph # (Auto) 0.83 L (1.2-3.4) K/uL [place] # (Auto) 0.95 H (0.11-0.59) K/uL Eos # (Auto) 0.10 (0-0.5) K/uL Baso # (Auto) 0.02 (0-0.2) K/uL Immature Gran # (Auto) 0.02 (0.00-0.02) K/uL PT 30.3 H (9.0-12.0) Seconds INR 3.3 H (0.9-1.1) APTT 33.6 H (21.0-31.0) Seconds PTT Ratio 1.3 Sodium 138 (136-145) mmol/L Potassium 4.5 (3.5-5.1) mmol/L Chloride 104 (98-107) mmol/L Carbon Dioxide 27 (21-32) mmol/L Anion Gap 7.0 (3-11) BUN 60 H (7-18) mg/dl Creatinine 1.21 H (0.6-1.2) mg/dl Est Cr Clr Drug Dosing 46.6 ml/min Est GFR ( Amer) 50.7 ml/min Est GFR (Non-Af Amer) 43.7 ml/min BUN/Creatinine Ratio 49.8 H (10-20) Glucose 107 H (70-99) mg/dl Calcium 8.3 L (8.5-10.1) mg/dl Magnesium 1.6 L (1.8-2.4) mg/dl Total Bilirubin 0.7 (0.2-1) mg/dl Direct Bilirubin 0.3 H (0-0.2) mg/dl AST 26 (15-37) U/L ALT 29 (12-78) U/L Alkaline Phosphatase 119 H (45-117) U/L Troponin I < 0.015 (0-0.045) ng/ml NT-Pro-B Natriuret Pep 9531 H (0-900) pg/ml Total Protein 8.0 (6.4-8.2) gm/dl Albumin 2.6 L (3.4-5.0) gm/dl Lipase 261 (73-393) U/L Procalcitonin (0-0.5) ng/ml COVID-19 Eval Order SARS-CoV-2 (PCR) (Negative) 09/25/20 09/25/20 09/25/20 Range/Units 14:43 14:44 16:00 WBC (4.8-10.8) K/uL RBC (4.2-5.4) M/uL Hgb (12.0-16.0) g/dL Hct (37-47) % MCV (80-100) fL MCH (25-34) pg MCHC (32-36) g/dL RDW Std Deviation (36.4-46.3) fL RDW Coeff of Paresh (11.5-14.5) % Plt Count (130-400) K/uL MPV (7.4-10.4) fL Immature Gran % (Auto) % Neut % (Auto) % Lymph % (Auto) % [place] % (Auto) % Eos % (Auto) % Baso % (Auto) % Neut # (Auto) (1.4-6.5) K/uL Lymph # (Auto) (1.2-3.4) K/uL [place] # (Auto) (0.11-0.59) K/uL Eos # (Auto) (0-0.5) K/uL Baso # (Auto) (0-0.2) K/uL Immature Gran # (Auto) (0.00-0.02) K/uL PT (9.0-12.0) Seconds INR (0.9-1.1) APTT (21.0-31.0) Seconds PTT Ratio Sodium (136-145) mmol/L Potassium (3.5-5.1) mmol/L Chloride (98-107) mmol/L Carbon Dioxide (21-32) mmol/L Anion Gap (3-11) BUN (7-18) mg/dl Creatinine (0.6-1.2) mg/dl Est Cr Clr Drug Dosing ml/min Est GFR ( Amer) ml/min Est GFR (Non-Af Amer) ml/min BUN/Creatinine Ratio (10-20) Glucose (70-99) mg/dl Calcium (8.5-10.1) mg/dl Magnesium (1.8-2.4) mg/dl Total Bilirubin (0.2-1) mg/dl Direct Bilirubin (0-0.2) mg/dl AST (15-37) U/L ALT (12-78) U/L Alkaline Phosphatase (45-117) U/L Troponin I (0-0.045) ng/ml NT-Pro-B Natriuret Pep (0-900) pg/ml Total Protein (6.4-8.2) gm/dl Albumin (3.4-5.0) gm/dl Lipase Cancelled (73-393) U/L Procalcitonin < 0.05 (0-0.5) ng/ml COVID-19 Eval Order Covid19 at [facility] SARS-CoV-2 (PCR) (Negative) 09/25/20 Range/Units 16:00 WBC (4.8-10.8) K/uL RBC (4.2-5.4) M/uL Hgb (12.0-16.0) g/dL Hct (37-47) % MCV (80-100) fL MCH (25-34) pg MCHC (32-36) g/dL RDW Std Deviation (36.4-46.3) fL RDW Coeff of Paresh (11.5-14.5) % Plt Count (130-400) K/uL MPV (7.4-10.4) fL Immature Gran % (Auto) % Neut % (Auto) % Lymph % (Auto) % [place] % (Auto) % Eos % (Auto) % Baso % (Auto) % Neut # (Auto) (1.4-6.5) K/uL Lymph # (Auto) (1.2-3.4) K/uL [place] # (Auto) (0.11-0.59) K/uL Eos # (Auto) (0-0.5) K/uL Baso # (Auto) (0-0.2) K/uL Immature Gran # (Auto) (0.00-0.02) K/uL PT (9.0-12.0) Seconds INR (0.9-1.1) APTT (21.0-31.0) Seconds PTT Ratio Sodium (136-145) mmol/L Potassium (3.5-5.1) mmol/L Chloride (98-107) mmol/L Carbon Dioxide (21-32) mmol/L Anion Gap (3-11) BUN (7-18) mg/dl Creatinine (0.6-1.2) mg/dl Est Cr Clr Drug Dosing ml/min Est GFR ( Amer) ml/min Est GFR (Non-Af Amer) ml/min BUN/Creatinine Ratio (10-20) Glucose (70-99) mg/dl Calcium (8.5-10.1) mg/dl Magnesium (1.8-2.4) mg/dl Total Bilirubin (0.2-1) mg/dl Direct Bilirubin (0-0.2) mg/dl AST (15-37) U/L ALT (12-78) U/L Alkaline Phosphatase (45-117) U/L Troponin I (0-0.045) ng/ml NT-Pro-B Natriuret Pep (0-900) pg/ml Total Protein (6.4-8.2) gm/dl Albumin (3.4-5.0) gm/dl Lipase (73-393) U/L Procalcitonin (0-0.5) ng/ml COVID-19 Eval Order SARS-CoV-2 (PCR) NEGATIVE (Negative) Imaging Data Radiologist's Impression: Abdomen/Pelvis CT 09/25/20 14:[address] WITHOUT CONTRAST CT DOSE: HISTORY: fall TECHNIQUE: Multiaxial CT images of the abdomen and pelvis were performed without contrast. A dose lowering technique was utilized adhering to the principles of ALARA. COMPARISON STUDY: Abdomen and pelvis CT 07/21/2017. FINDINGS: There are small bilateral pleural effusions, right greater than left. The heart is mildly enlarged. Dense mitral anus calcifications are noted. There is mild diffuse body wall edema. Groundglass densities in interlobular septal thickening within the lung bases favors mild pulmonary edema. An atypical/viral pneumonia could also a similar appearance. There is a 1.1 cm nodular density within the right lower lobe in image 16. No pneumoperitoneum. No pneumatosis. No acute fractures within the visualized osseous structures. Specifically, the left hip is intact. No retroperitoneal hematoma. The unenhanced liver, spleen, adrenal glands, and pancreas are unremarkable. Streak artifact from the patient's overlapping the left arm partially obscures the abdominal structures. No definite renal calculi or hydronephrosis. Small calcifications within the renal sinuses appear be vascular. Calcified plaque within the normal caliber abdominal aorta. No retroperitoneal lymphadenopathy. There are multiple small gallstones. Trace pericholecystic fluid is noted. The bladder, uterus, bilateral adnexa are within normal limits. Trace pelvic free fluid is noted. Suboptimal evaluation for bowel pathology due to the lack of intravenous and oral contrast. However, there is no definite bowel wall thickening or obstruction. Normal appendix. Colonic diverticulosis. No evidence for acute diverticulitis. IMPRESSION: 1. No acute traumatic process within the abdomen or pelvis. 2. Mild pulmonary edema with cardiomegaly and small bilateral pleural effusions. Groundglass densities within the lung bases arelikely secondary to the pulmonary edema. A superimposed atypical pneumonia cannot be excluded. 3. Multiple gallstones and trace pericholecystic fluid raises the possibility of a developing acute cholecystitis. Clinical correlation recommended. 4. A 1.1 cm nodular density within the base the right lower lobe. This is also likely secondary to the edema. [address] follow-up recommended to ensure resolution. 5. Additional findings as described above. ACT 112: Negative or not required by law. Electronically signed by: Smooth Thibodeaux M.D. 09/25/2020 3:[address] 09/25/20 14:[address] DOSE: 2339.39 mGy.cm HISTORY: fall TECHNIQUE: Multiaxial CT images of the cervical spine were performed and reformatted in the sagittal and coronal plane without the use of contrast. A d ose lowering technique was utilized adhering to the principles of ALARA. COMPARISON: None. FINDINGS: No fractures. No subluxation. Prevertebral soft tissues and the C1-C2 interval are intact. No pneumothorax. Severe calcified plaque within the kristel ateral carotid bifurcations. IMPRESSION: No fractures within the cervical spine. ACT 112: Negative or not required by law. Electronically signed by: Smooth Thibodeaux M.D. 09/25/2020 3:25 PM Chest X-Ray 09/25/20 14:18 XR chest 1V portable HISTORY: fall COMPARISON: Chest 05/15/2020. FINDINGS: No pneumothorax. No pleural effusions. There are low lung findings. The heart remains enlarged. Perihilar and facial/vascular thickening has improved. This likely represents mild congestive change. Bilateral hilar lymphadenopathy persists. Advanced degenerative changes within the left shoulder with flattening of the humeral head suggesting superimposed avascular necrosis. IMPRESSION: 1. Cardiomegaly and mild congestive change. This has slightly improved. 2. Bilateral hilar lymphadenopathy, unchanged. ACT 112: Negative or not required by law. Electronically signed by: Smooth Thibodeaux M.D. 09/25/2020 2:[address] 09/25/20 14:[address] DOSE: HISTORY: Head injury. fall TECHNIQUE: Multiaxial CT images of the head were performed without the use of intravenous contrast. Automated exposure control was utilized for this study. A dose lowering technique was utilized adhering to the principles of ALARA. Comparison: Head CT 05/15/2020. Findings: The paranasal sinuses and mastoid air cells are clear. The calvarium and skull base are intact. There is no mass, hematoma, midline shift, acute infarct. White matter hypodensity is nonspecific but suggestive of microvascular ischemic change. The ventricles and sulci demonstrate mild age-related involutio nal changes. Old small lacunar infarcts within the cerebellar hemispheres, unchanged. Impression: No significant change compared to the prior study. No acute intracranial abnormality. ACT 112: Negative or not required by law. Electronically signed by: Smooth Thibodeaux M.D. 09/25/2020 3:20 PM Pelvis X-Ray 09/25/20 14:18 XR pelvis 1-2V routine CLINICAL HISTORY: fall. Pelvic pain. COMPARISON STUDY: None. FINDINGS: Lucency overlying the left greater trochanter is likely external to the patient. No definite fracture or dislocation within the pelvis or hips. The sacrum appears intact. Mild degenerative changes within the bilateral hips and sacroiliac joints. IMPRESSION: No definite fracture or dislocation within the pelvis or hips. Lucency overlying the left greater trochanter is likely external to the patient. This will be better assessed on the same day abdomen and pelvis CT. ACT 112: Negative or not required by law. Electronically signed by: Smooth Thibodeaux M.D. 09/25/2020 2:44 PM ECG Data Indication: + SOB/dyspnea Rate (beats per minute): 85 Rhythm: + atrial fibrillation ECG Intervals/blocks: + Normal QRS and + Normal QT-c ECG ST segments: + Normal ST segments MDM Narrative 1359: The patient was evaluated in room B9. A complete history and physical exam was performed Cardiac monitoring: An order was placed for continuous cardiac monitoring. The monitor shows a rate of 80 with atiral fib rhythm 1630: Vital signs stable. proBNP elevated. Imaging shows no traumatic injury. Imaging does show cardiomegaly with cephalization. I had a discussion with the patient and daughter at bedside. Daughter at bedside states she wants the patient admitted to the hospital because she states that the extra dose of Lasix that she has been giving has not been helping and she states the patient is too weak for her to take care of at home. [facility] Impression & Plan Diastolic CHF due to valvular disease, Lymphedema of both lower extremities, Fall Discharge Plan Visit Data Chief Complaint: Fall ED Provider: Jaime Santos Discharge Problem: Diastolic CHF due to valvular disease, Lymphedema of both lower extremities, Fall Patient Disposition: Admitted As Inpatient Discharge Instructions Interventions: ED Discharge Assessment Last Done: 09/25/20 18:28 Discharge Problem: Fall Qualifiers: Encounter type: initial encounter Qualified Code(s): W19.XXXA - Unspecified fall, initial encounter
[2020-09-25] MEDS: PANTOprazole 40 MG TAB PO SCH (20:34)
[2020-09-25] MEDS: GABAPENTIN 100 MG CAP PO SCH (20:34)
[2020-09-25 22:24] LABS: Appearance Urine Clear (Clear); Bilirubin Urine Negative (Negative); Blood Urine Negative (Negative); Color Urine Yellow; Glucose Urine UA Negative (Negative); Ketones Urine Negative (Negative); Leukocyte Esterase Urine Negative (Negative); Nitrite Urine Negative (Negative); Protein Urine Negative (Negative); Specific Gravity Urine 1.011 (1.000-1.030); Urobilinogen Urine Negative (Negative)
[2020-09-26] MEDS: LEVOTHYROXINE SODIUM 125 MCG TABLET PO SCH (05:49)
[2020-09-26 07:16] LABS: Hematocrit (blood only) 28.8 % (37-47); Hemoglobin 9.2 g/dL (12.0-16.0); Mean Corpuscular Hemoglobin 28.5 pg (25-34); Mean Corpuscular Hgb Conc 31.9 g/dL (32-36); Mean Corpuscular Volume 89.2 fL (80-100); Mean Platelet Volume 9.1 fL (7.4-10.4); Platelet Count 241 K/uL (130-400); RDW Coefficient of Variation 19.3 % (11.5-14.5); RDW Standard Deviation 62.8 fL (36.4-46.3); Red Blood Count 3.23 M/uL (4.2-5.4)
[2020-09-26 07:34] LABS: INR 2.8 (0.9-1.1); Prothrombin Time 26.2 Seconds (9.0-12.0)
[2020-09-26 07:56] LABS: Calcium 8.1 mg/dl (8.5-10.1); Creatinine Clr Calc Pharmacy 58.2 ml/min; Est GFR (African American) 70.6 ml/min; Est GFR (Non-African American) 60.9 ml/min; Magnesium 2.1 mg/dl (1.8-2.4); Phosphorus 3.2 mg/dl (2.5-4.9); Potassium 3.6 mmol/L (3.5-5.1)
[2020-09-26] MEDS: ATORVASTATIN 20 MG TAB PO SCH (08:13)
[2020-09-26] MEDS: CYANOCOBALAMIN (VITAMIN B-12) 100 MCG TABLET PO SCH (08:13)
[2020-09-26] MEDS: FUROSEMIDE 40 MG in SYRINGE 0 ML IV SCH (08:13)
[2020-09-26] MEDS: METOPROLOL SUCC 50MG EXT REL TAB PO SCH (08:13)
[2020-09-26] MEDS: GABAPENTIN 100 MG CAP PO SCH ×2 (08:13→20:54)
[2020-09-26] MEDS: FLUoxetine HCL 20 MG CAP PO SCH (08:13)
[2020-09-26] MEDS: ASCORBIC ACID 500 MG TAB PO SCH (08:13)
[2020-09-26] MEDS: FERROUS SULFATE 325 MG TAB PO SCH ×2 (08:13→16:15)
[2020-09-26] MEDS: PANTOprazole 40 MG TAB PO SCH ×2 (08:14→20:54)
[2020-09-26] MEDS: FLUTICASONE PROPIONATE NA SPR 16 GM BTL SCH (08:14)
[2020-09-26] MEDS ORDERED: FUROSEMIDE 40 MG/4 ML VIAL IV SCH (09:00)
--- NOTE | 2020-09-26 11:26 | Cardiology Consultation ---
Date of Consultation September 26, 2020 Assessment & Plan (1) Fall: (2) CHF (congestive heart failure): (3) Heart failure due to valvular disease: (4) Severe aortic stenosis: (5) Diastolic CHF due to valvular disease: (6) Dyslipidemia: (7) Lymphedema of both lower extremities: (8) Atrial fibrillation: Diastolic CHF (HFnEF), due to severe rheumatic valvular heart disease. Volume status: Hypervolemic. Continue IV furosemide; this may need to be increased. Supplement potassium chloride orally. Restrict sodium and fluids. Monitor I's/O's, daily weights, daily metabolic panels. Chronic atrial fibrillation. + 3.6 second pause on telemetry. Discontinue digoxin. Continue metoprolol for now. Maintain telemetry. Possible need for permanent single chamber pacemaker implantation discussed. Continue Coumadin anticoagulation. Rheumatic valvular heart disease. Surgical intervention (AVR and MVR) declined. Continue appropriate medical (nonsurgical) management. July 2017 NSTEMI. Cardiac catheterization with nonocclusive coronary disease (see above). Continue appropriate medical management. Hypertension. Well controlled. Follow. Dyslipidemia. LDL 59 mg/dL on 01/01/2020. Continue atorvastatin. Anemia. Workup as per PCP/Hospitalist Hypoxemia. Supplemental oxygen use encouraged. Supervising Physician Co-Signing Physician Notes Patient seen and examined with Agustin Sage PA-C. Agree with findings and assessment as above. Patient presents status post mechanical fall without significant trauma. Examines is volume overload upon presentation. Agree with diuresis and medical therapy as above. History of Present Illness Reason for Consultation: CHF. Valve disease Requesting Physician: Dr. Aron Wilkins Attending Physician: Dr. Diane Garza MD History of Present Illness History of Present Illness: Oliva Denney is a very pleasant 75 year old female who was admitted to [facility] on September 25, 2020 after a mechanical fall in the bathroom. The patient notes that she awoke feeling unwell. She was ambulating to the bathroom with her walker, up the wood ramp when her walker moved. She reached for a grab bar and was unable to maintain her position. She reports suffering brush connolly to her arms and shoulder. She did not hit her head. There was no loss of consciousness. Her daughter Kimberly Denney, with whom I spoke on the telephone, notes worsening volume status, up 8 pounds from her baseline weight of 204 pounds, without improvement despite titration of oral furosemide as an outpatient, with associated increased dyspnea. She received IV furosemide in the ER with improvement. Notes recent UTI treated with Cipro. No chest pain. No tachypalpitations. No chest congestion. No orthopnea or PND. No fevers or chills. No melena or hematochezia. Telemetry reveals atrial fibrillation with heart rates typically in the 60's and 70's. At 7:38 this morning there was a 3.6 second pause (asymptomatic) I/O's negative 1,550 mL's overall Weight reportedly down 10 kg overnight Past Medical and Surgical History: 1. 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 2. Chronic atrial fibrillation 3. Mild nonobstructive coronary artery disease by July 24, 2017 diagnostic cardiac catheterization 4. Hypertension 5. Dyslipidemia 6. Type 2 diabetes mellitus with triopathy. 7. Chronic lower extremity lymphedema 8. Right breast cancer status post lumpectomy and radiation therapy 9. Nocturnal hypoxemia 10. Hypothyroidism 11. GERD 12. Anxiety and depression 13. Morbid obesity. 14. Vitamin D deficiency 15. Osteoarthritis of both knees 16. Colonoscopy with adenomatous polypectomy in February 2016 17. Diverticulosis 18. Tonsillectomy as a child 19. Right lower extremity fracture status post surgical intervention Family history: Mother at 83 with congestive heart failure. She was a diabetic and had a history of uterine cancer. Father with CAD and passed at 51. Social History: Nonsmoker. No smokeless tobacco. No alcohol consumption. No illegal drug use. on July 09, 2017. Two children. She lost her son in March 2019 due to a drug overdose. Lives with her daughter Kimberly Denney. Disabled. Complete Review of Systems is as stated above, negative, or noncontributory. Allergies Allergy/AdvReac Type Severity Reaction Status Date / Time cephalexin Allergy Unknown BURNING, Verified 09/25/20 14:34 NAUSEA, AND TROUBLE BREATHING Penicillins Allergy Unknown KIDNEY Verified 09/25/20 14:34 INFECTION, HIVES Sulfa (Sulfonamide Allergy Unknown NAUSEA AND Verified 09/25/20 14:34 Antibiotics) TIRED Home Medications Medication Instructions Recorded Confirmed Type ascorbic acid (vitamin C) 1,000 mg PO DAILY 12/15/18 09/25/20 History atorvastatin 20 mg PO DAILY 12/15/18 09/25/20 History cyanocobalamin (vitamin B-12) 100 mcg PO QAM 12/15/18 09/25/20 History digoxin 62.5 mcg PO MOWEFR 12/15/18 09/25/20 History ferrous sulfate 325 mg PO BID 12/15/18 09/25/20 History fluoxetine 20 mg PO DAILY 12/15/18 09/25/20 History fluticasone propionate 1 spray INTRANASAL DAILY 12/15/18 09/25/20 History gabapentin 100 mg PO BID 12/15/18 09/25/20 History levothyroxine 125 mcg PO QAM 12/15/18 09/25/20 History metformin 1,000 mg PO BID 12/15/18 09/25/20 History metoprolol succinate 50 mg PO DAILY 12/15/18 09/25/20 History pantoprazole 40 mg PO BID 12/15/18 09/25/20 History potassium chloride 30 meq PO DAILY 12/15/18 09/25/20 History warfarin 7.5 mg PO MOFR@1600 12/15/18 09/25/20 History warfarin 5 mg PO SUTUWETHSA@1600 05/15/20 09/25/20 History furosemide 80 mg PO BID 09/25/20 09/25/20 History loperamide 2 mg PO QID PRN 09/25/20 09/25/20 History Patient History Medical History Anemia Atrial fibrillation Depression Diabetes mellitus type II, controlled Diabetic neuropathy Diastolic CHF due to valvular disease Diverticular disease of colon "per colonoscopy February 2016" Dyslipidemia History of breast cancer "Right breast" Hypertension Hypothyroidism Ischemic heart disease "nonocclusive CAD per cath [facility] 07/24/17" Lymphedema of both lower extremities Mild tricuspid regurgitation Moderate mitral stenosis Morbid obesity with BMI of 40.0-44.9, adult Pulmonary hypertension "PAP 70/33 per cath 07/24/17" Severe aortic stenosis Severe mitral regurgitation Surgical History History of lumpectomy of right breast History of tonsillectomy Status post cardiac catheterization "[facility] 07/24/17 - nonocclusive CAD, pulmonary hypertension" Family History Father Heart failure Mother Heart failure Social History Smoking Status: Never smoker Hx Alcohol Use: No Hx Substance Use: No Preferred Language: Bulgarian Communication Ability: Impaired Commercial Cleaner Required: No Beliefs That Will Affect Care: None marital status: / Current Living Situation: Family Current Living Situation Comment: lives with dtr Other Information That Helps Us Care for You: No Feels Safe at Home: Yes Safety Concerns: Feels Safe At This Time Assistive Devices: Glasses Assistive Devices Comment: oxygen PRN at home Review of Systems Review of Systems: All systems reviewed & are unremarkable except as noted in HPI & below Physical Exam Physical Exam: General: A&Ox3. NAD. Pallor. Corporative. Pleasant HENT: Normocephalic. Atraumatic. Eyes: PER. Conjunctiva pink, sclera pale. Neck: No carotid bruits. + JVD. Heart: Irregular irregular in the 70's. Grade II/ apical systolic murmur. Grade II/ systolic ejection murmur. No diastolic murmur appreciated. Lungs: Diminished. Right basilar rales. No wheeze. Abdomen: Obese. +BS. Nontender. No overt organomegaly. Extremities: 1+ edema. Lymphedema. No clubbing. No cyanosis. Limited neurological examination is without focal deficits. Pulses: Radial=2/4. Posterior tibial pulses were not palpated. Results & Data ([facility]) Vital Signs (Past 12 Hours) Vital Signs Temp Pulse Pulse Pulse Resp BP BP 09/26/20 07:10 36.4 C L 73 18 120/48 L 09/26/20 04:11 36.5 C 72 18 99/66 L 09/25/20 23:54 72 09/25/20 23:49 36.6 C 92 H 20 107/66 Pulse Ox 09/26/20 07:10 98 09/26/20 04:11 98 09/25/20 23:54 09/25/20 23:49 92 Laboratory Results Laboratory Results - last 24 hr 09/25/20 09/25/20 09/25/20 14:43 14:43 14:43 WBC 9.53 RBC 3.25 L Hgb 9.2 L Hct 28.6 L MCV 88.0 MCH 28.3 MCHC 32.2 RDW Std Deviation 62.6 H RDW Coeff of Paresh 19.3 H Plt Count 280 MPV 9.8 Immature Gran % (Auto) 0.2 Neut % (Auto) 79.9 Lymph % (Auto) 8.7 [place] % (Auto) 10.0 Eos % (Auto) 1.0 Baso % (Auto) 0.2 Neut # (Auto) 7.61 H Lymph # (Auto) 0.83 L [place] # (Auto) 0.95 H Eos # (Auto) 0.10 Baso # (Auto) 0.02 Immature Gran # (Auto) 0.02 PT 30.3 H INR 3.3 H APTT 33.6 H PTT Ratio 1.3 Sodium 138 Potassium 4.5 Chloride 104 Carbon Dioxide 27 Anion Gap 7.0 BUN 60 H Creatinine 1.21 H Est Cr Clr Drug Dosing 46.6 Est GFR ( Amer) 50.7 Est GFR (Non-Af Amer) 43.7 BUN/Creatinine Ratio 49.8 H Glucose 107 H Calcium 8.3 L Phosphorus Magnesium 1.6 L Total Bilirubin 0.7 Direct Bilirubin 0.3 H AST 26 ALT 29 Alkaline Phosphatase 119 H Troponin I < 0.015 NT-Pro-B Natriuret Pep 9531 H Total Protein 8.0 Albumin 2.6 L Lipase 261 Procalcitonin Urine Color Urine Appearance Urine pH Ur Specific [place] Urine Protein Urine Glucose (UA) Urine Ketones Urine Blood Urine Nitrite Urine Bilirubin Urine Urobilinogen Ur Leukocyte Esterase COVID-19 Eval Order SARS-CoV-2 (PCR) 09/25/20 09/25/20 09/25/20 14:43 14:44 16:00 WBC RBC Hgb Hct MCV MCH MCHC RDW Std Deviation RDW Coeff of Paresh Plt Count MPV Immature Gran % (Auto) Neut % (Auto) Lymph % (Auto) [place] % (Auto) Eos % (Auto) Baso % (Auto) Neut # (Auto) Lymph # (Auto) [place] # (Auto) Eos # (Auto) Baso # (Auto) Immature Gran # (Auto) PT INR APTT PTT Ratio Sodium Potassium Chloride Carbon Dioxide Anion Gap BUN Creatinine Est Cr Clr Drug Dosing Est GFR ( Amer) Est GFR (Non-Af Amer) BUN/Creatinine Ratio Glucose Calcium Phosphorus Magnesium Total Bilirubin Direct Bilirubin AST ALT Alkaline Phosphatase Troponin I NT-Pro-B Natriuret Pep Total Protein Albumin Lipase Cancelled Procalcitonin < 0.05 Urine Color Urine Appearance Urine pH Ur Specific [place] Urine Protein Urine Glucose (UA) Urine Ketones Urine Blood Urine Nitrite Urine Bilirubin Urine Urobilinogen Ur Leukocyte Esterase COVID-19 Eval Order Covid19 at [facility] SARS-CoV-2 (PCR) 09/25/20 09/25/20 09/26/20 16:00 22:15 07:03 WBC RBC Hgb Hct MCV MCH MCHC RDW Std Deviation RDW Coeff of Paresh Plt Count MPV Immature Gran % (Auto) Neut % (Auto) Lymph % (Auto) [place] % (Auto) Eos % (Auto) Baso % (Auto) Neut # (Auto) Lymph # (Auto) [place] # (Auto) Eos # (Auto) Baso # (Auto) Immature Gran # (Auto) PT 26.2 H INR 2.8 H APTT PTT Ratio Sodium Potassium Chloride Carbon Dioxide Anion Gap BUN Creatinine Est Cr Clr Drug Dosing Est GFR ( Amer) Est GFR (Non-Af Amer) BUN/Creatinine Ratio Glucose Calcium Phosphorus Magnesium Total Bilirubin Direct Bilirubin AST ALT Alkaline Phosphatase Troponin I NT-Pro-B Natriuret Pep Total Protein Albumin Lipase Procalcitonin Urine Color Yellow Urine Appearance Clear Urine pH 5.0 Ur Specific [place] 1.011 Urine Protein Negative Urine Glucose (UA) Negative Urine Ketones Negative Urine Blood Negative Urine Nitrite Negative Urine Bilirubin Negative Urine Urobilinogen Negative Ur Leukocyte Esterase Negative COVID-19 Eval Order SARS-CoV-2 (PCR) NEGATIVE 09/26/20 09/26/20 09/26/20 07:03 07:03 07:03 WBC 6.60 RBC 3.23 L Hgb 9.2 L Hct 28.8 L MCV 89.2 MCH 28.5 MCHC 31.9 L RDW Std Deviation 62.8 H RDW Coeff of Paresh 19.3 H Plt Count 241 MPV 9.1 Immature Gran % (Auto) Neut % (Auto) Lymph % (Auto) [place] % (Auto) Eos % (Auto) Baso % (Auto) Neut # (Auto) Lymph # (Auto) [place] # (Auto) Eos # (Auto) Baso # (Auto) Immature Gran # (Auto) PT INR APTT PTT Ratio Sodium 141 Potassium 3.6 D Chloride 106 Carbon Dioxide 28 Anion Gap 7.0 BUN 50 H Creatinine 0.92 Est Cr Clr Drug Dosing 58.2 Est GFR ( Amer) 70.6 Est GFR (Non-Af Amer) 60.9 BUN/Creatinine Ratio 54.0 H Glucose 106 H Calcium 8.1 L Phosphorus 3.2 Magnesium 2.1 Total Bilirubin Direct Bilirubin AST ALT Alkaline Phosphatase Troponin I NT-Pro-B Natriuret Pep Total Protein Albumin Lipase Procalcitonin < 0.05 Urine Color Urine Appearance Urine pH Ur Specific [place] Urine Protein Urine Glucose (UA) Urine Ketones Urine Blood Urine Nitrite Urine Bilirubin Urine Urobilinogen Ur Leukocyte Esterase COVID-19 Eval Order SARS-CoV-2 (PCR) Diagnostic Findings July 24, 2017 Cardiac Catheterization ([facility], Dr. Jorge Meza) Comments: The coronary arteries have diffuse minor irregularities.The right atrial pressures measured was 14 mmHg which is high.Pulmonary hypertension is present and severe with value of 70/33 with a mean of 47 mmHg.Pulmonary saturation is 48 % which is low.The pulmonary wedge pressure was 29 mmhg which is very high.The cardiac output was 4.0 L/min and the cardiac index is 1.8 L/min/m^2 by denisse which is low.The TPG is 18 mmHg which is high.The PVR is 5.2 wood units which is high. December 16, 2018 TTE Interpretation Summary ([facility], Dr. Dover): Normal size LV. Mild concentric LVH. Normal LV systolic function. EF 60 to 65%. Normal RV systolic function. Severely dilated left atrium. Mild to moderately dilated right atrium. Calcified mitral apparatus with moderate to severe mitral regurgitation and mild mitral stenosis. Severe calcific aortic valve stenosis. (1) CHF (congestive heart failure) Heart failure chronicity: acute on chronic Heart failure type: unspecified Qualified Code(s): I50.9 - Heart failure, unspecified (2) Fall Encounter type: initial encounter Qualified Code(s): W19.XXXA - Unspecified fall, initial encounter
[2020-09-26] MEDS ORDERED: POTASSIUM CHLORIDE CRTAB 20 MEQ TABCR PO STA (11:39)
--- NOTE | 2020-09-26 12:15 | Hospitalist Progress Note ---
Date of Service September 26, 2020 Assessment & Plan (1) Heart failure due to valvular disease: (2) Severe aortic stenosis: (3) Severe mitral regurgitation: Fall Patient presented to the ED after an episode of fall. She denies hitting her head or losing any consciousness. Acute on chronic diastolic heart failure exacerbation Noted to have significant edema of the lower extremities. Chest x-ray with cardiomegaly and mild congestive change, CT showing mild pulmonary edema with cardiomegaly and small bilateral pleural effusions, groundglass densities at the lung bases likely secondary to pulmonary edema Patient denies any fever. WBC is within normal limit. Calcitonin is not concerning. No indication for antibiotics at this time. BNP of roughly 9500. Adequate urine output. Continue IV Lasix 40 mg daily. Continue monitor daily BMP. To ins and outs along with daily weights. Work with PT/OT. Chronic Atrial fibrillation Rate controlled. Continue metoprolol and low-dose digoxin as prescribed. Continue Coumadin anticoagulation. INR today at 2.8 Recent history of UTI -Per chart review, patient was on ciprofloxacin, patient reports finishing antibiotic course Repet U/A is bening. SALOME - resolved -Continue to closely monitor BMP while diuresing Diabetes mellitus type 2 -hemoglobin A1c of 6.4% in 04/24 -Hold home Metformin, sliding scale insulin while inpatient, continue to monitor blood glucose Anemia Hgb 9.2, at baseline. No signs of active bleeding, monitor with daily CBC DVT Ppx: Coumadin Code status: DNR/DNI -discussed with the patient at the bedside. Patient was consulted by palliative medicine at the last admission in May, at that time CODE STATUS changed. PCP: Dr. Campbell Admission and Anticipated Discharge Date Admission Date: September 25, 2020 Subjective Patient currently remains on 2 L of nasal cannula. Reports shortness of breath is improved. Denies any chest pain, abdominal pain, cough, palpitations, dizziness, diarrhea or dysuria. Review of Systems Review of Systems: All systems reviewed & are unremarkable except as noted in HPI & below Physical Exam Physical Exam: General: A&Ox3. HENT: NCAT, MMM, EOMI Eyes: PERRLA Neck: Supple, normal range of motion CVS: normal rate and with irregular rhythm Resp: b/l decreased breath sounds Abdomen: Soft, ND/NT, +BS Extremities: 1-2+ lower extremity edema along with lymphedema, left foot erythematous wound noted Neuro: face symmetric, strength grossly equal, no focal deficit Skin: warm and dry, no rashes/lesions/errythema MSK: normal ROM, no joint swelling/erythema Results & Data Results & Data ([facility]) Vital Signs (Past 12 Hours) Vital Signs Temp Pulse Resp BP BP Pulse Ox 09/26/20 11:34 36.3 C L 68 18 121/67 100 09/26/20 07:10 36.4 C L 73 18 120/48 L 98 09/26/20 04:11 36.5 C 72 18 99/66 L 98
--- NOTE | 2020-09-26 13:28 | Electrocardiogram Report ---
Test Reason : Blood Pressure : / mmHG Vent. Rate : 085 BPM Atrial Rate : 108 BPM P-R Int : 000 ms QRS Dur : 100 ms QT Int : 398 ms P-R-T Axes : 000 002 052 degrees QTc Int : 473 ms Atrial fibrillation with a competing junctional pacemaker Nonspecific ST and T wave abnormality Prolonged QT Abnormal ECG When compared with ECG of 15-MAY-2020 08:53, ST no longer depressed in Lateral leads Nonspecific T wave abnormality now evident in Anterior leads Nonspecific T wave abnormality no longer evident in Lateral leads Confirmed by Manolo Boyer ([id number]) on 09/26/2020 1:28:10 PM Referred By: REFERRED SELF Confirmed By:Manolo Boyer
[2020-09-26] MEDS ORDERED: DIGOXIN 0.125 MG TAB PO SCH (16:00)
[2020-09-26] MEDS ORDERED: MICONAZOLE NITRATE POWDER 43 GM EXT PRN (16:05)
[2020-09-26] MEDS: WARFARIN SOD 7.5 MG TAB PO SCH (16:15)
[2020-09-27] MEDS: LEVOTHYROXINE SODIUM 125 MCG TABLET PO SCH (05:56)
[2020-09-27 06:50] LABS: Hematocrit (blood only) 28.6 % (37-47); Mean Corpuscular Hemoglobin 28.1 pg (25-34); Mean Corpuscular Hgb Conc 31.5 g/dL (32-36); Mean Corpuscular Volume 89.4 fL (80-100); Mean Platelet Volume 9.8 fL (7.4-10.4); Platelet Count 274 K/uL (130-400); RDW Coefficient of Variation 19.1 % (11.5-14.5); RDW Standard Deviation 63.5 fL (36.4-46.3); White Blood Count 8.04 K/uL (4.8-10.8)
[2020-09-27 07:03] LABS: INR 2.8 (0.9-1.1); Prothrombin Time 26.6 Seconds (9.0-12.0)
[2020-09-27 07:23] LABS: BUN Creatinine Ratio 38.5 (10-20); Calcium 8.1 mg/dl (8.5-10.1); Creatinine Clr Calc Pharmacy 52.3 ml/min; Est GFR (African American) 62.3 ml/min; Est GFR (Non-African American) 53.8 ml/min; Potassium 3.7 mmol/L (3.5-5.1)
[2020-09-27] MEDS: PANTOprazole 40 MG TAB PO SCH ×2 (09:14→20:14)
[2020-09-27] MEDS: FLUoxetine HCL 20 MG CAP PO SCH (09:15)
[2020-09-27] MEDS: GABAPENTIN 100 MG CAP PO SCH ×2 (09:15→20:13)
[2020-09-27] MEDS: CYANOCOBALAMIN (VITAMIN B-12) 100 MCG TABLET PO SCH (09:15)
[2020-09-27] MEDS: METOPROLOL SUCC 50MG EXT REL TAB PO SCH (09:15)
[2020-09-27] MEDS: FUROSEMIDE 40 MG in SYRINGE 0 ML IV SCH (09:16)
[2020-09-27] MEDS: FERROUS SULFATE 325 MG TAB PO SCH ×2 (09:16→16:14)
[2020-09-27] MEDS: POTASSIUM CHLORIDE CRTAB 20 MEQ TABCR PO SCH (09:16)
[2020-09-27] MEDS: FLUTICASONE PROPIONATE NA SPR 16 GM BTL SCH (09:16)
[2020-09-27] MEDS: ASCORBIC ACID 500 MG TAB PO SCH (09:16)
[2020-09-27] MEDS: ATORVASTATIN 20 MG TAB PO SCH (09:16)
--- NOTE | 2020-09-27 09:25 | Cardiology Progress Note ---
Date of Service September 27, 2020 Assessment & Plan (1) Fall: (2) CHF (congestive heart failure): (3) Heart failure due to valvular disease: (4) Severe aortic stenosis: (5) Diastolic CHF due to valvular disease: (6) Dyslipidemia: (7) Lymphedema of both lower extremities: (8) Atrial fibrillation: Diastolic CHF (HFnEF), due to severe rheumatic valvular heart disease. Volume status: Improved though still hypervolemic. Continue IV furosemide; this may need to be increased. Supplement potassium orally. Restrict sodium and fluids. Monitor I's/O's, daily weights, daily metabolic panels. Chronic atrial fibrillation. No further pauses since discontinuation of digoxin. Continue metoprolol as prescribed. Maintain telemetry. Possible future need for permanent single chamber pacemaker implantation discussed. Continue Coumadin anticoagulation. Rheumatic valvular heart disease. Surgical intervention (AVR and MVR) declined. Continue appropriate medical (nonsurgical) management. Nonocclusive coronary artery disease. Continue appropriate medical management. Hypertension. Follow. Dyslipidemia. LDL 59 mg/dL on 01/01/2020. Continue atorvastatin. Anemia. Workup as per PCP/Hospitalist Admission and Anticipated Discharge Date Admission Date: September 25, 2020 Supervising Physician Co-Signing Physician Notes Patient seen and examined with Agustin Sage PA-C. Agree with findings and assessment as above. Patient presents status post mechanical fall without significant trauma. Examines is volume overload upon presentation. Diuresing well. Agree with diuresis and medical therapy as above. Subjective Patient seen and examined. Chart, medications, and telemetry reviewed. Feeling better. Mentally more clear. Less dyspnea. Fluid has improved but not resolved. No chest pain. No palpitations. Stable orthopnea. No PND. No dizziness. No syncope. No fevers. Telemetry: Atrial fibrillation typically in the 70's to 90's. No further pauses. I/O's - 3,000 mL's overall. Weight down 0.6 kg overall (95.7 kg down to 95.1 kg) Review of Systems Review of Systems: All systems reviewed & are unremarkable except as noted in HPI & below Physical Exam Physical Exam: General: A&Ox3. NAD. HENT: Normocephalic. Atraumatic. Eyes: PER. Conjunctiva pink, sclera pale. Neck: No carotid bruits. + JVD. Heart: Irregular irregular in the upper 80's. Grade II/ apical systolic murmur. Grade II/ systolic ejection murmur. No diastolic murmur appreciated. Lungs: Diminished. Right basilar rales. No wheeze. Abdomen: Obese. +BS. Nontender. No overt organomegaly. Extremities: 1+ edema. Lymphedema. No clubbing. No cyanosis. Limited neurological examination is without focal deficits. Pulses: Radial=2/4. Posterior tibial pulses were not appreciated. Results & Data ([facility]) Vital Signs (Past 12 Hours) Vital Signs Temp Pulse Pulse Resp BP Pulse Ox 09/27/20 07:19 85 09/27/20 07:05 37.0 C 87 18 99/58 L 94 09/27/20 03:28 37.2 C 72 18 117/51 L 95 09/26/20 23:35 92 H 120/70 09/26/20 23:26 79 09/26/20 23:09 37.0 C 84 18 93/51 L 96 Laboratory Results Laboratory Results - last 24 hr 09/27/20 09/27/20 09/27/20 06:09 06:09 06:09 WBC 8.04 RBC 3.20 L Hgb 9.0 L Hct 28.6 L MCV 89.4 MCH 28.1 MCHC 31.5 L RDW Std Deviation 63.5 H RDW Coeff of Paresh 19.1 H Plt Count 274 MPV 9.8 PT 26.6 H INR 2.8 H Sodium 140 Potassium 3.7 Chloride 106 Carbon Dioxide 30 Anion Gap 4.0 BUN 39 H Creatinine 1.02 Est Cr Clr Drug Dosing 52.3 Est GFR ( Amer) 62.3 Est GFR (Non-Af Amer) 53.8 BUN/Creatinine Ratio 38.5 H Glucose 121 H Calcium 8.1 L (1) CHF (congestive heart failure) Heart failure chronicity: acute on chronic Heart failure type: unspecified Q ualified Code(s): I50.9 - Heart failure, unspecified (2) Fall Encounter type: initial encounter Qualified Code(s): W19.XXXA - Unspecified fall, initial encounter
--- NOTE | 2020-09-27 12:42 | Hospitalist Progress Note ---
Date of Service September 27, 2020 Assessment & Plan (1) Heart failure due to valvular disease: (2) Severe aortic stenosis: (3) Severe mitral regurgitation: Fall Patient presented to the ED after an episode of fall. She denies hitting her head or losing any consciousness. Acute on chronic diastolic heart failure exacerbation Noted to have significant edema of the lower extremities. Chest x-ray with cardiomegaly and mild congestive change, CT showing mild pulmonary edema with cardiomegaly and small bilateral pleural effusions, groundglass densities at the lung bases likely secondary to pulmonary edema Patient denies any fever. WBC is within normal limit. Calcitonin is not concerning. No indication for antibiotics at this time. BNP of roughly 9500. Adequate urine output. Continue IV Lasix 40 mg daily. Continue monitor daily BMP. To ins and outs along with daily weights. PT/OT ordered Chronic Atrial fibrillation Rate controlled. Continue metoprolol and low-dose digoxin as prescribed. Continue Coumadin anticoagulation. INR today at 2.8 Recent history of UTI -Per chart review, patient was on ciprofloxacin, patient reports finishing antibiotic course Repet U/A is bening. SALOME - resolved -Continue to closely monitor BMP while diuresing Diabetes mellitus type 2 -hemoglobin A1c of 6.4% in 04/24 -Hold home Metformin, sliding scale insulin while inpatient, continue to monitor blood glucose Anemia Hgb 9.2, at baseline. No signs of active bleeding, monitor with daily CBC DVT Ppx: Coumadin Code status: DNR/DNI -discussed with the patient at the bedside. Patient was consulted by palliative medicine at the last admission in May, at that time CODE STATUS changed. PCP: Dr. Campbell Admission and Anticipated Discharge Date Admission Date: September 25, 2020 Subjective Patient is awake and alert. Currently on 2 L of nasal cannula. Reports she is feeling better. Denies any chest pain, cough, abdominal pain, diarrhea or dysuria. Adequate urine output. Have not been out of the bed. Review of Systems Review of Systems: All systems reviewed & are unremarkable except as noted in HPI & below Physical Exam Physical Exam: General: A&Ox3. HENT: NCAT, MMM, EOMI Eyes: PERRLA Neck: Supple, normal range of motion CVS: normal rate and with irregular rhythm Resp: b/l decreased breath sounds Abdomen: Soft, ND/NT, +BS Extremities: 1-2+ lower extremity edema along with lymphedema, left foot erythematous wound noted Neuro: face symmetric, strength grossly equal, no focal deficit Skin: warm and dry, no rashes/lesions/errythema MSK: normal ROM, no joint swelling/erythema Results & Data Results & Data ([facility]) Vital Signs (Past 12 Hours) Vital Signs Temp Pulse Pulse Resp BP BP Pulse Ox 09/27/20 11:10 36.7 C 82 18 112/70 98 09/27/20 09:22 111/75 09/27/20 07:19 85 09/27/20 07:05 37.0 C 87 18 99/58 L 94 09/27/20 03:28 37.2 C 72 18 117/51 L 95
[2020-09-27] MEDS: WARFARIN SOD 5 MG TAB PO SCH (16:15)
[2020-09-27] MEDS: ACETAMINOPHEN 325 MG TAB PO PRN (22:58)
[2020-09-28] MEDS: LEVOTHYROXINE SODIUM 125 MCG TABLET PO SCH (05:47)
[2020-09-28 06:54] LABS: INR 3.3 (0.9-1.1); Prothrombin Time 30.3 Seconds (9.0-12.0)
[2020-09-28 07:15] LABS: BUN Creatinine Ratio 37.6 (10-20); Calcium 7.8 mg/dl (8.5-10.1); Creatinine Clr Calc Pharmacy 60.8 ml/min; Est GFR (African American) 74.5 ml/min; Est GFR (Non-African American) 64.3 ml/min; Potassium 3.7 mmol/L (3.5-5.1)
[2020-09-28 07:16] LABS: Phosphorus 3.1 mg/dl (2.5-4.9)
[2020-09-28] MEDS: POTASSIUM CHLORIDE CRTAB 20 MEQ TABCR PO SCH (07:32)
[2020-09-28] MEDS: METOPROLOL SUCC 50MG EXT REL TAB PO SCH (07:32)
[2020-09-28] MEDS: GABAPENTIN 100 MG CAP PO SCH ×2 (07:32→20:28)
[2020-09-28] MEDS: PANTOprazole 40 MG TAB PO SCH ×2 (07:32→20:28)
[2020-09-28] MEDS: ASCORBIC ACID 500 MG TAB PO SCH (07:32)
[2020-09-28] MEDS: CYANOCOBALAMIN (VITAMIN B-12) 100 MCG TABLET PO SCH (07:33)
[2020-09-28] MEDS: FLUTICASONE PROPIONATE NA SPR 16 GM BTL SCH (07:33)
[2020-09-28] MEDS: FERROUS SULFATE 325 MG TAB PO SCH ×2 (07:33→17:08)
[2020-09-28] MEDS: ATORVASTATIN 20 MG TAB PO SCH (07:33)
[2020-09-28] MEDS: FLUoxetine HCL 20 MG CAP PO SCH (07:33)
[2020-09-28] MEDS: FUROSEMIDE 40 MG in SYRINGE 0 ML IV SCH (09:17)
--- NOTE | 2020-09-28 10:35 | Cardiology Progress Note ---
Date of Service September 28, 2020 Assessment & Plan (1) Fall: (2) CHF (congestive heart failure): (3) Heart failure due to valvular disease: (4) Severe aortic stenosis: (5) Diastolic CHF due to valvular disease: (6) Dyslipidemia: (7) Lymphedema of both lower extremities: (8) Atrial fibrillation: Diastolic CHF (HFnEF), due to severe rheumatic valvular heart disease. Volume status: Gradually improving hypervolemia. Continue IV furosemide. Supplement potassium orally. Restrict sodium and fluids. Monitor I's/O's, daily weights, daily metabolic panels. Chronic atrial fibrillation. No further pauses since discontinuation of digoxin. Continue metoprolol as prescribed. Maintain telemetry. Continue Coumadin anticoagulation. Rheumatic valvular heart disease. Surgical intervention (AVR and MVR) declined. Continue appropriate medical (nonsurgical) management. Nonocclusive coronary artery disease. Continue appropriate medical management. Hypertension. BP well controlled. Follow. Dyslipidemia. LDL 59 mg/dL on 01/01/2020. Continue atorvastatin. Anemia. Workup as per PCP/Hospitalist Needs to increase activity, therapy. Admission and Anticipated Discharge Date Admission Date: September 25, 2020 Supervising Physician Co-Signing Physician Notes Patient seen and examined with Agustin Sage PA-C. Agree with findings and assessment as above. Patient presents status post mechanical fall without significant trauma. Examines is volume overload upon presentation. Diuresing well. Agree with diuresis and medical therapy as above. Subjective Patient seen and examined. Chart, medications, and telemetry reviewed. Feeling better. No chest pain. No worsening dyspnea. No tachypalpitations. Stable orthopnea. No PND. No dizziness. No syncope. No fevers. Telemetry: Atrial fibrillation in the 70's to 90's. No further pauses. I/O's -1550 mLs, -1,450 mLs, -1,460 mLs (- 4,460 mL's overall) Weight 105.1 to 95.7 kg reported. Review of Systems Review of Systems: All systems reviewed & are unremarkable except as noted in HPI & below Physical Exam Physical Exam: General: A&Ox3. NAD. HENT: Normocephalic. Atraumatic. Eyes: PER. Conjunctiva pink, sclera pale. Neck: No carotid bruits. + JVD. Heart: Irregular irregular in the upper 80's. Grade II/ apical systolic murmur. Grade II/ systolic ejection murmur. No diastolic murmur appreciated. Lungs: Diminished. Right basilar rales. No wheeze. Abdomen: Obese. +BS. Nontender. No overt organomegaly. Extremities: Trace to 1+ edema. Lymphedema. No clubbing. No cyanosis. Limited neurological examination is without focal deficits. Pulses: Radial=2/4. Posterior tibial pulses were not appreciated. Results & Data ([facility]) Vital Signs (Past 12 Hours) Vital Signs Temp Pulse Pulse Resp BP Pulse Ox 09/28/20 09:15 93 H 09/28/20 07:35 36.7 C 93 H 20 132/79 97 09/28/20 07:03 37.0 C 95 H 20 115/73 98 09/28/20 04:26 36.4 C L 109 H 18 103/68 99 09/27/20 22:57 37.4 C 99 H 18 111/70 96 Laboratory Results Laboratory Results - last 24 hr 09/28/20 09/28/20 06:29 06:29 PT 30.3 H INR 3.3 H Sodium 140 Potassium 3.7 Chloride 106 Carbon Dioxide 28 Anion Gap 6.0 BUN 33 H Creatinine 0.88 Est Cr Clr Drug Dosing 60.8 Est GFR ( Amer) 74.5 Est GFR (Non-Af Amer) 64.3 BUN/Creatinine Ratio 37.6 H Glucose 118 H Calcium 7.8 L Phosphorus 3.1 Magnesium 2.0 (1) CHF (congestive heart failure) Heart failure chronicity: acute on chronic Heart failure type: unspecified Qualified Code(s): I50.9 - Heart failure, unspecified (2) Fall Encounter type: initial encounter Qualified Code(s): W19.XXXA - Unspecified fall, initial encounter
[2020-09-28] MEDS ORDERED: POTASSIUM CHLORIDE CRTAB 20 MEQ TABCR PO STA (11:17)
--- NOTE | 2020-09-28 11:18 | Hospitalist Progress Note ---
Date of Service September 28, 2020 Assessment & Plan (1) Heart failure due to valvular disease: (2) Severe aortic stenosis: (3) Severe mitral regurgitation: Fall Patient presented to the ED after an episode of fall. She denies hitting her head or losing any consciousness. Acute on chronic diastolic heart failure exacerbation Noted to have significant edema of the lower extremities. Chest x-ray with cardiomegaly and mild congestive change, CT showing mild pulmonary edema with cardiomegaly and small bilateral pleural effusions, groundglass densities at the lung bases likely secondary to pulmonary edema BNP of roughly 9500. Patient denies any fever. WBC is within normal limit. Calcitonin is not concerning. No indication for antibiotics at this time. Adequate urine output. Continue IV Lasix 40 mg daily. Continue monitor daily BMP. Monitor I's and O's and daily weight Cardiology following, appreciate their input PT/OT ordered Chronic Atrial fibrillation Rate controlled. Continue metoprolol. There was a 3.6-second pause noted on telemetry, and therefore digoxin was stopped. No more pauses recorded. Continue Coumadin anticoagulation. Monitor INR Recent history of UTI -Per chart review, patient was on ciprofloxacin, patient reports finishing antibiotic course Repet U/A negative. Was SALOME - resolved -Continue to closely monitor BMP while diuresing Diabetes mellitus type 2 -hemoglobin A1c of 6.4% in 04/24 -Hold home Metformin, sliding scale insulin while inpatient, continue to monitor blood glucose Anemia Hgb 9.2, at baseline. No signs of active bleeding, monitor with daily CBC DVT Ppx: Coumadin Code status: DNR/DNI -discussed with the patient at the bedside. Patient was c onsulted by palliative medicine at the last admission in May, at that time CODE STATUS changed. PCP: Dr. Campbell Dispo: plan to DC home w/ family, Admission and Anticipated Discharge Date Admission Date: September 25, 2020 Subjective Patient seen in follow-up of CHF, fluid overload Currently she is sitting up in the chair, in no acute distress, reports she is feeling better Denies any chest pain, abdominal pain, nausea or vomiting Patient's daughter at the bedside Patient followed by cardiology Diuresing well Review of Systems Review of Systems: All systems reviewed & are unremarkable except as noted in HPI & below Constitutional: no fever and no chills Respiratory: + dyspnea (improved) Cardiovascular: + edema; no chest pain and no palpitations Gastrointestinal: no abdominal pain, no nausea and no vomiting Physical Exam Constitutional: WD/WN, vitals as above + morbidly obese; no acute distress Eyes: PERRL, conjunctivae normal, anicteric sclerae ENMT: external ear and nose normal, oropharynx normal Neck: trachea midline, no thyromegaly normal visual inspection Respiratory: normal respiratory effort; no respiratory distress and no labored breathing Auscultation: + crackles (diffuse R>L); no wheezes Cardiovascular: Rate/Rhythm: + irregularly irregular Heart Sounds: + murmur (systolic at RUSB and at apex) Chest (Breasts): Chest: normal inspection of chest Gastrointestinal (Abdomen): Inspection/Auscultation: abdomen normal to inspection and normal bowel sounds; abdomen not distended Percussion/Palpation: abdomen soft; abdomen nontender, no guarding and abdomen not rigid Musculoskeletal: Head/Neck/Chest: normocephalic, head atraumatic and neck supple Skin: no rashes, warm and dry Neurologic: PERRL, EOMI, accommodation nl, no face palsy, no dysarthria Psychiatric: A+Ox3, euthymic affect Genitourinary: no CVA tenderness Results & Data Results & Data ([facility]) Vital Signs (Past 12 Hours) Vital Signs Temp Pulse Pulse Resp BP Pulse Ox 09/28/20 11:12 36.5 C 95 H 20 110/49 L 99 09/28/20 09:15 93 H 09/28/20 07:35 36.7 C 93 H 20 132/79 97 09/28/20 07:03 37.0 C 95 H 20 115/73 98 09/28/20 04:26 36.4 C L 109 H 18 103/68 99 Laboratory Results 09/28/20 09/28/20 Range/Units 06:29 06:29 PT 30.3 H (9.0-12.0) Seconds INR 3.3 H (0.9-1.1) Sodium 140 (136-145) mmol/L Potassium 3.7 (3.5-5.1) mmol/L Chloride 106 (98-107) mmol/L Carbon Dioxide 28 (21-32) mmol/L Anion Gap 6.0 (3-11) BUN 33 H (7-18) mg/dl Creatinine 0.88 (0.6-1.2) mg/dl Est Cr Clr Drug Dosing 60.8 ml/min Est GFR ( Amer) 74.5 ml/min Est GFR (Non-Af Amer) 64.3 ml/min BUN/Creatinine Ratio 37.6 H (10-20) Glucose 118 H (70-99) mg/dl Calcium 7.8 L (8.5-10.1) mg/dl Phosphorus 3.1 (2.5-4.9) mg/dl Magnesium 2.0 (1.8-2.4) mg/dl Medications Administered Current Inpatient Medications Acetaminophen (Acetaminophen 325 Mg Tab) 650 mg PO Q4H PRN PRN Reason: Pain or Fever Stop: 10/25/20 17:08 Last Admin: 09/27/20 22:58 Dose: 650 mg Documented by: Ascorbic Acid (Ascorbic Acid 500 Mg Tab) 1,000 mg PO DAILY [facility] Stop: 10/26/20 08:59 Last Admin: 09/28/20 07:32 Dose: 1,000 mg Documented by: Atorvastatin Calcium (Atorvastatin 20 Mg Tab) 20 mg PO DAILY [facility] Stop: 10/26/20 08:59 Last Admin: 09/28/20 07:33 Dose: 20 mg Documented by: Cyanocobalamin (Cyanocobalamin (Vitamin B-12) 100 Mcg Tablet) 100 mcg PO QAM [facility] Stop: 10/26/20 08:59 Last Admin: 09/28/20 07:33 Dose: 100 mcg Documented by: Ferrous Sulfate (Ferrous Sulfate 325 Mg Tab) 325 mg PO BIDM [facility] Stop: 10/26/20 07:59 Last Admin: 09/28/20 07:33 Dose: 325 mg Documented by: Fluoxetine HCl (Fluoxetine Hcl 20 Mg Cap) 20 mg PO DAILY [facility] Stop: 10/26/20 08:59 Last Admin: 09/28/20 07:33 Dose: 20 mg Documented by: Fluticasone Propionate (Fluticasone Propionate Na Spr 16 Gm Btl) 1 sprays NA DAILY [facility] Stop: 10/26/20 08:59 Last Admin: 09/28/20 07:33 Dose: 1 sprays Documented by: Gabapentin (Gabapentin 100 Mg Cap) 100 mg PO BID [facility] Stop: 10/25/20 20:59 Last Admin: 09/28/20 07:32 Dose: 100 mg Documented by: Furosemide 40 mg/ Syringe 4 mls @ 4 mls/min IV DAILY [facility] Stop: 10/26/20 08:59 Last Admin: 09/28/20 09:17 Dose: 4 mls/min Documented by: Levothyroxine Sodium (Levothyroxine Sodium 125 Mcg Tablet) 125 mcg PO DAILYBB [facility] Stop: 10/26/20 06:29 Last Admin: 09/28/20 05:47 Dose: 125 mcg Documented by: Metoprolol Succinate (Metoprolol Succ 50mg Ext Rel Tab) 50 mg PO DAILY [facility] Stop: 10/26/20 08:59 Last Admin: 09/28/20 07:32 Dose: 50 mg Documented by: Miconazole Nitrate (Miconazole Nitrate Powder 43 Gm) 1 appln EXT PRN PRN PRN Reason: Bilateral Groin Folds Stop: 10/26/20 16:04 Last Admin: 09/26/20 20:56 Dose: 1 appln Documented by: Pantoprazole Sodium (Pantoprazole 40 Mg Tab) 40 mg PO BID [facility] Stop: 10/25/20 20:59 Last Admin: 09/28/20 07:32 Dose: 40 mg Documented by: Polyethylene Glycol (Polyethylene (Miralax) 17 Gm Pack) 17 gm PO DAILY PRN PRN Reason: Constipation Stop: 10/25/20 17:08 Potassium Chloride (Potassium Chloride Crtab 20 Meq Tabcr) 20 meq PO QAM [facility] Stop: 10/27/20 08:59 Last Admin: 09/28/20 07:32 Dose: 20 meq Documented by: Potassium Chloride (Potassium Chloride Crtab 20 Meq Tabcr) 20 meq PO NOW STA Stop: 09/28/20 11:18 Warfarin Sodium (Warfarin Sod 7.5 Mg Tab) 7.5 mg PO MOFR@1600 [facility] Stop: 10/26/20 15:59 Last Admin: 09/26/20 16:15 Dose: 7.5 mg Documented by: Warfarin Sodium (Warfarin Sod 5 Mg Tab) 5 mg PO SUTUWETHSA@1600 [facility] Stop: 10/27/20 15:59 Last Admin: 09/27/20 16:15 Dose: 5 mg Documented by:
[2020-09-28] MEDS: WARFARIN SOD 5 MG TAB PO SCH (17:07)
[2020-09-29] MEDS: LEVOTHYROXINE SODIUM 125 MCG TABLET PO SCH (05:37)
[2020-09-29 05:55] LABS: Hematocrit (blood only) 26.1 % (37-47); Hemoglobin 8.4 g/dL (12.0-16.0)
[2020-09-29 06:22] LABS: BUN Creatinine Ratio 38.4 (10-20); Calcium 7.8 mg/dl (8.5-10.1); Creatinine Clr Calc Pharmacy 61.8 ml/min; Est GFR (African American) 76.6 ml/min; Est GFR (Non-African American) 66.1 ml/min; Magnesium 2.1 mg/dl (1.8-2.4); Potassium 3.7 mmol/L (3.5-5.1)
[2020-09-29 06:23] LABS: Phosphorus 3.3 mg/dl (2.5-4.9)
[2020-09-29 06:25] LABS: INR 3.2 (0.9-1.1); Prothrombin Time 29.4 Seconds (9.0-12.0)
[2020-09-29] MEDS ORDERED: POTASSIUM CHLORIDE CRTAB 20 MEQ TABCR PO STA (08:03)
--- NOTE | 2020-09-29 08:05 | Hospitalist Progress Note ---
Date of Service September 29, 2020 Assessment & Plan (1) Heart failure due to valvular disease: (2) Severe aortic stenosis: (3) Severe mitral regurgitation: Fall Patient presented to the ED after an episode of fall. She denies hitting her head or losing any consciousness. Acute on chronic diastolic heart failure exacerbation Noted to have significant edema of the lower extremities. Chest x-ray with cardiomegaly and mild congestive change, CT showing mild pulmonary edema with cardiomegaly and small bilateral pleural effusions, groundglass densities at the lung bases likely secondary to pulmonary edema BNP of roughly 9500. Patient denies any fever. WBC is within normal limit. Calcitonin is not concerning. No indication for antibiotics at this time. Adequate urine output. Continue IV Lasix 40 mg daily. Give additional 20 IV this afternoon (09/29) continue monitor daily BMP. Monitor I's and O's and daily weight Cardiology following, appreciate their input Patient was started on spironolactone PT/OT ordered Chronic Atrial fibrillation Rate controlled. Continue metoprolol. There was a 3.6-second pause noted on telemetry, and therefore digoxin was stopped. No more pauses recorded. Continue Coumadin anticoagulation. Monitor INR Recent history of UTI -Per chart review, patient was on ciprofloxacin, patient reports finishing antibiotic course Repet U/A negative. SALOME - resolved -Continue to closely monitor BMP while diuresing Diabetes mellitus type 2 -hemoglobin A1c of 6.4% in 04/24 -Hold home Metformin, sliding scale insulin while inpatient, continue to monitor blood glucose Anemia Hgb 8-9, overall stable, at baseline. No signs of active bleeding, monitor with daily CBC - cont. multivitamin, vit. B12, folic acid, iron suppl. DVT Ppx: Coumadin Code status: DNR/DNI -discussed with the patient at the bedside. Patient was consulted by palliative medicine at the last admission in May, at that time CODE STATUS changed. PCP: Dr. Campbell Dispo: plan to DC home w/ family, Admission and Anticipated Discharge Date Admission Date: September 25, 2020 Subjective Patient seen in follow-up of CHF, fluid overload Currently she is sitting up in the bed, in no acute distress, reports she is feeling better Denies any chest pain, abdominal pain, nausea or vomiting Met patient's daughter at the bedside yesterday Patient followed by cardiology Has been diuresing well however seems like she is net even from yesterday, will check with nursing staff and also cardiology. If we need to increase diuresis. She worked with PT yesterday however patient was maximal assistance, patient is quite debilitated. Discharge plan is therefore still questionable. Review of Systems Review of Systems: All systems reviewed & are unremarkable except as noted in HPI & below Constitutional: no fever and no chills Respiratory: + dyspnea (improved) Cardiovascular: no chest pain and no palpitations Gastrointestinal: no abdominal pain, no nausea and no vomiting Physical Exam Constitutional: WD/WN, vitals as above + morbidly obese; no acute distress Eyes: PERRL, conjunctivae normal, anicteric sclerae ENMT: external ear and nose normal, oropharynx normal Neck: trachea midline, no thyromegaly normal visual inspection Respiratory: normal respiratory effort; no respiratory distress and no labored breathing Auscultation: + crackles (mild diffuse R>L); no wheezes Cardiovascular: Rate/Rhythm: + irregularly irregular Heart Sounds: + murmur (systolic at RUSB and at apex) Chest (Breasts): Chest: normal inspection of chest Gastrointestinal (Abdomen): Inspection/Auscultation: abdomen normal to inspection and normal bowel sounds; abdomen not distended Percussion/Palp ation: abdomen soft; abdomen nontender, no guarding and abdomen not rigid Musculoskeletal: Head/Neck/Chest: normocephalic, head atraumatic and neck supple Skin: no rashes, warm and dry Neurologic: PERRL, EOMI, accommodation nl, no face palsy, no dysarthria Psychiatric: A+Ox3, euthymic affect Genitourinary: no CVA tenderness Results & Data Results & Data ([facility]) Vital Signs (Past 12 Hours) Vital Signs Temp Pulse Pulse Resp BP Pulse Ox 09/29/20 07:42 36.7 C 85 18 129/81 98 09/29/20 07:16 80 09/29/20 04:11 36.6 C 93 H 16 107/58 L 98 09/28/20 23:53 37 C 93 H 18 124/74 98 09/28/20 22:22 83 Laboratory Results 09/29/20 09/29/20 09/29/20 Range/Units 05:43 05:43 05:43 Hgb 8.4 L (12.0-16.0) g/dL Hct 26.1 L (37-47) % PT 29.4 H (9.0-12.0) Seconds INR 3.2 H (0.9-1.1) Sodium 139 (136-145) mmol/L Potassium 3.7 (3.5-5.1) mmol/L Chloride 104 (98-107) mmol/L Carbon Dioxide 31 (21-32) mmol/L Anion Gap 4.0 (3-11) BUN 33 H (7-18) mg/dl Creatinine 0.86 (0.6-1.2) mg/dl Est Cr Clr Drug Dosing 61.8 ml/min Est GFR ( Amer) 76.6 ml/min Est GFR (Non-Af Amer) 66.1 ml/min BUN/Creatinine Ratio 38.4 H (10-20) Glucose 115 H (70-99) mg/dl Calcium 7.8 L (8.5-10.1) mg/dl Phosphorus 3.3 (2.5-4.9) mg/dl Magnesium 2.1 (1.8-2.4) mg/dl Medications Administered Current Inpatient Medications Acetaminophen (Acetaminophen 325 Mg Tab) 650 mg PO Q4H PRN PRN Reason: Pain or Fever Stop: 10/25/20 17:08 Last Admin: 09/27/20 22:58 Dose: 650 mg Documented by: Ascorbic Acid (Ascorbic Acid 500 Mg Tab) 1,000 mg PO DAILY [facility] Stop: 10/26/20 08:59 Last Admin: 09/28/20 07:32 Dose: 1,000 mg Documented by: Atorvastatin Calcium (Atorvastatin 20 Mg Tab) 20 mg PO DAILY [facility] Stop: 10/26/20 08:59 Last Admin: 09/28/20 07:33 Dose: 20 mg Documented by: Cyanocobalamin (Cyanocobalamin (Vitamin B-12) 100 Mcg Tablet) 100 mcg PO QAM [facility] Stop: 10/26/20 08:59 Last Admin: 09/28/20 07:33 Dose: 100 mcg Documented by: Ferrous Sulfate (Ferrous Sulfate 325 Mg Tab) 325 mg PO BIDM [facility] Stop: 10/26/20 07:59 Last Admin: 09/28/20 17:08 Dose: 325 mg Documented by: Fluoxetine HCl (Fluoxetine Hcl 20 Mg Cap) 20 mg PO DAILY [facility] Stop: 10/26/20 08:59 Last Admin: 09/28/20 07:33 Dose: 20 mg Documented by: Fluticasone Propionate (Fluticasone Propionate Na Spr 16 Gm Btl) 1 sprays NA DAILY [facility] Stop: 10/26/20 08:59 Last Admin: 09/28/20 07:33 Dose: 1 sprays Documented by: Gabapentin (Gabapentin 100 Mg Cap) 100 mg PO BID [facility] Stop: 10/25/20 20:59 Last Admin: 09/28/20 20:28 Dose: 100 mg Documented by: Furosemide 40 mg/ Syringe 4 mls @ 4 mls/min IV DAILY [facility] Stop: 10/26/20 08:59 Last Admin: 09/28/20 09:17 Dose: 4 mls/min Documented by: Levothyroxine Sodium (Levothyroxine Sodium 125 Mcg Tablet) 125 mcg PO DAILYBB [facility] Stop: 10/26/20 06:29 Last Admin: 09/29/20 05:37 Dose: 125 mcg Documented by: Metoprolol Succinate (Metoprolol Succ 50mg Ext Rel Tab) 50 mg PO DAILY [facility] Stop: 10/26/20 08:59 Last Admin: 09/28/20 07:32 Dose: 50 mg Documented by: Miconazole Nitrate (Miconazole Nitrate Powder 43 Gm) 1 appln EXT PRN PRN PRN Reason: Bilateral Groin Folds Stop: 10/26/20 16:04 Last Admin: 09/26/20 20:56 Dose: 1 appln Documented by: Pantoprazole Sodium (Pantoprazole 40 Mg Tab) 40 mg PO BID [facility] Stop: 10/25/20 20:59 Last Admin: 09/28/20 20:28 Dose: 40 mg Documented by: Polyethylene Glycol (Polyethylene (Miralax) 17 Gm Pack) 17 gm PO DAILY PRN PRN Reason: Constipation Stop: 10/25/20 17:08 Potassium Chloride (Potassium Chloride Crtab 20 Meq Tabcr) 20 meq PO QAM [facility] Stop: 10/27/20 08:59 Last Admin: 09/28/20 07:32 Dose: 20 meq Documented by: Potassium Chloride (Potassium Chloride Crtab 20 Meq Tabcr) 20 meq PO NOW STA Stop: 09/29/20 08:04 Warfarin Sodium (Warfarin Sod 7.5 Mg Tab) 7.5 mg PO MOFR@1600 [facility] Stop: 10/26/20 15:59 Last Admin: 09/26/20 16:15 Dose: 7.5 mg Documented by: Warfarin Sodium (Warfarin Sod 5 Mg Tab) 5 mg PO SOILA@1600 [facility] Stop: 10/27/20 15:59 Last Admin: 09/28/20 17:07 Dose: 5 mg Documented by:
[2020-09-29] MEDS: FUROSEMIDE 40 MG in SYRINGE 0 ML IV SCH (08:46)
[2020-09-29] MEDS: FLUTICASONE PROPIONATE NA SPR 16 GM BTL SCH (08:46)
[2020-09-29] MEDS: FERROUS SULFATE 325 MG TAB PO SCH ×2 (08:47→17:09)
[2020-09-29] MEDS: ATORVASTATIN 20 MG TAB PO SCH (08:47)
[2020-09-29] MEDS: FLUoxetine HCL 20 MG CAP PO SCH (08:47)
[2020-09-29] MEDS: GABAPENTIN 100 MG CAP PO SCH ×2 (08:47→20:37)
[2020-09-29] MEDS: ASCORBIC ACID 500 MG TAB PO SCH (08:47)
[2020-09-29] MEDS: PANTOprazole 40 MG TAB PO SCH ×2 (08:47→20:37)
[2020-09-29] MEDS: METOPROLOL SUCC 50MG EXT REL TAB PO SCH (08:47)
[2020-09-29] MEDS: POTASSIUM CHLORIDE CRTAB 20 MEQ TABCR PO SCH (09:24)
[2020-09-29] MEDS: MULTIVITAMIN TAB PO SCH (09:46)
[2020-09-29] MEDS: FOLIC ACID 1 MG TAB PO SCH (09:46)
[2020-09-29] MEDS: CYANOCOBALAMIN 500 MCG TABLET (VITAMIN B-12) PO SCH (09:47)
--- NOTE | 2020-09-29 10:14 | Cardiology Progress Note ---
Date of Service September 29, 2020 Assessment & Plan (1) Fall: (2) CHF (congestive heart failure): (3) Heart failure due to valvular disease: (4) Severe aortic stenosis: (5) Diastolic CHF due to valvular disease: (6) Dyslipidemia: (7) Lymphedema of both lower extremities: (8) Atrial fibrillation: Diastolic CHF (HFnEF), due to severe rheumatic valvular heart disease. Volume status: Slowly improving hypervolemia. Continue IV furosemide, with an additional 20 mg IV this afternoon. Add spironolactone 25 mg/day. Continue supplmental potassium today then likely discontinue tomorrow. Chronic atrial fibrillation. No further pauses since discontinuation of digoxin. Continue metoprolol as prescribed, considering slight titration in beta-be therapy pending heart rates. Maintain telemetry. Continue Coumadin anticoagulation. Rheumatic valvular heart disease. Surgical intervention (AVR and MVR) declined. Continue appropriate medical (nonsurgical) management. Nonocclusive coronary artery disease. Continue appropriate medical management. Hypertension. Controlled. Follow. Dyslipidemia. LDL 59 mg/dL on 01/01/2020. Continue atorvastatin. Anemia. Workup as per PCP/Hospitalist Increase activity, therapy. Admission and Anticipated Discharge Date Admission Date: September 25, 2020 Subjective Patient seen and examined. Chart, medications, and telemetry reviewed. Feeling better. No chest pain. No worsening dyspnea. No tachypalpitations. Stable orthopnea. No PND. No dizziness. No syncope. No fevers. Telemetry: Atrial fibrillation 70-110. No further pauses Review of Systems Review of Systems: All systems reviewed & are unremarkable except as noted in HPI & below Physical Exam Physical Exam: General: A&Ox3. NAD. HENT: Normocephalic. Atraumatic. Eyes: PER. Conjunctiva pink, sclera pale. Neck: No carotid bruits. + JVD. Heart: Irregular irregular in the upper 80's. Grade II/ apical systolic murmur. Grade II/ systolic ejection murmur. No diastolic murmur appreciated. Lungs: Diminished. Right basilar rales. No wheeze. Abdomen: Obese. +BS. Nontender. No overt organomegaly. Extremities: 1+ edema. Lymphedema. No clubbing. No cyanosis. Limited neurological examination is without focal deficits. Pulses: Radial=2/4. Posterior tibial pulses were not appreciated. Results & Data ([facility]) Vital Signs (Past 12 Hours) Vital Signs Temp Pulse Pulse Resp BP Pulse Ox 09/29/20 07:42 36.7 C 85 18 129/81 98 09/29/20 07:16 80 09/29/20 04:11 36.6 C 93 H 16 107/58 L 98 09/28/20 23:53 37 C 93 H 18 124/74 98 09/28/20 22:22 83 Laboratory Results Laboratory Results - last 24 hr 09/29/20 09/29/20 09/29/20 05:43 05:43 05:43 Hgb 8.4 L Hct 26.1 L PT 29.4 H INR 3.2 H Sodium 139 Potassium 3.7 Chloride 104 Carbon Dioxide 31 Anion Gap 4.0 BUN 33 H Creatinine 0.86 Est Cr Clr Drug Dosing 61.8 Est GFR ( Amer) 76.6 Est GFR (Non-Af Amer) 66.1 BUN/Creatinine Ratio 38.4 H Glucose 115 H Calcium 7.8 L Phosphorus 3.3 Magnesium 2.1 (1) Fall Encounter type: initial encounter Qualified Code(s): W19.XXXA - Unspecified fall, initial encounter (2) CHF (congestive heart failure) Heart failure chronicity: acute on chronic Heart failure type: unspecified Qualified Code(s): I50.9 - Heart failure, unspecified
[2020-09-29] MEDS: SPIRONOLACTONE 25 MG TAB PO SCH (11:01)
[2020-09-29] MEDS ORDERED: FUROSEMIDE 20 MG in SYRINGE 0 ML IV ONE (14:00)
[2020-09-29] MEDS: WARFARIN SOD 5 MG TAB PO SCH (15:33)
[2020-09-30] MEDS: LEVOTHYROXINE SODIUM 125 MCG TABLET PO SCH (06:09)
[2020-09-30 07:42] LABS: Hematocrit (blood only) 28.5 % (37-47); Hemoglobin 9.1 g/dL (12.0-16.0)
[2020-09-30 08:22] LABS: BUN Creatinine Ratio 39.9 (10-20); Calcium 8.6 mg/dl (8.5-10.1); Creatinine Clr Calc Pharmacy 65.7 ml/min; Est GFR (African American) 83.6 ml/min; Est GFR (Non-African American) 72.1 ml/min; Potassium 3.6 mmol/L (3.5-5.1)
[2020-09-30] MEDS: MULTIVITAMIN TAB PO SCH (09:11)
[2020-09-30] MEDS: PANTOprazole 40 MG TAB PO SCH ×2 (09:11→21:06)
[2020-09-30] MEDS: SPIRONOLACTONE 25 MG TAB PO SCH (09:11)
[2020-09-30] MEDS: METOPROLOL SUCC 50MG EXT REL TAB PO SCH (09:11)
[2020-09-30] MEDS: POTASSIUM CHLORIDE CRTAB 20 MEQ TABCR PO SCH (09:11)
[2020-09-30] MEDS: CYANOCOBALAMIN 500 MCG TABLET (VITAMIN B-12) PO SCH (09:12)
[2020-09-30] MEDS: FERROUS SULFATE 325 MG TAB PO SCH ×2 (09:12→18:21)
[2020-09-30] MEDS: GABAPENTIN 100 MG CAP PO SCH ×2 (09:12→21:06)
[2020-09-30] MEDS: ATORVASTATIN 20 MG TAB PO SCH (09:12)
[2020-09-30] MEDS: FLUoxetine HCL 20 MG CAP PO SCH (09:12)
[2020-09-30] MEDS: ASCORBIC ACID 500 MG TAB PO SCH (09:12)
[2020-09-30] MEDS: FLUTICASONE PROPIONATE NA SPR 16 GM BTL SCH (09:12)
[2020-09-30] MEDS: FOLIC ACID 1 MG TAB PO SCH (09:12)
[2020-09-30] MEDS: FUROSEMIDE 40 MG in SYRINGE 0 ML IV SCH (09:12)
[2020-09-30] MEDS: guaiFENesin 600 MG TABCR PO SCH ×2 (10:06→21:06)
--- NOTE | 2020-09-30 11:12 | Hospitalist Progress Note ---
Date of Service September 30, 2020 Assessment & Plan (1) Heart failure due to valvular disease: (2) Severe aortic stenosis: (3) Severe mitral regurgitation: Fall Patient presented to the ED after an episode of fall. She denies hitting her head or losing any consciousness. Acute on chronic diastolic heart failure exacerbation Noted to have significant edema of the lower extremities. Chest x-ray with cardiomegaly and mild congestive change, CT showing mild pulmonary edema with cardiomegaly and small bilateral pleural effusions, groundglass densities at the lung bases likely secondary to pulmonary edema BNP of roughly 9500. Patient denies any fever. WBC is within normal limit. Calcitonin is not concerning. No indication for antibiotics at this time. Adequate urine output. Continue IV Lasix 40 mg daily. Gave additional 20 IV this on (09/29) continue monitor daily BMP. Monitor I's and O's and daily weight Cardiology following, appreciate their input Patient was started on spironolactone PT/OT ordered Chronic Atrial fibrillation Rate controlled. Continue metoprolol. There was a 3.6-second pause noted on telemetry, and therefore digoxin was stopped. No more pauses recorded. Continue Coumadin anticoagulation. Monitor INR Recent history of UTI -Per chart review, patient was on ciprofloxacin, patient reports finishing antibiotic course Repeat U/A negative. SALOME - resolved -Continue to closely monitor BMP while diuresing Diabetes mellitus type 2 -hemoglobin A1c of 6.4% in 04/24 -Hold home Metformin, sliding scale insulin while inpatient, continue to monitor blood glucose Anemia Hgb 8-9, overall stable, at baseline. No signs of active bleeding, monitor with daily CBC - cont. multivitamin, vit. B12, folic acid, iron suppl. DVT Ppx: Coumadin Code status: DNR/DNI -discussed with the patient at the bedside. Patient was consulted by palliative medicine at the last admission in May, at that time CODE STATUS changed. PCP: Dr. Campbell Dispo: plan to DC home w/ family, Admission and Anticipated Discharge Date Admission Date: September 25, 2020 Subjective Patient seen in follow-up of CHF, fluid overload Currently she is sitting up in the chair, in no acute distress, reports she is feeling better Denies any chest pain, abdominal pain, nausea or vomiting Still using suppl. O2 Per nursing staff pt was coughing overnight and this AM, pt reports it was due to allergies and not coughing anymore Obtained CXR, procal, sputum cultx Has been diuresing fairly well while inpt. Worked with PT and needs a lot of assistance, patient is quite debilitated. Discharge plan is therefore questionable. Per pt and daughter - not interested in SNF and wants to return home after DC. INR 4.0, hold warfarin today Review of Systems Review of Systems: All systems reviewed & are unremarkable except as noted in HPI & below Constitutional: no fever and no chills Respiratory: + cough (occasional) and + dyspnea (much improved) Cardiovascular: no chest pain and no palpitations Gastrointestinal: no abdominal pain and no vomiting Physical Exam Constitutional: WD/WN, vitals as above + morbidly obese; no acute distress Eyes: PERRL, conjunctivae normal, anicteric sclerae ENMT: external ear and nose normal, oropharynx normal Neck: trachea midline, no thyromegaly normal visual inspection Respiratory: normal respiratory effort; no respiratory distress and no labored breathing Auscultation: + crackles (mild diffuse R>L); no wheezes Cardiovascular: Rate/Rhythm: + irregularly irregular Heart Sounds: + murmur (systolic at RUSB and at apex) Chest (Breasts): Chest: normal inspection of chest Gastrointestinal (Abdomen): Inspection/Auscultation: abdomen normal to inspection and normal bowel sounds; abdomen not distended Percussion/Palpation: abdomen soft; abdomen nontender, no guarding and abdomen not rigid Musculoskeletal: Head/Neck/Chest: normocephalic, head atraumatic and neck supple Skin: no rashes, warm and dry Neurologic: PERRL, EOMI, accommodation nl, no face palsy, no dysarthria Psychiatric: A+Ox3, euthymic affect Genitourinary: no CVA tenderness Results & Data Results & Data ([facility]) Vital Signs (Past 12 Hours) Vital Signs Temp Pulse Pulse Resp BP Pulse Ox 09/30/20 10:31 102 H 09/30/20 07:26 37.0 C 63 16 117/73 98 09/30/20 02:28 36.6 C 86 18 114/51 L 97 09/30/20 00:10 112 H Laboratory Results 09/30/20 09/30/20 09/30/20 Range/Units 08:36 07:29 07:29 Hgb (12.0-16.0) g/dL Hct (37-47) % PT 36.0 H (9.0-12.0) Seconds INR 4.0 H (0.9-1.1) Sodium 138 (136-145) mmol/L Potassium 3.6 (3.5-5.1) mmol/L Chloride 103 (98-107) mmol/L Carbon Dioxide 29 (21-32) mmol/L Anion Gap 6.0 (3-11) BUN 32 H (7-18) mg/dl Creatinine 0.80 (0.6-1.2) mg/dl Est Cr Clr Drug Dosing 65.7 ml/min Est GFR ( Amer) 83.6 ml/min Est GFR (Non-Af Amer) 72.1 ml/min BUN/Creatinine Ratio 39.9 H (10-20) Glucose 136 H (70-99) mg/dl Calcium 8.6 (8.5-10.1) mg/dl Procalcitonin 0.05 (0-0.5) ng/ml 09/30/20 Range/Units 07:29 Hgb 9.1 L (12.0-16.0) g/dL Hct 28.5 L (37-47) % PT (9.0-12.0) Seconds INR (0.9-1.1) Sodium (136-145) mmol/L Potassium (3.5-5.1) mmol/L Chloride (98-107) mmol/L Carbon Dioxide (21-32) mmol/L Anion Gap (3-11) BUN (7-18) mg/dl Creatinine (0.6-1.2) mg/dl Est Cr Clr Drug Dosing ml/min Est GFR ( Amer) ml/min Est GFR (Non-Af Amer) ml/min BUN/Creatinine Ratio (10-20) Glucose (70-99) mg/dl Calcium (8.5-10.1) mg/dl Procalcitonin (0-0.5) ng/ml Medications Administered Current Inpatient Medications Acetaminophen (Acetaminophen 325 Mg Tab) 650 mg PO Q4H PRN PRN Reason: Pain or Fever Stop: 10/25/20 17:08 Last Admin: 09/27/20 22:58 Dose: 650 mg Documented by: Ascorbic Acid (Ascorbic Acid 500 Mg Tab) 1,000 mg PO DAILY [facility] Stop: 10/26/20 08:59 Last Admin: 09/30/20 09:12 Dose: 1,000 mg Documented by: Atorvastatin Calcium (Atorvastatin 20 Mg Tab) 20 mg PO DAILY [facility] Stop: 10/26/20 08:59 Last Admin: 09/30/20 09:12 Dose: 20 mg Documented by: Cyanocobalamin (Cyanocobalamin 500 Mcg Tablet (Vitamin B-12)) 500 mcg PO QAM [facility] Stop: 10/29/20 08:59 Last Admin: 09/30/20 09:12 Dose: 500 mcg Documented by: Ferrous Sulfate (Ferrous Sulfate 325 Mg Tab) 325 mg PO BIDM [facility] Stop: 10/26/20 07:59 Last Admin: 09/30/20 09:12 Dose: 325 mg Documented by: Fluoxetine HCl (Fluoxetine Hcl 20 Mg Cap) 20 mg PO DAILY [facility] Stop: 10/26/20 08:59 Last Admin: 09/30/20 09:12 Dose: 20 mg Documented by: Fluticasone Propionate (Fluticasone Propionate Na Spr 16 Gm Btl) 1 sprays NA DAILY [facility] Stop: 10/26/20 08:59 Last Admin: 09/30/20 09:12 Dose: 1 sprays Documented by: Folic Acid (Folic Acid 1 Mg Tab) 1 mg PO QAM [facility] Stop: 10/29/20 08:59 Last Admin: 09/30/20 09:12 Dose: 1 mg Documented by: Gabapentin (Gabapentin 100 Mg Cap) 100 mg PO BID [facility] Stop: 10/25/20 20:59 Last Admin: 09/30/20 09:12 Dose: 100 mg Documented by: Guaifenesin (Guaifenesin 600 Mg Tabcr) 600 mg PO Q12 [facility] Stop: 10/30/20 08:59 Last Admin: 09/30/20 10:06 Dose: 600 mg Documented by: Furosemide 40 mg/ Syringe 4 mls @ 4 mls/min IV DAILY [facility] Stop: 10/26/20 08:59 Last Admin: 09/30/20 09:12 Dose: 4 mls/min Documented by: Levothyroxine Sodium (Levothyroxine Sodium 125 Mcg Tablet) 125 mcg PO DAILYBB [facility] Stop: 10/26/20 06:29 Last Admin: 09/30/20 06:09 Dose: 125 mcg Documented by: Metoprolol Succinate (Metoprolol Succ 50mg Ext Rel Tab) 50 mg PO DAILY [facility] Stop: 10/26/20 08:59 Last Admin: 09/30/20 09:11 Dose: 50 mg Documented by: Miconazole Nitrate (Miconazole Nitrate Powder 43 Gm) 1 appln EXT PRN PRN PRN Reason: Bilateral Groin Folds Stop: 10/26/20 16:04 Last Admin: 09/26/20 20:56 Dose: 1 appln Documented by: Multivitamins (Multivitamin Tab) [facility] Stop: 10/29/20 08:59 Last Admin: 09/30/20 09:11 Dose: 1 tab Documented by: Pantoprazole Sodium (Pantoprazole 40 Mg Tab) 40 mg PO BID [facility] Stop: 10/25/20 20:59 Last Admin: 09/30/20 09:11 Dose: 40 mg Documented by: Polyethylene Glycol (Polyethylene (Miralax) 17 Gm Pack) 17 gm PO DAILY PRN PRN Reason: Constipation Stop: 10/25/20 17:08 Potassium Chloride (Potassium Chloride Crtab 20 Meq Tabcr) 20 meq PO [facility] Stop: 10/27/20 08:59 Last Admin: 09/30/20 09:11 Dose: 20 meq Documented by: Spironolactone (Spironolactone 25 Mg Tab) 25 mg PO [facility] Stop: 10/29/20 10:14 Last Admin: 09/30/20 09:11 Dose: 25 mg Documented by: Warfarin Sodium (Warfarin Sod 7.5 Mg Tab) 7.5 mg PO MOFR@1600 [facility] Stop: 10/26/20 15:59 Last Admin: 09/26/20 16:15 Dose: 7.5 mg Documented by: Warfarin Sodium (Warfarin Sod 5 Mg Tab) 5 mg PO SUTUWETHSA@1600 [facility] Stop: 10/27/20 15:59 Last Admin: 09/29/20 15:33 Dose: 5 mg Documented by:
--- NOTE | 2020-09-30 11:51 | XRay Report ---
XR chest 1V portable CLINICAL HISTORY: Abnormal chest x-ray. Follow-up study. COMPARISON STUDY: 09/25/2020 FINDINGS: The heart remains enlarged. There are small bilateral pleural effusions. There is persisten t but improving congestive failure/fluid overload. There is decreased hilar fullness. There is eviden ce for right shoulder calcific tendinopathy. There are advanced arthritic changes within the left shun ulder. There is a nonspecific 13 mm left midlung zone opacity. While likely atelectatic or postinflam matory, this should be reevaluated on subsequent films to exclude a true nodule. IMPRESSION: 1. Persistent but improving congestive failure/fluid overload with small bilateral pleural effusions 2. Nonspecific 13 mm left midlung zone opacity. This should be reevaluated on subsequent films to exc lude an underlying true nodule ACT 112: Negative or not required by law. Electronically signed by: Pete Beltrán M.D. 09/30/2020 11:50 AM
--- NOTE | 2020-09-30 16:51 | Cardiology Progress Note ---
Date of Service September 30, 2020 Assessment & Plan (1) Fall: (2) CHF (congestive heart failure): (3) Heart failure due to valvular disease: (4) Severe aortic stenosis: (5) Diastolic CHF due to valvular disease: (6) Dyslipidemia: (7) Lymphedema of both lower extremities: (8) Atrial fibrillation: Diastolic CHF (HFnEF), due to severe rheumatic valvular heart disease. Volume status: Slowly improving hypervolemia. Continue IV furosemide, with an additional 20 mg IV this afternoon. Add spironolactone 25 mg/day. Continue supplmental potassium today then likely discontinue tomorrow. Chronic atrial fibrillation. No further pauses since discontinuation of digoxin. Continue metoprolol as prescribed, considering slight titration in beta-be therapy pending heart rates. Maintain telemetry. Continue Coumadin anticoagulation. Rheumatic valvular heart disease. Surgical intervention (AVR and MVR) declined. Continue appropriate medical (nonsurgical) management. Nonocclusive coronary artery disease. Continue appropriate medical management. Hypertension. Controlled. Follow. Dyslipidemia. LDL 59 mg/dL on 01/01/2020. Continue atorvastatin. Anemia. Workup as per PCP/Hospitalist Increase activity, therapy. Admission and Anticipated Discharge Date Admission Date: September 25, 2020 Results & Data ([facility]) Vital Signs (Past 12 Hours) Vital Signs Temp Pulse Pulse Resp BP BP Pulse Ox 09/30/20 15:24 36.7 C 98 H 16 124/63 97 09/30/20 14:59 88 09/30/20 11:25 36.6 C 71 16 113/68 99 09/30/20 10:31 102 H 09/30/20 07:26 37.0 C 63 16 117/73 98 (1) Fall Encounter type: initial encounter Qualified Code(s): W19.XXXA - Unspecified fall, initial encounter (2) CHF (congestive heart failure) Heart failure chronicity: acute on chronic Heart failure type: unspecified Qualified Code(s): I50.9 - Heart failure, unspecified
[2020-10-01] MEDS: LEVOTHYROXINE SODIUM 125 MCG TABLET PO SCH (06:01)
[2020-10-01 06:29] LABS: INR 4.3 (0.9-1.1); Prothrombin Time 38.6 Seconds (9.0-12.0)
[2020-10-01 06:38] LABS: BUN Creatinine Ratio 46.2 (10-20); Calcium 8.5 mg/dl (8.5-10.1); Creatinine Clr Calc Pharmacy 67.4 ml/min; Est GFR (African American) 86.2 ml/min; Est GFR (Non-African American) 74.4 ml/min; Potassium 3.6 mmol/L (3.5-5.1)
[2020-10-01] MEDS ORDERED: POTASSIUM CHLORIDE CRTAB 20 MEQ TABCR PO STA (07:39)
[2020-10-01] MEDS: FOLIC ACID 1 MG TAB PO SCH (08:14)
[2020-10-01] MEDS: PANTOprazole 40 MG TAB PO SCH ×2 (08:14→21:18)
[2020-10-01] MEDS: ASCORBIC ACID 500 MG TAB PO SCH (08:14)
[2020-10-01] MEDS: ATORVASTATIN 20 MG TAB PO SCH (08:15)
[2020-10-01] MEDS: FERROUS SULFATE 325 MG TAB PO SCH ×2 (08:15→17:12)
[2020-10-01] MEDS: guaiFENesin 600 MG TABCR PO SCH ×2 (08:15→21:17)
[2020-10-01] MEDS: METOPROLOL SUCC 50MG EXT REL TAB PO SCH (08:15)
[2020-10-01] MEDS: FLUoxetine HCL 20 MG CAP PO SCH (08:16)
[2020-10-01] MEDS: CYANOCOBALAMIN 500 MCG TABLET (VITAMIN B-12) PO SCH (08:16)
[2020-10-01] MEDS: FUROSEMIDE 40 MG in SYRINGE 0 ML IV SCH (08:16)
[2020-10-01] MEDS: MULTIVITAMIN TAB PO SCH (08:16)
[2020-10-01] MEDS: SPIRONOLACTONE 25 MG TAB PO SCH (08:16)
[2020-10-01] MEDS: GABAPENTIN 100 MG CAP PO SCH ×2 (08:17→21:16)
[2020-10-01] MEDS: FLUTICASONE PROPIONATE NA SPR 16 GM BTL SCH (08:17)
[2020-10-01 08:21] LABS: Hematocrit (blood only) 26.5 % (37-47); Hemoglobin 8.6 g/dL (12.0-16.0); Mean Corpuscular Hemoglobin 28.5 pg (25-34); Mean Corpuscular Hgb Conc 32.5 g/dL (32-36); Mean Corpuscular Volume 87.7 fL (80-100); Platelet Count 263 K/uL (130-400); RDW Coefficient of Variation 18.8 % (11.5-14.5); RDW Standard Deviation 60.2 fL (36.4-46.3); Red Blood Count 3.02 M/uL (4.2-5.4); White Blood Count 8.27 K/uL (4.8-10.8)
[2020-10-01] MEDS ORDERED: FUROSEMIDE 80 MG TAB PO SCH (09:00)
[2020-10-01] MEDS: POTASSIUM CHLORIDE CRTAB 20 MEQ TABCR PO SCH (10:01)
--- NOTE | 2020-10-01 10:05 | Hospitalist Progress Note ---
Date of Service October 01, 2020 Assessment & Plan (1) Heart failure due to valvular disease: (2) Severe aortic stenosis: (3) Severe mitral regurgitation: Fall Patient presented to the ED after an episode of fall. She denies hitting her head or losing any consciousness. Acute on chronic diastolic heart failure exacerbation Noted to have significant edema of the lower extremities. Chest x-ray with cardiomegaly and mild congestive change, CT showing mild pulmonary edema with cardiomegaly and small bilateral pleural effusions, groundglass densities at the lung bases likely secondary to pulmonary edema BNP of roughly 9500. Patient denies any fever. WBC is within normal limit. Calcitonin is not concerning. No indication for antibiotics at this time. Adequate urine output. Continue IV Lasix 40 mg daily. Gave additional 20 IV this on (09/29) continue monitor daily BMP. Monitor I's and O's and daily weight Cardiology following, appreciate their input Patient was started on spironolactone PT/OT ordered Chronic Atrial fibrillation Rate controlled. Continue metoprolol. There was a 3.6-second pause noted on telemetry, and therefore digoxin was stopped. No more pauses recorded. Continue Coumadin anticoagulation. Monitor INR Recent history of UTI -Per chart review, patient was on ciprofloxacin, patient reports finishing antibiotic course Repeat U/A negative. SALOME - resolved -Continue to closely monitor BMP while diuresing Diabetes mellitus type 2 -hemoglobin A1c of 6.4% in 04/24 -Hold home Metformin, sliding scale insulin while inpatient, continue to monitor blood glucose Anemia Hgb 8-9, overall stable, at baseline. No signs of active bleeding, monitor with daily CBC - cont. multivitamin, vit. B12, folic acid, iron suppl. DVT Ppx: Coumadin Code status: DNR/DNI -discussed with the patient at the bedside. Patient was consulted by palliative medicine at the last admission in May, at that time CODE STATUS changed. PCP: Dr. Campbell Dispo: plan to DC home w/ family, Admission and Anticipated Discharge Date Admission Date: September 25, 2020 Subjective Patient seen in follow-up of CHF, fluid overload Currently she is sitting up in the bed, in no acute distress, reports she is feeling better Denies any chest pain, abdominal pain, nausea or vomiting Still using suppl. O2 - discussed with the nursing staff to try to wean off oxygen as she is saturating in high 90s, on 2 L Worked with PT and needs a lot of assistance, patient is quite debilitated. Discharge plan is therefore questionable. Per pt and daughter - not interested in SNF and wants to return home after DC. INR 4.3, cont. to hold warfarin today Review of Systems Review of Systems: All systems reviewed & are unremarkable except as noted in HPI & below Constitutional: no fever and no chills Respiratory: + cough (occasional) and + dyspnea (much improved) Cardiovascular: + edema (improved); no chest pain and no palpitations Gastrointestinal: no abdominal pain, no nausea and no vomiting Physical Exam Constitutional: WD/WN, vitals as above + morbidly obese; no acute distress Eyes: PERRL, conjunctivae normal, anicteric sclerae ENMT: external ear and nose normal, oropharynx normal Neck: trachea midline, no thyromegaly normal visual inspection Respiratory: normal respiratory effort; no respiratory distress and no labored breathing Auscultation: + crackles (mild diffuse R>L); no wheezes Cardiovascular: Rate/Rhythm: + irregularly irregular Heart Sounds: + murmur (systolic at RUSB and at apex) Chest (Breasts): Chest: normal inspection of chest Gastrointestinal (Abdomen): Inspection/Auscultation: abdomen normal to inspection and normal bowel sounds; abdomen not distended Percussion/Palpation: abdomen soft; abdomen nontender, no guarding and abdomen not rigid Musculoskeletal: Head/Neck/Chest: normocephalic, head atraumatic and neck supple Skin: no rashes, warm and dry Neurologic: PERRL, EOMI, accommodation nl, no face palsy, no dysarthria Psychiatric: A+Ox3, euthymic affect Genitourinary: no CVA tenderness Results & Data Results & Data ([facility]) Vital Signs (Past 12 Hours) Vital Signs Temp Pulse Pulse Pulse Resp BP Pulse Ox 10/01/20 07:54 36.8 C 101 H 18 107/71 99 10/01/20 07:44 36.5 C 99 H 90 18 122/70 97 10/01/20 03:46 36.6 C 82 18 108/63 98 10/01/20 00:35 86 09/30/20 23:00 36.6 C 88 18 113/73 98 Laboratory Results 10/01/20 10/01/20 10/01/20 Range/Units 05:57 05:53 05:53 WBC 8.27 (4.8-10.8) K/uL RBC 3.02 L (4.2-5.4) M/uL Hgb 8.6 L (12.0-16.0) g/dL Hct 26.5 L (37-47) % MCV 87.7 (80-100) fL MCH 28.5 (25-34) pg MCHC 32.5 (32-36) g/dL RDW Std Deviation 60.2 H (36.4-46.3) fL RDW Coeff of Paresh 18.8 H (11.5-14.5) % Plt Count 263 (130-400) K/uL MPV 10.0 (7.4-10.4) fL PT 38.6 H (9.0-12.0) Seconds INR 4.3 H (0.9-1.1) Sodium 139 (136-145) mmol/L Potassium 3.6 (3.5-5.1) mmol/L Chloride 104 (98-107) mmol/L Carbon Dioxide 30 (21-32) mmol/L Anion Gap 5.0 (3-11) BUN 36 H (7-18) mg/dl Creatinine 0.78 (0.6-1.2) mg/dl Est Cr Clr Drug Dosing 67.4 ml/min Est GFR ( Amer) 86.2 ml/min Est GFR (Non-Af Amer) 74.4 ml/min BUN/Creatinine Ratio 46.2 H (10-20) Glucose 121 H (70-99) mg/dl Calcium 8.5 (8.5-10.1) mg/dl Medications Administered Current Inpatient Medications Acetaminophen (Acetaminophen 325 Mg Tab) 650 mg PO Q4H PRN PRN Reason: Pain or Fever Stop: 10/25/20 17:08 Last Admin: 09/27/20 22:58 Dose: 650 mg Documented by: Ascorbic Acid (Ascorbic Acid 500 Mg Tab) 1,000 mg PO DAILY [facility] Stop: 10/26/20 08:59 Last Admin: 10/01/20 08:14 Dose: 1,000 mg Documented by: Atorvastatin Calcium (Atorvastatin 20 Mg Tab) 20 mg PO DAILY [facility] Stop: 10/26/20 08:59 Last Admin: 10/01/20 08:15 Dose: 20 mg Documented by: Cyanocobalamin (Cyanocobalamin 500 Mcg Tablet (Vitamin B-12)) 500 mcg PO QAM [facility] Stop: 10/29/20 08:59 Last Admin: 10/01/20 08:16 Dose: 500 mcg Documented by: Ferrous Sulfate (Ferrous Sulfate 325 Mg Tab) 325 mg PO BIDM [facility] Stop: 10/26/20 07:59 Last Admin: 10/01/20 08:15 Dose: 325 mg Documented by: Fluoxetine HCl (Fluoxetine Hcl 20 Mg Cap) 20 mg PO DAILY [facility] Stop: 10/26/20 08:59 Last Admin: 10/01/20 08:16 Dose: 20 mg Documented by: Fluticasone Propionate (Fluticasone Propionate Na Spr 16 Gm Btl) 1 sprays NA DAILY [facility] Stop: 10/26/20 08:59 Last Admin: 10/01/20 08:17 Dose: 1 sprays Documented by: Folic Acid (Folic Acid 1 Mg Tab) 1 mg PO QAM [facility] Stop: 10/29/20 08:59 Last Admin: 10/01/20 08:14 Dose: 1 mg Documented by: Gabapentin (Gabapentin 100 Mg Cap) 100 mg PO BID [facility] Stop: 10/25/20 20:59 Last Admin: 10/01/20 08:17 Dose: 100 mg Documented by: Guaifenesin (Guaifenesin 600 Mg Tabcr) 600 mg PO Q12 [facility] Stop: 10/30/20 08:59 Last Admin: 10/01/20 08:15 Dose: 600 mg Documented by: Furosemide 40 mg/ Syringe 4 mls @ 4 mls/min IV DAILY [facility] Stop: 10/26/20 08:59 Last Admin: 10/01/20 08:16 Dose: 4 mls/min Documented by: Levothyroxine Sodium (Levothyroxine Sodium 125 Mcg Tablet) 125 mcg PO DAILYBB [facility] Stop: 10/26/20 06:29 Last Admin: 10/01/20 06:01 Dose: 125 mcg Documented by: Metoprolol Succinate (Metoprolol Succ 50mg Ext Rel Tab) 50 mg PO DAILY [facility] Stop: 10/26/20 08:59 Last Admin: 10/01/20 08:15 Dose: 50 mg Documented by: Miconazole Nitrate (Miconazole Nitrate Powder 43 Gm) 1 appln EXT PRN PRN PRN Reason: Bilateral Groin Folds Stop: 10/26/20 16:04 Last Admin: 09/26/20 20:56 Dose: 1 appln Documented by: Multivitamins (Multivitamin Tab) 1 tab PO [facility] Stop: 10/29/20 08:59 Last Admin: 10/01/20 08:16 Dose: 1 tab Documented by: Pantoprazole Sodium (Pantoprazole 40 Mg Tab) 40 mg PO BID [facility] Stop: 10/25/20 20:59 Last Admin: 10/01/20 08:14 Dose: 40 mg Documented by: Polyethylene Glycol (Polyethylene (Miralax) 17 Gm Pack) 17 gm PO DAILY PRN PRN Reason: Constipation Stop: 10/25/20 17:08 Potassium Chloride (Potassium Chloride Crtab 20 Meq Tabcr) 20 meq PO [facility] Stop: 10/27/20 08:59 Last Admin: 10/01/20 10:01 Dose: 20 meq Documented by: Spironolactone (Spironolactone 25 Mg Tab) 25 mg PO [facility] Stop: 10/29/20 10:14 Last Admin: 10/01/20 08:16 Dose: 25 mg Documented by: Warfarin Sodium (Warfarin Sod 7.5 Mg Tab) 7.5 mg PO MOFR@1600 [facility] Stop: 10/26/20 15:59 Last Admin: 09/26/20 16:15 Dose: 7.5 mg Documented by: Warfarin Sodium (Warfarin Sod 5 Mg Tab) 5 mg PO SUTUWETHSA@1600 [facility] Stop: 10/27/20 15:59 Last Admin: 09/29/20 15:33 Dose: 5 mg Documented by:
[2020-10-01] MEDS ORDERED: FUROSEMIDE 20 MG in SYRINGE 0 ML IV ONE (15:15)
[2020-10-01] MEDS: ALBUMIN 25% 12.5 GM/50 ML VIAL IV SCH ×2 (15:58→17:11)
[2020-10-02] MEDS: LEVOTHYROXINE SODIUM 125 MCG TABLET PO SCH (06:19)
[2020-10-02 06:22] LABS: Hematocrit (blood only) 25.2 % (37-47); Hemoglobin 8.2 g/dL (12.0-16.0); Mean Corpuscular Hemoglobin 28.3 pg (25-34); Mean Corpuscular Hgb Conc 32.5 g/dL (32-36); Mean Corpuscular Volume 86.9 fL (80-100); Mean Platelet Volume 9.7 fL (7.4-10.4); Platelet Count 255 K/uL (130-400); RDW Coefficient of Variation 18.7 % (11.5-14.5); RDW Standard Deviation 60.4 fL (36.4-46.3); White Blood Count 8.43 K/uL (4.8-10.8)
[2020-10-02 06:31] LABS: INR 2.9 (0.9-1.1); Prothrombin Time 27.4 Seconds (9.0-12.0)
[2020-10-02 06:59] LABS: BUN Creatinine Ratio 41.8 (10-20); Calcium 8.1 mg/dl (8.5-10.1); Creatinine Clr Calc Pharmacy 62.6 ml/min; Est GFR (African American) 77.7 ml/min; Magnesium 2.1 mg/dl (1.8-2.4); Phosphorus 3.1 mg/dl (2.5-4.9); Potassium 4.1 mmol/L (3.5-5.1)
[2020-10-02] MEDS: ATORVASTATIN 20 MG TAB PO SCH (09:10)
[2020-10-02] MEDS: METOPROLOL SUCC 50MG EXT REL TAB PO SCH (09:10)
[2020-10-02] MEDS: FUROSEMIDE 40 MG in SYRINGE 0 ML IV SCH (09:10)
[2020-10-02] MEDS: PANTOprazole 40 MG TAB PO SCH ×2 (09:11→22:02)
[2020-10-02] MEDS: guaiFENesin 600 MG TABCR PO SCH ×2 (09:11→22:01)
[2020-10-02] MEDS: CYANOCOBALAMIN 500 MCG TABLET (VITAMIN B-12) PO SCH (09:11)
[2020-10-02] MEDS: MULTIVITAMIN TAB PO SCH (09:11)
[2020-10-02] MEDS: FLUoxetine HCL 20 MG CAP PO SCH (09:11)
[2020-10-02] MEDS: ASCORBIC ACID 500 MG TAB PO SCH (09:11)
[2020-10-02] MEDS: FOLIC ACID 1 MG TAB PO SCH (09:11)
[2020-10-02] MEDS: FERROUS SULFATE 325 MG TAB PO SCH ×2 (09:12→16:19)
[2020-10-02] MEDS: SPIRONOLACTONE 25 MG TAB PO SCH (09:12)
[2020-10-02] MEDS: GABAPENTIN 100 MG CAP PO SCH ×2 (09:12→22:02)
[2020-10-02] MEDS: FLUTICASONE PROPIONATE NA SPR 16 GM BTL SCH (09:12)
--- NOTE | 2020-10-02 11:57 | Cardiology Progress Note ---
Date of Service October 02, 2020 Assessment & Plan (1) Fall: (2) CHF (congestive heart failure): (3) Heart failure due to valvular disease: (4) Severe aortic stenosis: (5) Diastolic CHF due to valvular disease: (6) Dyslipidemia: (7) Lymphedema of both lower extremities: (8) Atrial fibrillation: Diastolic CHF (HFnEF), due to severe rheumatic valvular heart disease. Volume status: Compensated. Recommend restarting outpatient Lasix 80 mg p.o. twice daily and continuing spironolactone 25 mg daily that was initiated this admission. Chronic atrial fibrillation. No further pauses since discontinuation of digoxin. Continue metoprolol as prescribed, considering slight titration in be ta-be therapy pending heart rates. Maintain telemetry. Continue Coumadin anticoagulation. Rheumatic valvular heart disease. Surgical intervention (AVR and MVR) declined. Continue appropriate medical (nonsurgical) management. Nonocclusive coronary artery disease. Continue appropriate medical management. Hypertension. Controlled. Follow. Dyslipidemia. LDL 59 mg/dL on 01/01/2020. Continue atorvastatin. Anemia. Workup as per PCP/Hospitalist Okay to discharge from a cardiac standpoint. Admission and Anticipated Discharge Date Admission Date: September 25, 2020 Subjective Pt seen and examined, chart reviewed. Feeling well but weak and tired. Denies cardiac complaints. Review of Systems Review of Systems: All systems reviewed & are unremarkable except as noted in HPI & below Physical Exam Physical Exam: General: Awake, alert and oriented x 3. No acute distress. HEENT: Normocephalic, atraumatic. Pupils equal, round and reactive to light and accommodation. Extraocular muscles are intact. Anicteric sclera. Moist mucous membranes. Neck: No JVD. No bruit. Cardiovascular: Regular. Positive S-4. Normal S-1 and S-2. No S-3. 3/6 mid to late systolic ejection murmur, greatest at the right sternal border, second intercostal space with radiation to the bilateral carotids. No rubs. Pulmonary: Clear to auscultation bilaterally. No rales, rhonchi, or wheezing. Abdomen: Bowel sounds x 4, soft. No rebound, guarding or tenderness. No organomegaly. Extremities: No clubbing, cyanosis or edema. +2 pedal pulses bilaterally. Skin: Warm and dry. Results & Data ([facility]) Vital Signs (Past 12 Hours) Vital Signs Temp Pulse Pulse Pulse Resp BP Pulse Ox 10/02/20 07:40 36.8 C 100 H 16 140/80 100 10/02/20 04:00 36.9 C 88 18 106/61 97 10/02/20 03:38 96 H (1) CHF (congestive heart failure) Heart failure chronicity: acute on chronic Heart failure type: unspecified Qualified Code(s): I50.9 - Heart failure, unspecified (2) Fall Encounter type: initial encounter Qualified Code(s): W19.XXXA - Unspecified fall, initial encounter
--- NOTE | 2020-10-02 12:26 | Hospitalist Progress Note ---
Date of Service October 02, 2020 Assessment & Plan (1) Heart failure due to valvular disease: (2) Severe aortic stenosis: (3) Severe mitral regurgitation: Fall Patient presented to the ED after an episode of fall. She denies hitting her head or losing any consciousness. Acute on chronic diastolic heart failure exacerbation Noted to have significant edema of the lower extremities. Chest x-ray with cardiomegaly and mild congestive change, CT showing mild pulmonary edema with cardiomegaly and small bilateral pleural effusions, groundglass densities at the lung bases likely secondary to pulmonary edema BNP of roughly 9500. Patient denies any fever. WBC is within normal limit. Calcitonin is not concerning. No indication for antibiotics at this time. Adequate urine output. Continue IV Lasix 40 mg daily. Gave additional 20 IV this on (09/29) continue monitor daily BMP. Monitor I's and O's and daily weight Cardiology following, appreciate their input Patient was started on spironolactone Transitioned to PO lasix 80 bid, spironolactone added as above PT/OT ordered Worked with PT during this hospital stay and needs a lot of assistance, patient is quite debilitated. Discharge plan is therefore questionable. Per pt and daughter - not interested in SNF and wants to return home after DC. Discussed this in detail with pt's daughter today (10/02) as pt is weaker than before and therefore care at home may be more difficult than anticipated. Asked the daughter to come visit the pt to the hospital and also to discuss w/ nursing staff the care pt requires. Chronic Atrial fibrillation Rate controlled. Continue metoprolol. There was a 3.6-second pause noted on telemetry, and therefore digoxin was stopped. No more pauses recorded. Continue Coumadin anticoagulation. Monitor INR Recent history of UTI -Per chart review, patient was on ciprofloxacin, patient reports finishing antibiotic course Repeat U/A negative. SALOME - resolved -Continue to closely monitor BMP while diuresing Diabetes mellitus type 2 -hemoglobin A1c of 6.4% in 04/24 -Hold home Metformin, sliding scale insulin while inpatient, continue to monitor blood glucose Anemia Hgb 8-9, overall stable, at baseline. No signs of active bleeding, monitor with daily CBC - cont. multivitamin, vit. B12, folic acid, iron suppl. DVT Ppx: Coumadin Code status: DNR/DNI -discussed with the patient at the bedside. Patient was consulted by palliative medicine at the last admission in May, at that time CODE STATUS changed. PCP: Dr. Campbell Dispo: initially plan to DC home w/ family, HH - however pt is quite debilitated and will need to further explore discharge needs/ plans Admission and Anticipated Discharge Date Admission Date: September 25, 2020 Subjective Patient seen in follow-up of CHF, fluid overload Currently she is sitting up in the bed, in no acute distress, reports she is feeling better However she is very weak, hardly participating in physical exam, using suppl. O2 She can tell me her name and where she is and able to answer simple questions. She can not tell proper year. Denies any chest pain, abdominal pain, nausea or vomiting Worked with PT during this hospital stay and needs a lot of assistance, patient is quite debilitated. Discharge plan is therefore questionable. Per pt and daughter - not interested in SNF and wants to return home after DC. Discussed this in detail with pt's daughter today as pt is weaker than before and therefore care at home maybe more difficult than anticipated. Asked the daughter to come visit the pt to the hospital and also to discuss w/ nursing staff the care pt requires. Review of Systems Review of Systems: All systems reviewed & are unremarkable except as noted in HPI & below Constitutional: no fever and no chills Respiratory: + dyspnea (much improved); no cough Cardiovascular: no chest pain and no palpitations Gastrointestinal: no abdominal pain, no nausea and no vomiting Physical Exam Constitutional: WD/WN, vitals as above + morbidly obese; no acute distress Eyes: PERRL, conjunctivae normal, anicteric sclerae ENMT: external ear and nose normal, oropharynx normal Neck: trachea midline, no thyromegaly normal visual inspection Respiratory: normal respiratory effort; no respiratory distress and no labored breathing Auscultation: + crackles (mild diffuse R>L); no wheezes Cardiovascular: Rate/Rhythm: + irregularly irregular Heart Sounds: + murmur (systolic at RUSB and at apex) Chest (Breasts): Chest: normal inspection of chest Gastrointestinal (Abdomen): Inspection/Auscultation: abdomen normal to inspection and normal bowel sounds; abdomen not distended Percussion/Palp ation: abdomen soft; abdomen nontender, no guarding and abdomen not rigid Musculoskeletal: Head/Neck/Chest: normocephalic, head atraumatic and neck supple Skin: no rashes, warm and dry Neurologic: PERRL, EOMI, accommodation nl, no face palsy, no dysarthria Psychiatric: A+Ox3, euthymic affect Genitourinary: no CVA tenderness Results & Data Results & Data ([facility]) Vital Signs (Past 12 Hours) Vital Signs Temp Pulse Pulse Pulse Resp BP Pulse Ox 10/02/20 11:30 37.0 C 90 16 130/80 96 10/02/20 07:40 36.8 C 100 H 16 140/80 100 10/02/20 04:00 36.9 C 88 18 106/61 97 10/02/20 03:38 96 H Laboratory Results 10/02/20 10/02/20 10/02/20 Range/Units 05:39 05:39 05:39 WBC 8.43 (4.8-10.8) K/uL RBC 2.90 L (4.2-5.4) M/uL Hgb 8.2 L (12.0-16.0) g/dL Hct 25.2 L (37-47) % MCV 86.9 (80-100) fL MCH 28.3 (25-34) pg MCHC 32.5 (32-36) g/dL RDW Std Deviation 60.4 H (36.4-46.3) fL RDW Coeff of Paresh 18.7 H (11.5-14.5) % Plt Count 255 (130-400) K/uL MPV 9.7 (7.4-10.4) fL PT 27.4 H (9.0-12.0) Seconds INR 2.9 H (0.9-1.1) Sodium 136 (136-145) mmol/L Potassium 4.1 (3.5-5.1) mmol/L Chloride 104 (98-107) mmol/L Carbon Dioxide 29 (21-32) mmol/L Anion Gap 3.0 (3-11) BUN 36 H (7-18) mg/dl Creatinine 0.85 (0.6-1.2) mg/dl Est Cr Clr Drug Dosing 62.6 ml/min Est GFR ( Amer) 77.7 ml/min Est GFR (Non-Af Amer) 67.0 ml/min BUN/Creatinine Ratio 41.8 H (10-20) Glucose 131 H (70-99) mg/dl Calcium 8.1 L (8.5-10.1) mg/dl Phosphorus 3.1 (2.5-4.9) mg/dl Magnesium 2.1 (1.8-2.4) mg/dl Medications Administered Current Inpatient Medications Acetaminophen (Acetaminophen 325 Mg Tab) 650 mg PO Q4H PRN PRN Reason: Pain or Fever Stop: 10/25/20 17:08 Last Admin: 09/27/20 22:58 Dose: 650 mg Documented by: Ascorbic Acid (Ascorbic Acid 500 Mg Tab) 1,000 mg PO DAILY [facility] Stop: 10/26/20 08:59 Last Admin: 10/02/20 09:11 Dose: 1,000 mg Documented by: Atorvastatin Calcium (Atorvastatin 20 Mg Tab) 20 mg PO DAILY [facility] Stop: 10/26/20 08:59 Last Admin: 10/02/20 09:10 Dose: 20 mg Documented by: Cyanocobalamin (Cyanocobalamin 500 Mcg Tablet (Vitamin B-12)) 500 mcg PO QAM [facility] Stop: 10/29/20 08:59 Last Admin: 10/02/20 09:11 Dose: 500 mcg Documented by: Ferrous Sulfate (Ferrous Sulfate 325 Mg Tab) 325 mg PO BIDM [facility] Stop: 10/26/20 07:59 Last Admin: 10/02/20 09:12 Dose: 325 mg Documented by: Fluoxetine HCl (Fluoxetine Hcl 20 Mg Cap) 20 mg PO DAILY [facility] Stop: 10/26/20 08:59 Last Admin: 10/02/20 09:11 Dose: 20 mg Documented by: Fluticasone Propionate (Fluticasone Propionate Na Spr 16 Gm Btl) 1 sprays NA DAILY [facility] Stop: 10/26/20 08:59 Last Admin: 10/02/20 09:12 Dose: 1 sprays Documented by: Folic Acid (Folic Acid 1 Mg Tab) 1 mg PO QAM [facility] Stop: 10/29/20 08:59 Last Admin: 10/02/20 09:11 Dose: 1 mg Documented by: Furosemide (Furosemide 80 Mg Tab) 80 mg PO BID17 [facility] Stop: 11/01/20 16:59 Gabapentin (Gabapentin 100 Mg Cap) 100 mg PO BID [facility] Stop: 10/25/20 20:59 Last Admin: 10/02/20 09:12 Dose: 100 mg Documented by: Guaifenesin (Guaifenesin 600 Mg Tabcr) 600 mg PO Q12 [facility] Stop: 10/30/20 08:59 Last Admin: 10/02/20 09:11 Dose: 600 mg Documented by: Levothyroxine Sodium (Levothyroxine Sodium 125 Mcg Tablet) 125 mcg PO DAILYBB [facility] Stop: 10/26/20 06:29 Last Admin: 10/02/20 06:19 Dose: 125 mcg Documented by: Metoprolol Succinate (Metoprolol Succ 50mg Ext Rel Tab) 50 mg PO DAILY [facility] Stop: 10/26/20 08:59 Last Admin: 10/02/20 09:10 Dose: 50 mg Documented by: Miconazole Nitrate (Miconazole Nitrate Powder 43 Gm) 1 appln EXT PRN PRN PRN Reason: Bilateral Groin Folds Stop: 10/26/20 16:04 Last Admin: 09/26/20 20:56 Dose: 1 appln Documented by: [facility]ivit[facility] ([facility]amin Tab) [facility]: 10/29/20 08:59 Last Admin: 10/02/20 09:11 Dose: 1 tab Documented by: Pantoprazole Sodium (Pantoprazole 40 Mg Tab) 40 mg PO BID [facility] Stop: 10/25/20 20:59 Last Admin: 10/02/20 09:11 Dose: 40 mg Documented by: Polyethylene Glycol (Polyethylene (Miralax) 17 Gm Pack) 17 gm PO DAILY PRN PRN Reason: Constipation Stop: 10/25/20 17:08 Spironolactone (Spironolactone 25 Mg Tab) 25 mg PO QAM [facility] Stop: 10/29/20 10:14 Last Admin: 10/02/20 09:12 Dose: 25 mg Documented by: Warfarin Sodium (Warfarin Sod 7.5 Mg Tab) 7.5 mg PO MOFR@1600 [facility] Stop: 10/26/20 15:59 Last Admin: 09/26/20 16:15 Dose: 7.5 mg Documented by: Warfarin Sodium (Warfarin Sod 5 Mg Tab) 5 mg PO SUTUWETHSA@1600 [facility] Stop: 10/27/20 15:59 Last Admin: 09/29/20 15:33 Dose: 5 mg Documented by:
[2020-10-02] MEDS: FUROSEMIDE 80 MG TAB PO SCH (16:19)
[2020-10-03] MEDS: LEVOTHYROXINE SODIUM 125 MCG TABLET PO SCH ×2 (06:38→16:34)
[2020-10-03 06:57] LABS: Hemoglobin 8.7 g/dL (12.0-16.0)
--- NOTE | 2020-10-03 07:01 | Hospitalist Progress Note ---
Date of Service October 03, 2020 Assessment & Plan (1) Heart failure due to valvular disease: (2) Severe aortic stenosis: (3) Severe mitral regurgitation: Fall Patient presented to the ED after an episode of fall. She denies hitting her head or losing any consciousness. Acute on chronic diastolic heart failure exacerbation Noted to have significant edema of the lower extremities. Chest x-ray with cardiomegaly and mild congestive change, CT showing mild pulmonary edema with cardiomegaly and small bilateral pleural effusions, groundglass densities at the lung bases likely secondary to pulmonary edema BNP of roughly 9500. Patient denies any fever. WBC is within normal limit. Calcitonin is not concerning. No indication for antibiotics at this time. Adequate urine output. Continue IV Lasix 40 mg daily. Gave additional 20 IV this on (09/29) continue monitor daily BMP. Monitor I's and O's and daily weight Cardiology following, appreciate their input Patient was started on spironolactone Transitioned to PO lasix 80 bid, spironolactone added as above PT/OT ordered Worked with PT during this hospital stay and needs a lot of assistance, patient is quite debilitated. Discharge plan is therefore questionable. Per pt and daughter - not interested in SNF and wants to return home after DC. Discussed this in detail with pt's daughter (10/02) as pt is weaker than before and therefore care at home may be more difficult than anticipated. Asked the daughter to come visit the pt to the hospital and also to discuss w/ nursing staff the care pt requires. CM aware. 10/03 -I also discussed this with palliative medicine, Dr. Cha, who will reach out to the patient and her daughter regarding goals of care. Chronic Atrial fibrillation Rate controlled. Continue metoprolol. There was a 3.6-second pause noted on telemetry, and therefore digoxin was stopped. No more pauses recorded. Continue Coumadin anticoagulation. Monitor INR Recent history of UTI -Per chart review, patient was on ciprofloxacin, patient reports finishing antibiotic course Repeat U/A negative. SALOME - resolved -Continue to closely monitor BMP while diuresing Diabetes mellitus type 2 -hemoglobin A1c of 6.4% in 04/24 -Hold home Metformin, sliding scale insulin while inpatient, continue to monitor blood glucose Anemia Hgb 8-9, overall stable, at baseline. No signs of active bleeding, monitor with daily CBC - cont. multivitamin, vit. B12, folic acid, iron suppl. DVT Ppx: Coumadin Code status: DNR/DNI -discussed with the patient at the bedside. Patient was consulted by palliative medicine at the last admission in May, at that time CODE STATUS changed. PCP: Dr. Campbell Dispo: initially plan to DC home w/ family, HH - however pt is quite debilitated and will need to further explore discharge needs/ plans. Case management aware, and also palliative medicine consulted as well. Admission and Anticipated Discharge Date Admission Date: September 25, 2020 Subjective Patient seen in follow-up of CHF, fluid overload Currently she is sitting up in the bed, in no acute distress, reports she is feeling better However she is very weak, hardly participating in physical exam, using suppl. O2 She can tell me her name and where she is and able to answer simple questions. She can not tell proper year. Also says that her "roommate is evil", no issues reported per nursing staff, pt seems to be little confused. However she is able to tell me that her daughter is considering placement for her, after I discussed this with patient's daughter yesterday. Had a long discussion about what patient can and cannot do as far as her movement, and she seems to understand that ideally she would go home but she cannot move and her daughter really cannot take care of her like this. Denies any chest pain, abdominal pain, nausea or vomiting Worked with PT during this hospital stay and needs a lot of assistance, patient is quite debilitated. Discharge plan is therefore questionable. Per pt and daughter - not interested in SNF and wants to return home after DC. Discussed this in detail with pt's daughter today as pt is weaker than before and therefore care at home maybe more difficult than anticipated. Asked the daughter to come visit the pt to the hospital and also to discuss w/ nursing staff the care pt requires. I also consulted palliative medicine for further recommendations /goals of care. Review of Systems Review of Systems: All systems reviewed & are unremarkable except as noted in HPI & below Constitutional: no fever and no chills Respiratory: no cough and no dyspnea Cardiovascular: no chest pain and no palpitations Gastrointestinal: no abdominal pain, no nausea and no vomiting Physical Exam Constitutional: WD/WN, vitals as above + morbidly obese; no acute distress Eyes: PERRL, conjunctivae normal, anicteric sclerae ENMT: external ear and nose normal, oropharynx normal Neck: trachea midline, no thyromegaly normal visual inspection Respiratory: normal respiratory effort; no respiratory distress and no labored breathing Auscultation: + crackles (mild diffuse R>L); no wheezes Cardiovascular: Rate/Rhythm: + irregularly irregular Heart Sounds: + murmur (systolic at RUSB and at apex) Chest (Breasts): Chest: normal inspection of chest Gastrointestinal (Abdomen): Inspection/Auscultation: abdomen normal to inspection and normal bowel sounds; abdomen not distended Percussion/Palpation: abdomen soft; abdomen nontender, no guarding and abdomen not rigid Musculoskeletal: Head/Neck/Chest: normocephalic, head atraumatic and neck supple Skin: no rashes, warm and dry Neurologic: PERRL, EOMI, accommodation nl, no face palsy, no dysarthria Psychiatric: A+Ox3, euthymic affect Genitourinary: no CVA tenderness Results & Data Results & Data ([facility]) Vital Signs (Past 12 Hours) Vital Signs Temp Pulse Pulse Resp BP Pulse Ox 10/03/20 04:00 37.4 C 74 18 110/74 93 10/02/20 23:00 36.8 C 86 18 128/83 96 10/02/20 22:49 94 H Laboratory Results 10/03/20 10/03/20 10/03/20 Range/Units 06:37 06:37 06:37 Hgb 8.7 L (12.0-16.0) g/dL Hct 27.0 L (37-47) % PT 21.4 H (9.0-12.0) Seconds INR 2.2 H (0.9-1.1) Sodium 135 L (136-145) mmol/L Potassium 3.8 (3.5-5.1) mmol/L Chloride 101 (98-107) mmol/L Carbon Dioxide 29 (21-32) mmol/L Anion Gap 5.0 (3-11) BUN 33 H (7-18) mg/dl Creatinine 0.89 (0.6-1.2) mg/dl Est Cr Clr Drug Dosing 60.2 ml/min Est GFR ( Amer) 73.5 ml/min Est GFR (Non-Af Amer) 63.4 ml/min BUN/Creatinine Ratio 37.3 H (10-20) Glucose 150 H (70-99) mg/dl Calcium 7.9 L (8.5-10.1) mg/dl Phosphorus 3.0 (2.5-4.9) mg/dl Magnesium 1.8 (1.8-2.4) mg/dl Medications Administered Current Inpatient Medications Acetaminophen (Acetaminophen 325 Mg Tab) 650 mg PO Q4H PRN PRN Reason: Pain or Fever Stop: 10/25/20 17:08 Last Admin: 09/27/20 22:58 Dose: 650 mg Documented by: Ascorbic Acid (Ascorbic Acid 500 Mg Tab) 1,000 mg PO DAILY [facility] Stop: 10/26/20 08:59 Last Admin: 10/03/20 07:59 Dose: 1,000 mg Documented by: Atorvastatin Calcium (Atorvastatin 20 Mg Tab) 20 mg PO DAILY [facility] Stop: 10/26/20 08:59 Last Admin: 10/03/20 07:59 Dose: 20 mg Documented by: Cyanocobalamin (Cyanocobalamin 500 Mcg Tablet (Vitamin B-12)) 500 mcg PO QAM [facility] Stop: 10/29/20 08:59 Last Admin: 10/03/20 08:00 Dose: 500 mcg Documented by: Ferrous Sulfate (Ferrous Sulfate 325 Mg Tab) 325 mg PO BIDM [facility] Stop: 10/26/20 07:59 Last Admin: 10/03/20 07:59 Dose: 325 mg Documented by: Fluoxetine HCl (Fluoxetine Hcl 20 Mg Cap) 20 mg PO DAILY [facility] Stop: 10/26/20 08:59 Last Admin: 10/03/20 08:00 Dose: 20 mg Documented by: Fluticasone Propionate (Fluticasone Propionate Na Spr 16 Gm Btl) 1 sprays NA DAILY [facility] Stop: 10/26/20 08:59 Last Admin: 10/03/20 08:00 Dose: 1 sprays Documented by: Folic Acid (Folic Acid 1 Mg Tab) 1 mg PO QAM [facility] Stop: 10/29/20 08:59 Last Admin: 10/03/20 08:00 Dose: 1 mg Documented by: Furosemide (Furosemide 80 Mg Tab) 80 mg PO BID17 [facility] Stop: 11/01/20 16:59 Last Admin: 10/03/20 09:31 Dose: 80 mg Documented by: Gabapentin (Gabapentin 100 Mg Cap) 100 mg PO BID [facility] Stop: 10/25/20 20:59 Last Admin: 10/03/20 08:00 Dose: 100 mg Documented by: Guaifenesin (Guaifenesin 600 Mg Tabcr) 600 mg PO Q12 [facility] Stop: 10/30/20 08:59 Last Admin: 10/03/20 08:00 Dose: 600 mg Documented by: Levothyroxine Sodium (Levothyroxine Sodium 125 Mcg Tablet) 125 mcg PO DAILYBB [facility] Stop: 10/26/20 06:29 Last Admin: 10/03/20 06:38 Dose: 125 mcg Documented by: Metoprolol Succinate (Metoprolol Succ 50mg Ext Rel Tab) 50 mg PO DAILY [facility] Stop: 10/26/20 08:59 Last Admin: 10/03/20 08:01 Dose: 50 mg Documented by: Miconazole Nitrate (Miconazole Nitrate Powder 43 Gm) 1 appln EXT PRN PRN PRN Reason: Bilateral Groin Folds Stop: 10/26/20 16:04 Last Admin: 09/26/20 20:56 Dose: 1 appln Documented by: Multivitamins (Multivitamin Tab) 1 tab PO QAM [facility] Stop: 10/29/20 08:59 Last Admin: 10/03/20 08:01 Dose: 1 tab Documented by: Pantoprazole Sodium (Pantoprazole 40 Mg Tab) 40 mg PO BID [facility] Stop: 10/25/20 20:59 Last Admin: 10/03/20 08:01 Dose: 40 mg Documented by: Polyethylene Glycol (Polyethylene (Miralax) 17 Gm Pack) 17 gm PO DAILY PRN PRN Reason: Constipation Stop: 10/25/20 17:08 Spironolactone (Spironolactone 25 Mg Tab) 25 mg PO QAM [facility] Stop: 10/29/20 10:14 Last Admin: 10/03/20 08:01 Dose: 25 mg Documented by: Warfarin Sodium (Warfarin Sod 7.5 Mg Tab) 7.5 mg PO MOFR@1600 [facility] Stop: 10/26/20 15:59 Last Admin: 09/26/20 16:15 Dose: 7.5 mg Documented by: Warfarin Sodium (Warfarin Sod 5 Mg Tab) 5 mg PO SUTUWETHSA@1600 [facility] Stop: 10/27/20 15:59 Last Admin: 09/29/20 15:33 Dose: 5 mg Documented by:
[2020-10-03 07:03] LABS: INR 2.2 (0.9-1.1); Prothrombin Time 21.4 Seconds (9.0-12.0)
[2020-10-03 07:35] LABS: BUN Creatinine Ratio 37.3 (10-20); Calcium 7.9 mg/dl (8.5-10.1); Creatinine Clr Calc Pharmacy 60.2 ml/min; Est GFR (African American) 73.5 ml/min; Est GFR (Non-African American) 63.4 ml/min; Magnesium 1.8 mg/dl (1.8-2.4); Potassium 3.8 mmol/L (3.5-5.1)
[2020-10-03] MEDS: ATORVASTATIN 20 MG TAB PO SCH (07:59)
[2020-10-03] MEDS: ASCORBIC ACID 500 MG TAB PO SCH (07:59)
[2020-10-03] MEDS: FERROUS SULFATE 325 MG TAB PO SCH ×2 (07:59→16:35)
[2020-10-03] MEDS: GABAPENTIN 100 MG CAP PO SCH ×2 (08:00→21:46)
[2020-10-03] MEDS: FLUoxetine HCL 20 MG CAP PO SCH (08:00)
[2020-10-03] MEDS: FOLIC ACID 1 MG TAB PO SCH (08:00)
[2020-10-03] MEDS: guaiFENesin 600 MG TABCR PO SCH ×2 (08:00→21:47)
[2020-10-03] MEDS: CYANOCOBALAMIN 500 MCG TABLET (VITAMIN B-12) PO SCH (08:00)
[2020-10-03] MEDS: FLUTICASONE PROPIONATE NA SPR 16 GM BTL SCH (08:00)
[2020-10-03] MEDS: METOPROLOL SUCC 50MG EXT REL TAB PO SCH (08:01)
[2020-10-03] MEDS: PANTOprazole 40 MG TAB PO SCH ×2 (08:01→21:46)
[2020-10-03] MEDS: MULTIVITAMIN TAB PO SCH (08:01)
[2020-10-03] MEDS: SPIRONOLACTONE 25 MG TAB PO SCH (08:01)
[2020-10-03] MEDS: FUROSEMIDE 80 MG TAB PO SCH ×2 (09:31→16:35)
--- NOTE | 2020-10-03 13:28 | Palliative Care Consultation ---
Date of Consultation October 03, 2020 Assessment & Plan (1) Palliative care encounter: Oliva is confused today and talking about someone named Carmine and that his father smoked. She does not recall previous visit that we had to discuss goals of care. I told her that at the previous visit, she had told me that her goals was to remain at home and focus on comfort. She nods when I asked her if that sounds right. We talked about her current level of function and I asked her how Kimberly would be able to care for her at home in her condition. "She can't". I asked her if she would be willing to consider SNF for 24/7 care and support and she responded that she would not consider that. I tried to call Kimberly to discuss further but there was no answer. Will try to reach out to her later today. I met with Kimberly at Oliva's bedside. She is very concerned about Oliva's confusion and leaning to the right side. She reports that this is new since she saw her on Saturday. We discussed possible causes of increased confusion including hospital delirium, infection, possible CVA. Oliva's vital signs are stable. Her mental status is variable. Dr. Wilkins aware and will be meeting with Kimberly and Oliva. Kimberly is tearful and anxious. She had Oliva at [facility] for rehab in the past and did not feel that she improved there. She has promised Oliva that she would take care of her at home and she took care of her father at home until his . She realizes that if this is the baseline that Oliva will be at, she is not able to care for her at home and would consider SNF placement at facility other than [place]. Palliative care will follow over the next few days and assist with goals of care as Oliva's condition evolves. (2) Debility: (3) Fatigue: (4) CHF (congestive heart failure): Heart failure chronicity: acute on chronic Heart failure type: unspecified Qualified Code(s): I50.9 - Heart failure, unspecified (5) Diabetes mellitus type II, controlled: (6) Atrial fibrillation: (7) Severe mitral regurgitation: History of Present Illness Reason for Consultation: goals of care Requesting Physician: Dr. Wilkins Attending Physician: Aron Wilkins MD History of Present Illness 75 yo lady with history of heart failure with valvular heart disease. She also has atrial fibrillation. She was admitted after falling in her bathroom at [facility]. She had been having increase lower extremity edema prior to admission and had lasix increased to 80mg BID. On admission she had a BNP of 9500. She is being successfully diuresed and denies chest pain, palpitations, or dyspnea. She had limited mobility prior to admission and has had persistent weakness and functional decline while hospitalized. She is currently not able to sit on the edge of the bed and needs two person assist for routine care. Her desire is to return home after her hospital stay where she lives with her daughter, Kimberly, who has children at home to care for as well. We have been consulted to assist with goals of care. Allergies Allergy/AdvReac Type Severity Reaction Status Date / Time cephalexin Allergy Unknown BURNING, Verified 09/25/20 14:34 NAUSEA, AND TROUBLE BREATHING Penicillins Allergy Unknown KIDNEY Verified 09/25/20 14:34 INFECTION, HIVES Sulfa (Sulfonamide Allergy Unknown NAUSEA AND Verified 09/25/20 14:34 Antibiotics) TIRED Home Medications Medication Instructions Recorded Confirmed Type ascorbic acid (vitamin C) 1,000 mg PO DAILY 12/15/18 09/25/20 History atorvastatin 20 mg PO DAILY 12/15/18 09/25/20 History cyanocobalamin (vitamin B-12) 100 mcg PO QAM 12/15/18 09/25/20 History digoxin 62.5 mcg PO MOWEFR 12/15/18 09/25/20 History ferrous sulfate 325 mg PO BID 12/15/18 09/25/20 History fluoxetine 20 mg PO DAILY 12/15/18 09/25/20 History fluticasone propionate 1 spray INTRANASAL DAILY 12/15/18 09/25/20 History gabapentin 100 mg PO BID 12/15/18 09/25/20 History levothyroxine 125 mcg PO QAM 12/15/18 09/25/20 History metformin 1,000 mg PO BID 12/15/18 09/25/20 History metoprolol succinate 50 mg PO DAILY 12/15/18 09/25/20 History pantoprazole 40 mg PO BID 12/15/18 09/25/20 History potassium chloride 30 meq PO DAILY 12/15/18 09/25/20 History warfarin 7.5 mg PO MOFR@1600 12/15/18 09/25/20 History warfarin 5 mg PO SUTUWETHSA@1600 05/15/20 09/25/20 History furosemide 80 mg PO BID 09/25/20 09/25/20 History loperamide 2 mg PO QID PRN 09/25/20 09/25/20 History Patient History Medical History (Updated 10/03/20 @ 13:24 by Yuly Cha MD) Anemia Atrial fibrillation Depression Diabetes mellitus type II, controlled Diabetic neuropathy Diastolic CHF due to valvular disease Diverticular disease of colon "per colonoscopy February 2016" Dyslipidemia History of breast cancer "Right breast" Hypertension Hypothyroidism Ischemic heart disease "nonocclusive CAD [place] [facility] Lymphedema of both lower extremities Mild tricuspid regurgitation Moderate mitral stenosis Morbid obesity with BMI of 40.0-44.9, adult Pulmonary hypertension "PAP 70/33 per cath 07/24/17" Severe aortic stenosis Severe mitral regurgitation Surgical History History of lumpectomy of right breast History of tonsillectomy Status post cardiac catheterization [place] - nonocclusive CAD, pulmonary hypertension" Family History Father Heart failure Mother Heart failure Social History Smoking Status: Never smoker Hx Alcohol Use: No Hx Substance Use: No Preferred Language: Kinyarwanda Communication Ability: Impaired Lead Maintenance Technician Required: No Beliefs That Will Affect Care: None marital status: / Current Living Situation: Family Current Living Situation Comment: lives with dtr Other Information That Helps Us Care for You: No Feels Safe at Home: Yes Safety Concerns: Feels Safe At This Time Assistive Devices: Glasses Assistive Devices Comment: oxygen PRN at home Review of Systems Review of Systems: [place] Symptom Assessment Scale Pain 0/3 Dyspnea 0/3 Nausea 0/3 Anxiety 0/3 Fatigue 3/3 Drowsiness 0/3 Palliative Performance Score 30% Physical Exam Constitutional: + morbidly obese ENMT: Mouth: + edentulous Respiratory: + uses accessory muscles Cardiovascular: Rate/Rhythm: + irregularly irregular b/l lower extremity edema with stasis skin changes Gastrointestinal (Abdomen): Percussion/Palpation: abdomen nontender Musculoskeletal: generalized weakness Neurologic: awake and + confused Results & Data ([facility]) Vital Signs (Past 12 Hours) Vital Signs Temp Pulse Pulse Resp BP Pulse Ox 10/03/20 07:15 97.9 F 68 16 105/63 97 10/03/20 04:00 99.3 F 74 18 110/74 93 PG Care Time/CCT Total # of Minutes Spent Total Time Spent with Patient: Total time spent is greater than 50% in coordination of care (as documented) at patient's floor/unit and/or counseling patient: total time spent 70 minutes with more than 50% of time spent on family education and support, goals of care Coding Level of Care Code 42575 Inpt Consult Level 4 Diagnoses Palliative care encounter Z51.5 Debility R53.81 Fatigue R53.83 CHF (congestive heart failure) I50.9 Heart failure chronicity: acute on chronic Heart failure type: unspecified Diabetes mellitus type II, controlled E11.9 Atrial fibrillation I48.91 Severe mitral regurgitation I34.0
[2020-10-03] MEDS: WARFARIN SOD 7.5 MG TAB PO SCH (16:35)
[2020-10-03 18:10] LABS: Appearance Urine Clear (Clear); Bilirubin Urine Negative (Negative); Blood Urine Negative (Negative); Color Urine Yellow; Glucose Urine UA Negative (Negative); Ketones Urine Negative (Negative); Leukocyte Esterase Urine Negative (Negative); Nitrite Urine Negative (Negative); Protein Urine Negative (Negative); Specific Gravity Urine 1.014 (1.000-1.030); Urobilinogen Urine Negative (Negative)
[2020-10-04] MEDS: LEVOTHYROXINE SODIUM 125 MCG TABLET PO SCH (06:11)
--- NOTE | 2020-10-04 07:54 | Hospitalist Progress Note ---
Date of Service October 04, 2020 Assessment & Plan (1) Heart failure due to valvular disease: (2) Severe aortic stenosis: (3) Severe mitral regurgitation: Fall Patient presented to the ED after an episode of fall. She denies hitting her head or losing any consciousness. Acute on chronic diastolic heart failure exacerbation Noted to have significant edema of the lower extremities. Chest x-ray with cardiomegaly and mild congestive change, CT showing mild pulmonary edema with cardiomegaly and small bilateral pleural effusions, groundglass densities at the lung bases likely secondary to pulmonary edema BNP of roughly 9500. Patient denies any fever. WBC is within normal limit. Calcitonin is not concerning. No indication for antibiotics at this time. Adequate urine output. Continue IV Lasix 40 mg daily. Gave additional 20 IV this on (09/29) continue monitor daily BMP. Monitor I's and O's and daily weight Cardiology following, appreciate their input Patient was started on spironolactone Transitioned to PO lasix 80 bid, spironolactone added as above PT/OT ordered Worked with PT during this hospital stay and needs a lot of assistance, patient is quite debilitated. Discharge plan is therefore questionable. Per pt and daughter - not interested in SNF and wants to return home after DC. Discussed this in detail with pt's daughter (10/02) as pt is weaker than before and therefore care at home may be more difficult than anticipated. Asked the daughter to come visit the pt to the hospital and also to discuss w/ nursing staff the care pt requires. CM aware. 10/03 -I also discussed this with palliative medicine, Dr. Cha, who will reach out to the patient and her daughter regarding goals of care. Chronic Atrial fibrillation Rate controlled. Continue metoprolol. There was a 3.6-second pause noted on telemetry, and therefore digoxin was stopped. No more pauses recorded. Continue Coumadin anticoagulation. Monitor INR Recent history of UTI -Per chart review, patient was on ciprofloxacin, patient reports finishing antibiotic course Repeat U/A negative. SALOME - resolved -Continue to closely monitor BMP while diuresing Diabetes mellitus type 2 -hemoglobin A1c of 6.4% in 04/24 -Hold home Metformin, sliding scale insulin while inpatient, continue to monitor blood glucose Anemia Hgb 8-9, overall stable, at baseline. No signs of active bleeding, monitor with daily CBC - cont. multivitamin, vit. B12, folic acid, iron suppl. DVT Ppx: Coumadin Code status: DNR/DNI -discussed with the patient at the bedside. Patient was consulted by palliative medicine at the last admission in May, at that time CODE STATUS changed. PCP: Dr. Campbell Dispo: initially plan to DC home w/ family, HH - however pt is quite debilitated and will need to further explore discharge needs/ plans. Case management aware, and also palliative medicine consulted as well. I had a long discussion with Alida (daughter) about what patient can and cannot do as far as her movement, and she is in agreement that she may not be able to take care of Oliva at home. Admission and Anticipated Discharge Date Admission Date: September 25, 2020 Subjective Patient seen in follow-up of CHF, fluid overload Currently she is sitting up in the bed, in no acute distress, reports she is feeling better However she is very weak, hardly participating in physical exam, using suppl. O2 She can tell me her name and where she is and able to answer simple questions. Pt denies any chest pain, abdominal pain, nausea or vomiting I had a long discussion with Alida (daughter) about what patient can and cannot do as far as her movement, and she is in agreement that she may not be able to take care of her at home. I also consulted palliative medicine for further recommendations /goals of care. Review of Systems Review of Systems: All systems reviewed & are unremarkable except as noted in HPI & below Constitutional: no fever and no chills Respiratory: no cough and no dyspnea Cardiovascular: no chest pain Gastrointestinal: no abdominal pain Physical Exam Constitutional: WD/WN, vitals as above + morbidly obese; no acute distress Eyes: PERRL, conjunctivae normal, anicteric sclerae ENMT: external ear and nose normal, oropharynx normal Neck: trachea midline, no thyromegaly normal visual inspection Respiratory: normal respiratory effort; no respiratory distress and no labored breathing Auscultation: + crackles (mild diffuse R>L); no wheezes Cardiovascular: Rate/Rhythm: + irregularly irregular Heart Sounds: + murmur (systolic at RUSB and at apex) Chest (Breasts): Chest: normal inspection of chest Gastrointestinal (Abdomen): Inspection/Auscultation: abdomen normal to inspection and normal bowel sounds; abdomen not distended Percussion/Palpation: abdomen soft; abdomen nontender, no guarding and abdomen not rigid Musculoskeletal: Head/Neck/Chest: normocephalic, head atraumatic and neck supple Skin: no rashes, warm and dry Neurologic: PERRL, EOMI, accommodation nl, no face palsy, no dysarthria Psychiatric: A+Ox3, euthymic affect Genitourinary: no CVA tenderness Results & Data Results & Data ([facility]) Vital Signs (Past 12 Hours) Vital Signs Temp Pulse Pulse Pulse Resp BP Pulse Ox 10/04/20 06:21 100 H 10/04/20 04:35 36.8 C 85 18 123/73 94 10/03/20 23:56 36.9 C 92 H 18 121/70 94
[2020-10-04] MEDS: CYANOCOBALAMIN 500 MCG TABLET (VITAMIN B-12) PO SCH (08:22)
[2020-10-04] MEDS: FERROUS SULFATE 325 MG TAB PO SCH ×2 (08:22→16:31)
[2020-10-04] MEDS: FLUoxetine HCL 20 MG CAP PO SCH (08:22)
[2020-10-04] MEDS: ASCORBIC ACID 500 MG TAB PO SCH (08:22)
[2020-10-04] MEDS: ATORVASTATIN 20 MG TAB PO SCH (08:22)
[2020-10-04] MEDS: FLUTICASONE PROPIONATE NA SPR 16 GM BTL SCH (08:22)
[2020-10-04] MEDS: MULTIVITAMIN TAB PO SCH (08:23)
[2020-10-04] MEDS: GABAPENTIN 100 MG CAP PO SCH ×2 (08:23→20:41)
[2020-10-04] MEDS: FUROSEMIDE 80 MG TAB PO SCH ×2 (08:23→16:31)
[2020-10-04] MEDS: guaiFENesin 600 MG TABCR PO SCH ×2 (08:23→20:41)
[2020-10-04] MEDS: METOPROLOL SUCC 50MG EXT REL TAB PO SCH (08:23)
[2020-10-04] MEDS: SPIRONOLACTONE 25 MG TAB PO SCH (08:23)
[2020-10-04] MEDS: FOLIC ACID 1 MG TAB PO SCH (08:23)
[2020-10-04] MEDS: PANTOprazole 40 MG TAB PO SCH ×2 (08:23→20:41)
[2020-10-04 08:24] LABS: BUN Creatinine Ratio 41.7 (10-20); Calcium 8.3 mg/dl (8.5-10.1); Est GFR (African American) 75.5 ml/min; Est GFR (Non-African American) 65.2 ml/min; Potassium 3.4 mmol/L (3.5-5.1)
[2020-10-04] MEDS: WARFARIN SOD 5 MG TAB PO SCH (16:31)
[2020-10-05] MEDS: LEVOTHYROXINE SODIUM 125 MCG TABLET PO SCH (06:04)
[2020-10-05] MEDS: CYANOCOBALAMIN 500 MCG TABLET (VITAMIN B-12) PO SCH (08:31)
[2020-10-05] MEDS: FLUoxetine HCL 20 MG CAP PO SCH (08:31)
[2020-10-05] MEDS: GABAPENTIN 100 MG CAP PO SCH ×2 (08:31→20:31)
[2020-10-05] MEDS: guaiFENesin 600 MG TABCR PO SCH ×2 (08:31→20:31)
[2020-10-05] MEDS: ASCORBIC ACID 500 MG TAB PO SCH (08:31)
[2020-10-05] MEDS: MULTIVITAMIN TAB PO SCH (08:31)
[2020-10-05] MEDS: FOLIC ACID 1 MG TAB PO SCH (08:31)
[2020-10-05] MEDS: SPIRONOLACTONE 25 MG TAB PO SCH (08:31)
[2020-10-05] MEDS: FUROSEMIDE 80 MG TAB PO SCH ×2 (08:32→16:20)
[2020-10-05] MEDS: PANTOprazole 40 MG TAB PO SCH ×2 (08:32→20:31)
[2020-10-05] MEDS: METOPROLOL SUCC 50MG EXT REL TAB PO SCH (08:32)
[2020-10-05] MEDS: ATORVASTATIN 20 MG TAB PO SCH (08:32)
[2020-10-05] MEDS: FERROUS SULFATE 325 MG TAB PO SCH ×2 (08:32→16:20)
[2020-10-05] MEDS: FLUTICASONE PROPIONATE NA SPR 16 GM BTL SCH (09:20)
[2020-10-05 11:07] LABS: BUN Creatinine Ratio 37.2 (10-20); Creatinine Clr Calc Pharmacy 57.9 ml/min; Est GFR (African American) 71.5 ml/min; Est GFR (Non-African American) 61.7 ml/min; Potassium 3.7 mmol/L (3.5-5.1)
--- NOTE | 2020-10-05 14:02 | Hospitalist Progress Note ---
Date of Service October 05, 2020 Assessment & Plan (1) Fall: (2) Ambulatory dysfunction: Patient presented to the ED after an episode of fall. She denies hitting her head or losing any consciousness. CT abdomen/pelvis/cervical spine showed no acute traumatic process within the abdomen or pelvis. CT head showed no significant change compared to the prior study. No acute intracranial abnormality. Continue PT/OT Worked with PT during this hospital stay and needs a lot of assistance, patient is quite debilitated. Daughter at first was not interested to rehab or SNF, but now she is considering a short stay to rehab or snf Palliative care on board for goal of care . Fall precaution (3) Heart failure due to valvular disease: (4) Severe aortic stenosis: (5) Severe mitral regurgitation: Acute on chronic diastolic heart failure exacerbation Noted to have significant edema of the lower extremities. Chest x-ray with cardiomegaly and mild congestive change, CT showing mild pulmonary edema with cardiomegaly and small bilateral pleural effusions, groundglass densities at the lung bases likely secondary to pulmonary edema BNP of roughly 9500. Patient denies any fever. WBC is within normal limit. Calcitonin is not concerning. No indication for antibiotics at this time. Adequate urine output. Continue IV Lasix 40 mg daily. Gave additional 20 IV this on (09/29) continue monitor daily BMP. Monitor I's and O's and daily weight Cardiology following, appreciate their input Patient was started on spironolactone Transitioned to PO lasix 80 bid Continue Lasix 80mg BID and spironolactone 25 mg daily Chronic Atrial fibrillation Rate controlled. Continue metoprolol. There was a 3.6-second pause noted on telemetry, and therefore digoxin was stopped. No more pauses recorded. Continue Coumadin anticoagulation. Monitor INR Recent history of UTI Per chart review, patient was on ciprofloxacin, patient reports finishing antibiotic course Repeat U/A negative. SALOME - resolved -Continue to closely monitor BMP while diuresing Diabetes mellitus type 2 -hemoglobin A1c of 6.4% in 04/24 -Hold home Metformin, sliding scale insulin while inpatient, continue to monitor blood glucose Anemia Hgb 8-9, overall stable, at baseline. No signs of active bleeding, monitor with daily CBC - cont. multivitamin, vit. B12, folic acid, iron suppl. Lung Nodule CT showed a 1.1 cm nodular density within the base the right lower lobe. Will need [address] follow-up recommended to ensure resolution. DVT Ppx: Coumadin Code status: DNR/DNI -discussed with the patient at the bedside. Patient was consulted by palliative medicine at the last admission in May, at that time CODE STATUS changed. PCP: Dr. Campbell Disposition Waiting for placement Admission and Anticipated Discharge Date Admission Date: September 25, 2020 Subjective Patient seen and examined for follow up of CHF Lying in bed with no distress Staff said that pt is very weak and had to take at least 2 people to transfer her from the chair to the bed Denies any chest pain, palpitation, dizziness and SOB Review of Systems Review of Systems: All systems reviewed & are unremarkable except as noted in Subjective Physical Exam Physical Exam: General- No acute distress Head- atraumatic Eyes- PERRL, EOMI, ENT- oropharynx clear Neck- supple, no JVD Lungs- Diminished BS Heart- irregular rhythm; +murmur Abdomen- normal bowel sounds, soft, nontender Extremities- no calf tenderness Neuro- alert, oriented x 3; PERRL, EOMI; no facial palsy; no dysarthria Skin- warm & dry Results & Data Results & Data ([facility]) Vital Signs (Past 12 Hours) Vital Signs Temp Pulse Resp BP Pulse Ox 10/05/20 11:39 36.9 C 94 H 18 112/65 98 10/05/20 07:16 36.6 C 122 H 16 110/63 97 10/05/20 04:04 36.6 C 100 H 18 108/63 97 (1) Fall Encounter type: initial encounter Qualified Code(s): W19.XXXA - Unspecified fall, initial encounter
[2020-10-05] MEDS: WARFARIN SOD 5 MG TAB PO SCH (16:19)
[2020-10-06] MEDS: LEVOTHYROXINE SODIUM 125 MCG TABLET PO SCH (05:37)
[2020-10-06] MEDS: ACETAMINOPHEN 325 MG TAB PO PRN (08:37)
[2020-10-06] MEDS: FLUTICASONE PROPIONATE NA SPR 16 GM BTL SCH (08:38)
[2020-10-06] MEDS: SPIRONOLACTONE 25 MG TAB PO SCH (08:39)
[2020-10-06] MEDS: FOLIC ACID 1 MG TAB PO SCH (08:39)
[2020-10-06] MEDS: CYANOCOBALAMIN 500 MCG TABLET (VITAMIN B-12) PO SCH (08:39)
[2020-10-06] MEDS: METOPROLOL SUCC 50MG EXT REL TAB PO SCH (08:39)
[2020-10-06] MEDS: FUROSEMIDE 80 MG TAB PO SCH ×2 (08:39→15:57)
[2020-10-06] MEDS: ASCORBIC ACID 500 MG TAB PO SCH (08:39)
[2020-10-06] MEDS: FLUoxetine HCL 20 MG CAP PO SCH (08:39)
[2020-10-06] MEDS: ATORVASTATIN 20 MG TAB PO SCH (08:39)
[2020-10-06] MEDS: FERROUS SULFATE 325 MG TAB PO SCH ×2 (08:39→15:33)
[2020-10-06] MEDS: GABAPENTIN 100 MG CAP PO SCH ×2 (08:40→20:10)
[2020-10-06] MEDS: MULTIVITAMIN TAB PO SCH (08:40)
[2020-10-06] MEDS: guaiFENesin 600 MG TABCR PO SCH ×2 (08:40→20:10)
[2020-10-06] MEDS: PANTOprazole 40 MG TAB PO SCH ×2 (08:40→20:10)
[2020-10-06 09:59] LABS: Hematocrit (blood only) 27.6 % (37-47); Hemoglobin 8.7 g/dL (12.0-16.0); Mean Corpuscular Hgb Conc 31.5 g/dL (32-36); Mean Corpuscular Volume 88.7 fL (80-100); Mean Platelet Volume 9.2 fL (7.4-10.4); Platelet Count 330 K/uL (130-400); RDW Standard Deviation 58.7 fL (36.4-46.3); Red Blood Count 3.11 M/uL (4.2-5.4)
[2020-10-06 10:18] LABS: INR 3.5 (0.9-1.1); Prothrombin Time 31.9 Seconds (9.0-12.0)
[2020-10-06 10:22] LABS: BUN Creatinine Ratio 38.6 (10-20); Calcium 8.4 mg/dl (8.5-10.1); Creatinine Clr Calc Pharmacy 58.5 ml/min; Est GFR (African American) 72.5 ml/min; Est GFR (Non-African American) 62.5 ml/min; Potassium 3.5 mmol/L (3.5-5.1)
--- NOTE | 2020-10-06 15:08 | Discharge Summary ---
Date of Service October 07, 2020 Admission HPI Per Admitting Provider Pt is a 75 yo F with a chronic diastolic heart failure with severe aortic stenosis, severe mitral regurgitation, atrial fibrillation on coumadin, DM II, anemia, hypothyroidism, morbid obesity, depression and other medical problems who presents after a fall this morning. Patient reports that she was in the bathroom, and often needs help, she was about to grab a bar however she reached out to around think and unfortunately fell and hit her right arm, and other body parts. She reports that she remembers the whole event, and denies any loss of consciousness. She reports she has been more short of breath lately, and had increased edema especially in her legs. Reviewed home nursing notes, patient was seen by home nursing recently and patient was treated for UTI with ciprofloxacin, patient reports that she just finished antibiotic yesterday. Also she was treated for increased lower extremity edema with increased dose of Lasix. Usually patient takes 80 mg daily, it was increased to twice a day. Patient reports that she did not get much improvement with the increased dose of Lasix. She received IV Lasix in the ED, and currently reports that she is feeling better. She was scanned in the ED due to her fall, no fractures were found. Her BNP was elevated at 9500, and images concerning for pulmonary edema. She is currently on supplemental oxygen via nasal cannula, she reports that she uses supplemental oxygen at home usually in the morning, when she is getting ready. Currently she denies use at night. Will clarify with family when available. Daughter was present in the ED earlier however left home. Patient currently denies any recent history of fevers or chills, chest pain, abdominal pain, diarrhea. Patient reports no loss of appetite. Discussed CODE STATUS, as she was seen by palliative medicine during her last admission in May. At that time patient decided to be DNR/DNI, and this was confirmed also with me today. Admission Exam Per Admitting Provider Constitutional: WD/WN, vitals as above + morbidly obese; no acute distress Eyes: PERRL, conjunctivae normal, anicteric sclerae ENMT: external ear and nose normal, oropharynx normal Neck: trachea midline, no thyromegaly normal visual inspection Respiratory: normal respiratory effort; no respiratory distress and no labored breathing Auscultation: + crackles (mild bibasilar); no wheezes somewhat diminished breath sounds Cardiovascular: + irregularly irregular Heart Sounds: + murmur (systolic at RUSB and at apex) Chest (Breasts): normal inspection of chest Gastrointestinal: abdomen normal to inspection and normal bowel sounds; abdomen not distended Percussion/Palpation: abdomen soft; abdomen nontender, no guarding and abdomen not rigid Head/Neck: normocephalic, head atraumatic and neck supple Moves extremities, generalized weakness Skin: no rashes, warm and dry Neurologic: PERRL, EOMI, accommodation nl, no face palsy, no dysarthria Psychiatric: A+Ox3, euthymic affect Genitourinary: no CVA tenderness Principal Diagnosis Fall: Ambulatory dysfunction: Heart failure due to valvular disease: Severe aortic stenosis: Severe mitral regurgitation: Acute on chronic diastolic heart failure exacerbation Chronic Atrial fibrillation Recent history of UTI Acute Kidney Injury Diabetes mellitus type 2 Anemia Lung Nodule Discharge Exam General- No acute distress Head- atraumatic Eyes- PERRL, EOMI, ENT- oropharynx clear Neck- supple, no JVD Lungs- Diminished BS Heart- irregular rhythm; +murmur Abdomen- normal bowel sounds, soft, nontender Extremities- no calf tenderness Neuro- alert, oriented x 3; PERRL, EOMI; no facial palsy; no dysarthria Skin- warm & dry Discharge Data Allergies Allergy/AdvReac Type Severity Reaction Status Date / Time cephalexin Allergy Unknown BURNING, Verified 09/25/20 14:34 NAUSEA, AND TROUBLE BREATHING Penicillins Allergy Unknown KIDNEY Verified 09/25/20 14:34 INFECTION, HIVES Sulfa (Sulfonamide Allergy Unknown NAUSEA AND Verified 09/25/20 14:34 Antibiotics) TIRED Consultations 09/25/20 16:26 ED Decision to Admit Stat 09/26/20 08:00 Consult Cardiology Routine 10/02/20 21:46 Consult Palliative Care Routine Ordered Studies 09/25/20 14:17 CT abd pelvis wo con Stat 09/25/20 14:18 CT cervical spine wo con Stat CT head/brain wo con Stat ABDOMEN AND PELVIS CT WITHOUT CONTRAST CT DOSE: HISTORY: fall TECHNIQUE: Multiaxial CT images of the abdomen and pelvis were performed without contrast. A dose lowering technique was utilized adhering to the principles of ALARA. COMPARISON STUDY: Abdomen and pelvis CT 07/21/2017. FINDINGS: There are small bilateral pleural effusions, right greater than left. The heart is mildly enlarged. Dense mitral anus calcifications are noted. There is mild diffuse body wall edema. Groundglass densities in interlobular septal thickening within the lung bases favors mild pulmonary edema. An atypical/viral pneumonia could also a similar appearance. There is a 1.1 cm nodular density within the right lower lobe in image 16. No pneumoperitoneum. No pneumatosis. No acute fractures within the visualized osseous structures. Specifically, the left hip is intact. No retroperitoneal hematoma. The unenhanced liver, spleen, adrenal glands, and pancreas are unremarkable. Streak artifact from the patient's overlapping the left arm partially obscures the abdominal structures. No definite renal calculi or hydronephrosis. Small calcifications within the renal sinuses appear be vascular. Calcified plaque within the normal caliber abdominal aorta. No retroperitoneal lymphadenopathy. There are multiple small gallstones. Trace pericholecystic fluid is noted. The bladder, uterus, bilateral adnexa are within normal limits. Trace pelvic free fluid is noted. Suboptimal evaluation for bowel pathology due to the lack of intravenous and oral contrast. However, there is no definite bowel wall thickening or obstruction. Normal appendix. Colonic diverticulosis. No evidence for acute diverticulitis. IMPRESSION: 1. No acute traumatic process within the abdomen or pelvis. 2. Mild pulmonary edema with cardiomegaly and small bilateral pleural effusions. Groundglass densities within the lung bases arelikely secondary to the pulmonary edema. A superimposed atypical pneumonia cannot be excluded. 3. Multiple gallstones and trace pericholecystic fluid raises the possibility of a developing acute cholecystitis. Clinical correlation recommended. 4. A 1.1 cm nodular density within the base the right lower lobe. This is also likely secondary to the edema. [address] follow-up recommended to ensure resolution. 5. Additional findings as described above. ACT 112: Negative or not required by law. Electronically signed by: Smooth Thibodeaux M.D. 09/25/2020 3:40 PM Dictated: 09/25/20 1525Transcribed: 09/25/[address] DOSE: 2339.39 mGy.cm HISTORY: fall TECHNIQUE: Multiaxial CT images of the cervical spine were performed and reformatted in the sagittal and coronal plane without the use of contrast. A dose lowering technique was utilized adhering to the principles of ALARA. COMPARISON: None. FINDINGS: No fractures. No subluxation. Prevertebral soft tissues and the C1-C2 interval are intact. No pneumothorax. Severe calcified plaque within the bilateral carotid bifurcations. IMPRESSION: No fractures within the cervical spine. ACT 112: Negative or not required by law. Electronically signed by: Smooth Thibodeaux M.D. 09/25/2020 3:25 PM Dictated: 09/25/20 1520Transcribed: 09/25/20 1520 XR chest 1V portable HISTORY: fall COMPARISON: Chest 05/15/2020. FINDINGS: No pneumothorax. No pleural effusions. There are low lung findings. The heart remains enlarged. Perihilar and facial/vascular thickening has improved. This likely represents mild congestive change. Bilateral hilar lymphadenopathy persists. Advanced degenerative changes within the left shoulder with flattening of the humeral head suggesting superimposed avascular necrosis. IMPRESSION: 1. Cardiomegaly and mild congestive change. This has slightly improved. 2. Bilateral hilar lymphadenopathy, unchanged. ACT 112: Negative or not required by law. Electronically signed by: Smooth Thibodeaux M.D. 09/25/2020 2:46 PM Dictated: 09/25/20 1444Transcribed: 09/25/[address] DOSE: HISTORY: Head injury. fall TECHNIQUE: Multiaxial CT images of the head were performed without the use of intravenous contrast. Automated exposure control was utilized for this study. A dose lowering technique was utilized adhering to the principles of ALARA. Comparison: Head CT 05/15/2020. Findings: The paranasal sinuses and mastoid air cells are clear. The calvarium and skull base are intact. There is no mass, hematoma, midline shift, acute infarct. White matter hypodensity is nonspecific but suggestive of microvascular ischemic change. The ventricles and sulci demonstrate mild age-related involutional changes. Old small lacunar infarcts within the cerebellar hemispheres, unchanged. Impression: No significant change compared to the prior study. No acute intracranial abnormality. ACT 112: Negative or not required by law. Electronically signed by: Smooth Thibodeaux M.D. 09/25/2020 3:20 PM Dictated: 09/25/20 1518Transcribed: 09/25/20 1518 XR pelvis 1-2V routine CLINICAL HISTORY: fall. Pelvic pain. COMPARISON STUDY: None. FINDINGS: Lucency overlying the left greater trochanter is likely external to the patient. No definite fracture or dislocation within the pelvis or hips. The sacrum appears intact. Mild degenerative changes within the bilateral hips and sacroiliac joints. IMPRESSION: No definite fracture or dislocation within the pelvis or hips. Lucency overlying the left greater trochanter is likely external to the patient. This will be better assessed on the same day abdomen and pelvis CT. ACT 112: Negative or not required by law. Electronically signed by: Smooth Thibodeaux M.D. 09/25/2020 2:44 PM Dictated: 09/25/20 1443Transcribed: 09/25/203 XR chest 1V portable CLINICAL HISTORY: Abnormal chest x-ray. Follow-up study. COMPARISON STUDY: 09/25/2020 FINDINGS: The heart remains enlarged. There are small bilateral pleural effusions. There is persistent but improving congestive failure/fluid overload. There is decreased hilar fullness. There is evidence for right shoulder calcific tendinopathy. There are advanced arthritic changes within the left shoulder. There is a nonspecific 13 mm left midlung zone opacity. While likely atelectatic or postinflammatory, this should be reevaluated on subsequent films to exclude a true nodule. IMPRESSION: 1. Persistent but improving congestive failure/fluid overload with small bilateral pleural effusions 2. Nonspecific 13 mm left midlung zone opacity. This should be reevaluated on subsequent films to exclude an underlying true nodule ACT 112: Negative or not required by law. Electronically signed by: Pete Beltrán M.D. 09/30/2020 11:50 AM Dictated: 09/30/20 1147Transcribed: 09/30/20 1147 Hospital Course (1) Fall: (2) Ambulatory dysfunction: Patient presented to the ED after an episode of fall. She denies hitting her head or losing any consciousness. CT abdomen/pelvis/cervical spine showed no acute traumatic process within the abdomen or pelvis. CT head showed no significant change compared to the prior study. No acute intracranial abnormality. Continue PT/OT Worked with PT during this hospital stay and needs a lot of assistance, patient is quite debilitated. Daughter at first was not interested to rehab or SNF, but now she is considering a short stay to rehab or snf Palliative care on board for goal of care . Fall precaution (3) Heart failure due to valvular disease: (4) Severe aortic stenosis: (5) Severe mitral regurgitation: Acute on chronic diastolic heart failure exacerbation Noted to have significant edema of the lower extremities. Chest x-ray with cardiomegaly and mild congestive change, CT showing mild pulmonary edema with cardiomegaly and small bilateral pleural effusions, groundglass densities at the lung bases likely secondary to pulmonary edema BNP of roughly 9500. Patient denies any fever. WBC is within normal limit. Calcitonin is not concerning. No indication for antibiotics at this time. Adequate urine output. Continue IV Lasix 40 mg daily. Gave additional 20 IV this on (09/29) continue monitor daily BMP. Monitor I's and O's and daily weight Cardiology following, appreciate their input Patient was started on spironolactone Transitioned to PO lasix 80 bid Continue Lasix 80mg BID and spironolactone 25 mg daily Chronic Atrial fibrillation Rate controlled. Continue metoprolol. There was a 3.6-second pause noted on telemetry, and therefore digoxin was stopped. No more pauses recorded. Continue Coumadin anticoagulation. Monitor INR Recent history of UTI Per chart review, patient was on ciprofloxacin, patient reports finishing antibiotic course Repeat U/A negative. SALOME - resolved -Continue to closely monitor BMP while diuresing Diabetes mellitus type 2 -hemoglobin A1c of 6.4% in 04/24 -Hold home Metformin, sliding scale insulin while inpatient, continue to monitor blood glucose Anemia Hgb 8-9, overall stable, at baseline. No signs of active bleeding, monitor with daily CBC - cont. multivitamin, vit. B12, folic acid, iron suppl. Lung Nodule CT showed a 1.1 cm nodular density within the base the right lower lobe. Will need [address] follow-up recommended to ensure resolution. DVT Ppx: Coumadin Code status: DNR/DNI -discussed with the patient at the bedside. Patient was consulted by palliative medicine at the last admission in May, at that time CODE STATUS changed. PCP: Dr. Campbell Disposition Discharge to placement today Total Time Total Time Spent Total Time Spent (In Minutes): 35 minutes Total Time Includes: Examination of the Patient, Discharge Planning, Medication Reconciliation, Communication With Other Providers and Other Discharge Plan Discharge Items Patient Disposition: Transfer Long Term Fac Reason For Visit: CHF SOB Discharge Diagnosis: Fall: Ambulatory dysfunction: Heart failure due to valvular disease: Severe aortic stenosis: Severe mitral regurgitation: Acute on chronic diastolic heart failure exacerbation Chronic Atrial fibrillation Recent history of UTI Acute Kidney Injury Diabetes mellitus type 2 Anemia Lung Nodule Activity: Resume your previous activity Non-emergency contact: Primary Care Provider Call non-emergency contact if: you have any medication questions Follow-up/Referrals: Fawn Evans MD [Primary Care Provider] - Diet: Carb Consistent or DM2 Addtl Attending Provider Instructions: Follow up with your primary care provider once discharge from rehab Continue physical and occupational therapy Check BMP in 1 week to monitor electrolytes and renal function while on lasix and spironolactone Follow up with the coumadin clinic to monitor your PT/INR (INR 3.6 today) Repeat Cat scan of the chest in 3-4 months to follow on the lung nodule Metoprolol can be titrated up if Heat rate not control Fall precaution Pending Studies at Discharge: No Stand-Alone Forms: My [employer] Skilled Items Patient informed of condition?: Yes DNR: Yes Discharge Level of Care: Skilled Communicable Disease: No Discharge Prognosis: Stable Lines: None Urinary Catheter: No Medications and DC Order Prescriptions: New spironolactone 25 mg Tablet 25 mg PO QAM Qty: 30 RF: 0 Continued metformin 500 mg tablet 1,000 mg PO BID RF: 0 cyanocobalamin (vitamin B-12) 100 mcg tablet 100 mcg PO QAM RF: 0 ferrous sulfate 325 mg (65 mg iron) tablet 325 mg PO BID RF: 0 levothyroxine 125 mcg tablet 125 mcg PO QAM RF: 0 gabapentin 100 mg capsule 100 mg PO BID RF: 0 fluticasone propionate 50 mcg/actuation spray,suspension 1 spray intranasal DAILY RF: 0 atorvastatin 20 mg tablet 20 mg PO DAILY RF: 0 pantoprazole 40 mg tablet,delayed release (DR/EC) 40 mg PO BID RF: 0 fluoxetine 20 mg capsule 20 mg PO DAILY RF: 0 ascorbic acid (vitamin C) 500 mg Tablet 1,000 mg PO DAILY RF: 0 loperamide 2 mg Tablet 2 mg PO QID PRN (Reason: Diarrhea) RF: 0 furosemide 80 mg tablet 80 mg PO BID RF: 0 Changed metoprolol succinate 50 mg tablet extended release 24 hr 75 mg PO DAILY 30 Days Qty: 45 RF: 0 potassium chloride 10 mEq tablet extended release 10 meq PO DAILY Qty: 30 RF: 0 warfarin 5 mg Tablet 5 mg PO DAILY Qty: 30 RF: 0 Discontinued warfarin 7.5 mg Tablet 7.5 mg PO MOFR@1600 RF: 0 digoxin 125 mcg tablet 62.5 mcg PO MOWEFR RF: 0 Discharge Orders: Discharge Order (Routine); Ordered 10/06/20 Ordered By: Andree Zhao Admission Data Admit Date/Time: 09/25/20 17:09 Attending Provider: Andree Zhao Admit Provider: Aron Wlikins Primary Care Provider: Fawn Evans Other Providers: Diane Garza ; [facility] ; [facility] ; [facility] ; Aron Wilkins ; Luis Armando Bledsoe ; Yuly Cha Other Interventions: Discharge Summary Assessment (RN) Last Done: 10/06/20 15:22
[2020-10-06] MEDS: WARFARIN SOD 5 MG TAB PO SCH (15:33)
--- NOTE | 2020-10-06 20:21 | Hospitalist Progress Note ---
Date of Service October 06, 2020 Assessment & Plan (1) Fall: (2) Ambulatory dysfunction: Patient presented to the ED after an episode of fall. She denies hitting her head or losing any consciousness. CT abdomen/pelvis/cervical spine showed no acute traumatic process within the abdomen or pelvis. CT head showed no significant change compared to the prior study. No acute intracranial abnormality. Continue PT/OT Worked with PT during this hospital stay and needs a lot of assistance, patient is quite debilitated. Daughter at first was not interested to rehab or SNF, but now she is considering a short stay to rehab or snf Palliative care on board for goal of care . Fall precaution (3) Heart failure due to valvular disease: (4) Severe aortic stenosis: (5) Severe mitral regurgitation: Acute on chronic diastolic heart failure exacerbation Noted to have significant edema of the lower extremities. Chest x-ray with cardiomegaly and mild congestive change, CT showing mild pulmonary edema with cardiomegaly and small bilateral pleural effusions, groundglass densities at the lung bases likely secondary to pulmonary edema BNP of roughly 9500. Patient denies any fever. WBC is within normal limit. Calcitonin is not concerning. No indication for antibiotics at this time. Adequate urine output. Continue IV Lasix 40 mg daily. Gave additional 20 IV this on (09/29) continue monitor daily BMP. Monitor I's and O's and daily weight Cardiology following, appreciate their input Patient was started on spironolactone Transitioned to PO lasix 80 bid Continue Lasix 80mg BID and spironolactone 25 mg daily Chronic Atrial fibrillation Rate controlled. Continue metoprolol. There was a 3.6-second pause noted on telemetry, and therefore digoxin was stopped. No more pauses recorded. Continue Coumadin anticoagulation. Monitor INR Recent history of UTI Per chart review, patient was on ciprofloxacin, patient reports finishing antibiotic course Repeat U/A negative. SALOME - resolved -Continue to closely monitor BMP while diuresing Diabetes mellitus type 2 -hemoglobin A1c of 6.4% in 04/24 -Hold home Metformin, sliding scale insulin while inpatient, continue to monitor blood glucose Anemia Hgb 8-9, overall stable, at baseline. No signs of active bleeding, monitor with daily CBC - cont. multivitamin, vit. B12, folic acid, iron suppl. Lung Nodule CT showed a 1.1 cm nodular density within the base the right lower lobe. Will need [address] follow-up recommended to ensure resolution. DVT Ppx: Coumadin Code status: DNR/DNI -discussed with the patient at the bedside. Patient was consulted by palliative medicine at the last admission in May, at that time CODE STATUS changed. PCP: Dr. Campbell Disposition Waiting for placement Admission and Anticipated Discharge Date Admission Date: September 25, 2020 Physical Exam Physical Exam: General- No acute distress Head- atraumatic Eyes- PERRL, EOMI, ENT- oropharynx clear Neck- supple, no JVD Lungs- Diminished BS Heart- irregular rhythm; +murmur Abdomen- normal bowel sounds, soft, nontender Extremities- no calf tenderness Neuro- alert, oriented x 3; PERRL, EOMI; no facial palsy; no dysarthria Skin- warm & dry Results & Data Results & Data ([facility]) Vital Signs (Past 12 Hours) Vital Signs Temp Pulse Pulse Pulse Pulse Resp BP 10/06/20 15:22 37.1 C 90 85 93 H 16 104/69 10/06/20 14:57 37.1 C 85 16 104/69 10/06/20 11:28 37 C 93 H 18 10/06/20 09:00 113 H BP Pulse Ox 10/06/20 15:22 103/72 100 10/06/20 14:57 100 10/06/20 11:28 103/72 97 10/06/20 09:00 (1) Fall Encounter type: initial encounter Qualified Code(s): W19.XXXA - Unspecified fall, initial encounter
[2020-10-07] MEDS: LEVOTHYROXINE SODIUM 125 MCG TABLET PO SCH (06:14)
[2020-10-07 08:30] LABS: INR 3.6 (0.9-1.1); Prothrombin Time 32.8 Seconds (9.0-12.0)
[2020-10-07] MEDS: guaiFENesin 600 MG TABCR PO SCH (09:32)
[2020-10-07] MEDS: GABAPENTIN 100 MG CAP PO SCH (09:33)
[2020-10-07] MEDS: SPIRONOLACTONE 25 MG TAB PO SCH (09:33)
[2020-10-07] MEDS: PANTOprazole 40 MG TAB PO SCH (09:33)
[2020-10-07] MEDS: MULTIVITAMIN TAB PO SCH (09:33)
[2020-10-07] MEDS: FUROSEMIDE 80 MG TAB PO SCH (09:33)
[2020-10-07] MEDS: ATORVASTATIN 20 MG TAB PO SCH (09:33)
[2020-10-07] MEDS: FLUoxetine HCL 20 MG CAP PO SCH (09:33)
[2020-10-07] MEDS: ASCORBIC ACID 500 MG TAB PO SCH (09:33)
[2020-10-07] MEDS: FOLIC ACID 1 MG TAB PO SCH (09:33)
[2020-10-07] MEDS: CYANOCOBALAMIN 500 MCG TABLET (VITAMIN B-12) PO SCH (09:33)
[2020-10-07] MEDS: FERROUS SULFATE 325 MG TAB PO SCH (09:33)
[2020-10-07] MEDS: METOPROLOL SUCC 50MG EXT REL TAB PO SCH (09:33)
[2020-10-07] MEDS: FLUTICASONE PROPIONATE NA SPR 16 GM BTL SCH (09:40)
== END 2020-10-07 10:52 | DRG 291 ==
LOC: ED 12:55 → SUATTDRO 17:09 → 2N 17:09 → 2W 10-06 20:06